=== PATIENT | female | born 1970 | race Caucasian/White ===

== ENCOUNTER 2022-08-19 11:12 | Outpatient (REF) | payer OTHER, SELFPAY ==
[2022-08-22 20:10] LABS: Age Gdln ACOG Testing Note (.); HPV Aptima Negative (Negative); IGP, Aptima HPV, rfx 16/18,45 Note (.)
== END 2022-08-19 11:13 | disposition home or self-care (01) ==
LOC: LAB 11:12
PROVIDERS: Visit Provider Obstetrics & Gynecology
DX: Z01.419 Encounter for gynecological examination (general) (routine) without abnormal findings (principal)
CPT/HCPCS: 87624; G0145

== ENCOUNTER 2023-02-26 10:06 | Outpatient (OUT) | payer OTHER, SELFPAY ==
--- NOTE | 2023-02-26 10:30 | MM_ITS ---
Patient Name: RENATO ELLSWORTH MR#: [id number] : 1970 Exam Date: 02/26/2023 Ordering Doctor: DR Jonathan Harris . RADIOLOGY REPORT PROCEDURE: MM TOMOSYNTHESIS SCREENING BI COMPARISON: MG MAMM SCREEN 3D KEIKO CAD, 11/06/2021. MG MAMM SCREEN 3D KEIKO CAD, 10/09/2020. MG MAMM KEIKO DIAG W CAD, 08/20/2019. MG MAMM KEIKO SCRN W CAD DIG, 02/22/2013. INDICATIONS: screening Calculator Name NCI Breast Cancer Risk Assessment Tool 5 Year Breast Cancer Risk 3.00% Lifetime Breast Cancer Risk 23.80% Personal Breast Cancer No Personal Ovarian Cancer No Treatments None Family Cancers Grandfather-paternal with brain,liver cancer at age 60; Sister with breast cancer at age 45; Grandmother-maternal with colon cancer at age 70. LOCATION: [facility] BREAST COMPOSITION: Heterogeneously dense,which may obscure small masses. FINDINGS: DIAGNOSTIC CATEGORY 0--INCOMPLETE: NEED ADDITIONAL IMAGING EVALUATION. RIGHT BREAST: No significant suspicious finding. No significant change has occurred. LEFT BREAST: 6 mm mass versus cyst within anterior breast 6 o'clock position, just inferior to nipple line. Spot magnification views and ultrasound evaluation recommended. RECOMMENDATIONS: ADDITIONAL MAMMOGRAPHIC VIEWS REQUIRED: LEFT BREAST - LEFT CRANIOCAUDAL SPOT MAGNIFICATION VIEW - LEFT OBLIQUE SPOT MAGNIFICATION VIEW - ULTRASOUND: LEFT BREAST PLEASE NOTE: A NORMAL MAMMOGRAM DOES NOT EXCLUDE THE POSSIBILITY OF BREAST CANCER. A CLINICALLY SUSPICIOUS PALPABLE LUMP SHOULD BE BIOPSIED. Dictated by: Alek Cortes M.D. on 02/27/2023 at 07:45 Approved by: Alek Cortes M.D. on 02/27/2023 at 08:35
--- NOTE | 2023-02-26 10:40 | XR_ITS ---
[address] [address] Patient Name: RENATO ELLSWORTH MRN: [id number] date: 1970 Sex: F Assigned Patient Location: [facility] Current Patient Location: [facility] Accession/Order Number: [id number] Exam Date: 02/26/2023 10:30 Report Date: 02/26/2023 11:55 At the request of: PARIS CERDA Procedure: XR DEXA axial skeleton EXAMINATION: XR DEXA axial skeleton HISTORY: Asymptomatic menopausal state Z78.0 COMPARISON: No relevant comparison available. TECHNIQUE: Dual-energy X-ray absorptiometry (DXA) was performed. FINDINGS: SPINE ANALYSIS: Average bone mineral density is 1.218 g/cm2. T-score (standard deviation relative to young adult mean): 0.3 . HIP ANALYSIS: Lowest bone mineral density is within the left femoral neck, 0.898 g/cm2. T-score (standard deviation relative to young adult mean): -1.0 . XR/XR DEXA axial skeleton IMPRESSION: [employer] Classification: Normal - Low Fracture Risk Electronically authenticated by: JUANCHO OWENS Date: 02/26/2023 11:55
== END 2023-02-26 10:07 | disposition home or self-care (01) ==
LOC: MAMMO 10:06
PROVIDERS: PCP Internal Medicine; Visit Provider Obstetrics & Gynecology
DX: Z12.31 Encounter for screening mammogram for malignant neoplasm of breast (principal); Z78.0 Asymptomatic menopausal state; Z80.8 Family history of malignant neoplasm of other organs or systems; Z80.3 Family history of malignant neoplasm of breast; Z80.0 Family history of malignant neoplasm of digestive organs
CPT/HCPCS: 77063; 77067; 77080

== ENCOUNTER 2023-03-19 08:00 | Outpatient (OUT) | payer OTHER, SELFPAY ==
--- NOTE | 2023-03-19 08:03 | MM_ITS ---
Patient Name: RENATO ELLSWORTH MR#: [id number] : 1970 Exam Date: 03/19/2023 Ordering Doctor: DR Jonathan Harris . RADIOLOGY REPORT PROCEDURE: MM DIAGNOSTIC MAMMO UNILAT LT, 03/19/2023, 08:04 US BREAST LT LIMITED, 03/19/2023, 08:21 COMPARISON: MM TOMOSYNTHESIS SCREENING BI, 02/26/2023. INDICATIONS: Mass Of Left Breast N63.20, Abnormal Mammogram Calculator Name NCI Breast Cancer Risk Assessment Tool 5 Year Breast Cancer Risk 3.00% Lifetime Breast Cancer Risk 23.80% Personal Breast Cancer No Personal Ovarian Cancer No Treatments None Family Cancers Grandfather-paternal with brain,liver cancer at age 60; Sister with breast cancer at age 45; Grandmother-maternal with colon cancer at age 70. LOCATION: [facility] BREAST COMPOSITION: Heterogeneously dense,which may obscure small masses. FINDINGS: DIAGNOSTIC CATEGORY 3--PROBABLY BENIGN FINDING. THE FOLLOWING FINDING(S) HAS A HIGH PROBABILITY OF A BENIGN ETIOLOGY: Spot compression views of the left breast demonstrate a persistent 6.2 x 4.7 x 6.5 mm oval well-circumscribed nodule. Ultrasound demonstrates at the 6 o'clock position 1 cm from the nipple and 8.0 x 4.2 x 3.8 mm area of anechoic echogenicity with some internal echoes and no definite blood flow. A complex cyst is favored however this lesion is taller than it is wide and short interval follow-up with repeat ultrasound in 4-6 months is recommended to document stability. RECOMMENDATIONS: SHORT TERM FOLLOW-UP ULTRASOUND LEFT BREAST IN 6 MONTHS. PLEASE NOTE: A NORMAL MAMMOGRAM DOES NOT EXCLUDE THE POSSIBILITY OF BREAST CANCER. A CLINICALLY SUSPICIOUS PALPABLE LUMP SHOULD BE BIOPSIED. Dictated by: Saul Mary MD on 03/19/2023 at 08:35 Approved by: Saul Mary MD on 03/19/2023 at 08:41
--- OUTSIDE RECORDS SUMMARY | 2023-03-19 08:04 | XMS_ITS | CCD ---
Author Name Unknown Address [address] [place] [address] [id number] [place] [address] Organization [facility] Care Team Providers Care Operating Room Aide Name Role Phone Unavailable Primary Care Provider Denise HOBBS, DR OLIVAS Consulting Unavailable BALL, DR OLIVAS Attending Unavailable BALL, DR OLIVAS Admitting Unavailable BALL, DR OLIVAS Primary Care Unavailable ZAIDA, DR TOLEDO Admitting Unavailable ZAIDA, DR TOLEDO Consulting Unavailable ZAIDA, DR TOLEDO Attending Unavailable BALL, DR OLIVAS Primary Care Unavailable ZIEBER, DR ALEK Abreu Consulting Unavailable ZAIDA, DR TOLEDO Attending Unavailable ZAIDA, DR TOLEDO Admitting Unavailable ZAIDA, DR TOLEDO Consulting Unavailable BALL, DR OLIVAS Primary Care Unavailable BALL, DR OLIVAS Consulting Unavailable CHITO, DR OLIVAS Attending Unavailable CHITO, DR OLIVAS Admitting Unavailable CHITO, DR OLIVAS Primary Care Unavailable Chito, Vitaliy Unavailable Allergies Allergy Classification Reported Allergen(s) Allergy Type Date of Onset Reaction(s) Facility (1 source) Adhesive bandage Drug allergy (disorder) 5 [facility] Repository (1 source) Meperidine Drug Allergy 5 [facility]ository (1 source) Sulfonamides (Antibiotic) Drug allergy (disorder) 5 [facility] Repository (1 source) Meperidine Drug Allergy vomiting [facility] Other (1 source) Sulfacetamide Drug Allergy hives [facility] Other Medications Current Medications Medication Drug Class(es) Dates Sig (Normalized) Sig (Original) 3 ML semaglutide 1.34 MG/ML Pen Injector [Ozempic] (1 source) Start: 07-04-2022 inject 1 mg by subcutaneous injection every week Ozempic (1 MG/DOSE) 4 MG/3ML 1 MG Subcutaneous weekly July, Active calcium carbonate 500 mg chewable tablet (1 source) take 1 tablet by mouth every twenty-four hours Tums 500 MG 1 tablet Orally Once a day Active CPAP Machine (1 source) CPAP Machine Active doxycycline hyclate 100 mg oral capsule (1 source) Tetracycline-class Drug Start: 09-17-2022 take 1 capsule by mouth twice daily Doxycycline Hyclate 100 MG 1 capsule Orally twice daily for 7 days Aug, Active Ibuprofen (1 source) Nonsteroidal Anti-inflammatory Drug Motrin Active loratadine 10 mg oral tablet (1 source) take 1 tablet by mouth once daily Loratadine 10 MG 1 tablet Orally Once a day Active probiotic (1 source) probiotic as directed Active 24 hr venlafaxine 37.5 mg extended release oral capsule (1 source) Serotonin and Norepinephrine Reuptake Inhibitor take 1 capsule by mouth every twenty-four hours Effexor XR 37.5 MG 1 capsule with food Orally Once a day Active Problems Active Problems Problem Classification Problem Date Documented Date Episodic/Chronic Conditions associated with dizziness or vertigo (1 source) Benign paroxysmal positional vertigo; Translations: [Benign paroxysmal vertigo, unspecified ear] Episodic Diabetes mellitus with complications (1 source) Type 2 diabetes mellitus; Translations: [Type 2 diabetes mellitus with hyperglycemia] Chronic Diabetes mellitus without complication (1 source) Impaired fasting glycemia; Translations: [Impaired fasting glucose] Episodic Disorders of lipid metabolism (1 source) Pure hypercholesterolemia; Translations: [Familial hypercholesterolemia] Chronic Immunizations and screening for infectious disease (1 source) Encounter for screening for human papillomavirus (HPV); Translations: [ENC SCREENING HUMAN PAPILLOMAVIRUS] Onset: 08-17-2021 Episodic Other and unspecified benign neoplasm (2 sources) Other benign neoplasm of skin of scalp and neck; Translations: [Dermoid cyst of scalp] Episodic Other circulatory disease (1 source) Elevated blood-pressure reading without diagnosis of hypertension; Translations: [Elevated blood-pressure reading, without diagnosis of hypertension] Episodic Other diseases of veins and lymphatics (1 source) Peripheral venous insufficiency; Translations: [Venous insufficiency (chronic) (peripheral)] Episodic Other liver diseases (3 sources) Fatty (change of) liver, not elsewhere classified; Translations: [Nonalcoholic fatty liver disease] Chronic Other nutritional; endocrine; and metabolic disorders (1 source) Body mass index 30+ - obesity; Translations: [Body mass index (BMI) 35.0-35.9, adult] Chronic Other screening for suspected conditions (not mental disorders or infectious disease) (10 sources) Encounter for screening mammogram for malignant neoplasm of breast; Translations: [Encounter for screening for malignant neoplasm of cervix] Onset: 08-16-2021 Episodic Other skin disorders (1 source) Sebaceous cyst Episodic Otitis media and related conditions (1 source) Dysfunction of bilateral eustachian tubes; Translations: [Other specified disorders of Eustachian tube, bilateral] Episodic Residual codes; unclassified (1 source) Family history of malignant neoplasm of breast; Translations: [FAMILY HX MALIG NEOPLASM OF BREAST] Onset: 11-11-2021 Episodic Residual codes; unclassified (1 source) Family history of malignant neoplasm of digestive organs; Translations: [FAM HX MALIG NEOPLASM DIGESTIV ORGN] Onset: 11-11-2021 Episodic Skin and subcutaneous tissue infections (2 sources) Localized infection of skin AND/OR subcutaneous tissue; Translations: [Local infection of the skin and subcutaneous tissue, unspecified] Episodic Unclassified (3 sources) CONTACT W/AND (SUSP) EXPOS COVID-19; Translations: [CONTACT W/AND (SUSP) EXPOS COVID-19] Onset: 04-05-2021 Past or Other Problems Problem Classification Problem Date Documented Da te Episodic/Chronic Unclassified (1 source) CONTACT W/AND (SUSP) EXPOS COVID-19; Translations: [CONTACT W/AND (SUSP) EXPOS COVID-19] Onset: 04-03-2021 Results Test Name Value Interpretation Reference Range Facility MG MAMM SCREEN 3D KEIKO CADon 11-06-2021 MG MAMM SCREEN 3D KEIKO CAD Patient: RENATO ELLSWORTH Exam Date: 11/06/2021 : 1970 Gender:F Ordering : DR PARIS CERDA . Admission #: [id number] Family : Order #: [id number] CLICK HERE TO VIEW EXAM RADIOLOGY REPORT PROCEDURE: MAMMOGRAM SCREENING 3D BILATERAL CAD COMPARISON: MG MAMM SCREEN 3D KEIKO CAD, 10/09/2020. MG MAMM KEIKO DIAG W CAD, 08/20/2019. INDICATIONS: Screening mammography Calculator Name NCI Breast Cancer Risk Assessment Tool 5 Year Breast Cancer Risk 2.30% Lifetime Breast Cancer Risk 19.90% Personal Breast Cancer No Personal Ovarian Cancer No Treatments None Family Cancers Sister with breast cancer at age 45; Grandmother-maternal with colon cancer at age 70. LOCATION: [facility] BREAST COMPOSITION: Heterogeneously dense,which may obscure small masses. FINDINGS: DIAGNOSTIC CATEGORY 1--NEGATIVE. RIGHT BREAST: No significant suspicious finding. No significant change has occurred. LEFT BREAST: No significant suspicious finding. Biopsy marker clip within the lower-outer quadrant. No significant change has occurred. RECOMMENDATIONS: ROUTINE MAMMOGRAM AND CLINICAL EVALUATION IN 12 MONTHS. PLEASE NOTE: A NORMAL MAMMOGRAM DOES NOT EXCLUDE THE POSSIBILITY OF BREAST CANCER. A CLINICALLY SUSPICIOUS PALPABLE LUMP SHOULD BE BIOPSIED. Dictated by: Alek Cortes M.D. on 11/07/2021 at 10:44 Approved by: Aelk Cortes M.D. on 11/07/2021 at 10:48 Normal [facility] PAP ACOG PANEL 2: 30 to 65on 08-22-2021 . . Normal [facility] Comment on above: Result Comment: Perf ormed at: WB Performed By: #### [id number] #### [facility] [address] [address] [address] Josey Springer DIAGNOSIS: Comment Normal [facility] Comment on above: Result Comment: NEGA TIVE FOR INTRAEPITHELIAL LESION OR MALIGNANCY. THIS SPECIMEN WAS RESCREENED PART OF OUR DERRICK FOLLOWER PROGRAM. Performed at: WB Performed By: #### [id number] #### [facility] [address] [address] [address] Josey Springer HPV Aptima Negative Normal Negative [facility] Comment on above: Result Comment: This nucleic acid amplification test detects fourteen high-risk HPV types (16,18,31,33,35,39,45,51,52,56,58,59,66,68) without differentiation. Performed at: =G Performed By: #### [id number] #### [facility] [address] [address] [address] Josey Springer Methodology: Comment Normal [facility] Comment on above: Result Comment: This liquid based ThinPrep(R) pap test was screened with the use of an image guided system. Performed at: WB Performed By: #### [id number] #### [facility] [address] [address] [address] Josey Springer Note: Comment Normal [facility] Comment on above: Result Comment: The Pap smear is a screening test designed to aid in the detection of premalignant and malignant conditions of the uterine cervix. It is not a diagnostic procedure and should not be used as the sole means of detecting cervical cancer. Both false-positive and false-negative reports do occur. . Performed at: WB Performed By: #### [id number] #### [facility] [address] [place] [address] Dr. Josey Springer Performed by: Comment Normal [facility] Comment on above: Result Comment: Celestine Foreman, Make Up Worker (ASCP) Performed at: WB Performed By: #### [id number] #### [facility] [address] [place] [address] Dr. Josey Springer QC reviewed by: Comment Normal [facility] Comment on above: Result Comment: Edelmira Muñoz, Supervisory Make Up Worker (ASCP) Performed at: WB Performed By: #### [id number] #### [facility] [address] [place] [address] Dr. Josey Springer Specimen adequacy: Comment Normal [facility] Comment on above: Result Comment: Sati sfactory for evaluation. No endocervical component is identified. Performed at: WB Performed By: #### [id number] #### [facility] [address] [place] [address] Dr. Josey Springer Age Gdln ACOG Testing 30-65 Normal [facility] Comment on above: Performed By: #### [id number] #### [facility] [address] [place] [address] Dr. Josey Springer Covid-19 PCR (CVDTB)on SARS-CoV-2 (COVID-19) RNA SHANTA+probe Ql (Unsp spec) Not detected Normal NOT DETECTED [facility] Comment on above: Result Comment: This test is not yet approved or cleared by the [place] FDA. When there are no FDA-approved or cleared tests available, and other criteria are met, FDA can make tests available under an emergency access mechanism called an Emergency Use Authorization (EUA). The EUA for this test is supported by the Showcase Trimmer of Health and Human Service's (HHS's) declaration that circumstances exist to justify the emergency use of in vitro diagnostics for the detection and/or diagnosis of the virus that causes COVID-19. This EUA will remain in effect (meaning this test can be used) for the duration of the COVID-19 declaration justifying emergency of IVDs, unless it is terminated or revoked by FDA (after which the test may no longer be used). When diagnostic testing is negative, the possibility of a false negative should be considered in the context of a patient's recent exposures and the presence of clinical signs and symptoms consistent with SARS-CoV-2. Performed By: #### C [facility] #### [facility] [address] [place] [address] Dr. Josey Springer Glucose Poct Glucometerson 1 04-05-2020 Glucose [Mass/Vol] 101 mg/dL Normal [facility] Comment on above: Result Comment: [facility] Glucose Reference Range is dependent on time and content of last meal. Glucose of more than 200 mg/dL in a nonstressed, ambulatory subject supports the diagnosis of Diabetes Mellitus. PERFORMED BY: [place] [address] PATHOLOGIST [employer] IVA MALIN M.D. Performed By: #### G HOSSEIN #### Point of Care testing , COVID-19 Antigenon 1 COVID-19 Antigen Healthcare Worker?: N Lindsay Reference Lindsay Reference Negative SARS-CoV+SARS-CoV-2 (COVID-19) Ag [Presence] in Respiratory specimen by Rapid immunoassay Negative for SARS Antigen by TAMANNA COVID19 Blank Space Lindsay Disclaimer Negative results, from patients with symptom Lindsay Disclaimer onset beyond five days, should be treated as Lindsay Disclaimer presumptive and confirmation with a molecular Lindsay Disclaimer assay, if necessary, for patient management, Lindsay Disclaimer may be performed. Negative results do not rule Linsday Disclaimer out COVID-19 and should not be used as the sole Lindsay Disclaimer basis for treatment or patient management Lindsay Disclaimer decisions, including infection control decisions. Lindsay Disclaimer Negative results should be considered in the Lindsay Disclaimer context of a patient's recent exposures, history Lindsay Disclaimer and the presence of clinical signs and symptoms Lindsay Disclaimer consistent with COVID-19. COVID19 Blank Space Lindsay Disclaimer The Lindsay SARS Antigen TAMANNA does not differentiate Lindsay Disclaimer between SARS-CoV and SARS-CoV-2. COVID19 Blank Space Lindsay Disclaimer This test was developed and its performance Lindsay Disclaimer characteristic determined by [employer] and Lindsay Disclaimer validated at [facility]. This Lindsay Disclaimer test has not been FDA cleared or approved. This Lindsay Disclaimer test has been authorized by FDA under an Emergency Use Lindsay Disclaimer Authorization (EUA). This test has been validated Lindsay Disclaimer in accordance with the FDA's Guidance Document (Policy Lindsay Disclaimer for Diagnostics Testing in Laboratories Certified to Lindsay Disclaimer Perform High Complexity Testing under CLIA prior to Lindsay Disclaimer Emergency Use Authorization for Coronavirus Lindsay Disclaimer is during the Public Health Emergency) Lindsay Disclaimer issued on June 03, 2019. This test is only authorized Lindsay Disclaimer for the duration of time the declaration that Lindsay Disclaimer circumstances exist justifying the authorization of Lindsay Disclaimer the emergency use of in vitro diagnostic tests for Lindsay Disclaimer detection of SARS-CoV-2 virus and/or diagnosis of Lindsay Disclaimer COVID-19 infection under section 564(b)(1) of the Lindsay Disclaimer Act, 21 U.S.C. 360bbb-3(b)(1), unless the Lindsay Disclaimer authorization is terminated or revoked sooner. PERFORMED BY: [place] [address] PATHOLOGIST [employer] IVA MALIN M.D. Normal [facility] Comment on above: Performed By: #### C OVID-19 LINDSAY, SOFIANEG #### [address] Lindsay Ag Negativeon 02-01-20 21 Lindsay Ag Negative Negative Normal Negative [facility] Comment on above: Result Comment: This is a duplicate Lindsay SARS Antigen (TAMANNA) result to be used for statistical tracking purpose only. PERFORMED BY: [place] [address] PATHOLOGIST [employer] IVA MALIN M.D. Performed By: #### C OVID-19 LINDSAY, SOFIANEG #### [facility] [address] [place] [address] CBC AUTO DIFFon 01-09-2021 BASO # 0.0 103/ul Normal 0.0-0.1 [facility] Comment on above: Performed By: #### C BC #### [facility] [address] [place] [address] Dr. Josey Springer Basophils/100 WBC (Bld) 0.5 % Normal 0.2-2.0 [facility] Comment on above: Performed By: #### C BC #### [facility] [address] [place] [address] Dr. Josey Springer EO # 0.2 103/ul Normal 0.0-0.7 [facility] Comment on above: Performed By: #### C BC #### [facility] [address] [place] [address] Dr. Josey Springer Eosinophils/100 WBC (Bld) 2.2 % Normal 0.9-7.0 [facility] Comment on above: Performed By: #### C BC #### [facility] [address] [place] [address] Dr. Josey Springer Erythrocyte distribution width (RBC) [Ratio] 12.2 % Normal 11.0-15.0 [facility] Comment on above: Performed By: #### C BC #### [facility] [address] [place] [address] Dr. Josey Springer Hematocrit (Bld) [Volume fraction] 41.4 % Normal 36.0-48.0 [facility] Comment on above: Performed By: #### C BC #### [facility] [address] [place] [address] Dr. Josey Springer Hemoglobin (Bld) [Mass/Vol] 13.6 g/dL Normal 12.0-16.0 [facility] Comment on above: Performed By: #### C BC #### [facility] [address] [place] [address] Dr. Josey Springer IG # 0.01 10e3/ul Normal 0.00-0.03 [facility] Comment on above: Performed By: #### C BC #### [facility] [address] [place] [address] Dr. Josey Springer IG % 0.1 % Normal 0.0-0.5 [facility] Comment on above: Performed By: #### C BC #### [facility] [address] [place] [address] Dr. Josey Springer LYMPH # 2.2 103/ul Normal 1.2-3.8 [facility] Comment on above: Performed By: #### C BC #### [facility] [address] [place] [address] Dr. Josey Springer Lymphocytes/100 WBC (Bld) 29.7 % Normal 20.5-60.0 [facility] Comment on above: Performed By: #### C BC #### [facility] [address] [place] [address] Dr. Josey Springer MANUAL DIFF REQ NO Normal [facility] Comment on above: Performed By: #### C BC #### [facility] [address] [place] [address] Dr. Josey Springer MCH (RBC) [Entitic mass] 30.1 pg Normal 26.7-34.0 [facility] Comment on above: Performed By: #### C BC #### [facility] [address] [place] [address] Dr. Josey Springer MCHC (RBC) [Mass/Vol] 32.9 g/dL Normal 29.9-35.2 [facility] Comment on above: Performed By: #### C BC #### [facility] [address] [place] [address] Dr. Josey Springer MCV (RBC) [Entitic vol] 91.6 fL Normal 81.0-99.0 [facility] Comment on above: Performed By: #### C BC #### [facility] [address] [place] [address] Dr. Josey Springer MONO # 0.3 103/ul Normal 0.3-0.8 [facility] Comment on above: Performed By: #### C BC #### [facility] [address] [place] [address] Dr. Josey Springer Monocytes/100 WBC (Bld) 4.2 % Normal 1.7-12.0 [facility] Comment on above: Performed By: #### C BC #### [facility] [address] [place] [address] Dr. Josey Springer NEUT # 4.6 103/ul Normal 1.4-6.5 [facility] Comment on above: Performed By: #### C BC #### [facility] [address] [place] [address] Dr. Josey Springer Neutrophils/100 WBC (Bld) 63.3 % Normal 43.0-75.0 [facility] Comment on above: Performed By: #### C BC #### [facility] [address] [place] [address] Dr. Josey Springer Platelet mean volume (Bld) [Entitic vol] 9.7 fL Normal 9.5-13.5 [facility] Comment on above: Performed By: #### C BC #### [facility] [address] [address] [address] Josey Springer PLT 225 103/ul Normal 150-450 [facility] Comment on above: Performed By: #### C BC #### [facility] [address] [address] [address] Josey Springer RBC 4.52 106/ul Normal 4.20-5.40 [facility] Comment on above: Performed By: #### C BC #### [facility] [address] [address] [address] Josey Springer WBC 7.3 103/ul Normal 4.0-11.0 [facility] Comment on above: Performed By: #### C BC #### [facility] [address] [address] [address] Josey Springer GLYCOHEMOGLOBIN A1Con 2020 ADA RECOMMENDATION ADA THERAPEUTIC TARGET 6.0 - 7.0 ACTION SUGGESTED > 7.0 Normal [facility] Comment on above: Performed By: #### A 1C #### [facility] [address] [place] [address] Dr. Josey Springer Glucose [Mass/Vol] 131 mg/dL Normal [facility] Comment on above: Performed By: #### A 1C #### [facility] [address] [place] [address] Dr. Josey Springer HbA1c (Bld) [Mass fraction] 6.2 % Critically high <=6.0 [facility] Comment on above: Performed By: #### A 1C #### [facility] [address] [place] [address] Dr. Josey Springer LIPID PROFILEon 01-09-2021 CHOL-HDL RATIO NORM SEE BELOW Normal [facility] Comment on above: Result Comment: 3.3 - 4.4 LOW RISK 4.4 - 7.1 AVERAGE RISK 7.1 - 11.0 MODERATE RISK >11.0 HIGH RISK Performed By: #### C MP, TSH, LIPID #### [facility] [address] [address] [address] Josey Springer Cholesterol [Mass/Vol] 240 mg/dL Critically high <=200 [facility] Comment on above: Performed By: #### C MP, TSH, LIPID #### [facility] [address] [address] [address] Josey Springer Cholesterol in HDL [Mass/Vol] 66 mg/dL Normal [facility] Comment on above: Performed By: #### C MP, TSH, LIPID #### [facility] [address] [address] [address] Josey Springer Cholesterol in LDL [Mass/Vol] 136.6 mg/dL Normal [facility] Comment on above: Performed By: #### C MP, TSH, LIPID #### [facility] [address] [address] [address] Josey Springer Cholesterol.total/Ch olesterol in HDL [Mass ratio] 3.6 {ratio} Normal [facility] Comment on above: Performed By: #### C MP, TSH, LIPID #### [facility] [address] [address] [address] Josey Springer HDL NORMAL > or = 60 mg/dl - LO W CARDIOVASCULAR RISK <40 mg/dl - HIGH CARDIOVASCULAR RISK Normal [facility] Comment on above: Performed By: #### C MP, TSH, LIPID #### [facility] [address] [address] [address] Josey Springer LDL CALC NORMAL SEE BELOW Normal [facility] Comment on above: Result Comment: <100 mg/dl OPTIMAL 100 - 129 mg/dl NEAR OR ABOVE OPTIMAL 130 - 159 mg/dl BORDERLINE HIGH 160 - 189 mg/dl HIGH >190 mg/dl VERY HIGH Performed By: #### C MP, TSH, LIPID #### [facility] [address] [address] [address] Josey Springer Triglyceride [Mass/Vol] 187 mg/dL Critically high <=150 [facility] Comment on above: Performed By: #### C MP, TSH, LIPID #### [facility] [address] [address] [address] Josey Springer VLDL CALC 37.4 mg/dL Normal [facility] Comment on above: Performed By: #### C MP, TSH, LIPID #### [facility] [address] [address] [address] Josey Springer PROF 14(COMP METB)on 021 Albumin [Mass/Vol] 3.4 g/dL Critically low 3.5-5.0 [facility] Comment on above: Performed By: #### C MP, TSH, LIPID #### [facility] [address] [address] [address] Josey Springer Albumin/Globulin [Mass ratio] 0.8 {ratio} Normal [facility] Comment on above: Performed By: #### C MP, TSH, LIPID #### [facility] [address] [address] [address] Josey Springer ALP [Catalytic activity/Vol] 92 U/L Normal 38-126 [facility] Comment on above: Performed By: #### C MP, TSH, LIPID #### [facility] [address] [address] [address] Josey Springer ALT [Catalytic activity/Vol] 180 U/L Critically high 9-52 [facility] Comment on above: Performed By: #### C MP, TSH, LIPID #### [facility] [address] [address] [address] Josey Springer Anion gap [Moles/Vol] 10.8 mmol/L Normal [facility] Comment on above: Performed By: #### C MP, TSH, LIPID #### [facility] [address] [address] [address] Josey Springer AST [Catalytic activity/Vol] 70 U/L Critically high 14-36 [facility] Comment on above: Performed By: #### C MP, TSH, LIPID #### [facility] [address] [address] [address] Josey Springer Bilirubin [Mass/Vol] 0.4 mg/dL Normal 0.2-1.3 [facility] Comment on above: Performed By: #### C MP, TSH, LIPID #### [facility] [address] [address] [address] Josey Springer Calcium [Mass/Vol] 9.5 mg/dL Normal 8.4-10.2 [facility] Comment on above: Performed By: #### C MP, TSH, LIPID #### [facility] [address] [address] [address] Josey Springer Chloride [Moles/Vol] 102 mmol/L Normal 98-107 [facility] Comment on above: Performed By: #### C MP, TSH, LIPID #### [facility] [address] [address] [address] Josey Springer CO2 [Moles/Vol] 32.7 mmol/L Critically high 22.0-30.0 [facility] Comment on above: Performed By: #### C MP, TSH, LIPID #### [facility] [address] [place] [address] Dr. Josey Springer Creatinine [Mass/Vol] 0.60 mg/dL Normal 0.52-1.04 [facility] Comment on above: Performed By: #### C MP, TSH, LIPID #### [facility] [address] [place] [address] Dr. Josey Springer EGFR-AF CUBAN >60 Normal >=60 [facility] Comment on above: Performed By: #### C MP, TSH, LIPID #### [facility] [address] [place] [address] Dr. Josey Springer EGFR-NON AF CUBAN >60 Normal >=60 [facility] Comment on above: Performed By: #### C MP, TSH, LIPID #### [facility] [address] [place] [address] Dr. Josey Springer Globulin (S) [Mass/Vol] 4.1 g/dL Normal [facility] Comment on above: Performed By: #### C MP, TSH, LIPID #### [facility] [address] [address] [address] Josey Springer Glucose [Mass/Vol] 139 mg/dL Critically high 74-106 [facility] Comment on above: Performed By: #### C MP, TSH, LIPID #### [facility] [address] [place] [address] Dr. Josey Springer Potassium [Moles/Vol] 4.5 mmol/L Normal 3.4-5.0 [facility] Comment on above: Performed By: #### C MP, TSH, LIPID #### [facility] [address] [place] [address] Dr. Josey Springer Protein [Mass/Vol] 7.5 g/dL Normal 6.1-8.2 [facility] Comment on above: Performed By: #### C MP, TSH, LIPID #### [facility] [address] [place] [address] Dr. Josey Springer Sodium [Moles/Vol] 141 mmol/L Normal 137-145 [facility] Comment on above: Performed By: #### C MP, TSH, LIPID #### [facility] [address] [place] [address] Dr. Josey Springer Urea nitrogen [Mass/Vol] 12.0 mg/dL Normal 7.0-17.0 [facility] Comment on above: Performed By: #### C MP, TSH, LIPID #### [facility] [address] [place] [address] Dr. Josey Springer Urea nitrogen/Creatinine [Mass ratio] 20.0 mg/mg Normal [facility] Comment on above: Performed By: #### C MP, TSH, LIPID #### [facility] [address] [place] [address] Dr. Josey Springer TSHon 01-09-2021 TSH 1.819 uIU/mL Normal 0.470-4.680 [facility] Comment on above: Performed By: #### C MP, TSH, LIPID #### [facility] [address] [place] [address] Dr. Josey Springer TSH RANGE SEE BELOW Normal [facility] Comment on above: Result Comment: <0.3 4 UIU/ml HYPERTHYROID 0.34-5.60 UIU/ml EUTHYROID >5.60 UIU/ml HYPOTHYROID Performed By: #### C MP, TSH, LIPID #### [facility] [address] [place] [address] Dr. Josey Springer Vital Signs Date Time Vital Sign Value Performing Clinician Facility 09-17-2022 11:15-0400 Body height 154.94 cm Vitaliy Hobbs Other [facility] Other 09-17-2022 11:15-0400 Body mass index (BMI) [Ratio] 35.18 kg/m2 Vitaliy Chito Other [facility] Other 09-17-2022 11:15-0400 Body weight 84.46 kg Vitaliy Chito Other [facility] Other 09-17-2022 11:15-0400 Diastolic blood pressure 87 mm[Hg] Vitaliy Chito Other [facility] Other 09-17-2022 11:15-0400 Respiratory rate 12 /min Vitaliy Chito Other [facility] Other 09-17-2022 11:15-0400 Systolic blood pressure 136 mm[Hg] Vitaliy Chito Other [facility] Other Encounters Encounter Date Encounter Type Care Provider Facility Start: 09-17-2022 End: 09-17-2022 ambulatory Vitaliy Hobbs Other [facility] Other Start: 09-17-2022 Office outpatient visit 15 minutes [facility] Start: 11-06-2021 End: 11-07-[address] PARIS CERDA Facility:[facility] Start: 08-16-2021 End: 08-16-[address] PARIS CERDA Facility:[facility] Start: 04-03-2021 End: 04-03-[address] VITALIY HOBBS Facility:[facility] Start: 01-13-2021 Encounter for genera l adult medical examination without abnormal findings DR VITALIY HOBBS [facility] Start: 01-09-2021 End: 01-10-[address] VITALIY HOBBS Facility:[facility] Start: 01-09-2021 End: 01-10-2021 Encounter for general adult medical examination without abnormal findings DR VITALIY HOBBS Facility:[facility] Start: 10-30-2019 End: 10-30-2019 Patient encounter procedure Charisma Mazariegos Work Phone: [facility] Start: 10-30-2019 Results Only Charisma Mazariegos Work Phone: Gastroenterology Start: 10-29-2019 End: 10-29-2019 Patient encounter procedure External Provider [facility] Start: 10-29-2019 Results Only External Provider Exter nal-Non[facility] Procedures Date Procedure Procedure Detail Performing Clinician Start: 10-30-2019 PT ED PATIENT INFORMATION Charisma Mazariegos Work Phone: Start: 10-29-2019 EXTERNAL LAB External P rovider Start: 10-29-2019 EXTERNAL IMAGING Educational Fundraising Director al Provider Plan of Treatment Date Care Activity Detail Author Start: 11-02-2019 Influenza vaccination INFLUENZA (#1) [facility] Start: 01-21-2017 DIABETES SCREEN DIABETES SCREEN [facility] Start: 01-21-2017 LIPID SCREEN LIPID SCREEN [facility] Start: 2012 Mammography MAMMOGRAM [facility] Start: 01-21-2002 HPV TESTING HPV TESTING [facility] Start: 01-21-1993 PAP TESTING PAP TESTING [facility] Start: 01-21-1991 Urine microalbumin profile DTAP,TDAP ,TD (1 - Tdap) [facility] Start: 01-21-1990 HEPATITIS C SCREENING HEPATITIS C SC MARTHA [facility] Start: 01-21-1990 HIV SCREENING HIV SCREENING [facility] PT ED PATIENT INFORMATION PT ED PATIENT INFORMATION TONYA 10/30/2019 [facility] Payers Date Payer Category Payer Private Health Insurance [employer] A ETNA CHOICE POS II [id number] 2019-Present POS [id number] 1972 Unknown [id number] 1972 Unknown [id number] 1972 Unknown [id number] 1972 Unknown [id number] 1959 Private Health Insurance [id number] 1957 Unknown [id number] Private Health Insurance [id number] Social History Date Type Detail Facility Tobacco smoking status NHIS Unknown if ev er smoked [facility] Sex Assigned At Not on file [facility] Exposure to SARS-CoV -2 (event) Not sure [facility] Sex Assigned At Sex Assigned At Bir th [facility] Other Evaluation note 09-17-2022 Note Date & Type Note Facility 09-17-2022 Evaluation note Encounter Date Diagnosis Assessment Notes Aug, Sebaceous cyst (ICD-10 - L72.3) Warm compresses. Begin antibiotics _update office in week Aug, Local infection of the skin and subcutaneous tissue, unspecified (ICD-10 - L08.9) Warm compresses, begin antibiotics Aug, Dermoid cyst of scalp (ICD-10 - D23.4) Reassure, no treatment necessary Aug, NAFLD (nonalcoholic fatty liver disease) (ICD-10 - K76.0) Low fat, high protein diet. Reduce calories, increase activity for weight loss [facility] Other History general Narrative - Reported Note Date & Type Note Facility History general Narrative - Reported Type Medical History T2DM Medical History Eustachian tube dysf unction, bilateral Medical History Elevated blood press ure (not hypertension) Medical History BPPV (benign paroxys mal positional vertigo) Medical History Impaired fasting glucose Medical History Hyperlipidemia type II Medical History Chronic venous insufficiency Medical History Nonalcoholic fatty liver disease Medical History Abnormal mammogram of left breas t Surgical History EXPLORATORY LAPAROSC OPY RUPTURED OVARIAN CYST REPAIR-NOT SURE WHICH SIDE/APPENDECTOMY 1998 Surgical History EXPLORATORY LAP Surgical History PARTIAL HYSTERECTOMY WITH ONE OVARY REMAINING Hospitalization History SEE ABOVE [facility] Other Summary Purpose Family History No Family History Records FoundNo Family History Records Found Advance Directives No Advanced Directives Records FoundNo Advanced Directives Records Found Additional Source Comments Source Comments (unrecognize d section and content) In the event this informatio n is protected by the Federal Confidentiality of Alcohol and Drug Abuse Patient Records regulations: The Federal rules restrict any use of the information to criminally investigate or prosecute any alcohol or drug abuse patient[facility] the event this information is protected by the Federal Confidentiality of Alcohol and Drug Abuse Patient Records regulations: The Federal rules restrict any use of the information to criminally investigate or prosecute any alcohol or drug abuse patient.[facility] INFORMATION SOURCE (unrecogn ized section and content) DATE CREATED AUTHOR 04/09/2021 [facility] DATE CREATED AUTHOR AUTHORSoco WALLACE 11/11/2021 [facility] REASON FOR VISIT (unrecogniz ed section and content) spider bite FOR RECORDS PERTAINING TO PATIENTS WHO ARE OR HAVE BEEN ENROLLED IN A CHEMICAL DEPENDENCY/SUBSTANCEABUSE PROGRAM, SOME INFORMATION MAY BE OMITTED. This clinical summary was aggregated from multiple sources. Caution should be exercised in using it in the provision of clinical care. This summary normalizes information from multiple sources, and as a consequence, information in this document may materially change the coding, format and clinical context of patient data. In addition, data may be omitted in some cases. CLINICAL DECISIONS SHOULD BE BASED ON THE PRIMARY CLINICAL RECORDS. [employer] provides no warranty or guarantee of the accuracy or completeness of information in this document.
== END 2023-03-19 08:01 | disposition home or self-care (01) ==
LOC: MAMMO 08:00
PROVIDERS: PCP Internal Medicine; Visit Provider Obstetrics & Gynecology
DX: R92.8 Other abnormal and inconclusive findings on diagnostic imaging of breast (principal); N63.20 Unspecified lump in the left breast, unspecified quadrant; Z80.3 Family history of malignant neoplasm of breast; Z80.0 Family history of malignant neoplasm of digestive organs; Z80.8 Family history of malignant neoplasm of other organs or systems
CPT/HCPCS: 76642; 77065

== ENCOUNTER 2023-07-29 15:06 | Outpatient (OUT) | payer OTHER, SELFPAY ==
--- NOTE | 2023-07-29 15:08 | US_ITS ---
Patient Name: RENATO ELLSWORTH MR#: [id number] : 1970 Exam Date: 07/29/2023 Ordering Doctor: DR Jonathan Harris . RADIOLOGY REPORT PROCEDURE: US BREAST LT LIMITED COMPARISON: MM DIAGNOSTIC MAMMO UNILAT LT, 03/19/2023. US BREAST LT LIMITED, 03/19/2023. INDICATIONS: Mammogram abnormal R92.8 TECHNIQUE: Breast ultrasound was performed, with evaluation focusing only on specific areas of concern. FINDINGS: DIAGNOSTIC CATEGORY 2--BENIGN FINDING. NO CHANGE FROM COMPARISON. Again demonstrated at the 6 o'clock position is an 8.4 x 4.8 x 3.8 mm complex cystic structure taller than it is wide , scattered internal septations and some low-level echoes but no vascularity. I favor a complex cyst. The patient is asked to return to yearly screening mammography with repeat bilateral screening mammogram due February of 2024 RECOMMENDATIONS: ROUTINE MAMMOGRAM AND CLINICAL EVALUATION IN 12 MONTHS. Active recommendations from prior exams: SHORT TERM FOLLOW-UP ULTRASOUND LEFT BREAST IN [#MONTHS] MONTHS. Due on 09/18/2023. PLEASE NOTE: A NORMAL ULTRASOUND EXAMINATION DOES NOT EXCLUDE THE POSSIBILITY OF BREAST CANCER. A CLINICALLY SUSPICIOUS PALPABLE LUMP SHOULD BE BIOPSIED. Dictated by: Saul Mary MD on 07/30/2023 at 08:47 Approved by: Saul Mary MD on 07/30/2023 at 08:50
== END 2023-07-29 15:07 | disposition home or self-care (01) ==
LOC: US 15:06
PROVIDERS: PCP Internal Medicine; Visit Provider Obstetrics & Gynecology
DX: R92.8 Other abnormal and inconclusive findings on diagnostic imaging of breast (principal); N63.20 Unspecified lump in the left breast, unspecified quadrant
CPT/HCPCS: 76642

== ENCOUNTER 2023-08-21 19:31 | Outpatient (REF) | payer OTHER, SELFPAY ==
--- OUTSIDE RECORDS SUMMARY | 2023-08-21 19:34 | XMS_ITS ---
Patient Summarization (C-CDA 2.1 CCD) Created on: August 21, 2023 RENATO ELLSWORTH : 1970 Sex: Female Author Organization Sample organization Care Team Providers Care Web Site Specialist Name Role Phone Unavailable Primary Care Provider [...] Admitting Unavailable ZAIDA, DR TOLEDO Consulting Unavailable CHITO, DR OLIVAS Primary Care Unavailable BALL, DR OLIVAS Consulting Unavailable CHITO, DR OLIVAS Attending Unavailable BALL, DR OLIVAS Admitting Unavailable BALL, DR OLIVAS Primary Care Unavailable Chito, Vitaliy Unavailable Allergies Allergy Classification Reported Allergen(s) Allergy Type Date of Onset Reaction(s) Facility (1 source) Adhesive bandage Drug allergy (disorder) 5 [facility] Repository (1 source) Meperidine Drug Allergy 5 [facility] Repository (1 source) Sulfonamides (Antibiotic) Drug allergy (disorder) 5 [facility] Repository (1 source) Meperidine Drug Allergy vomiting [employer] [facility] [employer] Other (1 source) Sulfacetamide Drug Allergy hives [employer] [facility] [employer] Other Encounters Encounter Date Encounter Type Care Provider Facility Start: 09-17-2022 End: 09-17-2022 ambulatory Vitaliy Hobsb Other [employer] Other Start: 09-17-2022 Office outpatient visit 15 minutes [facility] Start: 11-06-2021 End: 11-07-[address] PARIS CERDA Facility:[facility] Start: 08-16-2021 End: 08-16-[address] PARIS CERDA Facility:[facility] Start: 04-03-2021 End: 04-03-[address] VITALIY HOBBS Facility:[facility] Start: 01-13-2021 Encounter for genera l adult medical examination without abnormal findings DR VITALIY HOBBS [facility] Start: 01-09-2021 End: 01-10-[address] VITALIY HOBBS Facility:[facility] Start: 01-09-2021 End: 01-10-2021 Encounter for general adult medical examination without abnormal findings DR VITALIY HOBBS Facility:[facility] Start: 10-30-2019 End: 10-30-2019 Patient encounter procedure Charisma Mazariegos Work Phone: [facility] Start: 10-30-2019 Results Only Charisma Mazariegos Work Phone: Gastroenterology Start: 10-29-2019 End: 10-29-2019 Patient encounter procedure External Provider [facility] Start: 10-29-2019 Results Only External Provider Exter nal-NonCCF Medications Current Medications Medication Drug Class(es) Dates [...] with food Orally Once a day Active Payers Date Payer Category Payer Private Health Insurance [employer] A ETNA CHOICE POS II [id number] 2019-Present POS [id number] 1970 Unknown [id number] 1970 Unknown [id number] 1970 Unknown [id number] 1970 Unknown [id number] 1957 Private Health Insurance [id number] 1957 Unknown [id number] Private Health Insurance [id number] Plan of Treatment Date Care Activity Detail Author Start: 11-02-2019 Influenza vaccination INFLUENZA (#1) [facility] Start: 01-21-2017 DIABETES SCREEN DIABETES SCREEN [facility] Start: 01-21-2017 LIPID SCREEN LIPID SCREEN [facility] Start: 2012 Mammography MAMMOGRAM [facility] Start: 01-21-2002 HPV TESTING HPV TESTING [facility] Start: 01-21-1993 PAP TESTING PAP TESTING [facility] Start: 01-21-1991 Urine microalbumin profile DTAP,TDAP ,TD (1 - Tdap) [facility] Start: 01-21-1990 HEPATITIS C SCREENING HEPATITIS C SC MARTHA [facility] Start: 01-21-1990 HIV SCREENING [facility]CRE[facility]ING [facility] ED PATIENT INFORMATION PT ED PATIENT INFORMATION TONYA 10/30/2019 [facility] Problems Active Problems Problem Classification Problem Date [...] [CONTACT W/AND (SUSP) EXPOS COVID-19] Onset: 04-03-2021 Procedures Date Procedure Procedure Detail Performing Clinician Start: 10-30-2019 PT ED PATIENT INFORMATION Charisma Mazariegos Work Phone: Start: 10-29-2019 EXTERNAL LAB External P rovider Start: 10-29-2019 EXTERNAL IMAGING Radiology Technologist al Provider Results Test Name Value Interpretation Reference Range Facility MG MAMM SCREEN 3D KEIKO CADon 11-06-2021 MG MAMM SCREEN 3D KEIKO CAD Patient: RENATO ELLSWORTH Exam Date: 11/06/2021 : 1970 Gender:F Ordering : DR PARIS CERDA . Admission #: [id number] Family : Order #: [id number] CLICK HERE TO VIEW EXAM RADIOLOGY REPORT [...] colon cancer at age 72. LOCATION: [facility] BREAST COMPOSITION: Heterogeneously dense,which may obscure small [...] M.D. on 11/07/2021 at 10:44 Approved by: Alek Cortes M.D. on 11/07/2021 at 10:48 Normal [facility] PAP ACOG PANEL 2: 30 to 65on 08-22-2021 . . Normal [facility] Comment on above: Result Comment: Perf ormed at: WB Performed By: #### [id number] #### [facility] [address] [address] [address] Josey Springer Age Gdln ACOG Testing 30-65 Normal [facility] Comment on above: Performed By: #### 4 [id number] #### [facility] [address] [address] [address] Josey Springer DIAGNOSIS: Comment Normal [facility] Comment on above: Result Comment: NEGA TIVE FOR INTRAEPITHELIAL LESION OR MALIGNANCY. THIS SPECIMEN WAS RESCREENED PART OF OUR AGENT BASED MODELER PROGRAM. Performed at: WB Performed By: #### [id number] #### [facility] [address] [place] [address] Dr. Josey Springer HPV Aptima Negative Normal Negative [facility] Comment on above: Result Comment: This nucleic acid amplification test detects fourteen high-risk HPV types (16,18,31,33,35,39,45,51,52,56,58,59,66,68) without differentiation. Performed at: =G Performed By: #### [id number] #### [facility] [address] [place] [address] Dr. Josey Springer Methodology: Comment Normal [facility] Comment on above: Result Comment: This liquid based ThinPrep(R) pap test was screened with the use of an image guided system. Performed at: WB Performed By: #### 4 [id number] #### [facility] [address] [place] [address] Dr. Josey Springer Note: Comment Normal [facility] Comment on above: Result Comment: The Pap smear is a screening test designed to aid in the detection of premalignant and malignant conditions of the uterine cervix. It is not a diagnostic procedure and should not be used as the sole means of detecting cervical cancer. Both false-positive and false-negative reports do occur. . Performed at: WB Performed By: #### [id number] #### [facility] [address] [place] [address] Dr. Josey Springer Performed by: Comment Normal [facility] Comment on above: Result Comment: Celestine Foreman, Airplane Captain (ASCP) Performed at: WB Performed By: #### [id number] #### [facility] [address] [address] [address] Josey Springer QC reviewed by: Comment Normal [facility] Comment on above: Result Comment: Edelmira Muñoz, Supervisory Airplane Captain (ASCP) Performed at: WB Performed By: #### [id number] #### [facility] [address] [address] [address] Josey Springer Specimen adequacy: Comment Normal [facility] Comment on above: Result Comment: Sati sfactory for evaluation. No endocervical component is identified. Performed at: WB Performed By: #### 4 [id number] #### [facility] [address] [place] [address] Dr. Josey Springer [facility]on SARS-CoV-2 (COVID-19) RNA SHANTA+probe Ql (Unsp spec) Not detected Normal NOT DETECTED [facility] Comment on above: Result Comment: This test is not yet approved or cleared by the [place] FDA. When there are no FDA-approved or cleared tests available, and other criteria are met, FDA can make tests available under an emergency access mechanism called an Emergency Use Authorization (EUA). The EUA for this test is supported by the Desizing Pad Operator of Health and Human Service's (HHS's) declaration [...] consistent with SARS-CoV-2. Performed By: #### C VDTBH #### [facility] [address] [place] [address] Dr. Josey Springer Glucose Poct Glucometerson 1 04-05-2020 Glucose [Mass/Vol] 101 mg/dL Normal [facility] Comment on above: Result Comment: [facility] Glucose Reference Range is dependent on time and content of last meal. Glucose of more than 200 mg/dL in a nonstressed, ambulatory subject supports the diagnosis of Diabetes Mellitus. PERFORMED BY: [facility] [place] [address] PATHOLOGIST HOLTER TECHNICIAN IVA MALIN M.D. Performed By: #### G [...] be performed. Negative results do not rule Lindsay Disclaimer out COVID-19 and should not be [...] its performance Lindsay Disclaimer characteristic determined by [employer] and Lindsay Disclaimer validated at [facility]. This Lindsay Disclaimer test has not [...] Emergency Use Authorization for Coronavirus Lindsay Disclaimer iseas during the Public Health Emergency) Lindsay Disclaimer [...] is terminated or revoked sooner. PERFORMED BY: [place] [address] PATHOLOGIST HOLTER TECHNICIAN IVA MALIN M.D. Normal [facility] Comment on above: Performed By: #### C OVID-19 LINDSAY, SOFIANEG #### [address] Lindsay Ag Negativeon 02-01-20 21 Lindsay Ag Negative Negative Normal Negative [facility] Comment on above: Result Comment: This is a duplicate Lindsay SARS Antigen (TAMANNA) result to be used for statistical tracking purpose only. PERFORMED BY: [facility] [address] [place] [address] PATHOLOGIST HOLTER TECHNICIAN IVA MALIN M.D. Performed By: #### C OVID-19 EMELIA MONTOYAEG #### [place] [id number] [facility] CBC AUTO DIFFon 01-09-2021 BASO # 0.0 103/ul Normal 0.0-0.1 [facility] Comment on above: Performed By: #### C BC #### [facility] [address] [place] [address] Dr. Joesy Springer Basophils/100 WBC (Bld) 0.5 % Normal 0.2-2.0 [facility] Comment on above: Performed By: #### C BC #### [facility] [address] [place] [address] Dr. Josey Springer EO # 0.2 103/ul Normal 0.0-0.7 [facility] Comment on above: Performed By: #### C BC #### [facility] [address] [place] [address] Dr. Josey Springer Eosinophils/100 WBC (Bld) 2.2 % Normal 0.9-7.0 [facility] Comment on above: Performed By: #### C BC #### [facility] [address] [place] [address] Dr. Josey Springer Erythrocyte distribution width (RBC) [Ratio] 12.2 % Normal 11.0-15.0 [facility] Comment on above: Performed By: #### C BC #### [facility] [address] [place] [address] Dr. Josey Springer Hematocrit (Bld) [Volume fraction] 41.4 % Normal 36.0-48.0 [facility] Comment on above: Performed By: #### C BC #### [facility] [address] [place] [address] Dr. Josey Springer Hemoglobin (Bld) [Mass/Vol] 13.6 g/dL Normal 12.0-16.0 [facility] Comment on above: Performed By: #### C BC #### [facility] [address] [place] [address] Dr. Josey Springer IG # 0.01 10e3/ul Normal 0.00-0.03 [facility] Comment on above: Performed By: #### C BC #### [facility] [address] [place] [address] Dr. Josey Springer IG % 0.1 % Normal 0.0-0.5 [facility] Comment on above: Performed By: #### C BC #### [facility] [address] [place] [address] Dr. Josey Springer LYMPH # 2.2 103/ul Normal 1.2-3.8 [facility] Comment on above: Performed By: #### C BC #### [facility] [address] [place] [address] Dr. Josey Springer Lymphocytes/100 WBC (Bld) 29.7 % Normal 20.5-60.0 [facility] Comment on above: Performed By: #### C BC #### [facility] [address] [place] [address] Dr. Josey Springer MANUAL DIFF REQ NO Normal [facility] Comment on above: Performed By: #### C BC #### [facility] [address] [place] [address] Dr. Josey Springer MCH (RBC) [Entitic mass] 30.1 pg Normal 26.7-34.0 [facility] Comment on above: Performed By: #### C BC #### [facility] [address] [place] [address] Dr. Josey Springer MCHC (RBC) [Mass/Vol] 32.9 g/dL Normal 29.9-35.2 [facility] Comment on above: Performed By: #### C BC #### [facility] [address] [place] [address] Dr. Josey Springer MCV (RBC) [Entitic vol] 91.6 fL Normal 81.0-99.0 [facility] Comment on above: Performed By: #### C BC #### [facility] [address] [place] [address] Dr. Josey Springer MONO # 0.3 103/ul Normal 0.3-0.8 [facility] Comment on above: Performed By: #### C BC #### [facility] [address] [place] [address] Dr. Josey Springer Monocytes/100 WBC (Bld) 4.2 % Normal 1.7-12.0 [facility] Comment on above: Performed By: #### C BC #### [facility] [address] [place] [address] Dr. Josey Springer NEUT # 4.6 103/ul Normal 1.4-6.5 [facility] Comment on above: Performed By: #### C BC #### [facility] [address] [place] [address] Dr. Josey Springer Neutrophils/100 WBC (Bld) 63.3 % Normal 43.0-75.0 [facility] Comment on above: Performed By: #### C BC #### [facility] [address] [place] [address] Dr. Josey Springer Platelet mean volume (Bld) [Entitic vol] 9.7 fL Normal 9.5-13.5 [facility] Comment on above: Performed By: #### C BC #### [facility] [address] [place] [address] Dr. Josey Springer PLT 225 103/ul Normal 150-450 [facility] Comment on above: Performed By: #### C BC #### [facility] [address] [place] [address] Dr. Josey Springer RBC 4.52 106/ul Normal 4.20-5.40 [facility] Comment on above: Performed By: #### C BC #### [facility] [address] [place] [address] Dr. Josey Springer WBC 7.3 103/ul Normal 4.0-11.0 [facility] Comment on above: Performed By: #### C BC #### [facility] [address] [place] [address] Dr. Josey Springer GLYCOHEMOGLOBIN A1Con 2020 ADA RECOMMENDATION ADA THERAPEUTIC TARGET 6.0 - 7.0 ACTION SUGGESTED > 7.0 Normal [facility] Comment on above: Performed By: #### A 1C #### [facility] [address] [place] [address] Dr. Josey Springer Glucose [Mass/Vol] 131 mg/dL Normal [facility] Comment on above: Performed By: #### A 1C #### [facility] [address] [address] [address] Josey Springer HbA1c (Bld) [Mass fraction] 6.2 % Critically high <=6.0 [facility] Comment on above: Performed By: #### A 1C #### [facility] [address] [place] [address] Dr. Josey Springer LIPID PROFILEon 01-09-2021 CHOL-HDL RATIO NORM SEE BELOW Normal [facility] Comment on above: Result Comment: 3.3 - 4.4 LOW RISK 4.4 - 7.1 AVERAGE RISK 7.1 - 11.0 MODERATE RISK >11.0 HIGH RISK Performed By: #### C MP, TSH, LIPID #### [facility] [address] [place] [address] Dr. Josey Springer Cholesterol [Mass/Vol] 240 mg/dL Critically high <=200 [facility] Comment on above: Performed By: #### C MP, TSH, LIPID #### [facility] [address] [place] [address] Dr. Josey Springer Cholesterol in HDL [Mass/Vol] 66 mg/dL Normal [facility] Comment on above: Performed By: #### C MP, TSH, LIPID #### [facility] [address] [address] [address] Josey Springer Cholesterol in LDL [Mass/Vol] 136.6 mg/dL Normal [facility] Comment on above: Performed By: #### C MP, TSH, LIPID #### [facility] [address] [place] [address] Dr. Josey Springer Cholesterol.total/Ch olesterol in HDL [Mass ratio] 3.6 {ratio} Normal [facility] Comment on above: Performed By: #### C MP, TSH, LIPID #### [facility] [address] [address] [address] Josey Springer HDL NORMAL > or = 60 mg/dl - LO W CARDIOVASCULAR RISK <40 mg/dl - HIGH CARDIOVASCULAR RISK Normal [facility] Comment on above: Performed By: #### C MP, TSH, LIPID #### [facility] [address] [address] [address] Josey Springer LDL CALC NORMAL SEE BELOW Normal [facility] Comment on above: Result Comment: <100 mg/dl OPTIMAL 100 - 129 mg/dl NEAR OR ABOVE OPTIMAL 130 - 159 mg/dl BORDERLINE HIGH 160 - 189 mg/dl HIGH >190 mg/dl VERY HIGH Performed By: #### C MP, TSH, LIPID #### [facility] [address] [address] [address] Josey Springer Triglyceride [Mass/Vol] 187 mg/dL Critically high <=150 [facility] Comment on above: Performed By: #### C MP, TSH, LIPID #### [facility] [address] [address] [address] Josey Springer VLDL CALC 37.4 mg/dL Normal [facility] Comment on above: Performed By: #### C MP, TSH, LIPID #### [facility] [address] [address] [address] Josey Springer PROF 14(COMP METB)on 021 Albumin [Mass/Vol] 3.4 g/dL Critically low 3.5-5.0 [facility] Comment on above: Performed By: #### C MP, TSH, LIPID #### [facility] [address] [address] [address] Josey Springer Albumin/Globulin [Mass ratio] 0.8 {ratio} Normal [facility] Comment on above: Performed By: #### C MP, TSH, LIPID #### [facility] [address] [address] [address] Josey Springer ALP [Catalytic activity/Vol] 92 U/L Normal 38-126 [facility] Comment on above: Performed By: #### C MP, TSH, LIPID #### [facility] [address] [address] [address] Josey Springer ALT [Catalytic activity/Vol] 180 U/L Critically high 9-52 [facility] Comment on above: Performed By: #### C MP, TSH, LIPID #### [facility] [address] [address] [address] Josey Springer Anion gap [Moles/Vol] 10.8 mmol/L Normal [facility] Comment on above: Performed By: #### C MP, TSH, LIPID #### [facility] [address] [address] [address] Josey Springer AST [Catalytic activity/Vol] 70 U/L Critically high 14-36 [facility] Comment on above: Performed By: #### C MP, TSH, LIPID #### [facility] [address] [place] [address] Dr. Josey Springer Bilirubin [Mass/Vol] 0.4 mg/dL Normal 0.2-1.3 [facility] Comment on above: Performed By: #### C MP, TSH, LIPID #### [facility] [address] [address] [address] Josey Springer Calcium [Mass/Vol] 9.5 mg/dL Normal 8.4-10.2 [facility] Comment on above: Performed By: #### C MP, TSH, LIPID #### [facility] [address] [address] [address] Josey Springer Chloride [Moles/Vol] 102 mmol/L Normal 98-107 [facility] Comment on above: Performed By: #### C MP, TSH, LIPID #### [facility] [address] [address] [address] Josey Springer CO2 [Moles/Vol] 32.7 mmol/L Critically high 22.0-30.0 [facility] Comment on above: Performed By: #### C MP, TSH, LIPID #### [facility] [address] [place] [address] Dr. Josey Springer Creatinine [Mass/Vol] 0.60 mg/dL Normal 0.52-1.04 [facility] Comment on above: Performed By: #### C MP, TSH, LIPID #### [facility] [address] [address] [address] Josey Springer EGFR-AF SOUTH AFRICAN >60 Normal >=60 [facility] Comment on above: Performed By: #### C MP, TSH, LIPID #### [facility] [address] [address] [address] Josey Springer EGFR-NON AF SOUTH AFRICAN >60 Normal >=60 [facility] Comment on above: Performed By: #### C MP, TSH, LIPID #### [facility] [address] [address] [address] Josey Springer Globulin (S) [Mass/Vol] 4.1 g/dL Normal [facility] Comment on above: Performed By: #### C MP, TSH, LIPID #### [facility] [address] [address] [address] Josey Springer Glucose [Mass/Vol] 139 mg/dL Critically high 74-106 [facility] Comment on above: Performed By: #### C MP, TSH, LIPID #### [facility] [address] [address] [address] Josey Springer Potassium [Moles/Vol] 4.5 mmol/L Normal 3.4-5.0 [facility] Comment on above: Performed By: #### C MP, TSH, LIPID #### [facility] [address] [address] [address] Josey Springer Protein [Mass/Vol] 7.5 g/dL Normal 6.1-8.2 [facility] Comment on above: Performed By: #### C MP, TSH, LIPID #### [facility] [address] [address] [address] Josey Springer Sodium [Moles/Vol] 141 mmol/L Normal 137-145 [facility] Comment on above: Performed By: #### C MP, TSH, LIPID #### [facility] [address] [address] [address] Josey Springer Urea nitrogen [Mass/Vol] 12.0 mg/dL Normal 7.0-17.0 [facility] Comment on above: Performed By: #### C MP, TSH, LIPID #### [facility] [address] [address] [address] Josey Springer Urea nitrogen/Creatinine [Mass ratio] 20.0 mg/mg Normal [facility] Comment on above: Performed By: #### C MP, TSH, LIPID #### [facility] [address] [address] [address] Josey Springer TSHon 01-09-2021 TSH 1.819 uIU/mL Normal 0.470-4.680 [facility] Comment on above: Performed By: #### C MP, TSH, LIPID #### [facility] [facility] [address] [address] [address] Josey Springer TSH RANGE SEE BELOW Normal [facility] Comment on above: Result Comment: <0.3 4 UIU/ml HYPERTHYROID 0.34-5.60 UIU/ml EUTHYROID >5.60 UIU/ml HYPOTHYROID Performed By: #### C MP, TSH, LIPID #### [facility] [address] [address] [address] Josey Springer Social History Date Type Detail Facility Tobacco smoking status NHIS Unknown if ev er smoked [facility] Sex Assigned At Not on file [facility] Exposure to SARS-CoV -2 (event) Not sure [facility] Sex Assigned At Sex Assigned At [facility] Other Vital Signs Date Time Vital Sign Value Performing Clinician Facility 09-17-2022 11:15-0400 Body height 154.94 cm [facility] Other [facility] Other 09-17-2022 11:15-0400 Body mass index (BMI) [Ratio] 35.18 kg/m2 [facility] Other [facility] Other 09-17-2022 11:15-0400 Body weight 84.46 kg [employer] [facility] Other [facility] Other 09-17-2022 11:15-0400 Diastolic blood pressure 87 mm[Hg] [facility] Other [facility] Other 09-17-2022 11:15-0400 Respiratory rate 12 /min V[facility] Other [facility] Other 09-17-2022 11:15-0400 Systolic blood pressure 136 mm[Hg] [facility]ital[facility] Other [facility] Other Evaluation note 09-17-2022 Note Date & [...] Reduce calories, increase activity for weight loss [facility] Other History general Narrative - Reported Note [...] ONE OVARY REMAINING Hospitalization History SEE ABOVE [facility] Other Summary Purpose Family History No Family [...] or prosecute any alcohol or drug abuse patient[facility] the event this information is protected by the Federal Confidentiality of Alcohol and Drug Abuse Patient Records regulations: The Federal rules restrict any use of the information to criminally investigate or prosecute any alcohol or drug abuse patient[facility] INFORMATION SOURCE (unrecogn ized section and content) DATE CREATED AUTHOR 04/09/2021 [facility] DATE CREATED AUTHOR AUTHORSoco WALLACE 11/11/2021 [facility] REASON FOR VISIT (unrecogniz ed [...] BE BASED ON THE PRIMARY CLINICAL RECORDS. [employer] provides no warranty or guarantee of the accuracy or completeness of information in this document.
[2023-08-26 08:12] LABS: Age Gdln ACOG Testing Note (.); HPV Aptima Negative (Negative); IGP, Aptima HPV, rfx 16/18,45 Note (.)
== END 2023-08-21 19:32 | disposition home or self-care (01) ==
LOC: LAB 19:31
PROVIDERS: PCP Internal Medicine; Visit Provider Obstetrics & Gynecology
DX: Z01.419 Encounter for gynecological examination (general) (routine) without abnormal findings (principal)
CPT/HCPCS: 87624; 88175

== ENCOUNTER 2023-10-29 08:49 | Outpatient (OUT) | payer OTHER, SELFPAY ==
[2023-10-29 09:08] LABS: Basophils Percent Auto 0.6 % (0.2-2.0); Eosinophils Absolute Auto 0.2 10^3/uL (0.0-0.7); Eosinophils Percent Auto 2.5 % (0.9-7.0); Hematocrit 39.6 % (36.0-48.0); Hemoglobin 13.3 g/dL (12.0-16.0); Immature Granulocytes Abs Auto 0.01 10^3/uL (0.00-0.03); Immature Granulocytes Pct Auto 0.2 % (0.0-0.5); Lymphocytes Absolute Auto 1.8 10^3/uL (1.2-3.8); Lymphocytes Percent Auto 28.4 % (20.5-60.0); Mean Corpuscular HGB Conc 33.6 g/dL (29.9-35.2); Mean Corpuscular Hemoglobin 30.7 pg (26.7-34.0); Mean Corpuscular Volume 91.5 fL (81.0-99.0); Mean Platelet Volume 9.6 fL (9.5-13.5); Monocytes Absolute Auto 0.3 10^3/uL (0.3-0.8); Monocytes Percent Auto 4.9 % (1.7-12.0); Neutrophils Percent Auto 63.4 % (43.0-75.0); Platelet Count 216 10^3/uL (150-450); Red Blood Count 4.33 10^6/uL (4.20-5.40); White Blood Count 6.3 10^3/uL (4.0-11.0)
[2023-10-29 10:48] LABS: Microalbumin Urine Random <1.3 mg/dL (<=30.0)
[2023-10-29 10:51] LABS: Alanine Aminotransferase 63 U/L (14-59); Albumin Level 3.6 g/dL (3.4-5.0); Alkaline Phosphatase 76 U/L (46-116); Anion Gap 10.9; Aspartate Amino Transferase 28 U/L (15-37); BUN Creatinine Ratio 24.6; Bilirubin Total 0.5 mg/dL (0.2-1.0); Calcium 9.2 mg/dL (8.5-10.1); Carbon Dioxide 31.2 mmol/L (21.0-32.0); Chloride 102 mmol/L (98-107); Cholesterol 204 mg/dL (<=200); Estimated GFR (African America >60 (>=60); Estimated GFR (Non-African Ame >60 (>=60); Globulin 3.5 g/dL; Glucose 95 mg/dL (74-106); HDL Cholesterol 69 mg/dL (40-60); Potassium 4.1 mmol/L (3.5-5.1); Sodium 140 mmol/L (136-145); Thyroid Stimulating Hormone 2.418 uIU/mL (0.358-3.740); Total Protein 7.1 g/dL (6.4-8.2); Triglycerides 145 mg/dL (<=150)
[2023-10-29 11:35] LABS: Estimated Average Glucose 100 mg/dL; Glycohemoglobin A1C 5.1 % (4.5-6.2)
== END 2023-10-29 08:50 | disposition home or self-care (01) ==
LOC: LAB 08:50
PROVIDERS: PCP Internal Medicine; Visit Provider Internal Medicine
DX: Z00.00 Encounter for general adult medical examination without abnormal findings (principal)
CPT/HCPCS: 36415; 80053; 80061; 82043; 83036; 84443; 85025

== ENCOUNTER 2024-07-12 07:59 | Emergency (ER) | payer BC, SELFPAY ==
[2024-07-12 08:05] VITALS: BP 194/91; PULSE 61; TEMP 36.8; O2SAT 96; BMI 39.1
--- NOTE | 2024-07-12 08:12 | ED_ITS ---
HPI HPI - General Adult General Chief complaint: Abdominal Pain Stated complaint: VOMITING, l BACK PAIN Time Seen by Provider: 07/12/24 08:04 History of Present Illness HPI narrative: 54-year-old female presents to the emergency department for a chief complaint of left flank pain. It began this morning when she woke up. There is no trauma and she has never had pain like this before, she has never had a kidney stone. The pain is severe and continuous and she is nauseous. No dysuria or hematuria or unusual activity. Related Data Home Medications ?Medication ?Instructions ?Recorded ?Confirmed venlafaxine 37.5 mg 37.5 mg PO DAILY 07/12/24 capsule,extended release 24 hr Previous Rx's ?Medication ?Instructions ?Recorded ondansetron 4 mg disintegrating 4 mg PO Q6H PRN nausea and 07/12/24 tablet vomiting #20 tabs oxycodone-acetaminophen 5 mg-325 1 tab PO Q6H PRN pain 5 days #20 07/12/24 mg tablet (Percocet) tabs tamsulosin 0.4 mg capsule (Flomax) 0.4 mg PO DAILY #7 caps 07/12/24 Allergies Allergy/AdvReac Type Severity Reaction Status Date / Time meperidine (From Demerol) AdvReac Severe Unknown Verified 07/12/24 08:04 Sulfa (Sulfonamide AdvReac Severe Unknown Verified 07/12/24 08:04 Antibiotics) Opioid HPI Opioid Management Most Recent Opioid Data: Last Pain Scale 6 Today, 10:04 Review of Systems ROS Narrative A ten point review of systems is negative except as noted above. PFSH PFSH Social History Little interest or pleasure in doing things: not at all Feeling down, depressed, or hopeless: not at all Exam Narrative Exam Narrative: Nurses note and vital signs reviewed and patient is not hypoxic. General: The patient appears uncomfortable. She is laying on her right side. Skin: Warm, dry, no pallor noted. There is no rash noted. Head: Normocephalic, atraumatic Eye: Normal conjunctiva, no drainage Ears, Nose, Mouth, and Throat: oral mucosa is moist. Nares patent. Cardiovascular: Regular Rate and Rhythm Respiratory: Patient is in no distress, no accessory muscle use, lungs are swapnil ar to auscultation, no wheezing, rales or rhonchi Back: non-tender, no CVA tenderness bilaterally to percussion. No bruise or rash GI: Soft and nontender Musculoskeletal: The patient has no evidence of calf tenderness, no pitting edema, symmetrical pulses noted bilaterally Neurological: A&O, normal speech Psychiatric: Cooperative Constitutional Vital Signs, click to edit/add: Last Vital Signs Temp 98.2 F 07/12/24 08:05 Pulse 61 07/12/24 08:05 Resp 18 07/12/24 08:05 BP 156/88 H 07/12/24 10:10 Pulse Ox 96 07/12/24 08:05 O2 Del Method Room Air 07/12/24 08:05 Course Vital Signs Vital signs: Vital Signs Temperature 98.2 F 07/12/24 08:05 Pulse Rate 61 07/12/24 08:05 Respiratory Rate 18 07/12/24 08:05 Blood Pressure 194/91 H 07/12/24 08:05 Pulse Oximetry 96 07/12/24 08:05 Oxygen Delivery Method Room Air 07/12/24 08:05 Temperature 98.2 F 07/12/24 08:05 Pulse Rate 61 07/12/24 08:05 Respiratory Rate 18 07/12/24 08:05 Blood Pressure 156/88 H 07/12/24 10:10 Pulse Oximetry 96 07/12/24 08:05 Oxygen Delivery Method Room Air 07/12/24 08:05 Medical Decision Making MDM Narrative Medical decision making narrative: 5 mm stone is identified. Her pain is under control here. She was offered admission to hospital but prefers to go home. She will follow-up with urology and was prescribed Percocet, Flomax, and Zofran. She will return to ED if symptoms worsen. Treatment diagnosis and follow-up were discussed with the patient. Lab Data Lab results reviewed: Yes I reviewed the patient's lab results Labs: Lab Results 07/12/24 07/12/24 Range/Units 08:15 09:06 WBC 8.1 (4.0-11.0) 10^3/uL RBC 4.47 (4.20-5.40) 10^6/uL Hgb 13.1 (12.0-16.0) g/dL Hct 39.5 (36.0-48.0) % MCV 88.4 (81.0-99.0) fL MCH 29.3 (26.7-34.0) pg MCHC 33.2 (29.9-35.2) g/dL RDW 12.7 (11.0-15.0) % Plt Count 242 (150-450) 10^3/uL MPV 9.8 (9.5-13.5) fL Neut % (Auto) 57.7 (43.0-75.0) % Lymph % (Auto) 33.5 (20.5-60.0) % [place] % (Auto) 5.8 (1.7-12.0) % Eos % (Auto) 2.2 (0.9-7.0) % Baso % (Auto) 0.6 (0.2-2.0) % Neut # (Auto) 4.7 (1.4-6.5) 10^3/uL Lymph # (Auto) 2.7 (1.2-3.8) 10^3/uL [place] # (Auto) 0.5 (0.3-0.8) 10^3/uL Eos # (Auto) 0.2 (0.0-0.7) 10^3/uL Baso # (Auto) 0.1 (0.0-0.1) 10^3/uL Abs Immat Gran (auto) 0.02 (0.00-0.03) 10^3/uL Imm/Tot Granulo (auto) 0.2 (0.0-0.5) % Sodium 143 (136-145) mmol/L Potassium 4.1 (3.5-5.1) mmol/L Chloride 104 (98-107) mmol/L Carbon Dioxide 28.5 (21.0-32.0) mmol/L Anion Gap 14.6 BUN 18.0 (7.0-18.0) mg/dL Creatinine 0.71 (0.55-1.02) mg/dL Est GFR ( Amer) >60 (>=60 mL/min/1.73m^2) Est GFR (Non-Af Amer) >60 (>=60 mL/min/1.73m^2) BUN/Creatinine Ratio 25.4 Glucose 150 H (74-106) mg/dL Calcium 8.9 (8.5-10.1) mg/dL Urine Color Yellow (YELLOW) Urine Clarity Clear (CLEAR) Urine pH 6.0 (5.0-9.0) Ur Specific [place] >=1.030 A (1.005-1.025) Urine Protein Trace (NEG/TRACE) mg/dL Urine Glucose (UA) Negative (NEGATIVE) mg/dL Urine Ketones Negative (NEGATIVE) mg/dL Urine Occult Blood Large A (NEGATIVE) Urine Nitrite Negative (NEGATIVE) Urine Bilirubin Negative (NEGATIVE) Urine Urobilinogen 0.2 (0.2-1.0) EU/dL Ur Leukocyte Esterase Negative (NEGATIVE) Urine RBC 50-75 A (0-2) #/HPF Urine WBC 2-5 A (NONE SEEN) #/HPF Ur Squamous Epith Cells Moderate A (NONE/RARE) #/LPF Urine Crystals None seen (None Seen) #/HPF Urine Bacteria Trace A (NONE SEEN) #/HPF Urine Casts Seen A (NONE SEEN) #/LPF Hyaline Casts Rare Urine Mucus None seen (NONE SEEN) Imaging Data CT scan - abdomen: Radiologist's impression: Left hydroureter and hydronephrosis is seen with 5 mm stone in the distal ureter Discharge Plan Discharge Chief Complaint: Abdominal Pain Clinical Impression: Kidney stone Patient Disposition: Home, Self-Care Time of Disposition Decision: 11:02 Condition: Good Mode of Transportation: Private Vehicle Prescriptions / Home Meds: New oxycodone-acetaminophen [Percocet] 5-325 mg tablet 1 tab PO Q6H PRN (Reason: pain) 5 Days Qty: 20 0RF tamsulosin [Flomax] 0.4 mg capsule 0.4 mg PO DAILY Qty: 7 0RF ondansetron 4 mg tablet,disintegrating 4 mg PO Q6H PRN (Reason: nausea and vomiting) Qty: 20 0RF No Action venlafaxine 37.5 mg capsule,extended release 24hr 37.5 mg PO DAILY Print Language: Gambian Instructions: Kidney Stones (ED), How to Strain Your Urine (ED) Referrals: Vitaliy Dale DO [Primary Care Provider, Internal Medicine] - 1 week Jose Recinos MD [Physician, Urology]
--- OUTSIDE RECORDS SUMMARY | 2024-07-12 08:15 | XMS_ITS | CCD ---
Author Organization [facility] Care Team Providers Care Sem Manager Name Role Phone Unavailable Primary Care Provider Denise DALE, DR OLIVAS Consulting Unavailable CHITO, DR OLIVAS Attending Unavailable CHITO, DR OLIVAS Admitting Unavailable BALL, DR OLIVAS [...] OLIVAS Primary Care Unavailable Chito, Vitaliy Unavailable Vitaliy Dale MD Primary Care Provider PARIS HARRIS Attending Unavailable LUNA JHAVERI Attending Unavailable VILMA STAUFFER Attending Unavailable Allergies Allergy Classification Reported Allergen(s) Allergy Type Date of Onset Reaction(s) Facility (1 source) Adhesive bandage Drug allergy (disorder) 5 [facility] (1 source) Meperidine Drug Allergy 5 [facility] (1 source) Sulfonamides (Antibiotic) Drug allergy (disorder) 5 [facility] (8 sources) Meperidine Drug Allergy 3 GI intolerance [facility] (2 sources) Sulfacetamide Drug Allergy 4 hives [facility] (1 source) sulfADIAZINE Drug Allergy 4 Unknown Reaction [facility] (1 source) Sulfonamides (Antibiotic) Allergy to substance 4 Rash [facility] (6 sources) Sulfonamides (Antibiotic) Propensity to adverse reactions 3 Other [facility] Medications Current Medications Medication Drug Class(es) Dates Sig (Normalized) Sig (Original) 3 ML semaglutide 1.34 MG/ML Pen Injector [Ozempic] (1 source) Start: 07-04-2022 inject 1 mg by subcutaneous injection every week Ozempic (1 MG/DOSE) 4 MG/3ML 1 MG Subcutaneous weekly July, Active calcium ascorbate 500 mg oral tablet (1 source) Start: 10-20-2023 take 500 mg by mouth once daily Ascorbate Calcium (Vitamin C) Active 500 MG PO Daily October 20, 2023 12:00am calcium carbonate 500 mg chewable tablet (1 source) take 1 tablet by mouth every twenty-four hours Tums 500 MG 1 tablet Orally Once a day Active CPAP Machine (1 source) CPAP Machine Act nader doxycycline hyclate 100 mg oral capsule (1 source) Tetracycline-class Drug Start: 09-17-2022 take 1 capsule by mouth twice daily Doxycycline Hyclate 100 MG 1 capsule Orally twice daily for 7 days Aug, Active Ibuprofen (1 source) Nonsteroidal Anti-inflammatory Drug Motrin Active Lactobacillus Combination No.4 (Probiotic) 3 billion cell Capsule (1 source) Start: 02-02-2021 take 3 capsules by mouth once daily Lactobacillus Combination No.4 (Probiotic) 3 billion cell Capsule Active 3000 MMU CELLS PO Daily February 02, 2021 1:00am loratadine 10 mg oral tablet (2 sources) Start: 02-02-2021 take 10 mg by mouth once daily Loratadine Active 10 MG PO Daily February 02, 2021 1:00am Mounjaro 2.5 MG/0.5ML solution auto-injector (5 sources) Start: 02-23-2024 inject 2.5 mg by subcutaneous injection every week Mounjaro 2.5 MG/0.5ML solution auto-injector INJECT 2.5 MG (0.5 ML) SUBCUTANEOUSLY EVERY WEEK FOR 28 DAYS 02/23/2024 Active Oe-Rg-Zadz-Fa-Ca Carb-Vit K (1 source) Start: 02-02-2021 take 1 tablet by mouth once daily Hr-Xa-Cofo-Fa-Ca Carb-Vit K Active 1 TAB PO Daily February 02, 2021 1:00am Ozempic, 1 MG/DOSE, 4 MG/3ML solution pen-injector (3 sources) Start: 08-02-2022 End: 03-10-2024 inject 1 mg by subcutaneous injection every week Ozempic, 1 MG/DOSE, 4 MG/3ML solution pen-injector Inject 1 mg under the skin 1 (one) time per week. 08/02/2022 03/10/2024 Discontinued (Med list cleanup) Start: 08-02-2022 inject 1 mg by subcu taneous injection every week Ozempic, 1 MG/DOSE, 4 MG/3ML solution pen-injector Inject 1 mg under the skin 1 (one) time per week. 08/02/2022 Active probiotic (1 source) probiotic as directed Active 0.25 mg, 0.5 mg dose 1.5 ml semaglutide 1.34 mg/ml pen injector (1 source) Start: 02-03-20 Semaglutide (Ozempic) 0.25 mg or 0.5 mg(2 mg/1.5 mL) pen injector Active 0.25 MG SUBCUT every week February 02, 2021 1:00am terbinafine hydrochloride 10 mg/ml topical cream (2 sources) Allylamine Antifungal Start: 06-09-19 End: 07-09-19 terbinafine (LamISIL) 1 % cream Indications: Tinea pedis of right foot Apply topically 2 (two) times a day 30 g 3 06/08/2024 07/08/2024 Active 24 hr venlafaxine 37.5 mg extended release oral capsule (8 sources) Serotonin and Norepinephrine Reuptake Inhibitor Start: 02-03-20 take 1 capsule by mouth once daily venlafaxine XR (Effexor XR) 37.5 MG 24 hr capsule Indications: Depression, unspecified (CMS/HCC) TAKE 1 CAPSULE BY MOUTH EVERY DAY 90 capsule 2 10/14/2023 Active Problems Active Problems Problem Classification Problem Date Documented Date Episodic/Chronic Conditions associated with dizziness or vertigo (1 source) Benign paroxysmal positional vertigo; Translations: [Benign paroxysmal vertigo, unspecified ear] Episodic Diabetes mellitus with complications (1 source) Type 2 diabetes mellitus; Translations: [Type 2 diabetes mellitus with hyperglycemia] Chronic Diabetes mellitus without complication (2 sources) Impaired fasting glycemia; Translations: [Impaired fasting glucose] 10-18-2023 Episodic Disorders of lipid metabolism (3 sources) Pure hypercholesterolemia; Translations: [Familial hypercholesterolemia] 10-18-2023 Chronic Essential hypertension (2 sources) Hypertensive disorder; Translations: [Essential (primary) hypertension] 10-18-2023 Chronic Immunizations and screening for infectious disease (1 source) Encounter for screening for human papillomavirus (HPV); Translations: [ENC SCREENING HUMAN PAPILLOMAVIRUS] Onset: 08-17-2021 Episodic Mycoses (2 sources) Tinea pedis; Translations: [Tinea pedis] 06-08-2024 Episodic Other and unspecified benign neoplasm (2 sources) Other benign neoplasm of skin of scalp and neck; Translations: [Dermoid cyst of scalp] Episodic Other and unspecified benign neoplasm (2 sources) Lipoma of head; Translations: [Benign lipomatous neoplasm of skin and subcutaneous tissue of head, face and neck] 06-08-2024 Episodic Other and unspecified benign neoplasm (2 sources) Melanocytic nevus of trunk; Translations: [Melanocytic nevi of trunk] 06-08-2024 Episodic Other circulatory disease (1 source) Elevated blood-pressure reading without diagnosis of hypertension; Translations: [Elevated blood-pressure reading, without diagnosis of hypertension] Episodic Other diseases of veins and lymphatics (1 source) Peripheral venous insufficiency; Translations: [Venous insufficiency (chronic) (peripheral)] Episodic Other diseases of veins and lymphatics (1 source) Venous insufficiency of leg; Translations: [Venous insufficiency (chronic) (peripheral)] 10-18-2023 Episodic Other diseases of veins and lymphatics (1 source) Venous insufficiency (chronic) (peripheral); Translations: [Venous (peripheral) insufficiency, unspecified] 10-20-2023 Episodic Other liver diseases (4 sources) Fatty (change of) liver, not elsewhere classified; Translations: [Nonalcoholic fatty liver disease] Chronic Other liver diseases (1 source) Steatosis of liver; Translations: [Fatty (change of) liver, not elsewhere classified] 10-18-2023 Chronic Other lower respiratory disease (2 sources) Hypoxia; Translations: [Hypoxemia] 03-10-2024 Episodic Other lower respiratory disease (2 sources) Snoring; Translations: [Snoring] 03-10-2024 Episodic Other nutritional; endocrine; and metabolic disorders (3 sources) Body mass index 30+ - obesity; Translations: [Body mass index (BMI) 35.0-35.9, adult] 03-10-2024 Chronic Other screening for suspected conditions (not mental disorders or infectious disease) (11 sources) Encounter for screening mammogram for malignant neoplasm of breast; Translations: [Encounter for screening for malignant neoplasm of cervix] Onset: 08-16-2021 Episodic Other skin disorders (1 source) Sebaceous cyst Episodic Other skin disorders (2 sources) Lentiginosis; Translations: [Other melanin hyperpigmentation] 06-08-2024 Episodic Otitis media and related conditions (1 source) Dysfunction of bilateral eustachian tubes; Translations: [Other specified disorders of Eustachian tube, bilateral] Episodic Residual codes; unclassified (2 sources) Obstructive sleep apnea syndrome; Translations: [Obstructive sleep apnea (adult) (pediatric)] 03-10-2024 Chronic Residual codes; unclassified (2 sources) Hypersomnia; Translations: [Hypersomnia, unspecified] 03-10-2024 Chronic Residual codes; unclassified (1 source) Family history of malignant neoplasm of breast; Translations: [FAMILY HX MALIG NEOPLASM OF BREAST] Onset: 11-11-2021 Episodic Residual codes; unclassified (1 source) Family history of malignant neoplasm of digestive organs; Translations: [FAM HX MALIG NEOPLASM DIGESTIV ORGN] Onset: 11-11-2021 Episodic Residual codes; unclassified (2 sources) Sleep deprivation; Translations: [Sleep deprivation] 03-10-2024 Episodic Skin and subcutaneous tissue infections (2 [...] Test Name Value Interpretation Reference Range Facility Human papilloma virus 16+18+ 31+33+35+39+45+51+52+56+58+59+66+68 DNA [Presence] in [place] 08-21-2023 HPV 16+18+31+33+35+39+45 +51+52+56+58+59+66+6 8 DNA Probe+sig amp Ql (Cvx) Negative Negative [facility] Comment on above: This nucleic acid am plification test detects fourteen high- risk HPV types (16,18,31,33,35,39,45,51,52,56,58,59,66,68)without differentiation.Performed at: =G - [facility] [address] [id number] Director: Rosa Mckeon MD, Phone: [phone] at: - [facility] [address] [id number] Director: Rosa Mckeon MD, Phone: [phone] No Panel Informationon 08-20 HPV High Risk Other Comment Note . [facility] Comment on above: TESTS RESULT FLAG UN ITS REF RANGE LAB DI AGNOSIS: 02 NEGATIVE FOR INTRAEPITHELIAL LESION OR MALIGNANCY.Specimen adequacy: 02 Satisfactory for evaluation. No endocervical component is identified.Performed by: Ro Wilkerson Judo Teacher (ASCP). 02Note: Note 02 The Pap smear is a screening test designed to aid in the detection of premalignant and malignant conditions of the uterine cervix. It is not a diagnostic procedure and should not be used as the sole means of detecting cervical cancer. Both false-positive and false-negative reports do occur.Test Methodology: Note 02 This liquid based ThinPrep(R) pap test was screened with the use of an image guided system.HPV Genotype Reflex Note 02 Criteria not met, HPV Genotype not performed. ----- FLAG LEGEND: L-Low Normal,H-High Normal,LL-Alert Low,HH-Alert High <-Panic Low,>-Panic High,A-Abnormal,AA-Critical Abnormal ---Performed at:02 WB [facility] [address] [id number] Rosa Mckeon MD, Reference Lab Test Patient Age Note . [facility] Comment on above: TESTS RESULT FLAG UN ITS REF RANGE LAB Clinician Provided Cytology Information Source.............Cervix No. of containers..01 ThinPrep VialAge Algo ACOG Maria Del Carmen... 30-65 FLAG LEGEND: L-Low Normal,H-High Normal,LL-Alert Low,HH-Alert High <-Panic Low,>-Panic High,A-Abnormal,AA-Critical Abnormal ---Performed at:01 =G [facility] [address] [id number] Rosa Mckeon MD, MG MAMM SCREEN 3D KEIKO CADon 11-06-2021 MG MAMM SCREEN 3D KEIKO CAD Patient: SENG RADHA R. Exam Date: 11/06/2021 : 1970 Gender:F Ordering : DR PARIS HARRIS . Admission #: [id number] Family : Order #: [id number] CLICK HERE TO VIEW EXAM RADIOLOGY REPORT [...] colon cancer at age 72. LOCATION: [facility] BREAST COMPOSITION: Heterogeneously dense,which may obscure small [...] Cortes M.D. on 11/07/2021 at 10:48 Normal [facility] PAP ACOG PANEL 2: 30 to 65on 08-22-2021 . . Normal [facility] Comment on above: Result Comment: Perf ormed at: WB Performed By: #### [id number] #### [facility] [address] [address] [address] Josey Springer DIAGNOSIS: Comment Normal [facility] Comment on above: Result Comment: NEGA TIVE FOR INTRAEPITHELIAL LESION OR MALIGNANCY. THIS SPECIMEN WAS RESCREENED PART OF OUR ROTOR WINDER PROGRAM. Performed at: WB Performed By: #### [id number] #### [facility] [address] [address] [address] Josey Springer HPV Aptima Negative Normal Negative [facility] Comment on above: Result Comment: This nucleic acid amplification test detects fourteen high-risk HPV types (16,18,31,33,35,39,45,51,52,56,58,59,66,68) without differentiation. Performed at: =G Performed By: #### [id number] #### [facility] [address] [place] [address] Dr. Josey Springer Methodology: Comment [facility] Comment on above: Result Comment: This liquid based ThinPrep(R) pap test was screened with the use of an image guided system. Performed at: WB Performed By: #### [id number] #### [facility] [address] [place] [address] Dr. Josey Springer Note: Comment Normal [facility] Comment on above: Result Comment: The Pap smear is a screening test designed to aid in the detection of premalignant and malignant conditions of the uterine cervix. It is not a diagnostic procedure and should not be used as the sole means of detecting cervical cancer. Both false-positive and false-negative reports do occur. . Performed at: WB Performed By: #### [id number] #### [facility] [address] [place] [address] Dr. Josey Springer Performed by: Comment Normal [facility] Comment on above: Result Comment: Celestine Foreman, Judo Teacher (ASCP) Performed at: WB Performed By: #### 4 [id number] #### [facility] [address] [place] [address] Dr. Josey Springer QC reviewed by: Comment Normal [facility] Comment on above: Result Comment: Edelmira Muñoz, Supervisory Judo Teacher (ASCP) Performed at: WB Performed By: #### [id number] #### [facility] [address] [place] [address] Dr. Josey Springer Specimen adequacy: Comment Normal [facility] Comment on above: Result Comment: Sati sfactory for evaluation. No endocervical component is identified. Performed at: WB Performed By: #### [id number] #### [facility] [address] [place] [address] Dr. Josey Springer Age Gdln ACOG Testing 30-65 [facility] Comment on above: Performed By: #### 4 [id number] #### [facility] [address] [place], [place] [address] Dr. Josey Springer Covid-19 PCR ([facility])on SARS-CoV-2 (COVID-19) RNA SHANTA+probe Ql (Unsp spec) Not detected Normal NOT DETECTED [facility] Comment on above: Result Comment: This test is not yet approved or cleared by the [place] FDA. When there are no FDA-approved or cleared tests available, and other criteria are met, FDA can make tests available under an emergency access mechanism called an Emergency Use Authorization (EUA). The EUA for this test is supported by the [place] of Health and Human Service's (HHS's) declaration [...] consistent with SARS-CoV-2. Performed By: #### C VDTB #### [facility] [address] [place], [place] [address] Dr. Josey Springer Glucose Poct Glucometerson 1 04-05-2020 Glucose [Mass/Vol] 101 mg/dL Normal [facility] Comment on above: Result Comment: [facility] Glucose Reference Range is dependent on time and content of last meal. Glucose of more than 200 mg/dL in a nonstressed, ambulatory subject supports the diagnosis of Diabetes Mellitus. PERFORMED BY: [facility] [address] [place] [address] PATHOLOGIST CORRECTIONS IDENTIFICATION TECHNICIAN IVA MALIN M.D. Performed By: #### G LUNAZARIO #### Point of Care testing , COVID-19 [...] its performance Lindsay Disclaimer characteristic determined by [employer]ree[employer] and Lindsay Disclaimer validated at [facility]. This Lindsay Disclaimer test has not been [...] is terminated or revoked sooner. PERFORMED BY: [place] [address] PATHOLOGIST CORRECTIONS IDENTIFICATION TECHNICIAN IVA MALIN M.D. Normal [facility] Comment on above: Performed By: #### C OVID-19 LINDSAY, SOFIANEG #### [facility] [address] [place] [address] Lindsay Ag Negativeon 02-01-20 21 Lindsay Ag Negative Negative Normal Negative [facility] Comment on above: Result Comment: This is a duplicate Lindsay SARS Antigen (TAMANNA) result to be used for statistical tracking purpose only. PERFORMED BY: [place] [address] PATHOLOGIST CORRECTIONS IDENTIFICATION TECHNICIAN IVA MALIN M.D. Performed By: #### C OVID-19 LINDSAY, SOFIANEG #### [facility] [address] [place] [address] CBC AUTO DIFFon 01-09-2021 BASO # 0.0 103/ul Normal 0.0-0.1 [facility] Comment on above: Performed By: #### C BC #### [facility] [address] [address] [address] Josey Springer Basophils/100 WBC (Bld) 0.5 % Normal 0.2-2.0 [facility] Comment on above: Performed By: #### C BC #### [facility] [address] [place] [address] Dr. Josey Springer EO # 0.2 103/ul Normal 0.0-0.7 [facility] Comment on above: Performed By: #### C BC #### [facility] [address] [place] [address] Dr. Josey Springer Eosinophils/100 WBC (Bld) 2.2 % Normal 0.9-7.0 [facility] Comment on above: Performed By: #### C BC #### [facility] [address] [place] [address] Dr. Josey Springer Erythrocyte distribution width (RBC) [Ratio] 12.2 % Normal 11.0-15.0 [facility] Comment on above: Performed By: #### C BC #### [facility] [address] [place] [address] Dr. Josey Springer Hematocrit (Bld) [Volume fraction] 41.4 % Normal 36.0-48.0 [facility] Comment on above: Performed By: #### C BC #### [facility] [address] [place] [address] Dr. Josey Springer Hemoglobin (Bld) [Mass/Vol] 13.6 g/dL Normal 12.0-16.0 [facility] Comment on above: Performed By: #### C BC #### [facility] [address] [place] [address] Dr. Josey Springer IG # 0.01 10e3/ul Normal 0.00-0.03 [facility] Comment on above: Performed By: #### C BC #### [facility] [address] [place] [address] Dr. Josey Springer IG % 0.1 % Normal 0.0-0.5 [facility] Comment on above: Performed By: #### C BC #### [facility] [address] [place] [address] Dr. Josey Springer LYMPH # 2.2 103/ul Normal 1.2-3.8 [facility] Comment on above: Performed By: #### C BC #### [facility] [address] [place] [address] Dr. Josey Springer Lymphocytes/100 WBC (Bld) 29.7 % Normal 20.5-60.0 [facility] Comment on above: Performed By: #### C BC #### [facility] [address] [place] [address] Dr. Josey Springer MANUAL DIFF REQ NO Normal [facility] Comment on above: Performed By: #### C BC #### [facility] [address] [place] [address] Dr. Josey Springer MCH (RBC) [Entitic mass] 30.1 pg Normal 26.7-34.0 [facility] Comment on above: Performed By: #### C BC #### [facility] [address] [place] [address] Dr. Josey Springer MCHC (RBC) [Mass/Vol] 32.9 g/dL Normal 29.9-35.2 [facility] Comment on above: Performed By: #### C BC #### [facility] [address] [place] [address] Dr. Josey Springer MCV (RBC) [Entitic vol] 91.6 fL Normal 81.0-99.0 [facility] Comment on above: Performed By: #### C BC #### [facility] [address] [place] [address] Dr. Josey Springer MONO # 0.3 103/ul Normal 0.3-0.8 [facility] Comment on above: Performed By: #### C BC #### [facility] [address] [place] [address] Dr. Josey Springer Monocytes/100 WBC (Bld) 4.2 % Normal 1.7-12.0 [facility] Comment on above: Performed By: #### C BC #### [facility] [address] [place] [address] Dr. Josey Springer NEUT # 4.6 103/ul Normal 1.4-6.5 [facility] Comment on above: Performed By: #### C BC #### [facility] [address] [address] [address] Josey Springer Neutrophils/100 WBC (Bld) 63.3 % Normal 43.0-75.0 [facility] Comment on above: Performed By: #### C BC #### [facility] [address] [address] [address] Josey Springer Platelet mean volume (Bld) [Entitic vol] 9.7 fL Normal 9.5-13.5 [facility] Comment on above: Performed By: #### C BC #### [facility] [address] [address] [address] Josey Springer PLT 225 103/ul Normal 150-450 [facility] Comment on above: Performed By: #### C BC #### [facility] [address] [place] [address] Dr. Josey Springer RBC 4.52 106/ul Normal 4.20-5.40 [facility] Comment on above: Performed By: #### C BC #### [facility] [address] [address] [address] Josey Springer WBC 7.3 103/ul Normal 4.0-11.0 [facility] Comment on above: Performed By: #### C BC #### [facility] [address] [place] [address] Dr. Josey Springer GLYCOHEMOGLOBIN A1Con 2020 ADA RECOMMENDATION ADA THERAPEUTIC TARGET 6.0 - 7.0 ACTION SUGGESTED > 7.0 Normal [facility] Comment on above: Performed By: #### A 1C #### [facility] [address] [place] [address] Dr. Josey Springer Glucose [Mass/Vol] 131 mg/dL Normal [facility] Comment on above: Performed By: #### A 1C #### [facility] [address] [place] [address] Dr. Josey Springer HbA1c (Bld) [Mass fraction] 6.2 % Critically high <=6.0 [facility] Comment on above: Performed By: #### A 1C #### [facility] [address] [address] [address] Josey Springer LIPID PROFILEon 01-09-2021 CHOL-HDL RATIO NORM SEE BELOW Normal [facility] Comment on above: Result Comment: 3.3 - 4.4 LOW RISK 4.4 - 7.1 AVERAGE RISK 7.1 - 11.0 MODERATE RISK >11.0 HIGH RISK Performed By: #### C MP, TSH, LIPID #### [facility] [address] [address] [address] Josey Springer Cholesterol [Mass/Vol] 240 mg/dL Critically high <=200 [facility] Comment on above: Performed By: #### C MP, TSH, LIPID #### [facility] [address] [address] [address] Josey Springer Cholesterol in HDL [Mass/Vol] 66 mg/dL Normal [facility] Comment on above: Performed By: #### C MP, TSH, LIPID #### [facility] [address] [address] [address] Josey Springer Cholesterol in LDL [Mass/Vol] 136.6 mg/dL Normal [facility] Comment on above: Performed By: #### C MP, TSH, LIPID #### [facility] [address] [address] [address] Josey Springer Cholesterol.total/Ch olesterol in HDL [Mass ratio] 3.6 {ratio} Normal [facility] Comment on above: Performed By: #### C MP, TSH, LIPID #### [facility] [address] [address] [address] Josey Springer HDL NORMAL > or = 60 mg/dl - LO W CARDIOVASCULAR RISK <40 mg/dl - HIGH CARDIOVASCULAR RISK Normal [facility] Comment on above: Performed By: #### C MP, TSH, LIPID #### [facility] [address] [place] [address] Dr. Josey Springer LDL CALC NORMAL SEE BELOW Normal [facility] Comment on above: Result Comment: <100 mg/dl OPTIMAL 100 - 129 mg/dl NEAR OR ABOVE OPTIMAL 130 - 159 mg/dl BORDERLINE HIGH 160 - 189 mg/dl HIGH >190 mg/dl VERY HIGH Performed By: #### C MP, TSH, LIPID #### [facility] [facility] [address] [address] [address] Josey Springer Triglyceride [Mass/Vol] 187 mg/dL Critically high <=150 [facility] Comment on above: Performed By: #### C MP, TSH, LIPID #### [facility] [address] [place] [address] Dr. Josey Springer VLDL CALC 37.4 mg/dL Normal [facility] Comment on above: Performed By: #### C MP, TSH, LIPID #### [facility] [address] [address] [address] Josey Springer PROF 14(COMP METB)on 021 Albumin [Mass/Vol] 3.4 g/dL Critically low 3.5-5.0 Th e [facility] Comment on above: Performed By: #### C MP, TSH, LIPID #### [facility] [address] [place] [address] Dr. Josey Springer Albumin/Globulin [Mass ratio] 0.8 {ratio} Normal [facility] Comment on above: Performed By: #### C MP, TSH, LIPID #### [facility] [address] [place] [address] Dr. Josey Springer ALP [Catalytic activity/Vol] 92 U/L Normal 38-126 [facility] Comment on above: Performed By: #### C MP, TSH, LIPID #### [facility] [address] [address] [address] Josey Springer ALT [Catalytic activity/Vol] 180 U/L Critically high 9-52 [facility] Comment on above: Performed By: #### C MP, TSH, LIPID #### [facility] [address] [address] [address] Josey Springer Anion gap [Moles/Vol] 10.8 mmol/L Normal [facility] Comment on above: Performed By: #### C MP, TSH, LIPID #### [facility] [address] [place] [address] Dr. Josey Springer AST [Catalytic activity/Vol] 70 U/L Critically high 14-36 [facility] Comment on above: Performed By: #### C MP, TSH, LIPID #### [facility] [address] [address] [address] Josey Springer Bilirubin [Mass/Vol] 0.4 mg/dL Normal 0.2-1.3 [facility] Comment on above: Performed By: #### C MP, TSH, LIPID #### [facility] [address] [place] [address] Dr. Josey Springer Calcium [Mass/Vol] 9.5 mg/dL Normal 8.4-10.2 [facility] Comment on above: Performed By: #### C MP, TSH, LIPID #### [facility] [address] [place] [address] Dr. Josey Springer Chloride [Moles/Vol] 102 mmol/L Normal 98-107 [facility] Comment on above: Performed By: #### C MP, TSH, LIPID #### [facility] [address] [place] [address] Dr. Josey Springer CO2 [Moles/Vol] 32.7 mmol/L Critically high 22.0-30.0 [facility] Comment on above: Performed By: #### C MP, TSH, LIPID #### [facility] [address] [place] [address] Dr. Josey Springer Creatinine [Mass/Vol] 0.60 mg/dL Normal 0.52-1.04 [facility] Comment on above: Performed By: #### C MP, TSH, LIPID #### [facility] [address] [place] [address] Dr. Josey Springer EGFR-AF MOZAMBICAN >60 Normal >=60 [facility] Comment on above: Performed By: #### C MP, TSH, LIPID #### [facility] [address] [place] [address] Dr. Josey Springer EGFR-NON AF MOZAMBICAN >60 Normal >=60 [facility] Comment on above: Performed By: #### C MP, TSH, LIPID #### [facility] [address] [place] [address] Dr. Josey Springer Globulin (S) [Mass/Vol] 4.1 g/dL Normal [facility] Comment on above: Performed By: #### C MP, TSH, LIPID #### [facility] [address] [place] [address] Dr. Josey Springer Glucose [Mass/Vol] 139 mg/dL Critically high 74-106 T [facility] Comment on above: Performed By: #### C MP, TSH, LIPID #### [facility] [address] [place] [address] Dr. Josey Springer Potassium [Moles/Vol] 4.5 mmol/L Normal 3.4-5.0 [facility] Comment on above: Performed By: #### C MP, TSH, LIPID #### [facility] [address] [place] [address] Dr. Josey Springer Protein [Mass/Vol] 7.5 g/dL Normal 6.1-8.2 [facility] Comment on above: Performed By: #### C MP, TSH, LIPID #### [facility] [address] [place] [address] Dr. Josey Springer Sodium [Moles/Vol] 141 mmol/L Normal 137-145 [facility] Comment on above: Performed By: #### C MP, TSH, LIPID #### [facility] [address] [place] [address] Dr. Josey Springer Urea nitrogen [Mass/Vol] 12.0 mg/dL Normal 7.0-17.0 [facility] Comment on above: Performed By: #### C MP, TSH, LIPID #### [facility] [address] [place] [address] Dr. Josey Springer Urea nitrogen/Creatinine [Mass ratio] 20.0 mg/mg Normal [facility] Comment on above: Performed By: #### C MP, TSH, LIPID #### [facility] [address] [place] [address] Dr. Josey Springer TSHon 01-09-2021 TSH 1.819 uIU/mL Normal 0.470-4.680 [facility] Comment on above: Performed By: #### C MP, TSH, LIPID #### [facility] [address] [place], [place] [address] Dr. Josey Springer TSH RANGE SEE BELOW Normal [facility] Comment on above: Result Comment: <0.3 4 UIU/ml HYPERTHYROID 0.34-5.60 UIU/ml EUTHYROID >5.60 UIU/ml HYPOTHYROID Performed By: #### C MP, TSH, LIPID #### [facility] [address] [address] [address] Josey Springer Vital Signs Date Time Vital Sign Value Performing Clinician Facility 03-10-2024 08:17-0500 Body height 152.4 cm Luna Aparna DO Work Phone: [facility] 03-10-2024 08:17-0500 Body mass index (BMI) [Ratio] 37.85 kg/m2 Luna Aparna DO Work Phone: [facility] 03-10-2024 08:17-0500 Body weight 87.91 kg Luna Aparna DO Work Phone: [facility] 03-10-2024 08:17-0500 Diastolic blood pressure 86 mm[Hg] Luna Aparna DO Work Phone: [facility] 03-10-2024 08:17-0500 Heart rate 79 /min Luna Aparna DO Work Phone: [facility] 03-10-2024 08:17-0500 SaO2% (BldA) [Mass fraction] 98 % Luna Aparna DO Work Phone: [facility] 03-10-2024 08:17-0500 Systolic blood pressure 134 mm[Hg] Luna Aparna DO Work Phone: [facility] 10-20-2023 14:27-0400 Body height 152.[address] [facility] 10-20-2023 14:27-0400 Body mass index (BMI) [Ratio] 37.5 kg/m2 [facility] 10-20-2023 14:27-0400 Body weight 87.[address] [facility] 10-20-2023 14:27-0400 Diastolic blood pressure 75 mm[Hg] [facility] 10-20-2023 14:27-0400 Heart rate 69 /min [facility] 10-20-2023 14:27-0400 Respiratory rate 12 /min [facility] 10-20-2023 14:27-0400 Systolic blood pressure 142 mm[Hg] [facility] 09-17-2022 11:15-0400 Body height 154.94 cm [facility] [employer] Other [facility] [employer] Other 09-17-2022 11:15-0400 Body mass index (BMI) [Ratio] 35.18 kg/m2 [facility] [employer] Other [employer] Other 09-17-2022 11:15-0400 Body weight 84.46 kg Vitaliy [employer] Other [employer] Other 09-17-2022 11:15-0400 Diastolic blood pressure 87 mm[Hg] [facility] Other [employer] Other 09-17-2022 11:15-0400 Respiratory rate 12 /min [facility] Other [employer] Other 09-17-2022 11:15-0400 Systolic blood pressure 136 mm[Hg] [facility] Other [employer] Other Encounters Encounter Date Encounter Type Care Provider Facility Start: 06-08-2024 End: 06-08-2024 Office outpatient new 30 minutes Vilma Stauffer MD Work Phone: [facility] Comment on above: Lipoma of head (Prim blake Dx); Lentigines; Melanocytic nevus of trunk; Tinea pedis of right foot Start: 06-08-2024 End: 06-08-2024 ambulatory VILMA STAUFFER Not Available Start: 06-08-2024 End: 06-08-2024 Bamboo flowsheet Vilma Stauffer MD Work Phone: [facility] Start: 06-08-2024 End: 06-08-2024 Bamboo flowsheet Vilma Stauffer MD Work Phone: [facility] Start: 03-10-2024 End: 03-10-2024 Bamboo flowsheet Luna Aparna DO Work Phone: [facility] Start: 03-10-2024 End: 03-10-2024 Bamboo flowsheet Luna Aparna DO Work Phone: [facility] Start: 03-10-2024 End: 03-10-2024 ambulatory LUNA JHAVERI Not Available Start: 03-10-2024 End: 03-10-2024 Office outpatient visit 25 minutes Luna Jhaveri DO Work Phone: [facility] Comment on above: REMEDIOS (obstructive sle ep apnea) (Primary Dx); Hypoxia; Hypersomnia; Sleep deprivation; Snoring; Obesity (BMI 35.0-39.9 without comorbidity) Start: 10-20-2023 End: 10-20-2023 ambulatory [facility] Work Phone: Start: 10-20-2023 End: 10-20-2023 Encounter for general adult medical examination without abnormal findings [facility] Start: 10-20-2023 End: 10-20-2023 Patient encounter procedure [facility] Physician [facility] Work Phone: Start: 08-21-2023 Non-patient / Non-visit [facility] Physician [facility] [employer] Work Phone: Start: 08-21-2023 End: 08-21-2023 ambulatory PARIS HARRIS Not Available Start: 09-17-2022 End: 09-17-2022 ambulatory Vitaliy Dale Other [facility] [employer] Other Start: 09-17-2022 Office outpatient visit 15 minutes Vitaliy Dale [facility] Start: 11-06-2021 End: 11-07-[address] PARIS HARRIS Facility: Start: 08-16-2021 End: 08-16-[address] PARIS HARRIS Facility:[facility] Start: 04-03-2021 End: 04-03-[address] VITALIY DALE Facility:[facility] Start: 01-13-2021 Encounter for genera l adult medical examination without abnormal findings DR VITALIY DALE [facility] Start: 01-09-2021 End: 01-10-[address] VITALIY DALE Facility:[facility] Start: 01-09-2021 End: 01-10-2021 Encounter for general adult medical examination without abnormal findings DR VITALIY DALE Facility:[facility] Start: 10-30-2019 End: 10-30-2019 Patient encounter procedure Charisma Mazariegos Work Phone: [facility] Start: 10-30-2019 Results Only Charisma Mazariegos Work Phone: Gastroenterology Start: 10-29-2019 End: 10-29-2019 Patient encounter procedure External Provider [facility] Start: 10-29-2019 Results Only External Provider Exter nal-NonCCF Procedures Date Procedure Procedure Detail Performing Clinician Start: 08-21-2023 Microscopic observat ion [Identifier] in Cervix by Cyto stain Luna Jhaveri DO Work Phone: Start: 02-27-2023 Mammography Luna salgado DO Work Phone: Start: 10-30-2019 PT ED PATIENT INFORMATION Charisma Mazariegos Work Phone: Start: 10-29-2019 EXTERNAL LAB External P rovider Start: 10-29-2019 EXTERNAL IMAGING [facility] Provider Plan of Treatment Date Care Activity Detail Author Start: 08-28-2027 Screening for malign ant neoplasm of cervix [facility] Start: 08-20-2026 Screening for malign ant neoplasm of cervix Pap Smear [facility] Start: 06-09-2025 End: 06-09-2025 Patient encounter procedure 06/09/2025 3:30 PM EDT Office Visit [facility] [address] [place] [phone] Vilma Stauffer MD [address] [place] [address] [facility] Start: 11-01-2024 Influenza vaccination Influenz a Vaccine (Season Ended) [facility] Start: 09-06-2024 End: 09-06-2024 Patient encounter procedure 09/06/2024 9:00 AM EDT Office Visit [facility] [address] [phone] Paris Harris, DO [address] [place] [address] [facility] Start: 08-23-2024 End: 08-23-2024 Patient encounter procedure 08/23/2024 8:30 AM EDT Office Visit [facility] [address] [place] [phone] Paris Harris, DO [address] [place] [address] [facility] Start: 06-08-2024 End: 06-08-2024 Patient encounter procedure 06/08/2024 4:00 PM EDT Office Visit [facility] [address] [place] [phone] Vilma Stauffer MD [address] [place] [address] Arrived [facility] Comment on above: Arrived Start: 02-28-2024 Screening for malign ant neoplasm of breast Mammogram [facility] Start: 11-02-2023 Influenza vaccination Influenza Vacc ine (#1) [facility] Start: 11-02-2019 Influenza vaccination INFLUENZA (#1) [facility] Start: 01-21-2017 DIABETES SCREEN DIABETES SCREEN [facility] Start: 01-21-2017 LIPID SCREEN LIPID SCREEN [facility] Start: 2012 Mammography MAMMOGRAM [facility] Start: 01-21-2002 HPV TESTING HPV TESTING [facility] Start: 01-21-1993 PAP TESTING PAP TESTING [facility] Start: 01-21-1991 Urine microalbumin profile DTAP,TDAP,TD (1 - Tdap) [facility] Start: 01-21-1990 HEPATITIS C SCREENING HEPATITIS C JOBY MARTHA [facility] Start: 01-21-1990 HIV SCREENING HIV SCREENING [facility] Start: 1972 Screening for malign ant neoplasm of colon [facility] 1999 panel - Serum or Plasma [facility] Microalbumin [Mass/volume] in Urine [facility] PT ED PATIENT INFORMATION PT ED PATIENT INFORMATION TONYA 10/30/2019 [facility] Immunizations Immunization Date Immunization Notes Care Provider Fa cility 07-07-2020 COVID-19 mRNA, Comir luda (Pfizer) [facility] 06-15-2020 COVID-19 mRNA, Comir luda (Pfizer) [facility] 12-16-2019 influenza virus vacc ine, unspecified formulation [facility] Payers Date Payer Category Payer [facility] [id number] 2024 Unknown [id number] 2022 Private Health Insurance [id number] 2019 Private Health Insurance [employer] A ETNA CHOICE POS II [id number] 2019-Present POS [id number] 1972 Unknown [id number] 1972 Unknown [id number] 1972 Unknown [id number] 1972 Unknown [id number] 1972 Unknown [id number] 1972 Unknown [id number] .[id number] 1972 Unknown [id number] 1959 Private Health Insurance [id number] 1959 Unknown [id number] Private Health Insurance [id number] Self-pay Self Pay [id number] Social History Date Type Detail Facility Tobacco smoking stat us WYIS Unknown if ever smoked [facility] Start: 1970 Sex Assigned At Not on file [facility] Exposure to SARS-CoV -2 (event) Not sure [facility] Start: 03-10-2024 End: 06-08-2024 Sex Assigned At [facility] [facility] Start: 02-02-2021 End: 08-21-2023 Tobacco smoking status NHIS Never smoked tobacco (finding) [facility] Start: 1970 Sex Assigned At Female F [facility] Start: 08-21-2023 Tobacco use and exposure Smokeless tobacco non-user [facility] Start: 03-10-2024 End: 06-08-2024 Alcoholic beverage intake Current drinker of alcohol (finding) [facility] Start: 03-10-2024 End: 06-08-2024 History of Social function [facility] Start: 08-21-2023 Alcohol Comment Very little [facility] History of Present illness Narrative 06-08-2024 Vilma Stauffer MD - 06/08/2024 4:00 PM EDT Note Date & Type Note Facility 04-08-2025 History of Presen t illness Narrative Images from the original note were not included. Skin Check Location: Patient requests a full body skin examination Dermatologic history: no history of skin cancer, no history of atypical moles, no family history of melanoma Last visit: first skin check New patient Lesions: Location: Right nipple Duration: Years Quality: denies pain, denies itch, denies bleeding Associated symptoms: non-healing, rough Treatments: none All pertinent medical history, medications, and allergies were reviewed. General Exam: alert, oriented to person, place, and time, normal affect, well appearing Unaccompanied Scalp, Examined Right leg Examined Head, Face Examined Left leg Examined Neck Examined Right foot Examined Chest Examined Left foot Examined Back Examined Buttocks Examined Abdomen Examined Digits,nails: Examined Right arm Examined Left arm Examined Lymphatics: Not examined Hands Examined 1. Lipoma of head Mid Parietal Scalp 3.5 x 3.5 cm soft subcutaneous nodule Educated on lipomas. Informed patient that lipomas can be surgically removed if they become symptomatic. Discussed the only way to know for sure the lesion is a lipoma would be to have it removed and tested. Discussed observation vs. excision. Patient elected for observation. Return to clinic for re-evaluation if lesion is enlarging/becoming symptomatic. If patient would like removed referral to plastics would be the route, patient can call for referral. 2. Lentigines (2) Chest (Upper Torso, Anterior), Head - Anterior (Face) Scattered bonds macules in sun-exposed areas. The patient was informed that lentigines are benign pigmented lesions that occur on sun-exposed and sun-damaged skin. No treatment is necessary. Recommended regular use of broad spectrum sunscreen SPF 30 or higher 3. Melanocytic nevus of trunk Chest (Upper Torso, Anterior) Scattered benign appearing, regular brown to light brown melanocytic papules and macules with similar morphology Counseled regarding these benign growths. Rarely, a nevus can develop into malignant melanoma, so any changing nevi should be promptly re-evaluated. 4. Tinea pedis of right foot Right Foot - Anterior Erythema and scaling noted Start terbinafine cream twice daily until clear then use 2-3 times weekly to keep fungus away. Related Medications terbinafine (LamISIL) 1 % cream Apply topically 2 (two) times a day Next Visit: 1 year documented in this encounter [facility] History of Present illness Narrative 03-10-2024 Luna Jhaveri DO - 03/10/2024 8:15 AM EST Note Date & Type Note Facility 03-10-2024 History of Presen t illness Narrative Images from the original note were not included. No chief complaint on file. Subjective Radha Strickland, 54 y.o., female HPI She is here in follow up from the sleep lab. She is getting anywhere from 4-7 hrs a night of sleep. She does not think that she gets good sleep. Her used to work midnights and wakes her up at night. She is wearing her machine nightly. She did have a 2 week period that she did not wear it due to traveling in [place]. She denies any issues with her machine. She will need a prescription for supplies. She is not sleeping any without the machine on. Her sleep is off which makes her sleep off. Her memory is about the same. She is not having any morning headaches like she did before. She went to [place] and did not take her machine and she had some headaches then. Past Medical History: Diagnosis Date Abnormal mammogram of left breast Chronic venous insufficiency Elevated BP without diagnosis of hypertension Fibrocystic breast 2018 History of transfusion 10/1999 Hyperlipidemia (CMS/HCC) IFG (impaired fasting glucose) NAFLD (nonalcoholic fatty liver disease) Obesity Past Surgical History: Procedure Laterality Date APPENDECTOMY BREAST BIOPSY Left COLONOSCOPY HYSTERECTOMY Family History Problem Relation Name Age of Onset Hypertension Father Dad Breast cancer Sister Elizabeth Stroke Maternal Grandmother Karey Stroke Maternal Grandfather Popmeghan Social History Tobacco Use Smoking status: Never Smokeless tobacco: Never Substance Use Topics Alcohol use: Yes Comment: Very little Allergies: Demerol hcl [meperidine] and Sulfa antibiotics General: No fever or chills HEENT: No nasal congestion or runny nose Pulmonary: No shortness of breath or cough Cardiovascular: No chest pain or palpitations GI: No nausea or vomiting : No dysuria or hematuria Musculoskeletal: No new aches or pains or muscle weakness Infectious: no recurrent fevers or infections Dermatologic: No rashes or skin lesions Neurologic: No new headaches or dizziness There were no vitals filed for this visit.Body mass index is 37.85 kg/m . weight: 193 lb 12.8 oz Neurologic exam: General: Normal body habitus, cooperative, pleasant Mental status: Awake, alert to person, place and time. Recent and remote memory are intact. Attention and concentration are normal. Fund of knowledge is appropriate for level of education. HEENT: NC/AT Cranial nerves: CN II: Visual cooper full to confrontation. No loss of vision CN III, IV, : pupils equal round and reactive to light. Extraocular movements intact. No ptosis present. CN V: Facial sensation is normal. CN VII: Full and symmetric facial movement. CN VIII: Hearing is normal CN IX and X: Palate elevates symmetrically. CN XI: Shoulder shrug is normal bilaterally. CN XII: Tongue is midline without atrophy or fasciculation. Speech: Clear and fluent no aphasia or dysarthria Pronator drift: Negative bilateral upper extremity Coordination: Intact, no signs of dysmetria Good finger to nose and rapid alternating movements Sensory: Sensation is intact to light, temperature and vibratory touch throughout four extremities. Motor: LUE 5/5 RUE 5/5 LLE 5/5 RLE 5/5 Tone: Physiologic, no tremor, bradykinesia or rigidity DTR: Bilateral Biceps 2/4 Bilateral BR 2/4 Bilateral Patellar 2/4 No spasticity Gait: Normal to casual gait Romberg's Negative Review and summary of old records: Assessment/Plan Diagnoses and all orders for this visit: REMEDIOS (obstructive sleep apnea) Hypoxia Hypersomnia Sleep deprivation Snoring Obesity (BMI 35.0-39.9 without comorbidity) 54 Old female with a severe obstructive sleep apnea with hypoxia leading to daytime hypersomnolence and snoring. Patient had a apnea-hypopnea index of 44 and an oxygen desaturation down to 70 percent. She is controlled with the use of the CPAP machine and she is compliant with it. She is set at 12 cm of water. She is using the machine 90 percent of the time greater than 4 hours with an average nightly usage of 6 hours and 43 minutes and residual AHI of 2.3. We do discuss the inspire a little bit however once she realizes that is a generator put into the chest she is not interested. She does meet the criteria for obesity with a body mass index of 37 and technically should be 35 or less so she would need to work on some weight loss however again at this time she is not interested. Plan Compliance data was reviewed she has been fully compliant Continue use of the CPAP machine every night New supplies for 1 year Call if she has any new issues We did discuss diet exercise and weight loss techniques and whole foods She does have a little bit of sleep deprivation with only 6 hours and 43 minutes so she would benefit from getting more sleep time The patient was counseled on proper sleep hygiene and adequate hours of sleep. The patient was counseled on the risks of stroke, [place], and sudden with REMEDIOS, along with the need for compliance with the CPAP/BiPAP treatment. The diagnosis was all discussed with the patient. All questions were answered and they agreed with the treatment plan. Patient will call if there are any new issues or questions. Pt has been fully educated on their diagnosis, treatment options, follow up plan, and return instructions Return to clinic: 1 year documented in this encounter [facility] Evaluation note 09-17-2022 Note Date & Type [...] Reduce calories, increase activity for weight loss Gema Other Evaluation note Note Date & Type Note Facility Evaluation note Diagnosis Onset Date Chronic venous insufficiency of lower extremity acute Hypercholesterolemia acute Hypertension acute Metabolic dysfunction-associ ated steatotic liver disease (MASLD) acute Wellness examination noneact [facility] Work Phone: Evaluation note Note Date & Type Note Facility Evaluation note Diagnosis REMEDIOS (obstructive sleep apnea)- Primary Obstructive sleep apnea (adult) (pediatric) Hypoxia Hypoxemia Hypersomnia Hypersomnia, unspecified Sleep deprivation Problems related to lack of adequate sleep Snoring Other dyspnea and respiratory abnormality Obesity (BMI 35.0-39.9 without comorbidity) documented in this encounter [facility] Evaluation note Note Date & Type Note Facility Evaluation note Diagnosis Lipoma of head- Primary Lentigines Melanocytic nevus of trunk Benign neoplasm of skin of trunk, except scrotum Tinea pedis of right foot documented in this encounter [facility] History general Narrative - Reported Note Date [...] ONE OVARY REMAINING Hospitalization History SEE ABOVE Gema Other Summary Purpose Family History No Family History Records Found Relationship Condition Age at Onset Recorded Date/T darcy father Hypertension Unknown High blood cholesterol Unknown Diverticulitis Unknown sister Malignant neoplasm of breast Unknown brother Diverticulitis Unknown grandparent Diabetes mellitus Unknown grandparent Malignant neoplasm of colon Unknown Advance Directives No Advanced Directives Records Found Advance Directive Response Recorded Date/ Time Advance Directives No January 31, 2021 8:16am Chief Complaint and Reason for Visit Chief Complaint wellness Reason for Visit Chronic venous insuf ficiency of lower extremity Hypercholesterolemia Hypertension Metabolic dysfunction-associated steatotic liver disease (MASLD) Wellness examination Additional Source Comments Source Comments (unrecognize d section and content) In the event this informatio n is protected by the Federal Confidentiality of Alcohol and Drug Abuse Patient Records regulations: The Federal rules restrict any use of the information to criminally investigate or prosecute any alcohol or drug abuse patient.[facility] the event this information is protected by the Federal Confidentiality of Alcohol and Drug Abuse Patient Records regulations: The Federal rules restrict any use of the information to criminally investigate or prosecute any alcohol or drug abuse patient.[facility] INFORMATION SOURCE (unrecogn ized section and content) DATE CREATED AUTHOR 04/09/[address] [facility] DATE CREATED AUTHOR AUTHOR'S ORGANIZ ATION 11/11/2021 [facility] DATE CREATED AUTHOR AUTHOR'S ORGANIZ ATION 06/10/2024 [facility] dicid Specialists EPIC REASON FOR VISIT (unrecogniz ed section and content) Reason Comments Sleep Apnea Reason Comments Skin Check Care Teams (unrecognized sec tion and content) Team Status: Active Member Role Status Dates Vitaliy Dale DO Primary Care Provider Active Team Status: Active Member Role Status Dates Vitaliy Dale DO Primary Care Provider Active Start: August 21, 2023 Paris Harris DO Attending Provider Active Start : August 21, 2023 Team Status: Inactive Member Role Status Dates Vitaliy Dale DO Primary Care Provide r, Attending Provider Active Start: October 20, 2023 End: October 20, 2023 Sem Manager Relationship Specialty Start Date End Date Vitaliy Dale MD [address] [place] [id number] PCP - General Internal Medicine 08/19/22 Sem Manager Relationship Specialty Start Date End Date Vitaliy Dale MD [address] [place] [address] PCP - General Internal Medicine 08/19/22 Sem Manager Relationship Specialty Start Date End Date Vitaliy Dale MD [address] [place] [phone] PCP - General Internal Medicine 08/19/22 Sem Manager Relationship Specialty Start Date End Date Vitaliy Dale MD [address] [place] [phone] PCP - General Internal Medicine 08/19/22 Goals (unrecognized section and content) Goals may be documented in a n alternate section FOR RECORDS PERTAINING TO PATIENTS WHO ARE [...] BE BASED ON THE PRIMARY CLINICAL RECORDS. [employer] provides no warranty or guarantee of the accuracy or completeness of information in this document.
[2024-07-12] MEDS: KETOROLAC TROMETHAMINE 30 MG/ML VIAL IVP (08:19)
[2024-07-12] MEDS: ONDANSETRON PF 4 MG/2 ML VIAL IV (08:19)
[2024-07-12 08:23] LABS: Basophils Absolute Auto 0.1 10^3/uL (0.0-0.1); Basophils Percent Auto 0.6 % (0.2-2.0); Eosinophils Absolute Auto 0.2 10^3/uL (0.0-0.7); Eosinophils Percent Auto 2.2 % (0.9-7.0); Hematocrit 39.5 % (36.0-48.0); Hemoglobin 13.1 g/dL (12.0-16.0); Immature Granulocytes Abs Auto 0.02 10^3/uL (0.00-0.03); Immature Granulocytes Pct Auto 0.2 % (0.0-0.5); Lymphocytes Absolute Auto 2.7 10^3/uL (1.2-3.8); Lymphocytes Percent Auto 33.5 % (20.5-60.0); Mean Corpuscular HGB Conc 33.2 g/dL (29.9-35.2); Mean Corpuscular Hemoglobin 29.3 pg (26.7-34.0); Mean Corpuscular Volume 88.4 fL (81.0-99.0); Mean Platelet Volume 9.8 fL (9.5-13.5); Monocytes Absolute Auto 0.5 10^3/uL (0.3-0.8); Monocytes Percent Auto 5.8 % (1.7-12.0); Neutrophils Absolute Auto 4.7 10^3/uL (1.4-6.5); Neutrophils Percent Auto 57.7 % (43.0-75.0); Platelet Count 242 10^3/uL (150-450); Red Blood Count 4.47 10^6/uL (4.20-5.40); Red Cell Distribution Width 12.7 % (11.0-15.0); White Blood Count 8.1 10^3/uL (4.0-11.0)
[2024-07-12 08:34] LABS: Anion Gap 14.6; BUN Creatinine Ratio 25.4; Calcium 8.9 mg/dL (8.5-10.1); Carbon Dioxide 28.5 mmol/L (21.0-32.0); Chloride 104 mmol/L (98-107); Estimated GFR (African America >60 (>=60 mL/min/1.73m^2); Estimated GFR (Non-African Ame >60 (>=60 mL/min/1.73m^2); Glucose 150 mg/dL (74-106); Potassium 4.1 mmol/L (3.5-5.1); Sodium 143 mmol/L (136-145)
[2024-07-12] MEDS: MORPHINE SULFATE 4 MG/ML VIAL IV ×2 (08:34→10:04)
--- NOTE | 2024-07-12 08:48 | PC.NURSE ---
pt states pain is a lot more tolerable at this time Ready fot CT
[2024-07-12 09:16] LABS: Bilirubin Urine NEGATIVE (NEGATIVE); Blood Urine LARGE (NEGATIVE); Clarity Urine CLEAR (CLEAR); Color Urine YELLOW (YELLOW); Glucose Urine UA NEGATIVE (NEGATIVE); Ketones Urine NEGATIVE (NEGATIVE); Leukocyte Esterase Urine NEGATIVE (NEGATIVE); Nitrite Urine NEGATIVE (NEGATIVE); Protein Urine TRACE mg/dL (NEG/TRACE); Specific Gravity Urine >=1.030 (1.005-1.025); Urobilinogen Urine 0.2 EU/dL (0.2-1.0)
[2024-07-12 09:22] LABS: RBC Urine 50-75 #/HPF (0-2); Squamous Epithelial Cell Urine MODERATE #/LPF (NONE/RARE)
[2024-07-12 09:23] LABS: Bacteria Urine TRACE #/HPF (NONE SEEN); Cast Seen? SEEN #/LPF (NONE SEEN); Crystals Seen? None Seen #/HPF (None Seen); Hyaline Casts Urine RARE; Mucus Urine NONE SEEN (NONE SEEN)
[2024-07-12] MEDS: 0.9 % SODIUM CHLORIDE 1,000 ML 1000 ML IV (10:04)
[2024-07-12 10:10] VITALS: BP 156/88
== END 2024-07-12 11:20 | disposition home or self-care (01) ==
PROVIDERS: Emergency Provider Emergency Medicine; PCP Internal Medicine
DX: N20.0 Calculus of kidney (principal); N20.1 Calculus of ureter; R10.32 Left lower quadrant pain; R11.0 Nausea; N13.4 Hydroureter
CPT/HCPCS: 36415; 74176; 80048; 81001; 85025; 96374; 96375; 96376; 99284; J1885; J2270; J2405

== ENCOUNTER 2024-08-30 08:02 | Outpatient (OUT) | payer BC, SELFPAY ==
--- OUTSIDE RECORDS SUMMARY | 2024-08-30 08:05 | XMS_ITS | Encounter Summary ---
Author Organization [facility] Address [address] [place], [place] [id number] Care Team Providers Care Montessori Lead Teacher Name Role Phone Unavailable Primary Care Provider Unavailabl e Source Comments In the event this information is protected by the Federal Confidentiality of Alcohol and Drug AbusePatient Records regulations: The Federal rules restrict any use of the information to criminally investigate or prosecute any alcohol or drug abuse patient.[facility] Encounter Details Date Type Department Care Team (Late st Contact Info) Description 01/17/2020 Get Medical Advice Gastroenterology [address] [id number] Charisma Lovelace MD [address] [place], [place] [phone] RE: Visit Follow Up Question Social History Tobacco Use Types Packs/Day Years Used Date Smoking Tobacco: Never Assessed Comments Unknown Sex and Gender Information Value Date Recorded Sex Assigned at Female 01/10/2020 11:25 AM EST Legal Sex Female 1:34 PM EDT Gender Identity Female 01/10/2020 11:25 AM EST Sexual Orientation Straight 01/10/2020 11 :25 AM EST COVID-19 Exposure Response Date Recorded In the last month, have you been in contact with someone who was confirmed or suspected to have Coronavirus / COVID-19? No / Unsure 01/13/2020 6:50 AM EST documented as of this encounter Plan of Treatment Not on file documented as of this encounter Visit Diagnoses Not on filedocumented in this encounter
--- OUTSIDE RECORDS SUMMARY | 2024-08-30 08:05 | XMS_ITS | Encounter Summary ---
Author Organization [facility] Address [address] [place] [address] Care Team Providers Care Pleater Hand Name Role Phone Vitaliy Dale DO Primary Care Provider [phone] Encounter Details Date Type Department Care Team (Late st Contact Info) Description 08/28/2023 Orders Only [facility] [address] [place] [address] Tanesha Dye LPN [address] [facility] [address] [place] [address] Social History Tobacco Use Types Packs/Day Years Used Date Smoking Tobacco: Never Smokeless Tobacco: Never Alcohol Use Standard Drinks/Week Comments Yes 0 (1 standard drink = 0.6 oz pur e alcohol) Very little Comments No Sex and Gender Information Value Date Recorded Sex Assigned at Not on file Legal Sex Female 6:46 PM EDT Gender Identity Not on file Sexual Orientation Not on file documented as of this encounter Plan of Treatment Upcoming Encounters Date Type Department Care Team (Late st Contact Info) Description 09/06/2024 9:00 AM EDT Office Visit [facility] [address] [place] [address] Jonathan Harris [address] [place] [id number] 06/09/2025 3:30 PM EDT Office Visit [facility] [address] [place] [address] Vilma Silva MD [address] [place] [address] documented as of this encounter Procedures Procedure Name Priority Date/Time Associated Diagnosis Comments PAP SMEAR Routine 08/21/2023 12:00 AM EDT documented in this encounter Results * Pap Smear (08/21/2023 12:00 AM EDT) Swab Cervical swab / Unknown Kimberly Nurse [facility] CYTOLOGY ORDERABLES Final Result EXTERNAL LAB documented in this encounter Visit Diagnoses Not on filedocumented in this encounter Care Teams Pleater Hand Relationship Specialty Start Date End Date Vitaliy Dale DO PCP - General Internal Medicine 08/19/22 documented as of this encounter
--- OUTSIDE RECORDS SUMMARY | 2024-08-30 08:05 | XMS_ITS | Clinical Summary ---
Author Organization [facility] Address [address] [place] [address] Care Team Providers Care Arm Rest Builder Name Role Phone Vitaliy Dale DO Primary Care Provider [phone] Allergies Active Allergy Reactions Criticality Noted Date Comments Meperidine GI intolerance 08/19/2022 Sulfa Antibiotics Other 08/19/2022 Spots all over not hives Medications Mounjaro 2.5 MG/0.5ML solution auto-injector INJECT 2.5 MG (0.5 ML) SUBCUTANEOUSLY EVERY WEEK FOR 28 DAYS 02/23/20 24 Active venlafaxine XR (Effexor XR) 37.5 MG 24 hr capsuleIndicati ons:Depression, unspecified Take 1 capsule (37.5 mg) by mouth Daily 90 capsule 07/14/19 25 Active Active Problems No known active problems Encounters Date Type Department Care Team Description 07/13/2024 Telephone [facility] [address] [place] [address] Roxann Lantigua MA 06/08/2024 4:00 PM EDT Office Visit [facility] [address] [place] [address] Vilma Silva MD Lipoma of head (Primary Dx); Lentigines; Melanocytic nevus of trunk; Tinea pedis of right foot 06/08/2024 Bamboo flowsheet [facility] [address] [place] [address] Vilma Silva MD 06/08/2024 Travel from Last 3 Months Family History Medical History Relation Name Comments Hypertension Father Dad Stroke Father Dad Stroke Maternal Grandfather Poppie Stroke Maternal Grandmother Karey Breast cancer Sister Elizabeth Relation Name Status Comments Father Dad Alive Maternal Grandfather Poppie Maternal Grandmother Karey Mother Alive Paternal Grandfather Paternal Grandmother Sister Elizabeth Social History Tobacco Use Types Packs/Day Years Used Date Smoking Tobacco: Never Smokeless Tobacco: Never Tobacco Cessation:Counseling Given: Not Answered Alcohol Use Standard Drinks/Week Comments Yes 0 (1 standard drink = 0.6 oz pur e alcohol) Very little Comments No Sex and Gender Information Value Date Recorded Sex Assigned at Not on file Legal Sex Female 6:46 PM EDT Gender Identity Not on file Sexual Orientation Not on file Last Filed Vital Signs Vital Sign Reading Time Taken Comments Blood Pressure 134/86 03/10/2024 8:17 AM EST Pulse 79 03/10/2024 8:17 AM EST Temperature - - Respiratory Rate - - Oxygen Saturation 98% 03/10/2024 8:17 AM EST Inhaled Oxygen Concentration - - Weight 87.9 kg (193 lb 12.8 oz) 03/10/2024 8:17 AM EST Height 152.4 cm (5') 03/10/2024 8:17 AM EST Body Mass Index 37.85 03/10/2024 8:17 AM EST Plan of Treatment Upcoming Encounters Date Type Department Care Team (Late st Contact Info) Description 09/06/2024 9:00 AM EDT Office Visit [facility] [address] [facility] [place] [address] Jonathan Harris DO [address] [facility] [place] [address] 06/09/2025 3:30 PM EDT Office Visit [facility] [address] [place] [address] Vilma Silva MD [address] [place] [address] Health Maintenance Due Date Last Done Comments CT Colonography 1972 Colonoscopy 1972 Colorectal Cancer Screening 1972 FIT-DNA 1972 FIT 1972 FOBT 1972 Sigmoidoscopy 1972 Mammogram 02/28/2024 02/27/2023 Influenza Vaccine (Season Ended) 2024 12/16/19 Pap Smear 08/20/2026 08/21/2023, 08/27/2022 Cervical Cancer Screening 08/28/2027 HPV/Cotest 08/28/2027 08/27/2022 Procedures Procedure Name Priority Date/Time Associated Diagnosis Comments PAP SMEAR Routine 08/21/2023 12:00 AM EDT MM TOMOSYNTHESIS SCREENING BI 02/27/2023 8:35 AM EST THINPREP PAP AND HPV MRNA E6/E7 W/RFL HPV 16,18/45 Routine 08/27/2022 8:52 AM EDT Well woman exam with routine gynecological exam from Last 3 Months or Most Recently Relevant to Health Maintenance Results * Pap Smear (08/21/2023 12:00 AM EDT) Swab Cervical swab / Unknown us Kimberly Nurse [facility] CYTOLOGY ORDERABLES Final Result EXTERNAL LAB * MM TOMOSYNTHESIS SCREENING BI (02/27/2023 8:35 AM EST) Anatomical Region Laterality Modality Other 02/27/2023 8:35 AM EST Narrative 02/27/2023 8:36 [place] [address] Mammography Report Signed Patient: RENATO ELLSWORTH MR#: [id number] : 1970 Acct:[id number] Age/Sex: 53 / F ADM Date: 02/26/23 Loc: MAMMO Attending Dr: Jonathan Harris D.O. Ordering Physician: Jonathan Harris D.O. Results: Date of Service: 02/26/23 Follow Up: Procedure(s): MM tomosynthesis screening BI Accession Number(s): [id number] cc: Vitaliy Dale D.O.; Jonathan Harris D.O. Patient Name: RENATO ELLSWORTH MR#: [id number] : 1970 Exam Date: 02/26/2023 Ordering Doctor: DR Jonathan Harris . RADIOLOGY REPORT PROCEDURE: MM TOMOSYNTHESIS SCREENING BI COMPARISON: MG MAMM SCREEN 3D KEIKO CAD, 11/06/2021. MG MAMM SCREEN 3D KEIKO CAD, 10/09/2020. MG MAMM KEIKO DIAG W CAD, 08/20/2019. MG MAMM KEIKO SCRN W CAD DIG, 02/22/2013. INDICATIONS: screening Calculator Name NCI Breast Cancer Risk Assessment Tool 5 Year Breast Cancer Risk 3.00% Lifetime Breast Cancer Risk 23.80% Personal Breast Cancer No Personal Ovarian Cancer No Treatments None Family Cancers Grandfather-paternal with brain,liver cancer at age 60; Sister with breast cancer at age 45; Grandmother-maternal with colon cancer at age 70. LOCATION: [facility] BREAST COMPOSITION: Heterogeneously dense,which may obscure small masses. FINDINGS: DIAGNOSTIC CATEGORY 0--INCOMPLETE: NEED ADDITIONAL IMAGING EVALUATION. RIGHT BREAST: No significant suspicious finding. No significant change has occurred. LEFT BREAST: 6 mm mass versus cyst within anterior breast 6 o'clock position, just inferior to nipple line. Spot magnification views and ultrasound evaluation recommended. RECOMMENDATIONS: ADDITIONAL MAMMOGRAPHIC VIEWS REQUIRED: LEFT BREAST - LEFT CRANIOCAUDAL SPOT MAGNIFICATION VIEW - LEFT OBLIQUE SPOT MAGNIFICATION VIEW - ULTRASOUND: LEFT BREAST PLEASE NOTE: A NORMAL MAMMOGRAM DOES NOT EXCLUDE THE POSSIBILITY OF BREAST CANCER. A CLINICALLY SUSPICIOUS PALPABLE LUMP SHOULD BE BIOPSIED. Dictated by: Alek Cortes M.D. on 02/27/2023 at 07:45 Approved by: Alek Cortes M.D. on 02/27/2023 at 08:35 Dictated By: Alek Cortes M.D. Signed By: 02/27/23 0836 DD/ TD/TT: Maintenance Mechanic Engine: Procedure Note Radiology, Radiologist, - 02/27/2023 [place] [address] Mammography Report Signed Patient: RENATO ELLSWORTH RMR#: [id number] : 1970Acct:[id number] Age/Sex: 53 / FADM Date: 02/26/23 Loc: MAMMO Attending Dr: Jonathan Harris D.O. Ordering Physician: Jonathan Harris D.O.Results: Date of Service: 02/26/23Follow Up: Procedure(s): MM tomosynthesis screening BI Accession Number(s): [id number] cc: Vitaliy Dale D.O.; Jonathan Harris D.O. Patient Name: RENATO ELLSWORTH MR#: [id number] : 1970 Exam Date: 02/26/2023 Ordering Doctor: DR Jonathan Harris . RADIOLOGY REPORT PROCEDURE: MM TOMOSYNTHESIS SCREENING BI COMPARISON: MG MAMM SCREEN 3D KEIKO CAD, 11/06/2021. MG MAMM SCREEN 3DBIL CAD, 10/09/2020. MG MAMM KEIKO DIAG W CAD, 08/20/2019. MG MAMM KEIKO SCRN WCAD DIG, 02/22/2013. INDICATIONS: screening Calculator Name NCI Breast Cancer Risk Assessment Tool 5 Year Breast Cancer Risk 3.00% Lifetime Breast Cancer Risk 23.80% Personal Breast Cancer No Personal Ovarian Cancer No Treatments None Family Cancers Grandfather-paternal with brain,liver cancer at age 60; Sister with breast cancer at age 45; Grandmother-maternal with coloncancer at age 70. LOCATION: [facility] BREAST COMPOSITION: Heterogeneously dense,which may obscure smallmasses. FINDINGS: DIAGNOSTIC CATEGORY 0--INCOMPLETE: NEED ADDITIONAL IMAGING EVALUATION. RIGHT BREAST: No significant suspicious finding. No significant changehas occurred. LEFT BREAST: 6 mm mass versus cyst within anterior breast 6 o'clockposition, just inferior to nipple line. Spot magnification views and ultrasound evaluation recommended. RECOMMENDATIONS: ADDITIONAL MAMMOGRAPHIC VIEWS REQUIRED: LEFT BREAST - LEFT CRANIOCAUDALSPOT MAGNIFICATION VIEW - LEFT OBLIQUE SPOT MAGNIFICATION VIEW - ULTRASOUND: LEFT BREAST PLEASE NOTE: A NORMAL MAMMOGRAM DOES NOT EXCLUDE THE POSSIBILITY OFBREAST CANCER. A CLINICALLY SUSPICIOUS PALPABLE LUMP SHOULD BE BIOPSIED. Dictated by: Alek Cortes M.D. on 02/27/2023 at 07:45 Approved by: Alek Cortes M.D. on 02/27/2023 at 08:35 Dictated By: Alek Cortes M.D. Signed By:02/27/2336 DD/ TD/TT: Maintenance Mechanic Engine: us Jonathan Harris DO [facility] Final Result * THINPREP PAP AND HPV MRNA E6/E7 W/RFL HPV 16,18/45 (08/27/2022 8:52 AM EDT) us Jonathan Harris DO LAB BLOOD ORDERABLES Final Resul t EXTERNAL LAB from Last 3 Months or Most Recently Relevant to Health [place] [address] [facility] Care Teams Arm Rest Builder Relationship Specialty Start Date End Date Vitaliy Dale DO PCP - General Internal Medicine 08/19/22
--- OUTSIDE RECORDS SUMMARY | 2024-08-30 08:05 | XMS_ITS | Encounter Summary ---
Author Organization [facility] Address [address] [place] [address] Care Team Providers Care Senior Systems Software Engineer Name Role Phone Vitaliy Dale DO Primary Care Provider [phone] Encounter Details Date Type Department Care Team (Late st Contact Info) Description 03/19/2023 Clinisync Result Encounter [facility] External Department Unsolicited Jonathan Harris, DO [address] [place] [id number] Social History Tobacco Use Types Packs/Day Years [...] 09/06/2024 9:00 AM EDT Office Visit [facility] [address] [place] [address] Jonathan Harris, DO [address] [place] [address] 06/09/2025 3:30 PM EDT Office Visit [facility] [address] [place] [phone] Vilma Silva MD [address] [place], [place] [phone] documented as of this encounter Procedures Procedure Name Priority Date/Time Associated Diagnosis Comments MM DIAGNOSTIC MAMMO UNILAT LT 03/19/2023 8:41 AM EST documented in this encounter Results * MM DIAGNOSTIC MAMMO UNILAT LT (03/19/2023 8:41 AM EST) Anatomical Region Laterality Modality Other 03/19/2023 8:41 AM EST Narrative 03/19/2023 8:42 [place] [address] Mammography Report Signed Patient: RENATO ELLSWORTH MR#: [id number] : 1970 Acct:[id number] Age/Sex: 53 / F ADM Date: 03/19/23 Loc: MAMMO Attending Dr: Jonathan Harris D.O. Ordering Physician: Jonathan Harris D.O. Results: Date of Service: 03/19/23 Follow Up: Procedure(s): MM diagnostic mammo unilat LT Accession Number(s): [id number] cc: Vitaliy Dale D.O.; Jonathan Harris D.O. Patient Name: RENATO ELLSWORTH MR#: [id number] : 1970 Exam Date: 03/19/2023 Ordering Doctor: DR Jonathan Harris . RADIOLOGY REPORT PROCEDURE: MM DIAGNOSTIC MAMMO UNILAT LT, 03/19/2023, 08:04 BREAST LT LIMITED, 03/19/2023, 08:21 COMPARISON: MM TOMOSYNTHESIS SCREENING BI, 02/26/2023. INDICATIONS: Mass Of Left Breast N63.20, Abnormal Mammogram Calculator Name NCI Breast Cancer Risk Assessment Tool 5 Year Breast Cancer Risk 3.00% Lifetime Breast Cancer Risk 23.80% Personal Breast Cancer No Personal Ovarian Cancer No Treatments None Family Cancers Grandfather-paternal with brain,liver cancer at age 60; Sister with breast cancer at age 45; Grandmother-maternal with colon cancer at age 70. LOCATION: [facility] BREAST COMPOSITION: Heterogeneously dense,which may obscure small masses. FINDINGS: DIAGNOSTIC CATEGORY 3--PROBABLY BENIGN FINDING. THE FOLLOWING FINDING(S) HAS A HIGH PROBABILITY OF A BENIGN ETIOLOGY: Spot compression views of the left breast demonstrate a persistent 6.2 x 4.7 x 6.5 mm oval well-circumscribed nodule. Ultrasound demonstrates at the 6 o'clock position 1 cm from the nipple and 8.0 x 4.2 x 3.8 mm area of anechoic echogenicity with some internal echoes and no definite blood flow. A complex cyst is favored however this lesion is taller than it is wide and short interval follow-up with repeat ultrasound in 4-6 months is recommended to document stability. RECOMMENDATIONS: SHORT TERM FOLLOW-UP ULTRASOUND LEFT BREAST IN 6 MONTHS. PLEASE NOTE: A NORMAL MAMMOGRAM DOES NOT EXCLUDE THE POSSIBILITY OF BREAST CANCER. A CLINICALLY SUSPICIOUS PALPABLE LUMP SHOULD BE BIOPSIED. Dictated by: Saul Mary MD on 03/19/2023 at 08:35 Approved by: Saul Mary MD on 03/19/2023 at 08:41 Dictated By: Saul Mary M.D. Signed By: 03/19/23 0842 DD/ 0841 TD/TT: Cleat Feeder: Procedure Note Radiology, Radiologist, MD - 03/19/2023 [place] [address] Mammography Report Signed Patient: RENATO ELLSWORTH RMR#: [id number] : 1970Acct:[id number] Age/Sex: 53 / FADM Date: 03/19/23 Loc: MAMMO Attending Dr: Jonathan Harris D.O. Ordering Physician: Jonathan Harris D.O.Results: Date of Service: 03/19/23Follow Up: Procedure(s): MM diagnostic mammo unilat LT Accession Number(s): [id number] cc: Vitaliy Dale D.O.; Jonathan Harris D.O. Patient Name: RENATO ELLSWORTH MR#: [id number] : 1970 Exam Date: 03/19/2023 Ordering Doctor: DR Jonathan Harris . RADIOLOGY REPORT PROCEDURE: MM DIAGNOSTIC MAMMO UNILAT LT, 03/19/2023, 08:04 US BREAST LT LIMITED, 03/19/2023, 08:21 COMPARISON: MM TOMOSYNTHESIS SCREENING BI, 02/26/2023. INDICATIONS: Mass Of Left Breast N63.20, Abnormal Mammogram Calculator Name NCI Breast Cancer Risk Assessment Tool 5 Year Breast Cancer Risk 3.00% Lifetime Breast Cancer Risk 23.80% Personal Breast Cancer No Personal Ovarian Cancer No Treatments None Family Cancers Grandfather-paternal with brain,liver cancer at age 60; Sister with breast cancer at age 45; Grandmother-maternal with coloncancer at age 70. LOCATION: [facility] BREAST COMPOSITION: Heterogeneously dense,which may obscure smallmasses. FINDINGS: DIAGNOSTIC CATEGORY 3--PROBABLY BENIGN FINDING. THE FOLLOWING FINDING(S)HAS A HIGH PROBABILITY OF A BENIGN ETIOLOGY: Spot compression views of the left breast demonstrate a persistent 6.2 x4.7 x 6.5 mm oval well-circumscribed nodule. Ultrasound demonstrates at the 6 o'clock position 1 cm from the nipple and 8.0 x 4.2 x 3.8 mm area ofanechoic echogenicity with some internal echoes and no definite blood flow. Acomplex cyst is favored however this lesion is taller than it is wide and short interval follow-up with repeat ultrasound in 4-6 months is recommended to document stability. RECOMMENDATIONS: SHORT TERM FOLLOW-UP ULTRASOUND LEFT BREAST IN 6 MONTHS. PLEASE NOTE: A NORMAL MAMMOGRAM DOES NOT EXCLUDE THE POSSIBILITY OFBREAST CANCER. A CLINICALLY SUSPICIOUS PALPABLE LUMP SHOULD BE BIOPSIED. Dictated by: Saul Mary MD on 03/19/2023 at 08:35 Approved by: Saul Mary MD on 03/19/2023 at 08:41 Dictated By: Saul Mary M.D. Signed By:03/19/23 0842 DD/ 0841 TD/TT: Cleat Feeder: us Jonathan Harris DO [facility] Final Result documented in this encounter Visit Diagnoses Not on filedocumented in this encounter Care Teams Senior Systems Software Engineer Relationship Specialty Start Date End Date Vitaliy Dale DO PCP - General Internal Medicine 08/19/22 documented as of this encounter
--- OUTSIDE RECORDS SUMMARY | 2024-08-30 08:05 | XMS_ITS | Clinical Summary ---
Author Organization [facility] Address [address] [place] [address] Care Team Providers Care Electrician Office Name Role Phone Unavailable Primary Care Provider Unavailabl e Allergies Active Allergy Reactions Criticality Noted Date Comments Meperidine Vomiting 01/13/2020 Sulfa (Sulfonamide Antibiotics) Hives 01/01 Medications venlafaxine HCl (EFFEXOR ORAL) Take 37.5 mg/day by mouth once daily. Active metFORMIN (GLUCOPHAGE) 500 mg tablet Take 500 mg by mouth daily with breakfast. Active Social History Tobacco Use Types Packs/Day Years Used Date Smoking Tobacco: Never Assessed Area Deprivation Index Answer Date Jaquan rded National Score (1-100), lower number is lower ri sk Not on file 02/11/2020 State Score (1-10), lower number is lower risk N ot on file 02/11/2020 Data from: https://www.neighborhoodatlas.medicine.[facility].edu/. Last address used for calculation Not on file 02/11/2020 Comments Unknown Sex and Gender Information Value Date Recorded Sex Assigned at Female 01/10/2020 11:25 AM EST Legal Sex Female 1:34 PM EDT Gender Identity Female 01/10/2020 11:25 AM EST Sexual Orientation Straight 01/10/2020 11 :25 AM EST Last Filed Vital Signs Vital Sign Reading Time Taken Comments Blood Pressure 136/75 01/13/2020 11:50 AM EST Pulse 68 01/13/2020 11:50 AM EST Temperature - - Respiratory Rate 18 01/13/2020 11:50 AM EST Oxygen Saturation 98% 01/13/2020 11:50 AM EST Inhaled Oxygen Concentration - - Weight - - Height - - Body Mass Index - - Plan of Treatment Health Maintenance Due Date Last Done Comments Anxiety Screening 01/21/1990 Depression Screening 01/21/1990 HIV Screening 01/21/1990 DTaP,Tdap,Td Vaccine (1 - Tdap) 01/21/1991 Hepatitis B Vaccine (1 of 3 - 19+ 3-dose series) 01/21 Cervical Cancer Screening 01/21/[address] Colonography 01/21/2017 Cologuard (FIT-DNA) 01/21/2017 Colonoscopy 01/21/2017 Colorectal Cancer Screening 01/21/2017 Diabetes Screening 01/21/2017 Fecal Occult Blood 01/21/2017 Lipid Screening 01/21/2017 Sigmoidoscopy 01/21/2017 Pneumococcal Vaccine: 50+ (1 of 1 - PCV) 01/21/2022 Shingrix Vaccine (1 of 2) 01/21/2022 Covid-19 Vaccine (1 - season) 2023 Influenza Vaccine (Season Ended) 2024 Hepatitis C Screening Completed 12/20/2019 Procedures Procedure Name Priority Date/Time Associated Diagnosis Comments HEPATITIS C VIRUS (HCV) RNA, QUANTITATIVE PCR, PLASMA/SERUM Routine 12/20/2019 11:46 AM EDT Abnormal liver enzymes from Last 3 Months or Most Recently Relevant to Health Maintenance Results * HCV QUANT RNA BY PCR (12/20/2019 11:46 AM EDT) HCV RNA by PCR HCV RNA not detected by PCR. IU/mL 12/22/2019 10:58 AM EDT [facility] Comment: Reference Range: Negative for HCV RNA The Linear Range of this assay is 15 IU/mL to 100,000,000 IU/mL. Blood 12/20/2019 11:4 6 AM EDT 12/20/2019 11:48 AM EDT us Charisma Mazariegos MD LABORATORY Final Re sult [facility] [address] [place] [address] [facility] [address] [place] [address] from Last 3 Months or Most Recently Relevant to Health Maintenance Insurance [employer]
--- OUTSIDE RECORDS SUMMARY | 2024-08-30 08:05 | XMS_ITS | Encounter Summary ---
Author Organization [facility] Address [address] [place] [address] Care Team Providers Care Customer Solutions Coordinator Name Role Phone Vitaliy Dale DO Primary Care Provider [phone] Encounter Details Date Type Department Care Team (Late st Contact Info) Description 02/27/2023 Clinisync Result Encounter N[facility]S External Department Unsolicited Jonathan Harris, DO [address] [place] [id number] Social History Tobacco Use Types Packs/Day Years [...] 09/06/2024 9:00 AM EDT Office Visit [facility] [address] [place] [address] Jonathan Harris, DO [address] [place] [address] 06/09/2025 3:30 PM EDT Office Visit [facility] [address] [place] [phone] Vilma Silva MD [address] [place], [place] [phone] documented as of this encounter Procedures Procedure Name Priority Date/Time Associated Diagnosis Comments MM TOMOSYNTHESIS SCREENING BI 02/27/2023 8:35 AM EST documented in this encounter Results * MM TOMOSYNTHESIS SCREENING BI (02/27/2023 8:35 AM EST) Anatomical Region Laterality Modality Other 02/27/2023 8:35 AM EST Narrative 02/27/2023 8:36 [place] [address] Mammography Report Signed Patient: RENATO ELLSWORTH MR#: [id number] : 1970 Acct:[id number] Age/Sex: 53 / F ADM Date: 02/26/23 Loc: MAMMO Attending Dr: Jonathan Harris D.O. Ordering Physician: Jonathan Harris D.O. Results: Date of Service: 02/26/23 Follow Up: Procedure(s): MM tomosynthesis screening BI Accession Number(s): [id number] cc: Vitaliy Dale D.O.; Jonathan Harris D.O. Patient Name: RENATO ELLSWORTH MR#: [id number] : 1970 Exam Date: 02/26/2023 Ordering Doctor: [...] colon cancer at age 72. LOCATION: [facility] BREAST COMPOSITION: Heterogeneously dense,which may obscure small [...] Dictated By: Alek Cortes M.D. Signed By: 02/27/23835 DD/ 4 TD/TT: Kickboxing Instructor: Procedure Note Radiology, Radiologist, MD - 02/27/2023 [place] [address] Mammography Report Signed Patient: RENATO ELLSWORTH RMR#: [id number] : 1970Acct:[id number] Age/Sex: 53 / FADM Date: 02/26/23 Loc: MAMMO Attending Dr: Jonathan Harris D.O. Ordering Physician: Jonathan Harris D.O.Results: Date of Service: 02/26/23Follow Up: Procedure(s): MM tomosynthesis screening BI Accession Number(s): [id number] cc: Vitaliy Dale D.O.; Jonathan Harris D.O. Patient Name: RENATO ELLSWORTH MR#: [id number] : 1970 Exam Date: 02/26/2023 Ordering Doctor: [...] with coloncancer at age 72. LOCATION: [facility] BREAST COMPOSITION: Heterogeneously dense,which may obscure smallmasses. [...] 08:35 Dictated By: Alek Cortes M.D. Signed By:02/27/23 0836 DD/ 0835 TD/TT: Kickboxing Instructor: Jonathan Harris DO [facility] Final Result documented in this encounter Visit Diagnoses Not on filedocumented in this encounter Care Teams Customer Solutions Coordinator Relationship Specialty Start Date End Date Vitaliy Dale DO PCP - General Internal Medicine 08/19/22 documented as of this encounter
--- OUTSIDE RECORDS SUMMARY | 2024-08-30 08:05 | XMS_ITS | Encounter Summary ---
Author Organization [facility] Address [address] [place], [place] [id number] Care Team Providers Care Speedometer Inspector Name Role Phone Unavailable Primary Care Provider Unavailabl e Source Comments In the event this information is protected by the Federal Confidentiality of Alcohol and Drug AbusePatient Records regulations: The Federal rules restrict any use of the information to criminally investigate or prosecute any alcohol or drug abuse patient.[facility] Encounter Details Date Type Department Care Team (Late st Contact Info) Description 12/28/2019 Patient Msg Gastroenterology [address] [phone] Charisma Lovelace MD [address] [place], [place] [phone] RE:LABS Social History Tobacco Use Types Packs/Day Years [...] have Coronavirus / COVID-19? No / Unsure 12/23/2019 2:45 PM EDT documented as of this encounter Plan of Treatment Not on file documented as of this encounter Visit Diagnoses Not on filedocumented in this encounter
--- OUTSIDE RECORDS SUMMARY | 2024-08-30 08:05 | XMS_ITS | Encounter Summary ---
Author Organization [facility] Address [address] [place] [address] Care Team Providers Care Bottle Blower Name Role Phone Vitaliy Dale DO Primary Care Provider [phone] Encounter Details Date Type Department Care Team (Late st Contact Info) Description 03/19/2023 Clinisync Result Encounter NOMS External Department Unsolicited Jonathan Harris, DO [address] [place] [phone] Social History Tobacco Use Types Packs/Day Years [...] 09/06/2024 9:00 AM EDT Office Visit [facility] [address] [place] [address] Jonathan Harris, DO [address] [place] [address] 06/09/2025 3:30 PM EDT Office Visit [facility] [address] [place] [phone] Vilma Silva MD [address] [place], [place] [phone] documented as of this encounter Procedures Procedure Name Priority Date/Time Associated Diagnosis Comments US BREAST LT LIMITED 03/19/2023 8:41 AM EST documented in this encounter Results * US BREAST LT LIMITED (03/19/2023 8:41 AM EST) Anatomical Region Laterality Modality Other 03/19/2023 8:41 AM EST Narrative 03/19/2023 9:47 [place] [address] Ultrasound Report Signed Patient: RENATO ELLSWORTH MR#: [id number] : 1970 Acct:[id number] Age/Sex: 53 / F ADM Date: 03/19/23 Loc: MAMMO Attending Dr: Jonathan Harris D.O. Ordering Physician: Jonathan Harris D.O. Date of Service: 03/19/23 Procedure(s): US breast LT limited Accession Number(s): [id number] cc: Vitaliy Dale D.O.; Jonathan Harris D.O. Patient Name: RENATO ELLSWORTH MR#: [id number] : 1970 Exam Date: 03/19/2023 Ordering Doctor: [...] colon cancer at age 72. LOCATION: [facility] BREAST COMPOSITION: Heterogeneously dense,which may obscure [...] By: Saul Mary M.D. Signed By: 03/19/23 0947 DD/ 0841 TD/TT: Trigonometry Tutor: Procedure Note Radiology, Radiologist, MD - 03/19/2023 [place] [address] Ultrasound Report Signed Patient: RENATO ELLSWORTH RMR#: [id number] : 1970Acct:[id number] Age/Sex: 53 / FADM Date: 03/19/23 Loc: MAMMO Attending Dr: Jonathan Harris D.O. Ordering Physician: Jonathan Harris D.O. Date of Service: 03/19/23 Procedure(s): US breast LT limited Accession Number(s): [id number] cc: Vitaliy Dale D.O.; Jonathan Harris D.O. Patient Name: RENATO ELLSWORTH MR#: [id number] : 1970 Exam Date: 03/19/2023 Ordering Doctor: [...] with coloncancer at age 72. LOCATION: [facility] BREAST COMPOSITION: Heterogeneously dense,which may obscure [...] Dictated By: Saul Mary M.D. Signed By:03/19/23 0947 DD/ 0841 TD/TT: Trigonometry Tutor: Jonathan Harris DO [facility] Final Result documented in this encounter Visit Diagnoses Not on filedocumented in this encounter Care Teams Bottle Blower Relationship Specialty Start Date End Date Vitaliy Dale DO PCP - General Internal Medicine 08/19/22 documented as of this encounter
--- OUTSIDE RECORDS SUMMARY | 2024-08-30 08:05 | XMS_ITS | Encounter Summary ---
Author Organization [facility] Address [address] [place] [address] Care Team Providers Care New Account Interviewer Name Role Phone Vitaliy Dale DO Primary Care Provider [phone] Encounter Details Date Type Department Care Team (Late st Contact Info) Description 07/30/2023 Clinisync Result Encounter NOMS External Department Unsolicited Jonathan Harris, DO [address] [place] [phone] Social History Tobacco Use Types Packs/Day Years [...] 09/06/2024 9:00 AM EDT Office Visit [facility] [address] [place] [address] Jonathan Harris, DO [address] [place] [address] 06/09/2025 3:30 PM EDT Office Visit [facility] [address] [place] [phone] Vilma Silva MD [address] [place], [place] [phone] documented as of this encounter Procedures Procedure Name Priority Date/Time Associated Diagnosis Comments US BREAST LT LIMITED 07/30/2023 8:50 AM EDT documented in this encounter Results * US BREAST LT LIMITED (07/30/2023 8:50 AM EDT) Anatomical Region Laterality Modality Other 07/30/2023 8:50 AM EDT Narrative 07/30/2023 8:[place] [address] Ultrasound Report Signed Patient: RENATO ELLSWORTH MR#: [id number] : 1970 Acct:[id number] Age/Sex: 53 / F ADM Date: 07/29/23 Loc: US Attending Dr: Jonathan Harris D.O. Ordering Physician: Jonathan Harris D.O. Date of Service: 07/29/23 Procedure(s): US breast LT limited Accession Number(s): [id number] cc: Vitaliy Dale D.O.; Jonathan Harris D.O. Patient Name: RENATO ELLSWORTH MR#: [id number] : 1970 Exam Date: 07/29/2023 Ordering Doctor: DR Jonathan Harris . RADIOLOGY REPORT PROCEDURE: US BREAST LT LIMITED COMPARISON: MM DIAGNOSTIC MAMMO UNILAT LT, 03/19/2023. US BREAST LT LIMITED, 03/19/2023. INDICATIONS: Mammogram abnormal R92.8 TECHNIQUE: Breast ultrasound was performed, with evaluation focusing only on specific areas of concern. FINDINGS: DIAGNOSTIC CATEGORY 2--BENIGN FINDING. NO CHANGE FROM COMPARISON. Again demonstrated at the 6 o'clock position is an 8.4 x 4.8 x 3.8 mm complex cystic structure taller than it is wide , scattered internal septations and some low-level echoes but no vascularity. I favor a complex cyst. The patient is asked to return to yearly screening mammography with repeat bilateral screening mammogram due February of 2024 RECOMMENDATIONS: ROUTINE MAMMOGRAM AND CLINICAL EVALUATION IN 12 MONTHS. Active recommendations from prior exams: SHORT TERM FOLLOW-UP ULTRASOUND LEFT BREAST IN [#MONTHS] MONTHS. Due on 09/18/2023. PLEASE NOTE: A NORMAL ULTRASOUND EXAMINATION DOES NOT EXCLUDE THE POSSIBILITY OF BREAST CANCER. A CLINICALLY SUSPICIOUS PALPABLE LUMP SHOULD BE BIOPSIED. Dictated by: Saul Mary MD on 07/30/2023 at 08:47 Approved by: Saul Mary MD on 07/30/2023 at 08:50 Dictated By: Saul Mary M.D. Signed By: 07/30/23 0851 DD/ 0850 TD/TT: Oil Well Gun Perforator Operator: Procedure Note Radiology, Radiologist, MD - 07/30/2023 [place] [address] Ultrasound Report Signed Patient: RENATO ELLSWORTH RMR#: [id number] : 1970Acct:[id number] Age/Sex: 53 / FADM Date: 07/29/23 Loc: US Attending Dr: Jonathan Harris D.O. Ordering Physician: Jonathan Harris D.O. Date of Service: 07/29/23 Procedure(s): US breast LT limited Accession Number(s): [id number] cc: Vitaliy Dale D.O.; Jonathan Harris D.O. Patient Name: RENATO ELLSWORTH MR#: [id number] : 1970 Exam Date: 07/29/2023 Ordering Doctor: DR Jonathan Harris . RADIOLOGY REPORT PROCEDURE: US BREAST LT LIMITED COMPARISON: MM DIAGNOSTIC MAMMO UNILAT LT, 03/19/2023. US BREAST LT LIMITED, 03/19/2023. INDICATIONS: Mammogram abnormal R92.8 TECHNIQUE: Breast ultrasound was performed, with evaluation focusingonly on specific areas of concern. FINDINGS: DIAGNOSTIC CATEGORY 2--BENIGN FINDING. NO CHANGE FROM COMPARISON. Again demonstrated at the 6 o'clock position is an 8.4 x 4.8 x 3.8 mmcomplex cystic structure taller than it is wide , scattered internal septationsand some low-level echoes but no vascularity. I favor a complex cyst. The patient is asked to return to yearly screening mammography with repeat bilateral screening mammogram due February of 2024 RECOMMENDATIONS: ROUTINE MAMMOGRAM AND CLINICAL EVALUATION IN 12 MONTHS. Active recommendations from prior exams: SHORT TERM FOLLOW-UP ULTRASOUND LEFT BREAST IN [#MONTHS] MONTHS. Due on 09/18/2023. PLEASE NOTE: A NORMAL ULTRASOUND EXAMINATION DOES NOT EXCLUDE THEPOSSIBILITY OF BREAST CANCER. A CLINICALLY SUSPICIOUS PALPABLE LUMP SHOULD BEBIOPSIED. Dictated by: Saul Mary MD on 07/30/2023 at 08:47 Approved by: Saul Mary MD on 07/30/2023 at 08:50 Dictated By: Saul Mary M.D. Signed By:07/30/2351 DD/ TD/TT: Oil Well Gun Perforator Operator: us Jonathan Harris DO [facility] Final Result documented in this encounter Visit Diagnoses Not on filedocumented in this encounter Care Teams New Account Interviewer Relationship Specialty Start Date End Date Vitaliy Dale DO PCP - General Internal Medicine 08/19/22 documented as of this encounter
--- OUTSIDE RECORDS SUMMARY | 2024-08-30 08:05 | XMS_ITS | Encounter Summary ---
Author Organization [facility] Address [address] [place] [address] Care Team Providers Care Cement Mason Name Role Phone Vitaliy Dale DO Primary Care Provider [phone] Encounter Details Date Type Department Care Team (Late st Contact Info) Description 02/26/2023 Clinisync Result Encounter NOMS External Department Unsolicited Paris Harris, DO [address] [place] [phone] Social History Tobacco Use Types Packs/Day Years [...] 09/06/2024 9:00 AM EDT Office Visit [facility] [address] [place] [address] Paris Harris, DO [address] [place] [address] 06/09/2025 3:30 PM EDT Office Visit [facility] [address] [place] [phone] Vilma Silva MD [address] [place], [place] [address] documented as of this encounter Procedures Procedure Name Priority Date/Time Associated Diagnosis Comments XR DEXA AXIAL SKELETON 02/26/2023 11:55 AM EST documented in this encounter Results * XR DEXA AXIAL SKELETON (02/26/2023 11:55 AM EST) Anatomical Region Laterality Modality Other 02/26/2023 11:5 5 AM EST Narrative 02/26/2023 11:58 [place] [address] XRay Report Signed Patient: RENATO ELLSWORTH MR#: [id number] : 1970 Acct:[id number] Age/Sex: 53 / F ADM Date: 02/26/23 Loc: MAMMO Attending Dr: Paris Harris D.O. Ordering Physician: Paris Harris D.O. Date of Service: 02/26/23 Procedure(s): XR DEXA axial skeleton Accession Number(s): [id number] cc: Vitaliy Dale D.O.; Paris Harris D.O. [place] [address] Patient Name: RENATO ELLSWORTH MRN: [id number] date: 1970 Sex: F Assigned Patient Location: [facility] Current Patient Location: [facility] Accession/Order Number: [id number] Exam Date: 02/26/2023 10:30 Report Date: 02/26/2023 11:55 At the request of: PARIS HARRIS Procedure: XR DEXA axial skeleton EXAMINATION: XR DEXA axial skeleton HISTORY: Asymptomatic menopausal state Z78.0 COMPARISON: No relevant comparison available. TECHNIQUE: Dual-energy X-ray absorptiometry (DXA) was performed. FINDINGS: SPINE ANALYSIS: Average bone mineral density is 1.218 g/cm2. T-score (standard deviation relative to young adult mean): 0.3 . HIP ANALYSIS: Lowest bone mineral density is within the left femoral neck, 0.898 g/cm2. T-score (standard deviation relative to young adult mean): -1.0 . XR/XR DEXA axial skeleton IMPRESSION: World Jesus Organization Classification: Normal - Low Fracture Risk Electronically authenticated by: JUANCHO CORTES Date: 02/26/2023 11:55 Dictated By: Juancho Cortes M.D. Signed By: 02/26/23 1158 DD/ 1155 TD/TT: Director Search: Procedure Note Radiology, Radiologist, - 02/26/2023 [place] [address] XRay Report Signed Patient: RENATO ELLSWORTH RMR#: [id number] : 1970Acct:[id number] Age/Sex: 53 / FADM Date: 02/26/23 Loc: MAMMO Attending Dr: Paris Harris D.O. Ordering Physician: Paris Harris D.O. Date of Service: 02/26/23 Procedure(s): XR DEXA axial skeleton Accession Number(s): [id number] cc: Vitaliy Dale D.O.; Paris Harris D.O. [address] [place] [address] Patient Name: RENATO ELLSWORTH MRN: [id number] date: 1970 Sex: F Assigned Patient Location: [facility] Current Patient Location: [facility] Accession/Order Number: [id number] Exam Date: 02/26/2023 10:30 Report Date: 02/26/2023 11:55 At the request of: PARIS HARRIS Procedure: XR DEXA axial skeleton EXAMINATION: XR DEXA axial skeleton HISTORY: Asymptomatic menopausal state Z78.0 COMPARISON: No relevant comparison available. TECHNIQUE: Dual-energy X-ray absorptiometry (DXA) was performed. FINDINGS: SPINE ANALYSIS: Average bone mineral density is 1.218 g/cm2. T-score (standard deviation relative to young adult mean): 0.3 . HIP ANALYSIS: Lowest bone mineral density is within the left femoral neck, 0.898 g/cm2. T-score (standard deviation relative to young adult mean): -1.0 . XR/XR DEXA axial skeleton IMPRESSION: World Jesus Organization Classification: Normal - Low Fracture Risk Electronically authenticated by: JUANCHO CORTES Date: 02/26/2023 11:55 Dictated By: Juancho Cortes M.D. Signed By:02/26/23 1158 DD/ 1155 TD/TT: Director Search: us Paris Harris DO [facility] Final Result documented in this encounter Visit Diagnoses Not on filedocumented in this encounter Care Teams Cement Mason Relationship Specialty Start Date End Date Vitaliy Dale DO PCP - General Internal Medicine 08/19/22 documented as of this encounter
--- OUTSIDE RECORDS SUMMARY | 2024-08-30 08:05 | XMS_ITS | Encounter Summary ---
Author Organization [facility] Address [address] [place] [address] Care Team Providers Care Sock Turner Name Role Phone Vitaliy Dale DO Primary Care Provider [phone] Encounter Details Date Type Department Care Team (Late st Contact Info) Description 03/19/2023 Clinisync Result Encounter NOMS External Department Unsolicited Jonathan Harris, DO [address] [place] [phone] Social History Tobacco Use Types Packs/Day Years [...] 09/06/2024 9:00 AM EDT Office Visit [facility] OB [address] [place] [address] Jonathan Harris, DO [address] [place] [address] 06/09/2025 3:30 PM EDT Office Visit [facility] [address] [place] [phone] Vilma Silva MD [address] [place], [place] [address] documented as of this encounter Procedures Procedure Name Priority Date/Time Associated Diagnosis Comments MM DIAGNOSTIC MAMMO UNILAT LT 03/19/2023 8:41 AM EST documented in this encounter Results * MM DIAGNOSTIC MAMMO UNILAT LT (03/19/2023 8:41 AM EST) Anatomical Region Laterality Modality Other 03/19/2023 8:41 AM EST Narrative 03/19/2023 9:47 [place] [address] Mammography Report Signed Patient: RENATO ELLSWORTH MR#: [id number] : 1970 Acct:[id number] Age/Sex: 53 / F ADM Date: 03/19/23 Loc: MAMMO Attending Dr: Jonathan Harris D.O. Ordering Physician: Jonathan Harris D.O. Results: Date of Service: 03/19/23 Follow Up: Procedure(s): MM diagnostic mammo unilat LT Accession Number(s): [id number] cc: Vitaliy Dale D.O.; Jonathan Harris D.O. Patient Name: RENATO ELLSWORTH MR#: [id number] : 1970 Exam Date: 03/19/2023 Ordering Doctor: [...] colon cancer at age 72. LOCATION: [facility] BREAST COMPOSITION: Heterogeneously dense,which may obscure [...] Signed By: 03/19/23 0947 DD/ 0841 TD/TT: Strategy Planning Consultant: Procedure Note Radiology, Radiologist, MD - 05/07/2023 [place] [address] Mammography Report Signed Patient: RENATO ELLSWORTH RMR#: [id number] : 1970Acct:[id number] Age/Sex: 53 / FADM Date: 03/19/23 Loc: MAMMO Attending Dr: Jonathan Harris D.O. Ordering Physician: Jonathan Harris D.O.Results: Date of Service: 03/19/23Follow Up: Procedure(s): MM diagnostic mammo unilat LT Accession Number(s): [id number] cc: Vitaliy Dale D.O.; Jonathan Harris D.O. Patient Name: RENATO ELLSWORTH MR#: [id number] : 1970 Exam Date: 03/19/2023 Ordering Doctor: [...] with coloncancer at age 72. LOCATION: [facility] BREAST COMPOSITION: Heterogeneously dense,which may obscure [...] M.D. Signed By:03/19/23 0947 DD/ 0841 TD/TT: Strategy Planning Consultant: us Jonathan Harris DO [facility] Final Result documented in this encounter Visit Diagnoses Not on filedocumented in this encounter Care Teams Sock Turner Relationship Specialty Start Date End Date Vitaliy Dale DO PCP - General Internal Medicine 08/19/22 documented as of this encounter
--- NOTE | 2024-08-30 08:09 | MM_ITS ---
Patient Name: RENATO ELLSWORTH MR#: [id number] : 1970 Exam Date: 08/30/2024 Ordering Doctor: DR PARIS CERDA . RADIOLOGY REPORT PROCEDURE: MM TOMOSYNTHESIS SCREENING BI COMPARISON: MM DIAGNOSTIC MAMMO UNILAT LT, 03/19/2023. MM TOMOSYNTHESIS SCREENING BI, 02/26/2023. MG MAMM SCREEN 3D KEIKO CAD, 11/06/2021. MG MAMM SCREEN 3D KEIKO CAD, 10/09/2020. INDICATIONS: Screening Calculator Name NCI Breast Cancer Risk Assessment Tool 5 Year Breast Cancer Risk 3.10% Lifetime Breast Cancer Risk 23.40% Personal Breast Cancer No Personal Ovarian Cancer No Treatments None Family Cancers Grandfather-paternal with brain,liver cancer at age 60; Sister with breast cancer at age 45; Grandmother-maternal with colon cancer at age 70. LOCATION: [facility] BREAST COMPOSITION: There are scattered areas of fibroglandular density. FINDINGS: DIAGNOSTIC CATEGORY 1--NEGATIVE. RIGHT BREAST: No significant suspicious finding. LEFT BREAST: No significant suspicious finding. RECOMMENDATIONS: ROUTINE MAMMOGRAM AND CLINICAL EVALUATION IN 12 MONTHS. PLEASE NOTE: A NORMAL MAMMOGRAM DOES NOT EXCLUDE THE POSSIBILITY OF BREAST CANCER. A CLINICALLY SUSPICIOUS PALPABLE LUMP SHOULD BE BIOPSIED. Dictated by: Jorge Welsh DO on 08/30/2024 at 16:05 Approved by: Jorge Welsh DO on 08/30/2024 at 16:10
== END 2024-08-30 08:03 | disposition home or self-care (01) ==
LOC: MAMMO 08:03
PROVIDERS: PCP Internal Medicine; Visit Provider Obstetrics & Gynecology
DX: Z12.31 Encounter for screening mammogram for malignant neoplasm of breast (principal); Z80.3 Family history of malignant neoplasm of breast; Z80.0 Family history of malignant neoplasm of digestive organs; Z80.8 Family history of malignant neoplasm of other organs or systems
CPT/HCPCS: 77063; 77067

== ENCOUNTER 2024-09-06 19:19 | Outpatient (REF) | payer BC, SELFPAY ==
--- OUTSIDE RECORDS SUMMARY | 2024-09-06 08:41 | XMS_ITS ---
Author Name Auto Generated Organization OHIP Care Team Providers Care Property Preservation Specialist Name Role Phone XIOMY CHAPIN Carson Attending Unavailable PARIS CERDA Attending Unavailable LUNA JHAVERI Attending Unavailable Khadra Becker Attending Unavailable Khadra Becker Admitting Unavailable Khadra Becker Referring Unavailable Khadra Becker Attending Unavailable Khadra Becker Attending Unavailable Khadra Becker Admitting Unavailable Khadra Becker Referring Unavailable PROBLEMS No Problem Records Found PROCEDURES No Procedure Records Found RESULTS OPERATIVE REPORT Observed: 08/09/2024 11:20 AM Status: F Source: [facility] Operative Report Patient: RADHA ELLSWORTH Age: 54 years Sex: Female : 1970 Associated Diagnoses: None Author: Khadra Becker MD Procedure Operative Information Details: Date/ Time: 08/09/2024 11:20:00. Pre-Op Dx: Encounter for removal of ureteral stent ([id number] Z46.6, Discharge, Medical), History of kidney stones ([id number] Z87.442, Discharge, Medical). Post-Op Dx: Same. Anesthesia Type: Local. Procedure: Local Cystoscopy with Stent Removal. Complications: None. Risks/Benefits/Informed Consent: Surgical risks, benefits, details of the procedure have been explained to the patient, Full informed consent has been obtained. Intraoperative Information Prepped: The patient was placed in supine position, The patient was prepped with the Betadine solution (Hibiclens). Anesthesia: 2% Xylocaine Jelly per urethra. Procedure: Cystoscopy and Left Stent Removal, The flexible Cystoscope was passed in retrograde fashion into the bladder without difficulty, The bladder was viewed in entirety and found to be without tumors or stones, Mild inflammation was seen surrounding the orifice with the stent seen protruding from it, The stent was then grasped and removed in its entirety. Specimens Removed: None. Devices Implanted: None. Postoperative Information Discharge: The patient tolerated the procedure well and was subsequently discharged home, [place] [address] [facility] call with results to ensure no silent obstruction has developed. Will proceed with annual follow-up afterwards for stone surveillance. Result Comment: Electronical ly Signed By: Khadra Becker MD\.br\Date and Time Signed: 08/09/24 11:21 EDT MAIN OR PREOPERATIVE RECORD Observed: 11:00 AM Status: F Source: [facility] Main OR Preoperative Record Holding Area Document Type FTURO Summary Primary Physician: Khadra Becker MD Finalized Date/Time: 08/09/24 10:47:41 Pt. Name: SENGRADHA/Sex: 1970 Female Med Rec #: [id number] Physician: Khadra Becker MD Financial #: [id number] Pt. Type: O Room/Bed: / Admit/Disch: 08/09/24 10:23:52 - Institution: Case Times Holding FTURO Pre-Care Text: Verifies consent for planned procedure, identifies individual values and wishes concerning care, includes family members in perioperative teaching Secures patient's records' belongings, and valuables, maintains patient's dignity and privacy, and maintains patient confidentiality Entry 1 In Holding 08/09/24 10:46:00 Outcomes Met? Yes Last Modified By: Bev Reed LPN 08/09/24 10:46:15 Post-Care Text: The patient participates in decisions affecting his or her perioperative plan of care The patient's right to privacy is maintained Surgery Checklist FTURO Entry 1 Patient Birthday, ID Band Procedure History and Physical, Identification: Check, Patient Verification: Surgical Consent, With Participation Patient NPO after Midnight: n/a Personal Items: Glasses Limitations: up ad christa Complaints of Pain: No Skin Integrity Intact, [place], Warm, & Dry Vitals - EU Blood Pressure 144/89 Pulse 74 bpm Respirations 18 br/min SPO2 96 % Additional None RN Reviewed Yes Specimens Collected Last Modified By: Pippa Meng RN 08/09/24 10:47:39 Finalized By: Pippa Meng RN Document Signatures Signed By: Pippa Meng RN 08/09/24 10:47 PATIENT EDUCATION Observed: 08/09/2024 10:55 AM Status: F Source: [facility] Patient Education Cystoscopy with Stent Removal ??? Voiding after the procedure: there may be some pain, burning, urgency, frequency and blood tinged urine following the procedure. These symptoms usually resolve within 2-5 days. Drink the amount of fluid it takes to keep the urine pink to yellow or clear in color. Drinking enough water and fluids will help to ease any discomfort after your procedure. ??? If you are having problems that seem out of the ordinary, please call. ??? If unable to contact your physician and you feel it is an emergency, go to the nearest emergency room or call 911 ??? Diet ??? you may resume your normal diet. ??? Activity ??? you may resume your normal activities ??? Call if you have a fever over 100 degrees. OUTPATIENT SURGERY DISCHARGE INSTRUCTION Observed: 08/09/2024 10:55 AM Status: F Source: [facility] Outpatient Surgery Discharge Instruction [address] [address] Patient Discharge Instructions PERSON INFORMATION Name: RADHA ELLSWORTH Date of : 1970 Current Date: 08/09/2024 10:55:57 PHYSICIANS Admitting Physician: Khadra Becker MD Comment: Discharge Diagnosis: Encounter for removal of ureteral stent; History of kidney stones RADHA ELLSWORTH has been given the following list of follow-up instructions, prescriptions, and patient education materials: IF UNABLE TO CONTACT YOUR PHYSICIAN AND YOU FEEL IT IS AN EMERGENCY, GO TO THE NEAREST EMERGENCY ROOM OR CALL 911 Follow up: With: Address: When: Khadra Becker Comments: Office will call with renal US results - to obtain [place] [facility] [place] 6-8 weeks. Follow up in 1 year with renal US for stone monitoring Comment: PATIENT EDUCATION INFORMATION Instructions: Cystoscopy with Stent Removal ??? Voiding after the procedure: there may be some pain, burning, urgency, frequency and blood tinged urine following the procedure. These symptoms usually resolve within 2-5 days. Drink the amount of fluid it takes to keep the urine pink to yellow or clear in color. Drinking enough water and fluids will help to ease any discomfort after your procedure. ??? If you are having problems that seem out of the ordinary, please call. ??? If unable to contact your physician and you feel it is an emergency, go to the nearest emergency room or call 911 ??? Diet ??? you may resume your normal diet. ??? Activity ??? you may resume your normal activities ??? Call if you have a fever over 100 degrees. SENG Nunes ERICA R, have received the attached patient education materials/instructions and have verbalized understanding: May we do a follow up call? Yes No I was present when discharge instructions were given Patient Signature Date Clinican/Nurse Signature Date You may receive a survey from [employer] asking you to rate your care experience. Your feedback is important and will help us understand what we do well and how we can improve the quality of care we provide to you, your loved ones and our community. It???s an honor to serve you. Thank you for choosing [facility] INPATIENT PATIENT SUMMARY Observed: 11/2024 10:55 AM Status: F Source: [facility] Inpatient Patient Summary [address] [address] Clinical Summary Person Information Name: RADHA ELLSWORTH Age: 54 Years : 1970 Sex: Female PCP: DEISY HOBBS DO Marital Status: Phone: [phone] Race: White Ethnicity: Non- or Language: Nepali Visit Id: Visit Reason: URETERAL STONE WITH HYDRONEPHROSIS Speciality: Acuity: Enc Type: Outpatient Med Service: Surgery Arrival: 08/09/2024 10:23:52 Discharge: Dispo Type: Address: [address] [place] [address] [address] [place] [id number] Provider Notes: Diagnosis: Encounter for removal of ureteral stent; History of kidney stones Problems Active Kidney stone Fatty liver Frequent headaches Anemia Ureteral stone with hydronephrosis Smoking Status: Functional Status: Sensory Deficits: History of Falls: Mobility Assistance Prior to Admission: ADLs: Current Level of Assistance for Self-Care/Mobility: Cognitive Status: Allergies sulfa drugs (Other) Demerol (Vomiting) Adhesive Bandage (Unknown) Laboratory or Other Results This Visit (last charted value for your 08/09/2024 visit) No Laboratory or Other Results This Visit Measurements: Height: Weight: Blood Pressure: Not Valued / Not Valued BMI: Procedures No Procedures Performed or Documented Immunizations No Immunizations Documented This Visit Final Med List: acetaminophen-oxycodone (acetaminophen-oxycodone 325 mg-5 mg Tab) ascorbic acid (Vitamin C 1000 mg oral tablet) By Mouth every day. bacillus coagulans-inulin (Vitafusion Fiber Well + Probiotics Gummies) By Mouth every day. loratadine (loratadine 5 mg oral tablet, chewable) Chewed every day. magnesium oxide (magnesium oxide 400 mg Tab) By Mouth every day. multivitamin (Multi Vitamin+) multivitamin (Vitamin B Complex oral capsule) By Mouth every day. ondansetron (ondansetron 4 mg Dis Tab) venlafaxine (venlafaxine 37.5 mg Cap-ER) Care Team Members: Attending Physician: Khadra Becker MD Consulting Physician: Referring Physician: Khadra Becker MD Follow up: With: Address: When: Khadra Becker Comments: Office will call with renal US results - to obtain [place] [facility] [place] 6-8 weeks. Follow up in 1 year with renal US for stone monitoring Patient Education Information: EU - Cystoscopy with Stent Removal Discharge Instructions (CUSTOM) MAIN OR INTRAOPERATIVE RECORD Observed: 08/09/2024 10:50 AM Status: F Source: [facility] Main OR Intraoperative Recor d IntraOp Document Type FTURO Summary Primary Physician: Khadra Becker MD Finalized Date/Time: 08/09/24 10:55:44 Pt. Name: SENGRADHA/Sex: 1970 Female Med Rec #: [id number] Physician: Khadra Becker MD Financial #: [id number] Pt. Type: O Room/Bed: / Admit/Disch: 08/09/24 10:23:52 - Institution: Case Times FTURO Entry 1 Patient Times In Room 08/09/24 10:44:00 Out Room 08/09/24 10:56:00 Procedure Times Start 08/09/24 10:50:00 Stop 08/09/24 10:52:00 Anesthesia Times Last Modified By: Pippa Meng RN 08/09/24 10:55:39 Case Attendance FTURO Entry 1 Entry 2 Entry 3 Case Attendee Khadra Becker MD, RN, Sunday Pelletier Role Performed Surgeon - Primary Tailoring Teacher - Primary Scrub - Primary Time In 08/09/24 10:49:00 08/09/24 10:44:00 08/09/24 10:44:00 Time Out 08/09/24 10:54:00 08/09/24 10:56:00 08/09/24 10:56:00 Procedure CYSTOSCOPY LOCAL WITH CYSTOSCOPY LOCAL WITH CYSTOSCOPY LOCAL WITH STENT REMOVAL(Left) STENT REMOVAL(Left) STENT REMOVAL(Left) Comments Last Modified By: Pippa Meng RN, RN, Leann E Ott RN, Leann E 08/09/24 10:55:40 08/09/24 10:55:40 08/09/24 10:55:40 Surgical Procedures FTURO Entry 1 Procedure Description Procedure CYSTOSCOPY LOCAL WITH Modifiers Left STENT REMOVAL Surgeon Description CYSTOSCOPY, LEFT STENT REMOVAL Primary Procedure Yes Primary Surgeon Khadra Becker MD Start 08/09/24 10:50:00 Stop 08/09/24 10:52:00 Anesthesia Type Local Surgical Service Urology Wound Class 2 - Clean-Contaminated Last Modified By: Pippa Meng RN 08/09/24 10:52:10 General Case Data FTURO Pre-Care Text: Classifies surgical wound, implements aseptic technique, initiates traffic control Entry 1 Case Information OR URO 1 FT Case Level None Wound Class 2 - Clean-Contaminated Specialty Urology Preop Diagnosis URETERAL STONE WITH Postop Same As Preop Yes HYDRONEPHROSIS Postop Diagnosis URETERAL STONE WITH Outcomes Met? Yes HYDRONEPHROSIS Last Modified By: Pippa Meng RN 08/09/24 10:45:58 Post-Care Text: The patient is free from signs and symptoms of infection EU IntraOp - FTURO Pre-Care Text: Implements protective measures prior to operative or invasive procedure, confirms identity before the operative or invasive procedure, verifies operative procedure, surgical site, and laterality Entry 1 EU Perioperative Protocols Procedure(s) CYSTOSCOPY LOCAL WITH Patient Identity Birthday, ID Band STENT REMOVAL(Left) Verified (select at Check, Patient least 2): Participation Consents / H and P H&P, Surgery/Procedure Operative Site N/A Verified Consent Marking Verified Surgical Site Yes Laterality Verified Yes Verified Procedure Verified Yes Correct Patient Yes Position Verified Availability Equipment, Medication Time Out Khadra Becker MD, Ott Verified (If Participants Pippa CACERES Troike, Applicable) Sunday Abreu Time Out Complete 08/09/24 10:49:00 Allergies Reviewed? Yes Allergies Reviewed Self/Patient With Body Position Frog Legged Prep Area PERINEUM Prep Agents Hibiclens, Sterile Water Skin. Condition Intact, [place], Warm, & Dry Additional None Specimens Collected Vitals - EU Blood Pressure 144/89 Pulse 74 bpm Respirations 18 br/min SPO2 96 % EBL 0 I&O - EU Total Intake 0 mL Total Output 0 mL Outcomes Met? Yes Last Modified By: Pippa Meng RN 08/09/24 10:50:14 Post-Care Text: The patient is free from signs and symptoms of injury caused by extraneous objects Sign Out FTURO Entry 1 Before Patient Leaves OR Nurse verbally Yes Nurse verbally n/a confirms with the confirms with the team the name of team that the procedure(s) instrument, sponge, recorded and needle counts are correct (or N/A) Nurse verbally n/a Nurse verbally Yes confirms with the confirms with the team how the team whether there specimen is labeled are any equipment (including patient problems to be name), if applicable addressed Sign Out Complete 08/09/24 10:52:00 Last Modified By: Pippa Meng RN 08/09/24 10:52:13 Case Comments <None> Finalized By: Pippa Meng RN Document Signatures Signed By: Pippa Meng RN 08/09/24 10:55 H&P UPDATE Observed: 08/09/2024 10:44 AM Status: F Source: [facility] H&P Update Patient: RADHA ELLSWORTH Age: 54 years Sex: Female : 1970 Associated Diagnoses: None Author: Khadra Becker MD Basic Information I have reviewed prior notes, spoke with patient, no changes to history. Patient elects to proceed with surgery as planned - cystoscopy, left ureteral stent removal status post left ureteroscopy laser lithotripsy/stone extraction, stent placement on 07/27/2024. Health Status Procedure history: Cystoscopy, stent placement ([id number]) on 07/27/2024 at 54 Years. Appendectomy (963890818). Hysterectomy (091637192). Colonoscopy (245092381). Social History Social & Psychosocial Habits Alcohol 07/27/2024 Risk Assessment: Denies Alcohol Use Substance Abuse 07/27/2024 Risk Assessment: Denies Substance Abuse Tobacco 07/27/2024 Tobacco Use: Never (less than 100 in l Smokeless tobacco use: Never 07/27/2024 Risk Assessment: Denies Tobacco Use . Allergies: Allergic Reactions (Selected) Severity Not Documented Adhesive Bandage- Unknown. Demerol- Vomiting. Sulfa drugs- Other. Current medications: (Selected) Prescriptions Prescribed oxybutynin 5 mg Tab: 5 mg = 1 tab(s), Oral, TID, PRN Urinary discomfort, bladder spasms, stent pain, # 90 tab(s), Refills(s) 0, Pharmacy: [facility]/pharmacy #[id number], 155, cm, 07/27/24 7:32:00 EDT, Height/Length Dosing, 91.6, kg, 07/27/24 7:32:00 EDT, Weight Dosing Documented Medications Documented Multi Vitamin+: Refill(s) 0 Vitafusion Fiber Well + Probiotics Gummies: Oral, Daily, Refill(s) 0 Vitamin B Complex oral capsule: Oral, Daily, Refill(s) 0 Vitamin C 1000 mg oral tablet: mg tab(s), Oral, Daily, Refills(s) 0 acetaminophen-oxycodone 325 mg-5 mg Tab: Refill(s) 0 loratadine 5 mg oral tablet, chewable: mg tab(s), Chewed, Daily, Refills(s) 0 magnesium oxide 400 mg Tab: mg tab(s), Oral, Daily, Refills(s) 0 ondansetron 4 mg Dis Tab: Refills(s) 0 venlafaxine 37.5 mg Cap-ER: Refills(s) 0 Problem list: All Problems Anemia / SNOMED CT 479374554 / Confirmed Apnea, sleep / SNOMED CT 022385152 / Confirmed Fatty liver / SNOMED CT 0564533190 / Confirmed Frequent headaches / SNOMED CT 6703702878 / Confirmed Kidney stone / SNOMED CT 009233374 / Confirmed Ureteral stone with hydronephrosis / SNOMED CT 2660796124 / Confirmed Inactive: Diabetes / SNOMED CT 598000464 Inactive: HTN (hypertension) / SNOMED CT 3857885973 PROGRESS NOTE-PHYSICIAN Observed: 2024 12:41 PM Status: F Source: [facility] Progress Note-Physician Patient: RADHA ELLSWORTH Age: 54 years Sex: Female : 1970 Associated Diagnoses: None Author: Ramon Chu MD Postoperative Information Postoperative disposition: Postoperative disposition: To PACU. Optimetrix number: Optimetrix number [id number]. Anesthetic utilized: General. Health Status Allergies: Allergic Reactions (Selected) Severity Not Documented Adhesive Bandage- Unknown. Demerol- Vomiting. Sulfa drugs- Other. Physical Examination Vital Signs 07/27/2024 11:37 EDT Heart Rate Monitored 68 bpm SpO2 94 % 07/27/2024 11:37 EDT Respiratory Rate 14 br/min 07/27/2024 11:37 EDT Systolic Blood Pressure 155 mmHg HI Diastolic Blood Pressure 83 mmHg Mean Arterial Pressure, Monitered 107 mmHg 07/27/2024 11:32 EDT SpO2 93 % 07/27/2024 11:30 EDT Heart Rate Monitored 74 bpm Respiratory Rate Monitored 20 br/min 07/27/2024 11:30 EDT SpO2 96 % 07/27/2024 11:30 EDT Temperature Temporal Artery 36.6 DegC Systolic Blood Pressure 145 mmHg HI Diastolic Blood Pressure 74 mmHg Blood Pressure Location Right arm Mean Arterial Pressure, Cuff 98 mmHg Pain Assessment: Controlled. General: Awake, Appropriate. Respiratory: Adequate air exchange. Cardiovascular: Stable. Neurological Assessment Anesthetic outcome No anesthetic complications noted. Adequate pain relief. Review / Management Condition: Stable. Plan Transfer/Discharge: Transfer/Discharge Discharge when meets criteria ( To home ). Result Comment: Electronical ly Signed By: Ramon Chu MD\.br\Date and Time Signed: 07/27/24 12:42 EDT PATIENT EDUCATION - TEXT Observed: 07/27 11:23 AM Status: C Source: [facility] Patient Education - Text [facility] [place], [place] Post-operative Instructions for Ureteroscopy, Laser Lithotripsy, Stone Extraction and Stent Placement There are no incisions or dressings to be concerned with, as the procedure was performed inside the urinary system. For 24 hours after surgery: ??? No driving or operating machinery ??? Do not make important decisions ??? Do not consume alcohol, sleeping pills Stent Placement You may have a stent which spans the distance between your bladder and your kidney, allowing urine to pass through. It prevents blockage from swelling, kidney stones in ureter (tube connecting the kidney to the bladder), or scars. The presence of the stent may cause: ??? Back or side pain, especially with urination ??? Frequent or urgent urination ??? Bladder pressure or pain ??? Blood in urine You may pass stone debris or small blood clots, which is expected. Drinking plenty of water to dilute the urine may help. If there is a thread coming out of urinary channel, be careful not to accidently pull on this, as it is attached to the stent. If you accidentally pull on the string, check to see if the stent is coming out. If you see a small tube coming out, lay on your back, knees bent and with clean hands try to push stent back in. Rub your lower belly and see if the stent will return inside. If this is unsuccessful, please call the office or go to the ER. If you elect to remove the stent at home after discussion with your doctor: -Take prophylactic antibiotic the morning of stent removal (time determined by your doctor) -Wash your hands with soap and water -Pull off the clear tape and pull on the string in a steady motion while trying to urinate on the toilet or in the shower. The string is attached to the stent which is a long tube with curls at each end. Otherwise, the stent will most likely be removed in the office during a short procedure in which a scope is placed into the bladder, the stent is grasped and removed. At other times the stent may need to stay longer, either in preparation for other procedures or for other reasons. If it is to remain penitentiary, however, changes of the stent are required (about every 3-4 months). Diet You may resume your normal diet, but you may want to start slowly and avoid spicy food, caffeine, carbonated beverages and alcohol, especially if you have a stent. Your diet and fluid intake may make irritation from the stent worse. Activity You may resume your normal activities, although you should take it easy on the day of the procedure. Minimizing activity may decrease the back discomfort and irritation from the stent, if present. Medications ??? You may resume your home medications unless instructed otherwise. ??? After 24 hours, you may restart aspirin, Coumadin (warfarin) and other blood thinners unless told otherwise. ??? Take your prescribed medications as directed, including your antibiotics. ??? You may also be given a prescription for pain medicine or medicines to help with the bladder irritation from stent, if present. -Oxybutynin three times a day as needed for bladder spasms/stent pain. This may cause dry mouth, dry eyes and constipation. Drink plenty of fluids and take stool softeners (Colace, MiraLAX). -AZO (phenazopyridine) for urinary discomfort can be purchased over the counter for burning with urination. This will make your urine orange. -Alternate Tylenol 500-1000 mg every 6 hours, alternate in between with ibuprofen 400-800 mg every 6 hours as needed for pain. Things to watch for which would require an Emergency Room Visit (or call 911) (This is not a complete list) ??? Fever over 101.5 degrees, with or without chills ??? Severe bleeding ??? Severe drug reactions with itching, hives, rash, or severe flank pain ??? Tenderness or swelling or the calves, chest pain, or shortness of breath Please call the office to arrange for your post-operative appointment if you do not hear from us within 1 week [phone] OPERATIVE REPORT Observed: 07/27/2024 11:15 AM Status: F Source: [facility] Operative Report Patient: RADHA ELLSWORTH Age: 54 years Sex: Female : 1970 Associated Diagnoses: None Author: Khadra Becker MD Procedure Procedure Date: 07/27/2024. Confirmed: patient, procedure, side, site, safety procedures followed. Performed by: Khadra Becker MD, anesthesiologist (Anil Lucia CRNA). Type of procedure: Cystoscopy, left retrograde pyelogram, left ureteral dilation, ureteroscopy with laser lithotripsy/stone basket extraction, ureteral stent placement. Informed consent: signed by patient. Indication: INDICATION FOR PROCEDURE: The patient is a 54 -year-old female who was previously diagnosed with a 5 mm stone in the left mid-distal ureter with hydroureteronephrosis. The patient presents today for definitive management of nephrolithiasis after failed medical expulsive therapy. I discussed the risks, benefits, alternatives and complications associated with ureteroscopy with laser lithotripsy and stone extraction, including but not limited to bleeding, pain, infection, ureteral perforation, extravasation, stricture formation, sepsis, obstruction, inability to reach the stone, inability to fragment the stone, and inability to retrieve all stone fragments. The need for ancillary procedures such as stent placement and removal, retrograde urography, and percutaneous nephrostomy were also discussed. The patient also understood that a ureteral stent would likely be placed and removal of the stent is critical. Failure to follow up for stent removal can result in recurrent UTIs, encrustation of the stent, loss of kidney function and need for nephrectomy. . Findings: L RPG- filling defect mid-distal ureteral junction overlying sacrum, minimal contrast passing proximally, mildly dilated calyces. 5 mm left mid-distal stone overlying sacrum, impacted, underwent laser lithotripsy and basket extraction. Left distal ureter tight, gently dilated to 10Fr to allow placement of semirigid to reach impacted stone. Mild proximal hydroureteronephrosis. . Procedure tolerated: well. Specimen: sent to pathology, left ureteral stone. Complications: None. After the risks, benefits, indications, alternatives and expectations of the procedure were reviewed with the patient and informed consent was obtained, the patient was taken to operative suite and placed in the supine position. Sequential compression devices were placed on bilateral lower extremities. General anesthesia LMA was induced and the patient was transitioned to the lithotomy position and prepped and draped in the usual sterile fashion for cystoscopy. A preoperative dose of antibiotics was given. A timeout was observed prior to initiating the procedure. We began the procedure by inserting lidocaine gel into the urethra and using a 22.5 Spanish rigid cystoscope with 30 degree lens and inserted this into the bladder without any issue. We noted a normal appearance of the urethra en route to the bladder. Once inside the bladder, a cystoscopic examination revealed no evidence of erythematous patches or plaques, foreign bodies, stones or papillary lesion. Attention was turned to the left UO and dilute contrast was injected for retrograde pyelogram with finding as above. A glidewire was inserted into the ureter up to the kidney with fluoroscopic guidance. A second wire was placed and a semirigid ureteroscope was inserted over the working wire until the stone was encountered. However, distal ureter about 1 cm from UO was tight, unable to advance over second wire. A 10Fr ureteral dilator was inserted over wire without difficulty. Ureteroscope was then able to be carefully navigated over second wire to gain access to impacted ureteral stone. A 200 micron thulium laser fiber was used to break the stone into smaller pieces with difficulty due to impacted nature, taking care to avoid mucosa. A 1.8-ZeroTip basket was used to extract all of the pieces and bring the impacted portion of the stone away from mucosa to be able to laser. Next a complete ureteroscopy was performed to ensure us that there was no remaining stone burden. A retrograde pyelogram was performed to highlight the collecting system and revealed no other stones or extravasation. Pull-down ureteroscopy confirming no stones remained. The wire was backloaded over our cystoscope and we placed a 6F X 22 cm double-J stent in the usual fashion and ensured an adequate curl both in the renal pelvis and the bladder using direct visualization and fluoroscopic guidance. Thereafter, any stones were irrigated from the bladder and collected and sent to pathology for analysis. The bladder was inspected one final time to ensure adequate positioning of the stent, but also ensure that there was no further trauma to the bladder. The bladder was drained and the cystoscope removed. The procedure was then concluded and the patient was awakened from general anesthesia and sent to the PACU in satisfactory condition. CULTURES TAKEN: none PATIENT CONDITION: Stable and extubated PLAN: Discharge home. Follow up after 2 weeks for in-office cystoscopy and stent removal due to impacted nature of stone. . Impression and Plan Diagnosis Ureteral stone with hydronephrosis ([id number] N13.2, Discharge, Medical). Diagnosis Ureteral stone with hydronephrosis (IUQ99-GM N13.2, Discharge, Medical). Result Comment: Electronical ly Signed By: Khadra Becker MD\.br\Date and Time Signed: 07/27/24 11:23 EDT OUTPATIENT SURGERY DISCHARGE INSTRUCTION Observed: 07/27/2024 11:14 AM Status: F Source: [facility] Outpatient Surgery Discharge Instruction [place] [id number] Patient Discharge Instructions PERSON INFORMATION Name: RADHA ELLSWORTH Date of : 1970 Current Date: 07/27/2024 11:14:57 PHYSICIANS Admitting Physician: Khadra Becker MD Discharge Diagnosis: Ureteral stone with hydronephrosis RADHA ELLSWORTH has been given the following list of follow-up instructions, prescriptions, and patient education materials: PATIENT FOLLOW-UP INFORMATION Diet: Regular Discharge Activity: Ambulate as tolerated, Arrange for a responsible adult supervision for 24 hours, Expect mild pain, Expect minimal amount of drainage and/or bleeding, Activity as tolerated Discharge Restrictions: No driving for 24 hrs Call Your Doctor For: Persistent or heavy bleeding, Temperature above 101.5 degrees, Severe pain at the operative site, Persistent vomiting IF UNABLE TO CONTACT YOUR PHYSICIAN AND YOU FEEL IT IS AN EMERGENCY, GO TO THE NEAREST EMERGENCY ROOM OR CALL 911 SENG Nunes ERICA R, have received the attached patient education materials/instructions and have verbalized understanding: May we do a follow up call? Yes No I was present when discharge instructions were given Patient Signature Date Clinican/Nurse Signature Date Follow up: With: Address: When: Khadra Becker [address] [place] [address], [place] [address], [address] [address] [phone] Business (1) Comments: Office migue call to schedule your follow up after 2 weeks for cystoscopy, left ureteral stent removal Pharmacy Information: You may receive a survey from [employer] asking you to rate your care experience. Your feedback is important and will help us understand what we do well and how we can improve the quality of care we provide to you, your loved ones and our community. It???s an honor to serve you. Thank you for choosing [facility] HERE ARE THE MEDICATION CHANGES THAT OCCURRED DURING YOUR HOSPITAL STAY New Medications [id number], [address], [place] [phone], [phone] ciprofloxacin (Cipro 500 mg Tab) 1 Tablets By Mouth every 12 hours for 1 Days. Start morning of stent removal. Refills: 0. oxybutynin (oxybutynin 5 mg Tab) 1 Tablets By Mouth 3 times a day as needed Urinary discomfort. bladder spasms, stent pain. Refills: 0. Medications to Continue with No Changes Other Medications acetaminophen-oxycodone (acetaminophen-oxycodone 325 mg-5 mg Tab) ascorbic acid (Vitamin C 1000 mg oral tablet) By Mouth every day. bacillus coagulans-inulin (Vitafusion Fiber Well + Probiotics Gummies) By Mouth every day. loratadine (loratadine 5 mg oral tablet, chewable) Chewed every day. magnesium oxide (magnesium oxide 400 mg Tab) By Mouth every day. multivitamin (Multi Vitamin+) multivitamin (Vitamin B Complex oral capsule) By Mouth every day. ondansetron (ondansetron 4 mg Dis Tab) venlafaxine (venlafaxine 37.5 mg Cap-ER) PATIENT EDUCATION INFORMATION Instructions: [facility] [place], [place] Post-operative Instructions for Ureteroscopy, Laser Lithotripsy, Stone Extraction and Stent Placement There are no incisions or dressings to be concerned with, as the procedure was performed inside the urinary system. For 24 hours after surgery: ??? No driving or operating machinery ??? Do not make important decisions ??? Do not consume alcohol, sleeping pills Stent Placement You may have a stent which spans the distance between your bladder and your kidney, allowing urine to pass through. It prevents blockage from swelling, kidney stones in ureter (tube connecting the kidney to the bladder), or scars. The presence of the stent may cause: ??? Back or side pain, especially with urination ??? Frequent or urgent urination ??? Bladder pressure or pain ??? Blood in urine You may pass stone debris or small blood clots, which is expected. Drinking plenty of water to dilute the urine may help. If there is a thread coming out of urinary channel, be careful not to accidently pull on this, as it is attached to the stent. If you accidentally pull on the string, check to see if the stent is coming out. If you see a small tube coming out, lay on your back, knees bent and with clean hands try to push stent back in. Rub your lower belly and see if the stent will return inside. If this is unsuccessful, please call the office or go to the ER. If you elect to remove the stent at home after discussion with your doctor: -Take prophylactic antibiotic the morning of stent removal (time determined by your doctor) -Wash your hands with soap and water -Pull off the clear tape and pull on the string in a steady motion while trying to urinate on the toilet or in the shower. The string is attached to the stent which is a long tube with curls at each end. Otherwise, the stent will most likely be removed in the office during a short procedure in which a scope is placed into the bladder, the stent is grasped and removed. At other times the stent may need to stay longer, either in preparation for other procedures or for other reasons. If it is to remain intermediate designer, however, changes of the stent are required (about every 3-4 months). Diet You may resume your normal diet, but you may want to start slowly and avoid spicy food, caffeine, carbonated beverages and alcohol, especially if you have a stent. Your diet and fluid intake may make irritation from the stent worse. Activity You may resume your normal activities, although you should take it easy on the day of the procedure. Minimizing activity may decrease the back discomfort and irritation from the stent, if present. Medications ??? You may resume your home medications unless instructed otherwise. ??? After 24 hours, you may restart aspirin, Coumadin (warfarin) and other blood thinners unless told otherwise. ??? Take your prescribed medications as directed, including your antibiotics. ??? You may also be given a prescription for pain medicine or medicines to help with the bladder irritation from stent, if present. -Oxybutynin three times a day as needed for bladder spasms/stent pain. This may cause dry mouth, dry eyes and constipation. Drink plenty of fluids and take stool softeners (Colace, MiraLAX). -AZO (phenazopyridine) for urinary discomfort can be purchased over the counter for burning with urination. This will make your urine orange. -Alternate Tylenol 500-1000 mg every 6 hours, alternate in between with ibuprofen 400-800 mg every 6 hours as needed for pain. Things to watch for which would require an Emergency Room Visit (or call 911) (This is not a complete list) ??? Fever over 101.5 degrees, with or without chills ??? Severe bleeding ??? Severe drug reactions with itching, hives, rash, or severe flank pain ??? Tenderness or swelling or the calves, chest pain, or shortness of breath Please call the office to arrange for your post-operative appointment if you do not hear from us within 1 week [phone] Medication Leaflets: INPATIENT PATIENT SUMMARY Observed: 07/02 11:14 AM Status: F Source: [facility] Inpatient Patient Summary [address] [address] [facility] Clinical Discharge Instructions PERSON INFORMATION Name: RADHA ELLSWORTH PHYSICIANS Admitting Physician: Khadra Becker MD Attending Physician: Khadra Becker MD PCP: DEISY HOBBS DO Diagnosis: Ureteral stone with hydronephrosis Comment: PATIENT EDUCATION INFORMATION Instructions: Eugenio - Ureteroscopy, Laser Lithotripsy, Stone Extraction and Stent Placement Post-Op Instructions (CUSTOM) Medication Leaflets: Follow up: With: Address: When: Khadra Becker [address] [place] [address], [address] [address] [phone] Business (1) Comments: Office migue call to schedule your follow up after 2 weeks for cystoscopy, left ureteral stent removal MEDICATION LIST New Medications [id number], [address], [place] [phone], [phone] ciprofloxacin (Cipro 500 mg Tab) 1 Tablets By Mouth every 12 hours for 1 Days. Start morning of stent removal. Refills: 0. oxybutynin (oxybutynin 5 mg Tab) 1 Tablets By Mouth 3 times a day as needed Urinary discomfort. bladder spasms, stent pain. Refills: 0. Medications to Continue with No Changes Other Medications acetaminophen-oxycodone (acetaminophen-oxycodone 325 mg-5 mg Tab) ascorbic acid (Vitamin C 1000 mg oral tablet) By Mouth every day. bacillus coagulans-inulin (Vitafusion Fiber Well + Probiotics Gummies) By Mouth every day. loratadine (loratadine 5 mg oral tablet, chewable) Chewed every day. magnesium oxide (magnesium oxide 400 mg Tab) By Mouth every day. multivitamin (Multi Vitamin+) multivitamin (Vitamin B Complex oral capsule) By Mouth every day. ondansetron (ondansetron 4 mg Dis Tab) venlafaxine (venlafaxine 37.5 mg Cap-ER) Comment: CALCULUS ANALYSIS Collected: 10:47 AM Status: F Source: [facility] TYPE CODE TESTS RESULT OUT OF RANGE REFERENCE UNITS LAB 51220791(LOINC) Weight Calculus Analysis 10 Unknown mg LAB [id number](LOINC) CA Oxalate, Dihydrate 60 Unknown % LAB [id number](LOINC) CA Oxalate, Monohydr 35 Unknown % LAB [id number](LOINC) Comment 2 Comment Unknown Result Comment: Calculus rec eived wet. Wet calculi must be dried before analysis, which delays reporting of results. Leaving calculi wet (such as water, saline, blood, urine) may lead to changes in composition. Performed at: [facility] [id number] PhD Ricardo Bean LAB CD:[id number](L OINC) Color: Hankins Unknown LAB CD:[id number](L OINC) Stone Source Comment Unknown Result Comment: Left Ureter LAB CD:[id number](L OINC) Size: 3x2 Unknown mm Result Comment: Multiple pie hai received. Dimensions of the largest piece reported. LAB CD:[id number](L OINC) Hydroxyapatite : 5 Unknown % Performed By: #### [id number] #### [facility] [address] [place] [address] MAIN OR INTRAOPERATIVE RECORD Observed: 07/27/2024 10:21 AM Status: C Source: [facility] Main OR Intraoperative Recor d IntraOp Document Type FT Summary Primary Physician: Khadra Becker MD Finalized Date/Time: 07/28/24 09:04:33 Pt. Name: RADHA ELLSWORTH /Sex: 1970 Female Med Rec #: [id number] Physician: Khadra Becker MD Financial #: [id number] Pt. Type: A Room/Bed: [place] [address] Admit/Disch: 07/27/24 06:42:06 - 07/27/24 13:00:00 Institution: Case Times FT Entry 1 Patient Times In Room 07/27/24 10:07:00 Out Room 07/27/24 11:03:00 Procedure Times Start 07/27/24 10:21:00 Stop 07/27/24 10:58:00 Anesthesia Times Start 07/27/24 10:07:00 Stop 07/27/24 11:03:00 Last Modified By: Ángel Garcia 07/27/24 11:04:06 Case Attendance FT Entry 1 Entry 2 Entry 3 Case Attendee Anil Lucia CRNA, MD, Ángel De La Cruz Role Performed PASTRY COOK Surgeon - Primary Tailoring Teacher - Primary Time In 07/27/24 10:07:00 07/27/24 10:07:00 07/27/24 10:07:00 Time Out 07/27/24 11:03:00 07/27/24 11:03:00 07/27/24 11:03:00 Procedure CYSTOSCOPY RETROGRADE CYSTOSCOPY RETROGRADE CYSTOSCOPY RETROGRADE STENT INSERTION(Left), STENT INSERTION(Left), STENT INSERTION(Left), CYSTOSCOPY W/ HOMIUM CYSTOSCOPY W/ HOMIUM CYSTOSCOPY W/ HOMIUM LASER(Left) LASER(Left) LASER(Left) Comments DR CHU SUPERVISING Last Modified By: Ángel Garcia Terry T Sweene, Terry T 07/27/24 11:04:07 07/27/24 11:04:07 07/27/24 11:04:07 Entry 4 Entry 5 Case Attendee Sunday Ashley RT(R), Machelle Lan Role Performed Scrub - Primary Radiology Asst Time In 07/27/24 10:07:00 07/27/24 10:07:00 Time Out 07/27/24 11:03:00 07/27/24 11:03:00 Procedure CYSTOSCOPY RETROGRADE CYSTOSCOPY RETROGRADE STENT INSERTION(Left), STENT INSERTION(Left), CYSTOSCOPY W/ HOMIUM CYSTOSCOPY W/ HOMIUM LASER(Left) LASER(Left) Comments Last Modified By: Ángel Garcia Terry T 07/27/24 11:04:07 07/27/24 11:04:07 General Comments: GRAYSON TORRES - GAGAN REP HERE FOR CASE. Sandy GARCIA RN. RM CANALES REP HERE FOR CASE. Sandy GARCIA RN. Perioperative Protocols FT Pre-Care Text: Implements protective measures prior to operative or invasive procedure, confirms identity before the operative or invasive procedure, verifies operative procedure, surgical site, and laterality Entry 1 Procedure(s) CYSTOSCOPY RETROGRADE Patient Identity Birthday, ID Band STENT INSERTION(Left), Verified (select at Check, Patient CYSTOSCOPY W/ HOMIUM least 2): Participation LASER(Left) Consents / H and P Anesthesia Consent, Operative Site Present Verified H&P, Surgery/Procedure Marking Verified Consent Surgical Site Yes Laterality Verified Yes Verified Procedure Verified Yes Correct Patient Yes Position Verified Availability Equipment, Implant, Prep Dry n/a Verified (If Medication, X-ray Applicable) PreOp Antibiotic Yes Time Out Eugenio CALLAHAN, Khadra Brown, Given Participants Ángel Garcia, Sunday Ashley Ware RT(R), Machelle Lan, Anil Lucia CRNA Time Out Complete 07/27/24 10:20:00 Outcomes Met? Yes Last Modified By: Ángel Garcia 07/27/24 10:38:49 Post-Care Text: The patient is free from signs and symptoms of injury caused by extraneous objects Allergy Information FT Pre-Care Text: Verifies allergies Entry 1 Allergies Reviewed? Yes Allergies Reviewed Self/Patient With Outcomes Met? Yes Last Modified By: Ángel Garcia 07/27/24 10:39:05 Post-Care Text: The patient received appropriate medication(s) safely administered during the perioperative period Surgical Procedures FT Entry 1 Entry 2 Procedure Description Procedure CYSTOSCOPY RETROGRADE CYSTOSCOPY W/ HOMIUM STENT INSERTION LASER Modifiers Left Left Surgeon Description CYSTOSCOPY, LEFT CYSTOSCOPY, LEFT URETEROSCOPY, LEFT URETEROSCOPY, LEFT RETROGRADES, LASER RETROGRADES, LASER LITHOTRIPSY, LEFT LITHOTRIPSY, LEFT URETERAL STENT PLACEMENT URETERAL STENT PLACEMENT Primary Procedure Yes No Primary Surgeon Eugenio CALLAHAN, Khadra Becker MD, Khadra Morrissey 07/27/24 10:21:00 07/27/24 10:21:00 Stop 07/27/24 10:58:00 07/27/24 10:58:00 Anesthesia Type General General Surgical Service Urology Urology Wound Class 2 - Clean-Contaminated 2 - Clean-Contaminated Last Modified By: Ángel Garcia Terry T 07/27/24 11:04:09 07/27/24 11:04:09 General Case Data FT Pre-Care Text: Classifies surgical wound, implements aseptic technique, initiates traffic control Entry 1 Case Information OR OR 1 FT Case Level Level 3 Wound Class 2 - Clean-Contaminated Specialty Urology ASA Class 2 Preop Diagnosis LEFT URETERAL STONE Postop Same As Preop Yes WITH HYDRONEPHROSIS Postop Diagnosis LEFT URETERAL STONE Outcomes Met? Yes WITH HYDRONEPHROSIS Last Modified By: Ángel Garcia 07/27/24 10:41:14 Post-Care Text: The patient is free from signs and symptoms of infection Skin Assessment (Pre Procedure) FT Pre-Care Text: Implements protective measures to prevent skin/ tissue injury due to thermal or mechanical sources Evaluates for signs and symptoms of physical injury to skin and tissue Entry 1 Skin Integrity Intact, [place], Warm, & Skin Abnormality No Dry Outcomes Met? Yes Last Modified By: Ángel Garcia 07/27/24 10:41:22 Post-Care Text: The patient is free from signs and symptoms of injury caused by extraneous objects Patient Positioning FT Pre-Care Text: Identifies physical alterations that require additional precautions for procedure-specific positioning, verifies presence of prosthetics or corrective devices, positions the patient, evaluates the patient for signs and symptoms of injury as a result of positioning Entry 1 Procedure CYSTOSCOPY RETROGRADE Body Position Low Lithotomy STENT INSERTION(Left), CYSTOSCOPY W/ HOMIUM LASER(Left) Feet Uncrossed? Yes Left Arm Position Extended on Padded Arm Board Right Arm Position Extended on Padded Arm Left Leg Position Secured in Stirrup Board Right Leg Position Secured in Stirrup Positioning Device Safety Strap, Stirrups Yellow Fins, Pillow Under Head Large Press Points Checked Yes By Ángel Garcia Troike, Kendall R, Veliz CRNA, Kyle A. Outcomes Met? Yes Last Modified By: Ángel Garcia 07/27/24 10:41:37 Post-Care Text: The patient is free from signs and symptoms of injury related to positioning Patient Care Devices FT Pre-Care Text: Implements protective measures to prevent skin/ tissue injury due to thermal or mechanical sources Entry 1 Entry 2 Entry 3 Equipment Type C-ARM - automotive drivability technician needed EQUIPMENT LASER INTELLICART SUCTION UNIT Equipment Number CART 1 Equipment Setting 350 MM HG Outcomes Met? Yes Yes Yes Last Modified By: Ángel Garcia Terry T Sweene, Terry T 07/27/24 10:42:33 07/27/24 10:42:33 07/27/24 10:42:33 Entry 4 Entry 5 Entry 6 Equipment Type MISTRAL FORCED AIR MONITOR CHARGE SURGERY PADDED STIRRUPS WARMING SYSTEM UNIT Equipment Number 43 C Equipment Setting M8 Outcomes Met? Yes Yes Yes Last Modified By: Ángel Garcia Terry T Sweene, Terry T 07/27/24 10:42:33 07/27/24 10:42:33 07/27/24 10:42:33 Entry 7 Entry 8 Equipment Type VENA FLOW UNIT VIDEO SYSTEM Equipment Number Equipment Setting Outcomes Met? Yes Yes Last Modified By: Ángel Garcia Terry T 07/27/24 10:42:33 07/27/24 10:42:33 Post-Care Text: The patient is free from signs and symptoms of injury caused by extraneous objects Transport To OR FT Pre-Care Text: Transports according to individual needs. Evaluates for signs and symptoms of skin and tissue injury as a result of transfer or transport Entry 1 Via Cart By Ángel Garcia Safety Precautions Side Rails Up Outcomes Met? Yes Last Modified By: Ángel Garcia 07/27/24 10:42:43 Post-Care Text: The patient is free from signs and symptoms of injury related to transfer/transport Counts Verification FT Pre-Care Text: Performs required counts Entry 1 Procedure(s) CYSTOSCOPY RETROGRADE Type Initial STENT INSERTION(Left), CYSTOSCOPY W/ HOMIUM LASER(Left) Items Instruments Status Correct Time 07/27/24 10:09:00 By Sunday Ashley Outcomes Met? Yes Last Modified By: Ángel Garcia 07/27/24 10:43:01 Post-Care Text: The patient is free from signs and symptoms of injury caused by extraneous objects Skin Prep FT Pre-Care Text: Performs skin preparations Entry 1 Procedure CYSTOSCOPY RETROGRADE Prep Area perineum STENT INSERTION(Left), CYSTOSCOPY W/ HOMIUM LASER(Left) Prep Agents Betasept Hair Removal Methods Not Indicated By Sunday Ashley Outcomes Met? Yes Last Modified By: Ángel Garcia 07/27/24 10:43:21 Post-Care Text: The patient is free from signs and symptoms of infection Departure From OR FT Pre-Care Text: Transports according to individual needs. Evaluates for signs and symptoms of skin and tissue injury as a result of transfer or transport. Entry 1 Via Cart Safety Precautions Side Rails Up PostOp Destination PACU Transported By Ángel Garcia Patient Status Stable Skin. Condition Intact, [place], Warm, & Dry Airway Maintenance Oxygen in Use? No Outcomes Met? Yes Last Modified By: Ángel Garcia 07/27/24 11:07:56 Post-Care Text: The patient is free from signs and symptoms of injury related to transfer/transport General Comments: VERBAL AND WRITTEN HANDOFF REPORT GIVEN TO PACU NURSE. Sandy GARCIA RN. Medication Administration FT Pre-Care Text: Verifies allergies, administers prescribed medications and solutions, administers prescribed antibiotic therapy and immunizing agents as ordered, evaluates response to medications Administers prescribed medications and solutions Entry 1 Route of Admin Field Expiration Date Yes Verified Ordered By Khadra Becker MD Transcribed/To Ángel Garcia Field By Administered By Khadra Becker MD Outcomes Met? Yes Last Modified By: Ángel Garcia 07/27/24 10:44:17 Post-Care Text: The patient received appropriate medication(s) safely administered during the perioperative period For Melton-Mike please see scanned medication reconcilliation form for medications used at the field during the procedure. Implant Log FT Pre-Care Text: Records devices implanted during the operative or invasive procedure Entry 1 Procedure CYSTOSCOPY RETROGRADE Implant/Explant Implant STENT INSERTION(Left), CYSTOSCOPY W/ HOMIUM LASER(Left) Implant Identification FT Description CASCADE URETERAL STEN Lot Number [id number] Education Faculty Member [employer] Catalog ???# [id number] Size 6FR X 22 CM Expiration Date 12/26/27 Usage Data FT Implant Site Ureter L Quantity 1 Implanted By Eugenio CALLAHAN, Khadra Brown Biological Implants Outcomes Met? Yes Last Modified By: Ángel Garcia 07/27/24 10:45:35 Post-Care Text: The patient is free from signs and symptoms of injury caused by extraneous objects Cultures & Specimens FT Pre-Care Text: Manages specimen handling and disposition Manages culture specimen collection Entry 1 Cultures Ordered n/a Specimens Ordered Yes Specimen Disposition Lab Frozen Section Times Outcomes Met? Yes Last Modified By: Ángel Garcia 07/27/24 10:52:52 Post-Care Text: The patient is free from signs and symptoms of injury caused by extraneous objects The patient is free from signs and symptoms of infection X-Rays & Images FT Pre-Care Text: Assess history of previous radiation exposure and implements protective measures Entry 1 X-Ray Type C-Arm Contrast Used? Yes Outcomes Met? Yes Last Modified By: Ángel Garcia 07/27/24 10:45:55 Post-Care Text: The patient is free from signs and symptoms of radiation injury Laser Data FT Entry 1 Start Time 07/27/24 10:35:00 Stop Time 07/27/24 10:45:00 Laser Type 200 THULIO Pulses 6800 Laser Mode Pulse Gonzalez 6 Kilojoules 1.65 Total Minutes Used 2.5 (from machine) Last Modified By: Ángel Garcia 07/27/24 10:51:44 Laser Safety FT Pre-Care Text: Implements protective measures to prevent injury due to laser sources and evaluates for signs and symptoms of laser injury Entry 1 Laser Safety H2O or Saline on Field, Patient Eye Goggles, None Laser Caution Signs Protection Placed on All Doors, Laser Safe Instrumentation Utilized, Reviewed Specific Laser Safety Precautio, Rinse Prep Thoroughly From Surgical Site, Wet Towels & Sponges Used to Protect, Windows Covered Surgeon Eye None Room Personnel Eye None Protection Protection Outcomes Met? Yes Last Modified By: Ángel Garcia 07/27/24 10:46:12 Post-Care Text: The patient is free from signs and symptoms of laser injury Temperature Control Entry 1 Temperature Control BLANKET MISTRAL AIR Quantity 1 Aid PLUS UPPER BODY Fluid/[place] Unit Mistral warming system Setting 43 C Body Site Upper anterior torso Comments M8 Last Modified By: Ángel Garcia 07/27/24 10:46:43 Sign Out FT Entry 1 Before Patient Leaves OR Nurse verbally Yes Nurse verbally Yes confirms with the confirms with the team the name of team that the procedure(s) instrument, sponge, recorded and needle counts are correct (or N/A) Nurse verbally Yes Nurse verbally Yes confirms with the confirms with the team how the team whether there specimen is labeled are any equipment (including patient problems to be name), if applicable addressed Sign Out Complete 07/27/24 10:52:00 Last Modified By: Ángel Garcia 07/27/24 10:52:45 Case Comments <None> Finalized By: Edith Hansen CST Document Signatures Signed By: Ángel Garcia 07/27/24 11:08 Edith Hansen CST 07/28/24 09:04 Unfinalized History Date/Time Username Reason for Unfinalizing Freetext Reason for Unfinalizing 07/28/24 09:01 [id number] Other - See Nurses Notes 07/28/24 Chart opened to review and send charges LRoth CSFA MAIN OR PACU I RECORD Observed: 07/28/19 10:21 AM Status: F Source: [facility] Main OR PACU I Record PACU Phase I Document Type FT Summary Primary Physician: Khadra Becker MD Finalized Date/Time: 07/27/24 11:43:15 Pt. Name: RADHA ELLSWORTH/Sex: 1970 Female Med Rec #: [id number] Physician: Khadra Becker MD Financial #: [id number] Pt. Type: A Room/Bed: [place] [address] Admit/Disch: 07/27/24 06:42:06 - Institution: [facility] PACU I FT Pre-Care Text: Identifies barriers to communication and implements measures to provide psychological support Develops individualized plan of care, and ensures continuity of care Maintains patient's dignity and privacy, and maintains patient confidentiality Identifies and reports philosophical, cultural, and spiritual beliefs and values Identifies individual values and wishes concerning care Implements aseptic technique, and administers prescribed antibiotic therapy and immunizing agents as ordered Evaluates postoperative tissue perfusion Implements thermoregulation measures, and monitors body temperature Evaluates postoperative respiratory status Evaluates postoperative cardiac status Evaluates postoperative neurological status Assesses pain control, collaborated in initiating patient-controlled analgesia and implements alternative methods of pain control Verifies allergies, administers prescribed medications and solutions, evaluates response to medications Entry 1 In PACU I 07/27/24 11:05:00 Discharge from PACU 07/27/24 11:35:00 I Outcomes Met? Yes Last Modified By: Aria Harden RN 07/27/24 11:42:59 Post-Care Text: The patient demonstrates knowledge of the expected response to the operative or invasive procedure The patient's care is consistent with the individualized perioperative plan of care The patient's right to privacy is maintained The patient's value system, lifestyle, ethnicity, and culture are considered, respected, and incorporated into the perioperative plan of care The patient participates in decisions affecting his or her perioperative plan of care The patient is free from signs and symptoms of infection The patient has wound/tissue perfusion consistent with or improved from baseline levels established preoperatively The patient is at or returning to normothermia at the conclusion of the immediate postoperative period The patient's respiratory function is consistent with or improved from baseline levels established preoperatively The patient's cardiovascular status is consistent with or improved from baseline levels established preoperatively The patient's cardiovascular status is consistent with or improved from baseline levels established preoperatively The patient demonstrates and/or reports adequate pain control throughout the perioperative period The patient received appropriate medication(s), safely administered during the perioperative period Acuity Level PACU I FT Entry 1 Start Time 07/27/24 11:05:00 Stop Time 07/27/24 11:35:00 Acuity Level Acuity Level I Last Modified By: Aria Harden RN 07/27/24 11:43:12 Finalized By: Aria Harden RN Document Signatures Signed By: Aria Harden RN 07/27/24 11:43 MAIN OR PACU II RECORD Observed: 025 10:21 AM Status: F Source: [facility] Main OR PACU II Record PACU Phase II Document Type FT Summary Primary Physician: Khadra Becker MD Finalized Date/Time: 07/27/24 12:52:36 Pt. Name: RADHA ELLSWORTH /Sex: 1970 Female Med Rec #: [id number] Physician: Khadra Becker MD Financial #: [id number] Pt. Type: A Room/Bed: [place] [address] Admit/Disch: 07/27/24 06:42:06 - Institution: [facility] PACU II FT Pre-Care Text: Identifies barriers to communication and implements measures to provide psychological support and determines knowledge level Develops individualized plan of care, and ensures continuity of care Maintains patient's dignity and privacy, and maintains patient confidentiality Identifies and reports philosophical, cultural, and spiritual beliefs and values Identifies individual values and wishes concerning care administers prescribed antibiotic therapy and immunizing agents as ordered, Evaluates postoperative tissue perfusion Implements thermoregulation measures, and monitors body temperature Evaluates postoperative respiratory status Evaluates postoperative cardiac status Evaluates postoperative neurological status Assesses pain control, collaborated in initiating patient-controlled analgesia and implements alternative methods of pain control Verifies allergies, administers prescribed medications and solutions, evaluates response to medications Entry 1 In PACU II 07/27/24 11:40:00 Discharge from PACU 07/27/24 13:00:00 II Outcomes Met? Yes Last Modified By: Gisell Mckeon RN 07/27/24 12:52:35 Post-Care Text: The patient demonstrates knowledge of the expected response to the operative or invasive procedure The patient's care is consistent with the individualized perioperative plan of care The patient's right to privacy is maintained The patient's value system, lifestyle, ethnicity, and culture are considered, respected, and incorporated into the perioperative plan of care The patient participates in decisions affecting his or her perioperative plan of care. The patient is free from signs and symptoms of infection The patient has wound/tissue perfusion consistent with or improved from baseline levels established preoperatively The patient is at or returning to normothermia at the conclusion of the immediate postoperative period The patient's respiratory function is consistent with or improved from baseline levels established preoperatively The patient's cardiovascular status is consistent with or improved from baseline levels established preoperatively The patient's neurological status is consistent with or improved from baseline levels established preoperatively The patient demonstrates and/or reports adequate pain control throughout the perioperative period The patient received appropriate medication(s), safely administered during the perioperative period Finalized By: Gisell Mckeon RN Document Signatures Signed By: Gisell Mckeon RN 07/27/24 12:52 MAIN OR PREOPERATIVE RECORD Observed: 10:21 AM Status: F Source: [facility] Main OR Preoperative Record PreOp Document Type FT Summary Primary Physician: Khadra Becker MD Finalized Date/Time: 07/27/24 10:32:14 Pt. Name: RADHA ELLSWORTH Lois RoeB./Sex: 1970 Female Med Rec #: [id number] Physician: Khadra Becker MD Financial #: [id number] Pt. Type: A Room/Bed: [place] [address] Admit/Disch: 07/27/24 06:42:06 - Institution: Case Times PreOp FT Pre-Care Text: Verifies consent for planned procedure, identifies individual values and wishes concerning care, includes family members in perioperative teaching Entry 1 Patient Times. In Pre Surgery 07/27/24 06:45:00 Out Pre Surgery 07/27/24 10:05:00 Outcomes Met? Yes Last Modified By: Ángel Garcia 07/27/24 10:32:12 Post-Care Text: The patient participates in decisions affecting his or her perioperative plan of care Finalized By: Ángel Garcia Document Signatures Signed By: Ángel Garcia 07/27/24 10:32 XR UROGRAPHY RETROGRADE LEFT Observed: 0 07/27/2024 10:11 AM Status: F Source: [facility] Exam Date/Time: 07/27/2024 12:11 EDT Reason for Exam: Kidney stone Report IMPRESSION: INTEROPERATIVE FLUOROSCOPY PROVIDED FOR DR. FERNANDEZ'S RETROGRADE PROCEDURES. EXAM: XR Urography Retrograde Left DATE: 07/27/2024 10:11 AM CLINICAL HISTORY: Kidney stone. COMPARISON: Outside CT abdomen and pelvis 07/12/2024. TECHNIQUE: Intraoperative fluoroscopy was provided for Dr. Fernandez's retrograde procedures. A left ureteral stent is noted in expected position on the final image saved. Please see Dr. Fernandez's surgical notes for completeness. Technical Comments: Ka,r in mGy = 5.20 DAP = 393.99 (\XB5\Gy*m\XB2\) Ordering Provider: Khadra Becker FINAL REPORT Dictated: 07/28/2024 1:26 pm Edson Marin MD Signed (Electronic Signature): 07/28/2024 1:26 pm Signed by: Edson Marin MD Transcribed by: ALBARO Technologist: GWEN H&P UPDATE Observed: 07/27/2024 9:59 AM Status: F Source: [facility] H&P Update Patient: RADHA ELLSWORTH Age: 54 years Sex: Female : 1970 Associated Diagnoses: None Author: Khadra Becker MD Basic Information I have reviewed prior notes, spoke with patient, no changes to history. Patient elects to proceed with surgery as planned- cystoscopy, Left ureteroscopy with laser lithotripsy, possible stent placement Health Status Procedure history: Appendectomy (462445717). Hysterectomy (358183558). Colonoscopy (677032537). Social History Social & Psychosocial Habits Alcohol 07/27/2024 Risk Assessment: Denies Alcohol Use Substance Abuse 07/27/2024 Risk Assessment: Denies Substance Abuse Tobacco 07/27/2024 Tobacco Use: Never (less than 100 in l Smokeless tobacco use: Never 07/27/2024 Risk Assessment: Denies Tobacco Use . Allergies: Allergic Reactions (Selected) Severity Not Documented Adhesive Bandage- Unknown. Demerol- Vomiting. Sulfa drugs- Other. Current medications: (Selected) Inpatient Medications Ordered HYDROmorphone 1 mg/mL injectable solution: 0.2 mg = 0.2 mL, Injection, IV Push, q2min PRN Pain for 10 dose(s), Stop date Limited # of times, Routine, Start date 07/27/24 8:46:00 EDT, 07/27/24 8:46:00 EDT Sodium Chloride 0.9% IV Debbie 1000 mL 1,000 mL: 1,000 mL, IV, 150 mL/hr, Routine, Start date 07/27/24 7:00:00 EDT, 6.7 hour(s), Total volume (mL): 1,000, 82 kg, 1.88, m2 cefazolin additive + Sodium Chloride 0.9% intravenous solution 50 mL: 2 gm = 1 EA, Powder-Inj, IV Piggyback, Once, Stop date 07/27/24 7:00:00 EDT, Routine, Start date 07/27/24 7:00:00 EDT, 100 mL/hr, Infuse over 30 minute(s), HOLD if patient has history of anaphylactic allergic reaction to Penicillin. promethazine additive 6.25 mg + Sodium Chloride 0.9% IV Debbie 50 mL (INT) 50 mL: Injection, IV Piggyback, Once PRN Nausea/Vomiting, Routine, Start date 07/27/24 8:46:00 EDT, 150.75 mL/hr, Infuse over 20 minute(s) Documented Medications Documented Multi Vitamin+: Refill(s) 0 Vitafusion Fiber Well + Probiotics Gummies: Oral, Daily, Refill(s) 0 Vitamin B Complex oral capsule: Oral, Daily, Refill(s) 0 Vitamin C 1000 mg oral tablet: mg tab(s), Oral, Daily, Refills(s) 0 acetaminophen-oxycodone 325 mg-5 mg Tab: Refill(s) 0 loratadine 5 mg oral tablet, chewable: mg tab(s), Chewed, Daily, Refills(s) 0 magnesium oxide 400 mg Tab: mg tab(s), Oral, Daily, Refills(s) 0 ondansetron 4 mg Dis Tab: Refills(s) 0 venlafaxine 37.5 mg Cap-ER: Refills(s) 0 Problem list: All Problems Anemia / SNOMED CT 000794739 / Confirmed Apnea, sleep / SNOMED CT 155839243 / Confirmed Fatty liver / SNOMED CT 8875956440 / Confirmed Frequent headaches / SNOMED CT 9622571446 / Confirmed Kidney stone / SNOMED CT 658669763 / Confirmed Ureteral stone with hydronephrosis / SNOMED CT 3073808436 / Confirmed Inactive: Diabetes / SNOMED CT 109519981 Inactive: HTN (hypertension) / SNOMED CT 2844906515 PROGRESS NOTE-PHYSICIAN Observed: 2024 8:46 AM Status: F Source: [facility] Progress Note-Physician Patient: RADHA ELLSWORTH Age: 54 years Sex: Female : 1970 Associated Diagnoses: None Author: Vlad CALLAHAN, Ramon Bennett Preoperative Information Anesthesia Preop Info: Time patient last ate or drank 07/27/2024 00:00:00. Anesthesia history: Patient history: slow to wake. Family history+: None. Informed consent: Signed by patient. Re-evaluation prior to induction: Initial evaluation reviewed: No significant change. Review of Systems Eye Ear/Nose/Mouth/Throat Respiratory: No shortness of breath, No cough. Cardiovascular: Negative. Gastrointestinal: No heartburn. Musculoskeletal Neurologic Health Status Allergies: Allergic Reactions (Selected) Severity Not Documented Adhesive Bandage- Unknown. Demerol- Vomiting. Sulfa drugs- Other., Allergies (3) Active Severity Reaction sulfa drugs Other Demerol Vomiting Adhesive Bandage Unknown Current medications: (Selected) Inpatient Medications Ordered Sodium Chloride 0.9% IV Debbie 1000 mL 1,000 mL: 1,000 mL, IV, 150 mL/hr, Routine, Start date 07/27/24 7:00:00 EDT, 6.7 hour(s), Total volume (mL): 1,000, 82 kg, 1.88, m2 cefazolin additive + Sodium Chloride 0.9% intravenous solution 50 mL: 2 gm = 1 EA, Powder-Inj, IV Piggyback, Once, Stop date 07/27/24 7:00:00 EDT, Routine, Start date 07/27/24 7:00:00 EDT, 100 mL/hr, Infuse over 30 minute(s), HOLD if patient has history of anaphylactic allergic reaction to Penicillin. Documented Medications Documented Multi Vitamin+: Refill(s) 0 Vitafusion Fiber Well + Probiotics Gummies: Oral, Daily, Refill(s) 0 Vitamin B Complex oral capsule: Oral, Daily, Refill(s) 0 Vitamin C 1000 mg oral tablet: mg tab(s), Oral, Daily, Refills(s) 0 acetaminophen-oxycodone 325 mg-5 mg Tab: Refill(s) 0 loratadine 5 mg oral tablet, chewable: mg tab(s), Chewed, Daily, Refills(s) 0 magnesium oxide 400 mg Tab: mg tab(s), Oral, Daily, Refills(s) 0 ondansetron 4 mg Dis Tab: Refills(s) 0 venlafaxine 37.5 mg Cap-ER: Refills(s) 0, Home Medications (9) Active acetaminophen-oxycodone 325 mg-5 mg Tab loratadine 5 mg oral tablet, chewable , Chewed, Daily magnesium oxide 400 mg Tab , Oral, Daily Multi Vitamin+ ondansetron 4 mg Dis Tab venlafaxine 37.5 mg Cap-ER Vitafusion Fiber Well + Probiotics Gummies , Oral, Daily Vitamin B Complex oral capsule , Oral, Daily Vitamin C 1000 mg oral tablet , Oral, Daily , Medications (2) Active Scheduled: (1) ceFAZolin + Sodium Chloride 0.9% Minibag 50 mL 2 gm 1 EA, IV Piggyback, Once Continuous: (1) Sodium Chloride 0.9% 1,000 mL 1,000 mL, IV, 150 mL/hr PRN: (0) Problem list: All Problems Anemia / SNOMED CT 269641398 / Confirmed Apnea, sleep / SNOMED CT 467398802 / Confirmed Fatty liver / SNOMED CT 1573407963 / Confirmed Frequent headaches / SNOMED CT 9086680374 / Confirmed Kidney stone / SNOMED CT 478337488 / Confirmed Ureteral stone with hydronephrosis / SNOMED CT 8486712774 / Confirmed Inactive: Diabetes / SNOMED CT 848694050 Inactive: HTN (hypertension) / SNOMED CT 7131357581, Active Problems (6) Anemia Apnea, sleep Fatty liver Frequent headaches Kidney stone Ureteral stone with hydronephrosis Histories Past Medical History: No active or resolved past medical history items have been selected or recorded. Family History: Anemia Mother Colon cancer Grandparent Hypertension Father Hyperlipidemia Father Arthritis Father Mother Breast cancer Sister Procedure history: Appendectomy (969487455). Hysterectomy (933720384). Colonoscopy (972834633). Social History Social & Psychosocial Habits Alcohol 07/27/2024 Risk Assessment: Denies Alcohol Use Substance Abuse 07/27/2024 Risk Assessment: Denies Substance Abuse Tobacco 07/27/2024 Tobacco Use: Never (less than 100 in l Smokeless tobacco use: Never 07/27/2024 Risk Assessment: Denies Tobacco Use . Physical Examination Vital Signs 07/27/2024 7:33 EDT Apical Heart Rate 66 bpm 07/27/2024 7:09 EDT Heart Rate Monitored 71 bpm Systolic Blood Pressure 136 mmHg Diastolic Blood Pressure 85 mmHg Blood Pressure Location Left arm Mean Arterial Pressure, Monitered 102 mmHg 07/27/2024 7:08 EDT Heart Rate Monitored 69 bpm SpO2 94 % 07/27/2024 7:08 EDT Respiratory Rate 16 br/min 07/27/2024 7:07 EDT Temperature Axillary 36.8 DegC HI 07/27/2024 7:06 EDT Systolic Blood Pressure 148 mmHg HI Diastolic Blood Pressure 87 mmHg Blood Pressure Location Right arm Mean Arterial Pressure, Monitered 107 mmHg Vital Signs (last 24 hrs) Last Charted Temp Axillary H 36.8 DegC (JULY 27 07:07) Heart Rate Apical 66 bpm (JULY 27 07:33) SBP 136 mmHg (JULY 27 07:09) DBP 85 mmHg (JULY 27 07:09) Weight 91.6 kg (JULY 27:33) BMI 38.13 (JULY 27:23) Measurements from flowsheet : Measurements 07/27/2024 7:33 EDT Height/Length Measured 155 cm Weight Measured 91.6 kg 07/27/2024 7:23 EDT Height/Length Measured 155 cm Height/Length Dosing 155.0 cm Weight Dosing 91.6 kg BSA Measured 1.99 m2 Body Mass Index Measured 38.13 kg/m2 Weight Measured 91.6 kg Airway: Mallampati classification: II (soft palate, fauces, uvula visible). Respiratory: Lungs are clear to auscultation, Respirations are non-labored, adequate air exchange. Cardiovascular: Regular rhythm, No murmur. Review / Management Results review: No qualifying data available . Plan [place] [employer] (ASA) physical status classification: Class II. Anesthetic Preoperative Plan: Anesthesia General. Result Comment: Electronical ly Signed By: Vlad CALLAHAN, Ramon Bennett\.br\Date and Time Signed: 07/27/24 08:49 EDT DISCHARGE INSTRUCTIONS Observed: 025 6:42 AM Status: F Source: [facility] Discharge Instructions RADHA ELLSWORTH :1970 Visit Date:07/27/2024 Inpatient Discharge Instructions Your Care Team Admitting Physician - Khadra Becker MD Referring Physician - Khadra Becker MD Reason for Your Visit URETERAL STONE WITH HYDRONEPHROSIS Your Diagnosis Ureteral stone with hydronephrosis Tests Performed Calculi Analysis Urinary -- Results Pending -- XR Urography Retrograde Left -- Results Pending -- Please visit your patient portal for your results or contact your primary care physician. This Is Your Medications List acetaminophen-oxycodone (acetaminophen-oxycodone 325 mg-5 mg Tab) ascorbic acid (Vitamin C 1000 mg oral tablet) bacillus coagulans-inulin (Vitafusion Fiber Well + Probiotics Gummies) ciprofloxacin (Cipro 500 mg Tab) loratadine (loratadine 5 mg oral tablet, chewable) magnesium oxide (magnesium oxide 400 mg Tab) multivitamin (Multi Vitamin+) multivitamin (Vitamin B Complex oral capsule) ondansetron (ondansetron 4 mg Dis Tab) oxybutynin (oxybutynin 5 mg Tab) venlafaxine (venlafaxine 37.5 mg Cap-ER) Procedure History Appendectomy, Colonoscopy, Hysterectomy. What to do next Instructions From Your Doctor Event Name Event Result Discharge Activity Ambulate as tolerated, Arrange for a responsible adult supervision for 24 hours, Expect mild pain, Expect minimal amount of drainage and/or bleeding, Activity as tolerated Discharge Restrictions No driving for 24 hrs Discharge Diet(s) Regular Call Your Doctor For Persistent or heavy bleeding, Temperature above 101.5 degrees, Severe pain at the operative site, Persistent vomiting Discharge Instructions Discharge Instructions New Follow Up Appointments after Discharge Follow Up with Khadra Becker When: Comments: Office migue call to schedule your follow up after 2 weeks for cystoscopy, left ureteral stent removal Where: [facility], [address] [address]- [phone] Business (1) Medications What How Much When Instructions Next Dose New ciprofloxacin (Cipro 500 mg Tab) 1 Tablets By Mouth Every 12 hours Duration: 1 Days Start morning of stent removal Pickup at [facility]/pharmacy #[id number] New oxybutynin (oxybutynin 5 mg Tab) 1 Tablets By Mouth 3 times a day as needed for Urinary discomfort bladder spasms, stent pain Pickup at [facility]/pharmacy #[id number] Unchanged acetaminophen-oxycodone (acetaminophen-oxycodone 325 mg-5 mg Tab) Unchanged ascorbic acid (Vitamin C 1000 mg oral tablet) By Mouth Every day Unchanged bacillus coagulans-inulin (Vitafusion Fiber Well + Probiotics Gummies) By Mouth Every day Unchanged loratadine (loratadine 5 mg oral tablet, chewable) Chewed Every day Unchanged magnesium oxide (magnesium oxide 400 mg Tab) By Mouth Every day Unchanged multivitamin (Multi Vitamin+) Unchanged multivitamin (Vitamin B Complex oral capsule) By Mouth Every day Unchanged ondansetron (ondansetron 4 mg Dis Tab) Unchanged venlafaxine (venlafaxine 37.5 mg Cap-ER) Pharmacy Information [facility]/pharmacy #[id number]: [address], [place] [phone] Allergies Adhesive Bandage (Unknown) Demerol (Vomiting) sulfa drugs (Other) Problems Ongoing - Any problem that you are currently receiving treatment for. Anemia Fatty liver Frequent headaches Kidney stone Ureteral stone with hydronephrosis Devices Implanted/Removed This Visit Notice: You have devices implanted this visit that may not be MRI compatible. Implanted CYSTOSCOPY RETROGRADE STENT INSERTION Ureter L CASCADE URETERAL STEN 07/27/2024 Education Materials [facility] [place], [place] Post-operative Instructions for Ureteroscopy, Laser Lithotripsy, Stone Extraction and Stent Placement There are no incisions or dressings to be concerned with, as the procedure was performed inside the urinary system. For 24 hours after surgery: ??? No driving or operating machinery ??? Do not make important decisions ??? Do not consume alcohol, sleeping pills Stent Placement You may have a stent which spans the distance between your bladder and your kidney, allowing urine to pass through. It prevents blockage from swelling, kidney stones in ureter (tube connecting the kidney to the bladder), or scars. The presence of the stent may cause: ??? Back or side pain, especially with urination ??? Frequent or urgent urination ??? Bladder pressure or pain ??? Blood in urine You may pass stone debris or small blood clots, which is expected. Drinking plenty of water to dilute the urine may help. If there is a thread coming out of urinary channel, be careful not to accidently pull on this, as it is attached to the stent. If you accidentally pull on the string, check to see if the stent is coming out. If you see a small tube coming out, lay on your back, knees bent and with clean hands try to push stent back in. Rub your lower belly and see if the stent will return inside. If this is unsuccessful, please call the office or go to the ER. If you elect to remove the stent at home after discussion with your doctor: -Take prophylactic antibiotic the morning of stent removal (time determined by your doctor) -Wash your hands with soap and water -Pull off the clear tape and pull on the string in a steady motion while trying to urinate on the toilet or in the shower. The string is attached to the stent which is a long tube with curls at each end. Otherwise, the stent will most likely be removed in the office during a short procedure in which a scope is placed into the bladder, the stent is grasped and removed. At other times the stent may need to stay longer, either in preparation for other procedures or for other reasons. If it is to remain intermediate designer, however, changes of the stent are required (about every 3-4 months). Diet You may resume your normal diet, but you may want to start slowly and avoid spicy food, caffeine, carbonated beverages and alcohol, especially if you have a stent. Your diet and fluid intake may make irritation from the stent worse. Activity You may resume your normal activities, although you should take it easy on the day of the procedure. Minimizing activity may decrease the back discomfort and irritation from the stent, if present. Medications ??? You may resume your home medications unless instructed otherwise. ??? After 24 hours, you may restart aspirin, Coumadin (warfarin) and other blood thinners unless told otherwise. ??? Take your prescribed medications as directed, including your antibiotics. ??? You may also be given a prescription for pain medicine or medicines to help with the bladder irritation from stent, if present. -Oxybutynin three times a day as needed for bladder spasms/stent pain. This may cause dry mouth, dry eyes and constipation. Drink plenty of fluids and take stool softeners (Colace, MiraLAX). -AZO (phenazopyridine) for urinary discomfort can be purchased over the counter for burning with urination. This will make your urine orange. -Alternate Tylenol 500-1000 mg every 6 hours, alternate in between with ibuprofen 400-800 mg every 6 hours as needed for pain. Things to watch for which would require an Emergency Room Visit (or call 911) (This is not a complete list) ??? Fever over 101.5 degrees, with or without chills ??? Severe bleeding ??? Severe drug reactions with itching, hives, rash, or severe flank pain ??? Tenderness or swelling or the calves, chest pain, or shortness of breath Please call the office to arrange for your post-operative appointment if you do not hear from us within 1 week [phone] Common Emergency Awareness Tips IS IT A STROKE? Act FAST and Check for these signs: FACE Does the face look uneven? ARM Does one arm drift down? SPEECH Does their speech sound strange? TIME Call at any sign of stroke Heart Attack Signs Chest discomfort: Most heart attacks involve discomfort in the center of the chest and lasts more than a few minutes, or goes away and comes back. It can feel like uncomfortable pressure, squeezing, fullness or pain. Discomfort in upper body: Symptoms can include pain or discomfort in one or both arms, back, neck, jaw or stomach. Shortness of breath: With or without discomfort. Other signs: Breaking out in a cold sweat, nausea, or lightheaded. Remember, MINUTES DO MATTER. If you experience any of these heart attack warning signs, call to get immediate medical attention! Patient Survey You may receive a survey in the mail asking you about your stay with us. We want to hear from you, please share your experience with us by completing your survey. Thank you for choosing [facility]. Stephanie Award Nomination The STEPHANIE (Diseases Attacking the Immune SYstem) Award is an international recognition program that honors and celebrates the skillful, compassionate care nurses provide every day. Anyone who experiences or observes amazing care being provided by a nurse is encouraged to submit a nomination. To nominate your nurse, use your smart phone to scan the QR code below. Patient Portal You may access all of your results and other medical record information on our secure patient portal. If you are not signed up for this yet, please contact [employer] at [phone] to get signed up today. Patient Name: RADHA ELLSWORTH I have received these discharge instructions and my questions have been answered. Patient/Gift Manager Name: Patient/Gift Manager Signature: Relationship to Patient: Witness Name/Signature: Date: Result Comment: Electronical ly Signed By: Gisell Mckeon RN\Date and Time Signed: 07/27/24 11:20 EDT PATIENT EDUCATION Observed: 07/15/2024 11:25 AM Status: F Source: [facility] Patient Education Nephrology Dietary Guidelines to Help Prevent Kidney Stones Kidney stones are deposits of minerals and salts that form inside your kidneys. Your risk of developing kidney stones may be greater depending on your diet, your lifestyle, the medicines you take, and whether you have certain medical conditions. Most people can lower their risks of developing kidney stones by following these dietary guidelines. Your dietitian may give you more specific instructions depending on your overall health and the type of kidney stones you tend to develop. What are tips for following this plan? Reading food labels ??? Choose foods with no salt added or low-salt labels. Limit your salt (sodium) intake to less than 1,500 mg a day. ??? Choose foods with calcium for each meal and snack. Try to eat about 300 mg of calcium at each meal. Foods that contain 200?500 mg of calcium a serving include: ? 8 oz (237 mL) of milk, yunwozi-vkbccpyxiyal-goatt milk, and calcium- fortifiedfruit juice. Calcium-fortified means that calcium has been added to these drinks. ? 8 oz (237 mL) of kefir, yogurt, and soy yogurt. ? 4 oz (114 g) of tofu. ? 1 oz (28 g) of cheese. ? 1 cup (150 g) of dried figs. ? 1 cup (91 g) of cooked broccoli. ? One 3 oz (85 g) can of sardines or mackerel. Most people need 1,000?1,500 mg of calcium a day. Talk to your dietitian about how much calcium is recommended for you. Shopping ??? Buy plenty of fresh fruits and vegetables. Most people do not need to avoid fruits and vegetables, even if these foods contain nutrients that may contribute to kidney stones. ??? When shopping for convenience foods, choose: ? Whole pieces of fruit. ? Pre-made salads with dressing on the side. ? Low-fat fruit and yogurt smoothies. ??? Avoid buying frozen meals or prepared deli foods. These can be high in sodium. ??? Look for foods with live cultures, such as yogurt and kefir. ??? Choose high-fiber grains, such as whole-wheat breads, oat bran, and wheat cereals. Cooking ??? Do not add salt to food when cooking. Place a salt shaker on the table and allow each person to add their own salt to taste. ??? Use vegetable protein, such as beans, textured vegetable protein (TVP), or tofu, instead of meat in pasta, casseroles, and soups. Meal planning ??? Eat less salt, if told by your dietitian. To do this: ? Avoid eating processed or pre-made food. ? Avoid eating fast food. ??? Eat less animal protein, including cheese, meat, poultry, or fish, if told by your dietitian. To do this: ? Limit the number of times you have meat, poultry, fish, or cheese each week. Eat a diet free of meat at least 2 days a week. ? Eat only one serving each day of meat, poultry, fish, or seafood. ? When you prepare animal proteins, cut pieces into small portion sizes. For most meat and fish, one serving is about the size of the palm of your hand. ??? Eat at least five servings of fresh fruits and vegetables each day. To do this: ? Keep fruits and vegetables on hand for snacks. ? Eat one piece of fruit or a handful of berries with breakfast. ? Have a salad and fruit at lunch. ? Have two kinds of vegetables at dinner. ??? You may be told to limit foods that are high in a substance called oxalate. These include: ? Spinach (cooked), rhubarb, beets, sweet potatoes, and Israeli chard. ? Peanuts. ? Potato chips, chadian fries, and baked potatoes with skin on. ? Nuts and nut products. ? Chocolate. ??? If you regularly take a diuretic medicine, make sure to eat at least 1 or 2 servings of fruits or vegetables that are high in potassium each day. These include: ? Avocado. ? Banana. ? [place], prune, carrot, or tomato juice. ? Baked potato. ? Cabbage. ? Beans and split peas. Lifestyle ??? Drink enough fluid to keep your urine pale yellow. This is the most important thing you can do. Spread your fluid intake throughout the day. ??? If you drink alcohol: ? Limit how much you have to: ? 0?1 drink a day for women who are not . ? 0?2 drinks a day for men. ? Know how much alcohol is in your drink. In the [place] one drink equals one 12 oz bottle of beer (355 mL), one 5 oz glass of wine (148 mL), or one 1? oz glass of hard liquor (44 mL). ??? Lose weight if told by your health care provider. Work with your dietitian to find an eating plan and weight loss strategies that work best for you. General information ??? Talk to your health care provider and dietitian about taking daily supplements. Depending on your health and the cause of your kidney stones, you may be told: ? Do not take high-dose supplements of vitamin C (1,000 mg a day or more). ? To take a calcium supplement. ? To take a daily probiotic supplement. ? To take other supplements such as magnesium, fish oil, or vitamin B6. ??? Take pdgs-zwd-bsjdgfe and prescription medicines only as told by your health care provider. These include supplements. What foods should I limit? Limit your intake of the following foods, or eat them as told by your dietitian. Vegetables Spinach. Rhubarb. Beets. Canned vegetables. Pickles. Olives. Baked potatoes with skin. Grains Wheat bran. Baked goods. Salted crackers. Cereals high in sugar. Meats and other proteins Nuts. Nut butters. Large portions of meat, poultry, or fish. Salted, precooked, or cured meats, such as sausages, meat loaves, and hot dogs. Dairy Cheeses. Beverages Regular soft drinks. Regular vegetable juice. Seasonings and condiments Seasoning blends with salt. Salad dressings. Soy sauce. Ketchup. Barbecue sauce. Other foods Canned soups. Canned pasta sauce. Casseroles. Pizza. Lasagna. Frozen meals. Potato chips. Spanish fries. The items listed above may not be a complete list of foods and beverages you should limit. Contact a dietitian for more information. What foods should I avoid? Talk to your dietitian about specific foods you should avoid based on the type of kidney stones you have and your overall health. Fruits Grapefruit. The item listed above may not be a complete list of foods and beverages you should avoid. Contact a dietitian for more information. Summary ??? Kidney stones are deposits of minerals and salts that form inside your kidneys. ??? You can lower your risk of kidney stones by making changes to your diet. ??? The most important thing you can do is drink enough fluid. Drink enough fluid to keep your urine pale yellow. ??? Talk to your dietitian about how much calcium you should have each day, and eat less salt and animal protein as told by your dietitian. This information is not intended to replace advice given to you by your health care provider. Make sure you discuss any questions you have with your health care provider. Document Revised: 05/30/2022 Document Reviewed: 05/30/2022 [employer] Patient Education ? 2023 [employer] UROLOGY OFFICE/CLINIC NOTE Observed: 10:26 AM Status: F Source: [facility] Urology Office/Clinic Note Chief Complaint new patient HPI Staff 54 year old female New Pt. seen in [facility] 07/12/24 due to Lt. flank pain CT done while in ER Patient stated since starting Flomax 1 hour after she has had a constant headache. gross hematuria on Friday and Friday. States she is having aching on left flank. History of Present Illness Tests reviewed: reviewed UA, external records: CT, ER notes, labs I have reviewed the previous health record information and history for this patient from external provider I have reviewed and verified the staff HPI to be accurate for this encounter. There have been no associated fever, chills, flank pain, or blood in the urine. Denies any urinary infections since last encounter. Review of Systems ROS - Provider Constitutional: denies weight loss, denies hot flashes. Eyes: denies eye problems. Gastrointestinal: denies nausea, denies vomiting. Cardiovascular: denies chest pain or angina. Integumentary: no dryness Musculoskeletal: denies musculoskeletal symptoms. ENMT: denies otolaryngeal symptoms. Respiratory: no shortness of breath. Heme/Lymph: denies easy bleeding tendency, denies easy bruising tendency. Psychiatric: no confusion, no anxiety. Genitourinary: See HPI. Physical Exam Vitals & Measurements HR: 82(Apical) BP: 156/103 HT: 61 in HT: 155 cm WT: 82 kg WT: 180.779 lb BMI: 34.13 General Appearance: alert , no acute distress, well nourished, well developed female. Head: normocephalic . Eyes: normal orbit and globe. ENMT: normal examination of external ears. Genitourinary: bladder nonpalpable, moderate left flank tenderness, no abdominal TTP Psychiatric: cooperative, affect appropriate for age, normal judgement, euthymic mood. Assessment/Plan Radha is a 54 yo female new to our office for recent ureteral stone. Does report it takes her awhile to wake up from anesthesia. Not on AC. Pre- diabetic, used to take GLP-1. No longer taking this. BBSQ 8 1. Ureteral stone with hydronephrosis (N13.2: Hydronephrosis with renal and ureteral calculous obstruction) First stone event. Pt presented to [facility] ER 07/12/24 due to left-sided flank pain. CT AP wo con 07/12/24 [facility] - left hydroureteronephrosis associated with a 5 mm distal ureteral calculus. -On review, mild hydro, stone in mid to lower ureter at level of iliac vessels. Labs - Cr 0.71, eGFR >60. Normal WBC. UA today shows large blood. Pt states prior to presenting to the ER, she did not have any symptoms. Noticed gross hematuria on Friday and Friday. Complaints of aching on the left. Since starting Flomax she has had a constant headache. Denies fever or chills. Has been straining her urine. Has not seen stone pass. Pt states she has a high pain tolerance, had 2 unmedicated births. Discussed management options including medical expulsive therapy x 4-6 week vs intervention including extracorporeal shockwave lithotripsy vs ureteroscopy with laser lithotripsy/stone basket extraction possible stent. Risks/benefits of each were discussed including but not limited to: MET- renal damage, pain or infection; ESWL-bleeding, hematoma, pain, infection, inability to break up the stone, ureteral obstruction, cardiac arrhythmias, damage to surrounding structures and need for additional procedures; ureteroscopy - bleeding, pain, infection, damage to surrounding structures, ureteral perforation, stricture, inability to treat the stone and need for additional procedures. If a stent is placed, pt understands this is not permanent and needs to be removed or exchanged within 3 months to prevent encrustation, infection, permanent renal damage and need for more invasive procedures. Pt opts for MET and scheduling surgery afterwards if unsuccessful. -Cont to strain urine, keep stone if passing is successful and notify office to cancel surgery -Will tentatively schedule cysto, L URS, L laser litho (possible ureteral and renal calculus), L stent in 2-3 weeks, pt to call and cancel if she passes stone 2. Kidney stone (N20.0: Calculus of kidney) CT AP wo con 07/12/24 [facility] - on review, punctate LUP calculus. -Will treat at the time of laser litho for ureteral stone Follow-up With When Contact Information Eugenio CALLAHAN, Khadra Brown, URL, URO Additional Instructions: Cont MET, schedule L laser litho in 2-3 weeks (cancel if she passes stone) Patient Education Dietary Guidelines to Help Prevent Kidney Stones I, Sofia Tse, personally scribed for Dr. Becker on 07/15/2024 11:53:59. . Documentation recorded by the scribe, Sofia Tse, accurately reflects the services(s) I performed and decisions made by me. Authenticated by Dr. Becker on 07/15/2024 13:01:15. Problem List/Past Medical History Ongoing Anemia Fatty liver Frequent headaches Ureteral stone with hydronephrosis Historical No qualifying data Procedure/Surgical History Appendectomy, Colonoscopy, Hysterectomy. Medications acetaminophen-oxycodone 325 mg-5 mg Tab loratadine 5 mg oral tablet, chewable, Chewed, Daily magnesium oxide 400 mg Tab, Oral, Daily Multi Vitamin+ ondansetron 4 mg Dis Tab tamsulosin 0.4 mg Cap venlafaxine 37.5 mg Cap-ER Vitafusion Fiber Well + Probiotics Gummies, Oral, Daily Vitamin B Complex oral capsule, Oral, Daily Vitamin C 1000 mg oral tablet, Oral, Daily Allergies Demerol (Vomiting) sulfa drugs (Other) Social History Tobacco Never (less than 100 in lifetime) Tobacco Use:. Never Smokeless Tobacco Use:., 07/15/2024 Family History Anemia: Mother. Arthritis: Mother and Father. Breast cancer: Sister.Negative: Brother. Colon cancer: Grandparent. Hyperlipidemia: Father. Hypertension: Father. Lab Results Ambulatory Point of Care Results Bilirubin Urine Dipstick: Negative (07/15/24 11:39:00) Blood Urine Dipstick: 3+ Large (07/15/24 11:39:00) Glucose Urine Dipstick: Negative (07/15/24 11:39:00) Ketones Urine Dipstick: Negative (07/15/24 11:39:00) Leukocytes Urine Dipstick: Negative (07/15/24 11:39:00) Nitrite Urine Dipstick: Negative (07/15/24 11:39:00) Protein Urine Dipstick: Negative (07/15/24 11:39:00) Specific [place] Urine Dipstick: 1.015 (07/15/24 11:39:00) Urine Appearance Urine Dipstick: Clear (07/15/24 11:39:00) Urine Color Urine Dipstick: Yellow (07/15/24 11:39:00) Urobilinogen Urine Dipstick: Normal 0.2-1 EU/dl (07/15/24 11:39:00) pH Urine Dipstick: 6 (07/15/24 11:39:00) Result Comment: Electronical ly Signed By: Khadra Becker MD\.br\Date and Time Signed: 07/15/24 13:01 EDT\.br\Electronically Co-Signed By: Sofia Tse\.br\Date and Time Co-Signed: 07/15/24 11:54 EDT\.br\Electronically Co-Signed By: Sofia Tse\.br\Date and Time Co-Signed: 07/15/24 11:58 EDT AMBULATORY VISIT SUMMARY Observed: 07/15 10:26 AM Status: F Source: [facility] Ambulatory Visit Summary RADHA ELLSWORTH :1970 Visit Date:07/15/2024 Ambulatory Visit Instructions Your Diagnosis Ureteral stone with hydronephrosis Your Care Team Attending Physician - Khadra Becker MD Primary Care Physician - FABY CRUZ DEISY This Is Your Medications List Contact prescribing physician if questions or concerns acetaminophen-oxycodone (acetaminophen-oxycodone 325 mg-5 mg Tab) ascorbic acid (Vitamin C 1000 mg oral tablet) bacillus coagulans-inulin (Vitafusion Fiber Well + Probiotics Gummies) loratadine (loratadine 5 mg oral tablet, chewable) magnesium oxide (magnesium oxide 400 mg Tab) multivitamin (Multi Vitamin+) multivitamin (Vitamin B Complex oral capsule) ondansetron (ondansetron 4 mg Dis Tab) tamsulosin (tamsulosin 0.4 mg Cap) venlafaxine (venlafaxine 37.5 mg Cap-ER) Procedures Performed Appendectomy, Colonoscopy, Hysterectomy. Discharge Vitals Heart Rate (Apical) 82 Blood Pressure 156/103 Height 61 in Height 155 cm Weight 180.779 lb Weight 82 kg BMI 34.13 What to do next You Need to Schedule the Following Appointments Follow Up with Khadra Becker MD, URL, URO When: Where: Medications What How Much When Instructions Unchanged acetaminophen-oxycodone (acetaminophen-oxycodone 325 mg-5 mg Tab) Contact prescribing physician if questions or concerns Unchanged ascorbic acid (Vitamin C 1000 mg oral tablet) Every day Contact prescribing physician if questions or concerns Unchanged bacillus coagulans-inulin (Vitafusion Fiber Well + Probiotics Gummies) Every day Contact prescribing physician if questions or concerns Unchanged loratadine (loratadine 5 mg oral tablet, chewable) Every day Contact prescribing physician if questions or concerns Unchanged magnesium oxide (magnesium oxide 400 mg Tab) Every day Contact prescribing physician if questions or concerns Unchanged multivitamin (Multi Vitamin+) Contact prescribing physician if questions or concerns Unchanged multivitamin (Vitamin B Complex oral capsule) Every day Contact prescribing physician if questions or concerns Unchanged ondansetron (ondansetron 4 mg Dis Tab) Contact prescribing physician if questions or concerns Unchanged tamsulosin (tamsulosin 0.4 mg Cap) Contact prescribing physician if questions or concerns Unchanged venlafaxine (venlafaxine 37.5 mg Cap-ER) Contact prescribing physician if questions or concerns Allergies Demerol (Vomiting) sulfa drugs (Other) Problems Ongoing - Any problem that you are currently receiving treatment for. Anemia Fatty liver Frequent headaches Ureteral stone with hydronephrosis Patient Survey You may receive a survey via text or e-mail asking about your office visit. Please share your experience with us by completing your survey. We appreciate your feedback and thank you for choosing us for your care. Education Materials Dietary Guidelines to Help Prevent Kidney Stones Kidney stones are deposits of minerals and salts that form inside your kidneys. Your risk of developing kidney stones may be greater depending on your diet, your lifestyle, the medicines you take, and whether you have certain medical conditions. Most people can lower their risks of developing kidney stones by following these dietary guidelines. Your dietitian may give you more specific instructions depending on your overall health and the type of kidney stones you tend to develop. What are tips for following this plan? Reading food labels ??? Choose foods with no salt added or low-salt labels. Limit your salt (sodium) intake to less than 1,500 mg a day. ??? Choose foods with calcium for each meal and snack. Try to eat about 300 mg of calcium at each meal. Foods that contain 200???500 mg of calcium a serving include: ? 8 oz (237 mL) of milk, ggtbfkb-pchhnvbhcwrf-niszy milk, and calcium- fortifiedfruit juice. Calcium-fortified means that calcium has been added to these drinks. ? 8 oz (237 mL) of kefir, yogurt, and soy yogurt. ? 4 oz (114 g) of tofu. ? 1 oz (28 g) of cheese. ? 1 cup (150 g) of dried figs. ? 1 cup (91 g) of cooked broccoli. ? One 3 oz (85 g) can of sardines or mackerel. Most people need 1,000???1,500 mg of calcium a day. Talk to your dietitian about how much calcium is recommended for you. Shopping ??? Buy plenty of fresh fruits and vegetables. Most people do not need to avoid fruits and vegetables, even if these foods contain nutrients that may contribute to kidney stones. ??? When shopping for convenience foods, choose: ? Whole pieces of fruit. ? Pre-made salads with dressing on the side. ? Low-fat fruit and yogurt smoothies. ??? Avoid buying frozen meals or prepared deli foods. These can be high in sodium. ??? Look for foods with live cultures, such as yogurt and kefir. ??? Choose high-fiber grains, such as whole-wheat breads, oat bran, and wheat cereals. Cooking ??? Do not add salt to food when cooking. Place a salt shaker on the table and allow each person to add their own salt to taste. ??? Use vegetable protein, such as beans, textured vegetable protein (TVP), or tofu, instead of meat in pasta, casseroles, and soups. Meal planning ??? Eat less salt, if told by your dietitian. To do this: ? Avoid eating processed or pre-made food. ? Avoid eating fast food. ??? Eat less animal protein, including cheese, meat, poultry, or fish, if told by your dietitian. To do this: ? Limit the number of times you have meat, poultry, fish, or cheese each week. Eat a diet free of meat at least 2 days a week. ? Eat only one serving each day of meat, poultry, fish, or seafood. ? When you prepare animal proteins, cut pieces into small portion sizes. For most meat and fish, one serving is about the size of the palm of your hand. ??? Eat at least five servings of fresh fruits and vegetables each day. To do this: ? Keep fruits and vegetables on hand for snacks. ? Eat one piece of fruit or a handful of berries with breakfast. ? Have a salad and fruit at lunch. ? Have two kinds of vegetables at dinner. ??? You may be told to limit foods that are high in a substance called oxalate. These include: ? Spinach (cooked), rhubarb, beets, sweet potatoes, and Israeli chard. ? Peanuts. ? Potato chips, chadian fries, and baked potatoes with skin on. ? Nuts and nut products. ? Chocolate. ??? If you regularly take a diuretic medicine, make sure to eat at least 1 or 2 servings of fruits or vegetables that are high in potassium each day. These include: ? Avocado. ? Banana. ? [place], prune, carrot, or tomato juice. ? Baked potato. ? Cabbage. ? Beans and split peas. Lifestyle ??? Drink enough fluid to keep your urine pale yellow. This is the most important thing you can do. Spread your fluid intake throughout the day. ??? If you drink alcohol: ? Limit how much you have to: ? 0???1 drink a day for women who are not . ? 0???2 drinks a day for men. ? Know how much alcohol is in your drink. In the [place] one drink equals one 12 oz bottle of beer (355 mL), one 5 oz glass of wine (148 mL), or one 1??? oz glass of hard liquor (44 mL). ??? Lose weight if told by your health care provider. Work with your dietitian to find an eating plan and weight loss strategies that work best for you. General information ??? Talk to your health care provider and dietitian about taking daily supplements. Depending on your health and the cause of your kidney stones, you may be told: ? Do not take high-dose supplements of vitamin C (1,000 mg a day or more). ? To take a calcium supplement. ? To take a daily probiotic supplement. ? To take other supplements such as magnesium, fish oil, or vitamin B6. ??? Take omdr-qwn-anaywng and prescription medicines only as told by your health care provider. These include supplements. What foods should I limit? Limit your intake of the following foods, or eat them as told by your dietitian. Vegetables Spinach. Rhubarb. Beets. Canned vegetables. Pickles. Olives. Baked potatoes with skin. Grains Wheat bran. Baked goods. Salted crackers. Cereals high in sugar. Meats and other proteins Nuts. Nut butters. Large portions of meat, poultry, or fish. Salted, precooked, or cured meats, such as sausages, meat loaves, and hot dogs. Dairy Cheeses. Beverages Regular soft drinks. Regular vegetable juice. Seasonings and condiments Seasoning blends with salt. Salad dressings. Soy sauce. Ketchup. Barbecue sauce. Other foods Canned soups. Canned pasta sauce. Casseroles. Pizza. Lasagna. Frozen meals. Potato chips. Spanish fries. The items listed above may not be a complete list of foods and beverages you should limit. Contact a dietitian for more information. What foods should I avoid? Talk to your dietitian about specific foods you should avoid based on the type of kidney stones you have and your overall health. Fruits Grapefruit. The item listed above may not be a complete list of foods and beverages you should avoid. Contact a dietitian for more information. Summary ??? Kidney stones are deposits of minerals and salts that form inside your kidneys. ??? You can lower your risk of kidney stones by making changes to your diet. ??? The most important thing you can do is drink enough fluid. Drink enough fluid to keep your urine pale yellow. ??? Talk to your dietitian about how much calcium you should have each day, and eat less salt and animal protein as told by your dietitian. This information is not intended to replace advice given to you by your health care provider. Make sure you discuss any questions you have with your health care provider. Document Revised: 05/30/2022 Document Reviewed: 05/30/2022 [employer] Patient Education ??? 2023 [employer] ALLERGIES DATE TYPE / CODE NAME / CODE REACTION SEVERITY SOURCE 08/18/2022 GERMÁN/[id number]([facility] ED CT) sulfa drugs [id number] [facility] /[id number]([facility] ED CT) meperidine Unknown [facility] /[id number](SN ED CT) Demerol [id number] [facility] /[id number]([facility] ED CT) Adhesive Bandage Unknown [facility] ENCOUNTERS ADMIT/DISCHARGE ACCOUNT NUMBER ADMITTING ENCOUNTER CLASS LOCATION SOURCE 09/06/2024/09/07/19 [id number] Ambulatory Building:NO MS BCP OB [facility] EPIC 08/09/2024/08/10/19 [id number] Khadra Becker [facility]FT.URO [facility] 07/27/2024/07/28/19 [id number] Khadra Becker Ambulatory [facility]:ASRoom: XO85Wpk: 01 [facility] 07/15/2024/07/16/19 [id number] Ambulatory [place]:EU [place] : Exam 2 [facility] 07/13/2024 [id number] Ambulatory EU [place]:EU Story [facility] 06/08/2024/06/09/19 [id number] Ambulatory Building:NO MS SWSDERM [facility] EPIC 03/10/2024/03/10/19 [id number] Ambulatory Building:BS R NEURO [facility] PAYERS ENCOUNTER GUARANTOR PAYER SUBSCRIBER SOURCE 09/06/2024 RADHA KRUGER: [place] [address]Jaa: (HP) (WP) Primary Insurance:BCBSPoli cy Number: [id number] nader Date:2024-03-03 RADHA KRUGER: [id number] [place] [address] [facility] 08/09/2024 RADHA KRUGER: [place] DELONGTel: [id number] (HP) Primary Insurance:AnthemPo licy Number: [id number] nader Date:3235-73-27[id number] [place] [phone]: RADHA Lois ZHOU [facility] 07/27/2024 RADHA COLVINB: [place] DELONGTel: [id number] (HP) Primary Insurance:AnthemPo licy Number: [id number] nader Date:2438-17-28[id number] [place] [phone]: RADHA Lois ZHOU [facility] 07/15/2024 RADHA COLVINB: FLOURNOY DRTel: [id number] (HP) Primary Insurance:AnthemPo licy Number: [id number] nader Date:1047-16-21[id number] [place] [phone]: [facility]2024 RADHA COLVINB: [place] [address]Gvg: (HP) (WP) Primary Insurance:BCBSPoli cy Number: [id number] nader Date:2024-03-03 RADHA KRUGER: [id number] [place] [address] [facility] 03/10/2024 RADHA KRUGER: [place] [address]Vfw: (HP) (WP) Primary Insurance:AETNAPol icy Number: [id number] e Date:2022-05-01 - [id number] Name:[facility] [address] HARINI PAYAN [address]CW: RADHA COLVINB: [id number] [place] [address] [facility] 03/10/2024 Secondary Insurance:[facility] cy Number: [id number] nader Date:2024-03-03 RADHA KRUGER: [id number] [place] [address] [facility] EPIC
--- OUTSIDE RECORDS SUMMARY | 2024-09-06 09:00 | XMS_ITS | Encounter Summary ---
Author Organization [facility] Address [address] [place] [address] Care Team Providers Care Brazer Helper Induction Name Role Phone Vitaliy Dale Kyra CRUZ Primary Care Provider [phone] Reason for Visit * Reason Comments Gynecologic Exam Encounter Details Date Type Department Care Team (Late st Contact Info) Description 09/06/2024 9:00 AM EDT Office Visit [facility] B[facility] OB [address] [place] [address] Jonathan Harris DO [address] [place], [facility]11 Encounter for adult wellness visit; Encounter for screening mammogram for malignant neoplasm of breast; Acquired absence of other genital organ(s); Depression, unspecified ; Pain of ovary; Pelvic pain in female Social History Tobacco Use Types Packs/Day Years [...] on file documented as of this encounter Last Filed Vital Signs Vital Sign Reading Time Taken Comments Blood Pressure 134/84 09/06/2024 9:00 AM EDT Pulse - - Temperature - - Respiratory Rate - - Oxygen Saturation - - Inhaled Oxygen Concentration - - Weight 90.6 kg (199 lb 12.8 oz) 09/06/2024 9:00 AM EDT Height - - Body Mass Index 39.02 03/10/2024 8:17 AM EST documented in this encounter Plan of Treatment Upcoming Encounters Date Type Department Care Team (Late st Contact Info) Description 06/09/2025 3:30 PM EDT Office Visit [facility] D[facility] [address] [place] [address] Vilma Silva MD [address] [place] [address] 09/12/2025 9:00 AM EDT Office Visit [facility] OB [address] [place] [place] [phone] Jonathan Harris DO [address] [place] [address] Scheduled Orders Name Type Priority Associated Diagnoses Orde r Schedule Bilateral screening mammogram Imaging Routine Encounter For Adult Wellness Visit Encounter for screening mammogram for malignant neoplasm of breast Expected: 09/06/2024, Expires: 11/07/2025 DEXA bone density Imaging Routine Encounter For Adult Wellness Visit Acquired absence of other genital organ(s) Expected: 09/06/2024 (Approximate), Expires: 09/06/2025 THIN PREP TIS PAP AND HR HPV DNA Pathology and Cytology Routine Encounter for adult wellness visit Ordered: 09/06/2024 US Pelvis w/ TV Imaging Routine Pain of ovary Pelvic pain in female Expected: 09/06/2024, Expires: 03/09/2025 documented as of this encounter Visit Diagnoses Diagnosis Encounter for adult wellness visit Encounter for screening mammogram for malignant neoplasm of breast Acquired absence of other genital organ(s) Depression, unspecified Pain of ovary Pelvic pain in female Unspecified symptom associated with female genital organs documented in this encounter Care Teams Brazer Helper Induction Relationship Specialty Start Date End Date Vitaliy Dale DO [address] [place] [address] PCP - General Internal Medicine 08/19/22 documented as of this encounter
--- OUTSIDE RECORDS SUMMARY | 2024-09-06 19:23 | XMS_ITS | Encounter Summary ---
Author Organization [facility] Address [address] [place] [address] Care Team Providers Care Plant Protection Guard Name Role Phone Vitaliy Dale DO Primary Care Provider [phone] Encounter Details Date Type Department Care Team (Late st Contact Info) Description 02/27/2023 Clinisync Result Encounter NOMS External Department Unsolicited Jonathan Harris, DO [address], [facility]11 Social History Tobacco Use Types Packs/Day Years [...] Office Visit [facility] [address] [place] [phone] Vilma Silva MD [address] [place] [address] 09/12/2025 9:00 AM EDT Office Visit [facility] BCP OB [address] [place] [phone] Jonathan Harris, DO [address], [facility]11 documented as of this encounter Procedures Procedure Name Priority Date/Time Associated Diagnosis Comments MM TOMOSYNTHESIS SCREENING BI 02/27/2023 8:35 AM EST documented in this encounter Results * MM TOMOSYNTHESIS SCREENING BI (02/27/2023 8:35 AM EST) Anatomical Region Laterality Modality Other 02/27/2023 8:35 AM EST Narrative 02/27/2023 8:36 [place] [address] Mammography Report Signed Patient: RENATO ELLSWORTH MR#: [id number] : 1970 Acct:[id number] Age/Sex: 53 / F ADM Date: 02/26/23 Loc: MAMMO Attending Dr: Jonathan Harris D.O. Ordering Physician: Jonathan Harris D.O. Results: Date of Service: 02/26/23 Follow Up: Procedure(s): MM tomosynthesis screening BI Accession Number(s): [id number] cc: Vitaliy Dale D.O.; Jonathan Harris D.O. Patient Name: RENATO ELLSWORTH MR#: [id number] : 1970 Exam Date: 02/26/2023 Ordering Doctor: DR Jonathan Harris . RADIOLOGY REPORT PROCEDURE: MM TOMOSYNTHESIS SCREENING BI COMPARISON: MG MAMM SCREEN 3D KEIKO CAD, 11/06/2021. MG MAMM SCREEN 3D KEIKO CAD, 10/09/2020. MG MAMM KIEKO DIAG W CAD, 08/20/2019. MG MAMM KEIKO [...] colon cancer at age 72. LOCATION: The [facility] BREAST COMPOSITION: Heterogeneously dense,which may obscure [...] M.D. Signed By: 02/27/23835 DD/ 4 TD/TT: Manufacturing Lead: Procedure Note Radiology, Radiologist, MD - 02/27/2023 [place] [address] Mammography Report Signed Patient: RENATO ELLSWORTH RMR#: [id number] : 1970Acct:[id number] Age/Sex: 53 / FADM Date: 02/26/23 Loc: MAMMO Attending Dr: Jonathan Harris D.O. Ordering Physician: Jonathan Harris D.O.Results: Date of Service: 02/26/23Follow Up: Procedure(s): MM tomosynthesis screening BI Accession Number(s): [id number] cc: Vitaliy Dale D.O.; Jonathan Harris D.O. Patient Name: RENATO ELLSWORTH MR#: [id number] : 1970 Exam Date: 02/26/2023 Ordering Doctor: [...] with coloncancer at age 72. LOCATION: The [facility] BREAST COMPOSITION: Heterogeneously dense,which may obscure [...] M.D. Signed By:02/27/23 0836 DD/ 0835 TD/TT: Manufacturing Lead: Jonathan Harris DO [facility] Final Result documented in this encounter Visit Diagnoses Not on filedocumented in this encounter Care Teams Plant Protection Guard Relationship Specialty Start Date End Date Vitaliy Dale DO [address] [place] [address] PCP - General Internal Medicine 08/19/22 documented as of this encounter
--- OUTSIDE RECORDS SUMMARY | 2024-09-06 19:23 | XMS_ITS | Encounter Summary ---
Author Organization [facility] Address [address] [place] [address] Care Team Providers Care Weight And Test Bar Clerk Name Role Phone Vitaliy Dale DO Primary Care Provider [phone] Encounter Details Date Type Department Care Team (Late st Contact Info) Description 03/19/2023 Clinisync Result Encounter NOMS External Department Unsolicited Jonathan Harris, DO [address], [facility]11 Social History Tobacco Use Types Packs/Day [...] Office Visit [facility] [address] [place] [address] Vilma Silva MD [address] [place] [address] 09/12/2025 9:00 AM EDT Office Visit [facility] OB [address] [place] [phone] Jonathan Harris, DO [address], [facility]11 documented as of this encounter Procedures Procedure Name Priority Date/Time Associated Diagnosis Comments US BREAST LT LIMITED 03/19/2023 8:41 AM EST documented in this encounter Results * US BREAST LT LIMITED (03/19/2023 8:41 AM EST) Anatomical Region Laterality Modality Other 03/19/2023 8:41 AM EST Narrative 03/19/2023 9:47 [place] [address] Ultrasound Report Signed Patient: RENATO ELLSWORTH MR#: [id number] : 1970 Acct:[id number] Age/Sex: 53 / F ADM Date: 03/19/23 Loc: MAMMO Attending Dr: Jonathan Harris D.O. Ordering Physician: Jonathan Harris D.O. Date of Service: 03/19/23 Procedure(s): US breast LT limited Accession Number(s): [id number] cc: Vitaliy Dale D.O.; Jonathan Harris D.O. Patient Name: RENATO ELLSWORTH MR#: [id number] : 1970 Exam Date: 03/19/2023 Ordering Doctor: [...] at age 72. LOCATION: The [facility] BREAST COMPOSITION: Heterogeneously dense,which may obscure [...] Signed By: 03/19/23 0947 DD/ 0841 TD/TT: Structural Ironworker: Procedure Note Radiology, Radiologist, MD - 03/19/2023 [place] [address] Ultrasound Report Signed Patient: RENATO ELLSWORTH RMR#: [id number] : 1970Acct:[id number] Age/Sex: 53 / FADM Date: 03/19/23 Loc: MAMMO Attending Dr: Jonathan Harris D.O. Ordering Physician: Jonathan Harris D.O. Date of Service: 03/19/23 Procedure(s): US breast LT limited Accession Number(s): [id number] cc: Vitaliy Dale D.O.; Jonathan Harris D.O. Patient Name: RENATO ELLSWORTH MR#: [id number] : 1970 Exam Date: 03/19/2023 Ordering Doctor: [...] at age 72. LOCATION: The [facility] BREAST COMPOSITION: Heterogeneously dense,which may obscure [...] M.D. Signed By:03/19/23 0947 DD/ 0841 TD/TT: Structural Ironworker: Jonathan Harris DO [facility] Final Result documented in this encounter Visit Diagnoses Not on filedocumented in this encounter Care Teams Weight And Test Bar Clerk Relationship Specialty Start Date End Date Vitaliy Dale DO [address] [place] [address] PCP - General Internal Medicine 08/19/22 documented as of this encounter
--- OUTSIDE RECORDS SUMMARY | 2024-09-06 19:23 | XMS_ITS | Encounter Summary ---
Author Organization [facility] Address [address] [place] [address] Care Team Providers Care Election Supervisor Name Role Phone Vitaliy Dale DO Primary Care Provider [phone] Encounter Details Date Type Department Care Team (Late st Contact Info) Description 08/30/2024 Clinisync Result Encounter NOMS External Department Unsolicited Paris Harris, DO [address], [facility] Social History Tobacco Use Types Packs/Day Years [...] Office Visit [facility] [address] [place] [phone] Vilma Silva MD [address] [place] [address] 09/12/2025 9:00 AM EDT Office Visit [facility] B[facility] OB [address] [place] [address] Paris Harris, DO [address] [place] [address] documented as of this encounter Procedures Procedure Name Priority Date/Time Associated Diagnosis Comments MM TOMOSYNTHESIS SCREENING BI 08/30/2024 4:10 PM EDT documented in this encounter Results * MM TOMOSYNTHESIS SCREENING BI (08/30/2024 4:10 PM EDT) Anatomical Region Laterality Modality Other 08/30/2024 4:10 PM EDT Narrative 08/30/2024 4:11 PM EDT The [address] [address] Mammography Report Signed Patient: RENATO ELLSWORTH MR#: [id number] : 1970 Acct:[id number] Age/Sex: 54 / F ADM Date: 08/30/24 Loc: MAMMO Attending Dr: Paris Harris D.O. Ordering Physician: Paris Harris D.O. Results: Date of Service: 08/30/24 Follow Up: Procedure(s): MM tomosynthesis screening BI Accession Number(s): [id number] cc: Vitaliy Dale D.O.; Paris Harris D.O. Patient Name: RENATO ELLSWORTH MR#: [id number] : 1970 Exam Date: 08/30/2024 Ordering Doctor: DR PARIS HARRIS . RADIOLOGY REPORT PROCEDURE: MM TOMOSYNTHESIS SCREENING BI COMPARISON: MM DIAGNOSTIC MAMMO UNILAT LT, 03/19/2023. MM TOMOSYNTHESIS SCREENING BI, 02/26/2023. MG MAMM SCREEN 3D KEIKO CAD, 11/06/2021. MG MAMM SCREEN 3D KEIKO CAD, 10/09/2020. INDICATIONS: Screening Calculator Name NCI Breast Cancer Risk Assessment Tool 5 Year Breast Cancer Risk 3.10% Lifetime Breast Cancer Risk 23.40% Personal Breast Cancer No Personal Ovarian Cancer No Treatments None Family Cancers Grandfather-paternal with brain,liver cancer at age 60; Sister with breast cancer at age 45; Grandmother-maternal with colon cancer at age 70. LOCATION: The [facility] BREAST COMPOSITION: There are scattered areas of fibroglandular density. FINDINGS: DIAGNOSTIC CATEGORY 1--NEGATIVE. RIGHT BREAST: No significant suspicious finding. LEFT BREAST: No significant suspicious finding. RECOMMENDATIONS: ROUTINE MAMMOGRAM AND CLINICAL EVALUATION IN 12 MONTHS. PLEASE NOTE: A NORMAL MAMMOGRAM DOES NOT EXCLUDE THE POSSIBILITY OF BREAST CANCER. A CLINICALLY SUSPICIOUS PALPABLE LUMP SHOULD BE BIOPSIED. Dictated by: Jorge Welsh DO on 08/30/2024 at 16:05 Approved by: Jorge Welsh DO on 08/30/2024 at 16:10 Dictated By: Jorge Welsh M.D. Signed By: 08/30/24 161 DD/ 161 TD/TT: Truck Assembler: Procedure Note Radiology, Radiologist, MD - 08/30/2024 [facility] [place] [id number] Mammography Report Signed Patient: RENATO ELLSWORTH RMR#: [id number] : 1970Acct:[id number] Age/Sex: 54 / FADM Date: 08/30/24 Loc: MAMMO Attending Dr: Paris Harris D.O. Ordering Physician: Paris Harris D.O.Results: Date of Service: 08/30/24Follow Up: Procedure(s): MM tomosynthesis screening BI Accession Number(s): [id number] cc: Vitaliy Dale D.O.; Paris Harris D.O. Patient Name: RENATO ELLSWORTH MR#: [id number] : 1970 Exam Date: 08/30/2024 Ordering Doctor: DR PARIS HARRIS . RADIOLOGY REPORT PROCEDURE: MM TOMOSYNTHESIS SCREENING BI COMPARISON: MM DIAGNOSTIC MAMMO UNILAT LT, 03/19/2023. MMTOMOSYNTHESIS SCREENING BI, 02/26/2023. MG MAMM SCREEN 3D KEIKO CAD, 11/06/2021. MG MAMM SCREEN 3D KEIKO CAD, 10/09/2020. INDICATIONS: Screening Calculator Name NCI Breast Cancer Risk Assessment Tool 5 Year Breast Cancer Risk 3.10% Lifetime Breast Cancer Risk 23.40% Personal Breast Cancer No Personal Ovarian Cancer No Treatments None Family Cancers Grandfather-paternal with brain,liver cancer at age 60; Sister with breast cancer at age 45; Grandmother-maternal with coloncancer at age 70. LOCATION: The [facility] BREAST COMPOSITION: There are scattered areas of fibroglandulardensity. FINDINGS: DIAGNOSTIC CATEGORY 1--NEGATIVE. RIGHT BREAST: No significant suspicious finding. LEFT BREAST: No significant suspicious finding. RECOMMENDATIONS: ROUTINE MAMMOGRAM AND CLINICAL EVALUATION IN 12 MONTHS. PLEASE NOTE: A NORMAL MAMMOGRAM DOES NOT EXCLUDE THE POSSIBILITY OFBREAST CANCER. A CLINICALLY SUSPICIOUS PALPABLE LUMP SHOULD BE BIOPSIED. Dictated by: Jorge Welsh DO on 08/30/2024 at 16:05 Approved by: Jorge Welsh DO on 08/30/2024 at 16:10 Dictated By: Jorge Welsh M.D. Signed By:08/30/24 1611 DD/ 1610 TD/TT: Truck Assembler: Paris Harris DO [facility] Final Result documented in this encounter Visit Diagnoses Not on filedocumented in this encounter Care Teams Election Supervisor Relationship Specialty Start Date End Date Vitaliy Dale DO [address] [place] [phone] PCP - General Internal Medicine 08/19/22 documented as of this encounter
--- OUTSIDE RECORDS SUMMARY | 2024-09-06 19:23 | XMS_ITS | Encounter Summary ---
Author Organization [facility] Address [address] [place] [address] Care Team Providers Care Manager Web Application Name Role Phone Vitaliy Dale DO Primary Care Provider [phone] Encounter Details Date Type Department Care Team (Latest Contact Info) Description 09/03/2024 Travel Social History Tobacco Use Types Packs/Day Years [...] Office Visit [facility] [address] [facility] [address] [place] [address] Vilma Silva MD [address] [facility] [address] [place] [address] 09/12/2025 9:00 AM EDT Office Visit [facility] [address] [facility] [place] [address] Jonathan Harris DO [address] [place] [address] documented as of this encounter Visit Diagnoses Not on filedocumented in this encounter Care Teams Manager Web Application Relationship Specialty Start Date End Date Vitaliy Dale DO [address] [place] [address] PCP - General Internal Medicine 08/19/22 documented as of this encounter
--- OUTSIDE RECORDS SUMMARY | 2024-09-06 19:23 | XMS_ITS | Encounter Summary ---
Author Organization [facility] Address [address] [place] [address] Care Team Providers Care Securities Compliance Examiner Name Role Phone Vitaliy Dale DO Primary Care Provider [phone] Encounter Details Date Type Department Care Team (Late st Contact Info) Description 02/26/2023 Clinisync Result Encounter NOMS External Department Unsolicited Paris Harris, DO [address], [facility]11 Social History Tobacco Use Types Packs/Day [...] Office Visit [facility] S[facility] DERM [address] [place] [phone] Vilma Silva MD [address] [place] [address] 09/12/2025 9:00 AM EDT Office Visit [facility] BCP OB [address] [place] [phone] Paris Harris, DO [address], [facility]11 documented as of this encounter Procedures Procedure Name Priority Date/Time Associated Diagnosis Comments XR DEXA AXIAL SKELETON 02/26/2023 11:55 AM EST documented in this encounter Results * XR DEXA AXIAL SKELETON (02/26/2023 11:55 AM EST) Anatomical Region Laterality Modality Other 02/26/2023 11:5 5 AM EST Narrative 02/26/2023 11:58 [place] [address] XRay Report Signed Patient: RENATO ELLSWORTH MR#: [id number] : 1970 Acct:[id number] Age/Sex: 53 / F ADM Date: 02/26/23 Loc: MAMMO Attending Dr: Paris Harris D.O. Ordering Physician: Paris Harris D.O. Date of Service: 02/26/23 Procedure(s): XR DEXA axial skeleton Accession Number(s): [id number] cc: Vitaliy Dale D.O.; Paris Harris D.O. [place] [address] Patient Name: RENATO ELLSWORTH MRN: [id number] date: 1970 Sex: F Assigned Patient Location: [facility] Current Patient Location: [facility] Accession/Order Number: [id number] Exam Date: 02/26/2023 10:30 Report Date: 02/26/2023 [...] - Low Fracture Risk Electronically authenticated by: ALEK CORTES Date: 02/26/2023 11:55 Dictated By: Alek Cortes M.D. Signed By: 02/26/23 1158 DD/ 1155 TD/TT: Plant Taxonomy Teacher: Procedure Note Radiology, Radiologist, - 02/26/2023 [place] [address] XRay Report Signed Patient: RENATO ELLSWORTH RMR#: [id number] : 1970Acct:[id number] Age/Sex: 53 / FADM Date: 02/26/23 Loc: MAMMO Attending Dr: Paris Harris D.O. Ordering Physician: Paris Harris D.O. Date of Service: 02/26/23 Procedure(s): XR DEXA axial skeleton Accession Number(s): [id number] cc: Vitaliy Dale D.O.; Paris Harris D.O. [address] [place] [address] Patient Name: RENATO ELLSWORTH MRN: [id number] date: 1970 Sex: F Assigned Patient Location: [facility] Current Patient Location: [facility] Accession/Order Number: [id number] Exam Date: 02/26/2023 10:30 Report Date: 02/26/2023 [...] - Low Fracture Risk Electronically authenticated by: ALEK CORTES Date: 02/26/2023 11:55 Dictated By: Alek Cortes M.D. Signed By:02/26/23 1158 DD/ 1155 TD/TT: Plant Taxonomy Teacher: us Paris Harris DO [facility] Final Result documented in this encounter Visit Diagnoses Not on filedocumented in this encounter Care Teams Securities Compliance Examiner Relationship Specialty Start Date End Date Vitaliy Dale DO [address] [place] [phone] PCP - General Internal Medicine 08/19/22 documented as of this encounter
--- OUTSIDE RECORDS SUMMARY | 2024-09-06 19:23 | XMS_ITS | Encounter Summary ---
Author Organization [facility] Address [address] [place] [address] Care Team Providers Care Environmental Health Physician Name Role Phone Vitaliy Dale DO Primary Care Provider [phone] Encounter Details Date Type Department Care Team (Late st Contact Info) Description 03/19/2023 Clinisync Result Encounter NOMS External Department Unsolicited Jonathan Harris, DO [address], [facility]11 Social History Tobacco Use Types Packs/Day [...] Office Visit [facility] DERM [address] [place] [phone] Vilma Silva MD [address] [place] [address] 09/12/2025 9:00 AM EDT Office Visit [facility] BCP OB [address] [place] [phone] Jonathan Harris, DO [address], [facility]11 documented as of this encounter Procedures Procedure Name Priority Date/Time Associated Diagnosis Comments MM DIAGNOSTIC MAMMO UNILAT LT 03/19/2023 8:41 AM EST documented in this encounter Results * MM DIAGNOSTIC MAMMO UNILAT LT (03/19/2023 8:41 AM EST) Anatomical Region Laterality Modality Other 03/19/2023 8:41 AM EST Narrative 03/19/2023 8:42 [place] [address] Mammography Report Signed Patient: RENATO ELLSWORTH MR#: [id number] : 1970 Acct:[id number] Age/Sex: 53 / F ADM Date: 03/19/23 Loc: MAMMO Attending Dr: Jonathan Harris D.O. Ordering Physician: Jonathan Harris D.O. Results: Date of Service: 03/19/23 Follow Up: Procedure(s): MM diagnostic mammo unilat LT Accession Number(s): [id number] cc: Vitaliy Dale D.O.; Jonathan Harris D.O. Patient Name: RENATO ELLSWORTH MR#: [id number] : 1970 Exam Date: 03/19/2023 Ordering Doctor: [...] colon cancer at age 72. LOCATION: The [facility] BREAST COMPOSITION: Heterogeneously dense,which may [...] Signed By: 03/19/23 0842 DD/ 0841 TD/TT: Fire Prevention Specialist: Procedure Note Radiology, Radiologist, MD - 03/19/2023 [place] [address] Mammography Report Signed Patient: RENATO ELLSWORTH RMR#: [id number] : 1970Acct:[id number] Age/Sex: 53 / FADM Date: 03/19/23 Loc: MAMMO Attending Dr: Jonathan Harris D.O. Ordering Physician: Jonathan Harris D.O.Results: Date of Service: 03/19/23Follow Up: Procedure(s): MM diagnostic mammo unilat LT Accession Number(s): [id number] cc: Vitaliy Dale D.O.; Jonathan Harris D.O. Patient Name: RENATO ELLSWORTH MR#: [id number] : 1970 Exam Date: 03/19/2023 Ordering Doctor: [...] with coloncancer at age 72. LOCATION: The [facility] BREAST COMPOSITION: Heterogeneously dense,which may [...] M.D. Signed By:03/19/23 0842 DD/ 0841 TD/TT: Fire Prevention Specialist: us Jonathan Harris DO [facility] Final Result documented in this encounter Visit Diagnoses Not on filedocumented in this encounter Care Teams Environmental Health Physician Relationship Specialty Start Date End Date Vitaliy Dale DO [address] [place] [address] PCP - General Internal Medicine 08/19/22 documented as of this encounter
--- OUTSIDE RECORDS SUMMARY | 2024-09-06 19:24 | XMS_ITS | Encounter Summary ---
Author Organization [facility] Address [address] [place], [place] [phone] Care Team Providers Care Gizzard Skin Remover Name Role Phone Unavailable Primary Care Provider Unavailabl e Source Comments In the event this information is protected by the Federal Confidentiality of Alcohol and Drug AbusePatient Records regulations: The Federal rules restrict any use of the information to criminally investigate or prosecute any alcohol or drug abuse patient.[facility] Encounter Details Date Type Department Care Team (Late st Contact Info) Description 01/17/2020 Get Medical Advice Gastroenterology [address] [place] [phone] Charisma Lovelace MD [address] [place], [place] [phone] RE: Visit Follow Up Question Social History [...]
--- OUTSIDE RECORDS SUMMARY | 2024-09-06 19:24 | XMS_ITS | Clinical Summary ---
Author Organization [facility] Address [address] [place] [address] Care Team Providers Care Medical Assistant Name Role Phone Vitaliy Dale DO Primary Care Provider [phone] Allergies Active Allergy Reactions Criticality Noted Date Comments Meperidine GI intolerance 08/19/2022 Sulfa Antibiotics Other 08/19/2022 Spots all over not hives Medications Multiple Vitamin (multivitamin) tablet Take 1 tablet by mouth Daily Active venlafaxine XR (Effexor XR) 37.5 MG 24 hr capsuleIndicati ons:Depression, unspecified Take 1 capsule (37.5 mg) by mouth Daily 90 capsule 3 09/07/19 25 Active Mounjaro 2.5 MG/0.5ML solution auto-injector INJECT 2.5 MG (0.5 ML) SUBCUTANEOUSLY EVERY WEEK FOR 28 DAYS 02/23/20 24 025 Discontin ued(Thera py completed ) venlafaxine XR (Effexor XR) 37.5 MG 24 hr capsuleIndicati ons:Depression, unspecified Take 1 capsule (37.5 mg) by mouth Daily 90 capsule 07/14/19 25 025 Discontin ued(Reord er) Active Problems No known active problems Encounters Date Type Department Care Team Description 09/06/2024 9:00 AM EDT Office Visit [facility] BCP OB [address] [place] [address] [place] [address] Paris Harris DO Encounter for adult wellness visit; Encounter for screening mammogram for malignant neoplasm of breast; Acquired absence of other genital organ(s); Depression, unspecified ; Pain of ovary; Pelvic pain in female 09/06/2024 Bamboo flowsheet [facility] OB [address] [place] [phone] KimberlyParis, 09/03/2024 Travel 08/30/2024 Clinisync Result Encounter NOMS External Department Unsolicited KimberlyParis, 07/13/2024 Telephone [facility] OB [address] [place] [address] Roxann Lantigua MA 06/08/2024 4:00 PM EDT Office Visit [facility] SWS DERM [address] [place] [address] Vilma Silva MD Lipoma of head (Primary Dx); Lentigines; Melanocytic nevus of trunk; Tinea pedis of right foot 06/08/2024 Bamboo flowsheet [facility] SWS DERM [address] [place] [phone] Vilma Silva MD 06/08/2024 Travel from Last [...] Pressure 134/84 09/06/2024 9:00 AM EDT Pulse 79 03/10/2024 8:17 AM EST Temperature - - Respiratory Rate - - Oxygen Saturation 98% 03/10/2024 8:17 AM EST Inhaled Oxygen Concentration - - Weight 90.6 kg (199 lb 12.8 oz) 09/06/2024 9:00 AM EDT Height 152.4 cm (5') 03/10/2024 8:17 AM EST Body Mass Index 39.02 03/10/2024 8:17 AM EST Plan of Treatment Upcoming Encounters Date Type Department Care Team (Late st Contact Info) Description 06/09/2025 3:30 PM EDT Office Visit [facility] S[facility] DERM [address] [place] [phone] Vilma Silva MD [address] [place] [address] 09/12/2025 9:00 AM EDT Office Visit [facility] BCP OB [address] [place] [phone] Paris Harris DO [address], [place] [id number] Health Maintenance Due Date Last Done Comments CT Colonography 1970 Colonoscopy 1970 Colorectal Cancer Screening 1970 FIT-DNA 1970 FIT 1972 FOBT 1970 Sigmoidoscopy 1970 Influenza Vaccine (#1) 2024 12/16/2019 Mammogram 08/30/2025 08/30/2024, 02/27/2023 Pap Smear 08/20/2026 08/21/2023, 08/27/2022 Cervical Cancer Screening 08/28/2027 HPV/Cotest 08/28/2027 08/27/2022 Procedures Procedure Name Priority Date/Time Associated Diagnosis Comments MM TOMOSYNTHESIS SCREENING BI 08/30/2024 4:10 PM EDT PAP SMEAR Routine 08/21/2023 12:00 AM EDT THINPREP PAP AND HPV MRNA E6/E7 W/RFL HPV 16,18/45 Routine 08/27/2022 8:52 AM EDT Well woman exam with routine gynecological exam from Last 3 Months or Most Recently Relevant to Health Maintenance Results * MM TOMOSYNTHESIS SCREENING BI (08/30/2024 4:10 PM EDT) Anatomical Region Laterality Modality Other 08/30/2024 4:10 PM EDT Narrative 08/30/2024 4:11 PM EDT The [address] [address] Mammography Report Signed Patient: RADHA ELLSWORTH MR#: [id number] : 1970 Acct:[id number] Age/Sex: 54 / F ADM Date: 08/30/24 Loc: MAMMO Attending Dr: Paris Harris D.O. Ordering Physician: Paris Harris D.O. Results: Date of Service: 08/30/24 Follow Up: Procedure(s): MM tomosynthesis screening BI Accession Number(s): [id number] cc: Vitaliy Dale D.O.; Paris Harris D.O. Patient Name: RADHA ELLSWORTH MR#: [id number] : 1970 Exam Date: 08/30/2024 Ordering Doctor: [...] colon cancer at age 72. LOCATION: The [facility] BREAST COMPOSITION: There are scattered [...] Dictated By: Jorge Welsh M.D. Signed By: 08/30/241610 DD/ 09 TD/TT: Circuit Breaker Assembler: Procedure Note Radiology, Radiologist, MD - 08/30/2024 [place] [address] Mammography Report Signed Patient: RADHA ELLSWORTH RMR#: [id number] : 1970Acct:[id number] Age/Sex: 54 / FADM Date: 08/30/24 Loc: MAMMO Attending Dr: Paris Harris D.O. Ordering Physician: Paris Harris D.O.Results: Date of Service: 08/30/24Follow Up: Procedure(s): MM tomosynthesis screening BI Accession Number(s): [id number] cc: Vitaliy Dale D.O.; Paris Harris D.O. Patient Name: RADHA ELLSWORTH MR#: [id number] : 1970 Exam Date: 08/30/2024 Ordering Doctor: [...] with coloncancer at age 72. LOCATION: The [facility] BREAST COMPOSITION: There are scattered [...] 16:10 Dictated By: Jorge Welsh M.D. Signed By:08/30/241610 DD/ 09 TD/TT: Circuit Breaker Assembler: Paris Kimberly DO [facility] Final Result * Pap Smear (08/21/2023 12:00 AM EDT) Swab Cervical swab / Unknown Kimberly Nurse [facility] B[facility] Ob LAB CYTOLOGY ORDERABLES Final Result EXTERNAL LAB * THINPREP PAP AND HPV MRNA E6/E7 W/RFL HPV 16,18/45 (08/27/2022 8:52 AM EDT) Paris Kimberly DO LAB BLOOD ORDERABLES Final Resul t EXTERNAL LAB from Last 3 Months or Most Recently Relevant to Health Maintenance [place] [address] [facility] Care Teams Medical Assistant Relationship Specialty Start Date End Date Vitaliy Dale DO [address] [place] [address] PCP - General Internal Medicine 08/19/22
--- OUTSIDE RECORDS SUMMARY | 2024-09-06 19:24 | XMS_ITS | Encounter Summary ---
Author Organization [facility] Address [address] [place] [address] Care Team Providers Care Cutter Operator Tile Name Role Phone Vitaliy Dale DO Primary Care Provider [phone] Encounter Details Date Type Department Care Team (Late st Contact Info) Description 07/30/2023 Clinisync Result Encounter NOMS External Department Unsolicited Jonathan Harris, DO [address], [facility]11 Social History Tobacco Use Types Packs/Day Years [...] Office Visit [facility]ER[facility] [address] [place] [address] Vilma Silva MD [address] [place] [address] 09/12/2025 9:00 AM EDT Office Visit [facility] BCP OB [address] [place] [phone] Jonathan Harris, DO [address], [facility]11 documented as of this encounter Procedures Procedure Name Priority Date/Time Associated Diagnosis Comments US BREAST LT LIMITED 07/30/2023 8:50 AM EDT documented in this encounter Results * US BREAST LT LIMITED (07/30/2023 8:50 AM EDT) Anatomical Region Laterality Modality Other 07/30/2023 8:50 AM EDT Narrative 07/30/2023 8:51 [place] [address] Ultrasound Report Signed Patient: RENATO ELLSWORTH MR#: [id number] : 1970 Acct:[id number] Age/Sex: 53 / F ADM Date: 07/29/23 Loc: US Attending Dr: Jonathan Harris D.O. Ordering Physician: Jonathan Harris D.O. Date of Service: 07/29/23 Procedure(s): US breast LT limited Accession Number(s): [id number] cc: Vitaliy Dale D.O.; Jonathan Harris D.O. Patient Name: RENATO ELLSWORTH MR#: [id number] : 1970 Exam Date: 07/29/2023 Ordering Doctor: [...] Signed By: 07/30/23 0851 DD/ 0850 TD/TT: Armorer Technician: Procedure Note Radiology, Radiologist, MD - 07/30/2023 [place] [address] Ultrasound Report Signed Patient: RENATO ELLSWORTH RMR#: [id number] : 1970Acct:[id number] Age/Sex: 53 / FADM Date: 07/29/23 Loc: US Attending Dr: Jonathan Harris D.O. Ordering Physician: Jonathan Harris D.O. Date of Service: 07/29/23 Procedure(s): US breast LT limited Accession Number(s): [id number] cc: Vitaliy Dale D.O.; Jonathan Harris D.O. Patient Name: RENATO ELLSWORTH MR#: [id number] : 1970 Exam Date: 07/29/2023 Ordering Doctor: [...] Saul Mary M.D. Signed By:07/30/2351 DD/ TD/TT: Armorer Technician: us Jonathan Harris DO [facility] Final Result documented in this encounter Visit Diagnoses Not on filedocumented in this encounter Care Teams Cutter Operator Tile Relationship Specialty [place] [address] [place] [phone] PCP - General Internal Medicine 08/19/22 documented as of this encounter
--- OUTSIDE RECORDS SUMMARY | 2024-09-06 19:24 | XMS_ITS | Encounter Summary ---
Author Organization [facility] Address [address] [place], [place] [address] Care Team Providers Care Zinc Miner Blasting Name Role Phone Unavailable Primary Care Provider Unavailabl e Source Comments In the event this information is protected by the Federal Confidentiality of Alcohol and Drug AbusePatient Records regulations: The Federal rules restrict any use of the information to criminally investigate or prosecute any alcohol or drug abuse patient.[facility] Encounter Details Date Type Department Care Team (Late st Contact Info) Description 12/28/2019 Patient Msg Gastroenterology [address] [place] [phone] Charisma Lovelace MD [address] [place], [place] [phone] RE:LABS Social History Tobacco Use Types Packs/Day [...]
--- OUTSIDE RECORDS SUMMARY | 2024-09-06 19:24 | XMS_ITS | Encounter Summary ---
Author Organization [facility] Address [address] [place] [address] Care Team Providers Care Manager Contact Name Role Phone Vitaliy Dale DO Primary Care Provider [phone] Encounter Details Date Type Department Care Team (Late st Contact Info) Description 03/19/2023 Clinisync Result Encounter NOMS External Department Unsolicited Jonathan Harirs, DO [address], [facility]11 Social History Tobacco Use Types Packs/Day Years [...] Office Visit [facility] SWS DERM [address] [place] [phone] Vilma Silva MD [address] [place] [address] 09/12/2025 9:00 AM EDT Office Visit [facility] BCP OB [address] [place] [phone] Jonathan Harris, DO [address], [facility]11 documented as of this encounter Procedures Procedure Name Priority Date/Time Associated Diagnosis Comments MM DIAGNOSTIC MAMMO UNILAT LT 03/19/2023 8:41 AM EST documented in this encounter Results * MM DIAGNOSTIC MAMMO UNILAT LT (03/19/2023 8:41 AM EST) Anatomical Region Laterality Modality Other 03/19/2023 8:41 AM EST Narrative 03/19/2023 9:47 [place] [address] Mammography Report Signed Patient: RENATO ELLSWORTH MR#: [id number] : 1970 Acct:[id number] Age/Sex: 53 / F ADM Date: 03/19/23 Loc: MAMMO Attending Dr: Jonathan Harris D.O. Ordering Physician: Jonathan Harris D.O. Results: Date of Service: 03/19/23 Follow Up: Procedure(s): MM diagnostic mammo unilat LT Accession Number(s): [id number] cc: Vitaliy Dale D.O.; Jonathan Harris D.O. Patient Name: RENATO ELLSWORTH MR#: [id number] : 1970 Exam Date: 03/19/2023 Ordering Doctor: [...] at age 72. LOCATION: The [facility] BREAST COMPOSITION: Heterogeneously dense,which may obscure small [...] Signed By: 03/19/23 0947 DD/ 0841 TD/TT: Echo Vascular Tech: Procedure Note Radiology, Radiologist, MD - 05/07/2023 [place] [address] Mammography Report Signed Patient: RENATO ELLSWORTH RMR#: [id number] : 1970Acct:[id number] Age/Sex: 53 / FADM Date: 03/19/23 Loc: MAMMO Attending Dr: Jonathan Harris D.O. Ordering Physician: Jonathan Harris D.O.Results: Date of Service: 03/19/23Follow Up: Procedure(s): MM diagnostic mammo unilat LT Accession Number(s): [id number] cc: Vitaliy Dale D.O.; Jonathan Harris D.O. Patient Name: RENATO ELLSWORTH MR#: [id number] : 1970 Exam Date: 03/19/2023 Ordering Doctor: [...] with coloncancer at age 72. LOCATION: The [facility] BREAST COMPOSITION: Heterogeneously dense,which may obscure smallmasses. [...] M.D. Signed By:03/19/23 0947 DD/ 0841 TD/TT: Echo Vascular Tech: us Jonathan Harris DO [facility] Final Result documented in this encounter Visit Diagnoses Not on filedocumented in this encounter Care Teams Manager Contact Relationship Specialty Start Date End Date Vitaliy Dale DO [address] [place] [address] PCP - General Internal Medicine 08/19/22 documented as of this encounter
--- OUTSIDE RECORDS SUMMARY | 2024-09-06 19:24 | XMS_ITS | Encounter Summary ---
Author Organization [facility] Address [address] [place] [address] Care Team Providers Care Returns Supervisor Name Role Phone Vitaliy Dale DO Primary Care Provider [phone] Encounter Details Date Type Department Care Team (Late st Contact Info) Description 08/28/2023 Orders Only [facility] BCP OB [address] [place] [address] Tanesha Dye LPN [address] [facility] Social History Tobacco Use Types Packs/Day Years [...] SWS DERM [address] [place] [address] Vilma Silva MD [address] [place] [phone] 09/12/2025 9:00 AM EDT Office Visit [facility] BCP OB [address] [place] [address] Jonathan Harris DO [address] [facility] [address] [place] [address] documented as of this encounter Procedures Procedure Name Priority Date/Time Associated Diagnosis Comments PAP SMEAR Routine 08/21/2023 12:00 AM EDT documented in this encounter Results * Pap Smear (08/21/2023 12:00 AM EDT) Swab Cervical swab / Unknown Kimberly Nurse [facility] B[facility] Ob LAB CYTOLOGY ORDERABLES Final Result EXTERNAL LAB documented in this encounter Visit Diagnoses Not on filedocumented in this encounter Care Teams Returns Supervisor Relationship Specialty Start Date End Date Vitaliy Dale DO [address] [facility] [place] [address] PCP - General Internal Medicine 08/19/22 documented as of this encounter
--- OUTSIDE RECORDS SUMMARY | 2024-09-06 19:24 | XMS_ITS | Encounter Summary ---
Author Organization [facility] Address [address] [place] [address] Care Team Providers Care Side Laster Name Role Phone Vitaliy Dale DO Primary Care Provider Encounter Details Date Type Department Care Team (Late st Contact Info) Description 09/06/2024 Bamboo flowsheet NOM[facility] OB [address] [facility] [place] [address] Jonathan Harris DO [address] [facility] [address], [facility]11 Social History Tobacco Use Types Packs/Day Years [...] DERM [address] [place] [address] Vilma Silva MD [address] [place] [address] 09/12/2025 9:00 AM EDT Office Visit N[facility] OB [address] [facility] [place] [address] Jonathan Harris DO [address] [place] [address] [place] [address] documented as of this encounter Visit Diagnoses Not on filedocumented in this encounter Care Teams Side Laster Relationship Specialty Start Date End Date Vitaliy Dale DO [address] [facility] [place] [address] PCP - General Internal Medicine 08/19/22 documented as of this encounter
--- OUTSIDE RECORDS SUMMARY | 2024-09-06 19:24 | XMS_ITS | Clinical Summary ---
Author Organization [facility] Address [address] [place] [address] Care Team Providers Care Coloring Room Worker Name Role Phone Unavailable Primary Care Provider [...] N ot on file 02/11/2020 Data from: [email or web address] Last address used for calculation Not on [...] Vaccine (1 - season) 2023 Influenza Vaccine (#1) 2024 Hepatitis C Screening Completed 12/20/2019 Procedures [...] by PCR. IU/mL 12/22/2019 10:58 AM EDT [facility] Comment: Reference Range: Negative for HCV RNA The Linear Range of this assay is 15 IU/mL to 100,000,000 IU/mL. Blood 12/20/2019 11:4 6 AM EDT 12/20/2019 11:48 AM EDT us Charisma Mazariegos MD LABORATORY Final Re sult [facility] [address] [place] [address] [facility] [address] [place] [address] from Last 3 Months or Most Recently Relevant to Health Maintenance Insurance [employer]
[2024-09-09 12:18] LABS: Age Gdln ACOG Testing Note (.); IGP, Aptima HPV, rfx 16/18,45 Note (.)
== END 2024-09-06 19:20 | disposition home or self-care (01) ==
LOC: LAB 19:19
PROVIDERS: PCP Internal Medicine; Visit Provider Nurse Practitioner Family
DX: Z01.419 Encounter for gynecological examination (general) (routine) without abnormal findings (principal)
CPT/HCPCS: 87624; 88175

== ENCOUNTER 2024-10-28 08:32 | Outpatient (OUT) | payer BC, SELFPAY ==
--- OUTSIDE RECORDS SUMMARY | 2024-10-27 10:32 | XMS_ITS | Continuity of Care Document ---
Author Organization [facility] Address [address] [place] [address] Phone Care Team Providers Care Protein Chemist Name Role Phone Vitaliy Dale DO Primary Care Provider [phone] Kell Black APRN Attending Provider Vitaliy Dale DO Attending Provider Care Teams Patient Care Team Team Status: Active Member Role Status Dates Vitaliy Dale DO Primary Care Provider Active Visit Care Team Team Status: Active Member Role Status Dates Vitaliy Dale DO Primary Care Provider Active Start: September 06, 2024 Kell Black APRN FEDERAL LAW CLERK-C Attending Provider Active Start: September 06, 2024 Patient Care Team Team Status: Inactive Member Role Status Dates Vitaliy Dale DO Primary Care Provider Active Start: October 27, 2024 End: October 27, 2024 Vitaliy Dale DO Attending Provider Active Sta rt: October 27, 2024 End: October 27, 2024 Chief Complaint and Reason for Visit Chief Complaint Admit Date Wellness October 27, 2024 1: 51pm Reason for Visit Admit Date Chronic venous insufficiency of lower ex tremity October 27, 2024 1:51pm Hypercholesterolemia October 27, 2024 1 :51pm Hypertension October 27, 2024 1: 51pm IFG (impaired fasting glucose) October 272024 1:51pm Metabolic dysfunction-associ ated steatotic liver disease (MASLD) October 27, 2024 1:51pm Nephrolithiasis October 27, 2024 1: 51pm Obesity October 27, 2024 1: 51pm Screening mammogram for breast cancer Au narendra 2024 1:51pm Wellness examination October 27, 2024 1 :51pm Allergies, Adverse Reactions, Alerts Allergen Type Severity Reaction Last Updated Verified Status Comments meperidine Allergy Unknown Vomiting October 27, 2024 1:56pm Yes Active Sulfa (Sulfonamide Antibiotics) Allergy Unknown Rash October 27, 2024 1:56pm Yes Active sulfacetamide Allergy Unknown hives October 27, 2024 1:56pm Yes Active sulfadiazine Allergy Unknown Unknown Reaction October 27, 2024 1:56pm Yes Active Onset Date: 08/09/2019 Social History Smoking Status Status Start Date End Date Date of Observa tion Never smoked tobacco (finding) February 02, 2021 8:07am Observation Status Observation Response Date of Response Legal Sex Female (finding) Sex Assigned At Female [birth year] Family History Relationship Condition Age at Onset Recorded Date/T darcy father Hypertension Unknown High blood cholesterol Unknown Diverticulitis Unknown sister Malignant neoplasm of breast Unknown brother Diverticulitis Unknown grandparent Diabetes mellitus Unknown Malignant neoplasm of colon Unknown Heart disease Unknown Hypertension Unknown Cerebrovascular accident (CVA) Unknown Problems Active Problems Medical Problem Onset Date Status Chronic venous insufficiency of lower extremity Unknown Active Metabolic dysfunction-associated steatotic liver disease (MASLD) Unknown Active Screening mammogram for breast cancer Unknown Active Hypercholesterolemia Unknown Active Nephrolithiasis Unknown Active IFG (impaired fasting glucose) Unknown A ctive Hypertension Unknown Active Obesity Unknown Active Medications Medication Status Dose Units Route Directions Qty Days St art Date Stop Date End Date Instructions Adherence Tirzepatide (Mounjaro) 2.5 mg/0.5 mL pen injector Discont inued 2.5 MG SUBCUT every week 2 [facility] er 2023 5:36pm Augus t 2024 2:02p m Venlafaxine 37.5 mg capsule,ext ended release 24hr Active 37.5 MG PO Daily [facility] 2020 1:00am Complies with drug therapy Loratadine 10 mg Tablet Active 10 MG PO Daily [facility] 2020 1:00am Complies with drug therapy Lactobacill us Combination No.4 (Probiotic) 3 billion cell Capsule Active 3000 MMU CELLS PO Daily [facility] 2020 1:00am Complies with drug therapy Semaglutide (Ozempic) 0.25 mg or 0.5 mg(2 mg/1.5 mL) pen injector Discont inued 0.25 MG SUBCUT every week [facility] 2020 1:00am Augus t 2023 3:21p m Mv-Mn-Iron- Fa-Ca Carb-Vit K 18 mg iron-400 mcg-500 mg Tablet Active 1 TAB PO Daily [facility] 2020 1:00am Complies with drug therapy Ascorbate Calcium (Vitamin C) 500 mg tablet Active 500 MG PO Daily October 20, 2023 12:00a m Complies with drug therapy Tirzepatide (Mounjaro) 2.5 mg/0.5 mL pen injector Discont inued 2.5 MG SUBCUT every week 04 30October 20, 2023 12:00a m [facility] 2023 5:37p m Immunizations Immunization Event Date Not Given Reason Dose Number Knitting Machine Tender Lot Number Vaccine Information Statement (VIS) Detail Administration Location COVID-19 mRNAClixtr ComirBuyerCurious ([employer]) June 15, 2020 COVID-19 mRNA, ComirnatQinti ([employer]) July 07, 2020 influenza, unspecified formulation December 16, 2019 Relevant Diagnostic Tests and/or Laboratory Data Laboratory Results Test Collection Date/Time Result Date/Time Result Interpretation Reference Range Result Comment Performing Site Referenc e Lab Test Patient Age September 06, 2024 9:10am September 06, 2024 9:10am Note . TESTS RESULT FLAG UNITS REF RANGE LAB-------- -------- Clinician Provided Cytology Information Source..... ........Vag jerri No. of containers. .01 ThinPrep VialAge Shawn BEST Maria [place] Carmen... 30-65 01--------- ------- FLAG LEGEND: L-Low Normal,H-Hi gh Normal,LL-A lert Low,HH-Aler t High <-Panic Low,>-Panic High,A-Abno rmal,AA-Cri tical Abnormal--- --Performed at:01 [address] [address] Rosa Mckeon MD, Phone: HPV High Risk Other Comment September 06, 2024 9:10am September 06, 2024 9:10am Note . TESTS RESULT FLAG UNITS REF RANGE LAB-------- --------MARY GNOSIS: 02 NEGATIVE FOR INTRAEPITHE LIAL LESION OR MALIGNANCY. Specimen adequacy: 02 Satisfactor y for evaluation. Performed by: 02 Skyla Wilkerson, Trackwalker ([facility]). 02Note: Note 02 The Pap smear is a screening test designed to aid in the detection of premalignan t and malignant conditions of the uterine cervix. It is not a diagnostic procedure and should not be used as the sole means of detecting cervical cancer. Both false-posit nader and false-negat nader reports do occur.Test Methodology : Note 02 This liquid based ThinPrep(R) pap test was screened with the use of an image guided system.HPV Genotype Reflex Note 02 Criteria not met, HPV Genotype not performed.- ---- FLAG LEGEND: L-Low Normal,H-Hi gh Normal,LL-A lert Low,HH-Aler t High <-Panic Low,>-Panic High,A-Abno rmal,AA-Cri tical Abnormal--- --Performed at:02 [facility] [address] [place] [address] Rosa Mckeon MD, Phone: HPV Genotype Source September 06, 2024 9:10am September 06, 2024 9:10am Negative Negative This nucleic acid amplificati on test detects fourteen high-risk HPV types (16,18,31,3 3,35,39,45, 51,52,56,58 ,59,66,68)[facility] at: = - [place] [address] [address] [place], [place] [id number] b Director: Rosa Mckeon MD, Phone: [phone] erformed at: [place] [address] [address] [place], [place] [id number] Director: Rosa Mckeon MD, Phone: [phone] Vital Signs Vital Reading Result Reference Range Collection Date/Time Height 60 [in_i] October 27 2:02pm Weight 94.34 kg October 27 2:02pm Heart Rate 76 /min 60-100 October 27 2:02pm Respiratory rate 12 /min 12-24 October 2:02pm BP Systolic 150 mm[Hg] 100-140 October 27 2:02pm BP Diastolic 89 mm[Hg] 60-100 October 27 2:02pm BMI (Body Mass Index) 40.6 kg/m2 October 27, 2024 2:02pm Advance Directives Advance Directive Response Recorded Date/ Time Advance Directives No January 31, 2021 8:16am Insurance Providers Guarantor Radha Strickland Address [address] [place] [address] [place] [address] Contact Info. Home Phone: Payer Policy Id Subscriber's Name Subscriber Id Effectiv e Date Expiration Date Von MICHELE [id number] Radha Strickland [id number] [facility] Insurance [employer] [id number] Sanjay Strickland , ANGELA [id number] Encounters Encounter Location(s) Arrival/Admit Date Discharge/Depart Date Provider(s) Non-patient / Non-visit -[facility] September 06, 2024 9:10am Kell Black APRN ERP TECHNICAL LEAD Departed Physician/Prov ider Office Visit -[facility] October 27, 2024 1:51pm October 27, 2024 2:31pm Vitaliy Dale , Recent Diagnosis Onset Date Admit Date Chronic venous insufficiency of lower extremity Unknown October 27, 2024 1:51pm Hypercholesterolemia Unknown October 1:51pm Hypertension Unknown October 27 1:51pm IFG (impaired fasting glucose) Unknown A ugust 2024 1:51pm Metabolic dysfunction-associ ated steatotic liver disease (MASLD) Unknown October 27, 2024 1:51pm Nephrolithiasis Unknown October 27 1:51pm Obesity Unknown October 27 1:51pm Screening mammogram for breast cancer Unknown October 27, 2024 1:51pm Wellness examination Unknown October 1:51pm Assessments Diagnosis Onset Date Resolution Status Admit Date Chronic venous insufficiency of lower extremity acute October 27 1:51pm Hypercholesterolemia acute 2024 1:51pm Hypertension acute October 27, 2024 1:51pm IFG (impaired fasting glucose) acute October 27, 2024 1:51pm Metabolic dysfunction-associ ated steatotic liver disease (MASLD) acute October 27, 2024 1:51pm Nephrolithiasis acute October 272024 1:51pm Obesity acute October 27, 2 025 1:51pm Screening mammogram for janay [facility] cancer acute October 27 1:51pm Wellness examination noneactive 2024 1:51pm Plan of Treatment Author Vitaliy Dale [facility] Authored October 25, 2024 7: 27am I have instructed this patie nt on the recommended lifestyle changes, which includes a low fat, high fiber diet along with a regular exercise routine. I have also reviewed the recommended age-appropriate preventive testing for this patient. I have also reviewed the recommended vaccines for their age and risk factors. I have instructed this patient to consume a healthy, low-fat, low-salt diet. I have also encouraged them to continue exercise with weight loss to achieve/maintain a BMI < 30. I have instructed this patient on the correct procedure for obtaining home BP measurements: - rest for 5 minutes w/o talking. - positioned w/ feet on floor and arms supported. - average best 2/3 readings w/ goal < 135/85. - update office w/ home readings in 2 weeks. I have instructed this patient on a low fat, high fiber diet and exercise. I have discussed the primary and secondary prevention benefits attributed to lowering LDL cholesterol. I have also discussed the medical treatment of elevated cholesterol, which is based on the 10 year ASCVD risk. Instructed on low fat, high protein diet, exercise and weight loss. Discussed consumption of coffee and use of GLP-1 as beneficial Discussed increased risk for MASH, fibrosis and cirrhosis His A1C is between 5.7-6.5%. Instructed on low carb, high fiber diet. Instructed on routine exercise program for 30-60min three times weekly. Instructed on correlation between obesity and insulin resistance and encouraged to lose weight. Monitor A1C every 6 months. She has not been able to lose weight w/ Ozempic - obesity contributes to the worsening prognosis associated w/ her known conditions of REMEDIOS, HTN, IFG, MAFLD d/c Ozempic and start Mounjaro I have instructed this patient on a low-fat, high-fiber diet. I have also instructed them to reduce calories, portions sizes, sweet drinks and snacks. I have also recommended they exercise for 30 minutes, 3-5 times weekly. They are aware of the comorbid conditions associated with excessive weight: Diabetes, HTN, Hyperlipidemia, CAD and arthritis. I have instructed this patient to avoid salt and elevate their lower extremities. I have also recommended use of support stockings. I instructed them to inspect their legs and feet daily for blisters and ulcerations. I have instructed this patient on monthly SBE and recommended yearly mammograms. Future Tests Future scheduled test information is unavailable Pending Tests Test Name Ordered Date Scheduled Date Comprehensive Metabolic Panel October 27, 2024 2:27pm CT heart calcium score wo October 27, 2024 2:26 pm Future Visits Future appointment information is unavailable Referrals to Other Providers Referral information is unavailable Future Procedures Procedure Name Ordered Date Scheduled Date Complete Blood Count Auto Diff October 27, 2024 2:27pm Lipid Panel October 27, 2024 2:27pm Thyroid Stimulating Hormone October 27, 2024 2: 27pm Future Medications Future medication information is unavailable Patient Instructions Patient instructions are unavailable
--- OUTSIDE RECORDS SUMMARY | 2024-10-28 08:34 | XMS_ITS | Encounter Summary ---
Author Organization [facility] Address [address] [place] [address] Care Team Providers Care Shirt Bander Name Role Phone Vitaliy Dale DO Primary Care Provider [phone] Encounter Details Date Type Department Care Team (Late st Contact Info) Description 02/26/2023 Clinisync Result Encounter [facility] External Department Unsolicited Paris Harris, DO [address] [place], [facility] Social History Tobacco Use Types Packs/Day Years [...] Description 06/09/2025 3:30 PM EDT Office Visit [facility] [address] [place] [phone] Vilma Silva MD [address] [place] [address] 09/12/2025 9:00 AM EDT Office Visit [facility] [address] [place] [address] Paris Harris, DO [address] [place], [place] [id number] documented as of this encounter Procedures Procedure Name Priority Date/Time Associated Diagnosis Comments XR DEXA AXIAL SKELETON 02/26/2023 11:55 AM EST documented in this encounter Results * XR DEXA AXIAL SKELETON (02/26/2023 11:55 AM EST) Anatomical Region Laterality Modality Other 02/26/2023 11:5 5 AM EST Narrative 02/26/2023 11:58 [place] [address] XRay Report Signed Patient: RENATO ELLSWORTH MR#: [id number] : 1970 Acct:[id number] Age/Sex: 53 / F ADM Date: 02/26/23 Loc: MAMMO Attending Dr: Paris Harris D.O. Ordering Physician: Paris Harris D.O. Date of Service: 02/26/23 Procedure(s): XR DEXA axial skeleton Accession Number(s): [id number] cc: Vitaliy Dale D.O.; Paris Harris D.O. [place] [address] Patient Name: RENATO ELLSWORTH MRN: [id number] date: 1970 Sex: F Assigned Patient Location: [facility] Current Patient Location: [facility] Accession/Order Number: [id number] Exam Date: 02/26/2023 10:30 Report Date: 02/26/2023 [...] Signed By: 02/26/23 1158 DD/ 1155 TD/TT: Hydro Operator: Procedure Note Radiology, Radiologist, MD - 02/26/2023 [place] [address] XRay Report Signed Patient: RENATO ELLSWORTH RMR#: [id number] : 1970Acct:[id number] Age/Sex: 53 / FADM Date: 02/26/23 Loc: MAMMO Attending Dr: Paris Harris D.O. Ordering Physician: Paris Harris D.O. Date of Service: 02/26/23 Procedure(s): XR DEXA axial skeleton Accession Number(s): [id number] cc: Vitaliy Dale D.O.; Paris Harris D.O. [place] [id number] Patient Name: RENATO ELLSWORTH MRN: [id number] date: 1970 Sex: F Assigned Patient Location: [facility] Current Patient Location: [facility] Accession/Order Number: [id number] Exam Date: 02/26/2023 10:30 Report Date: 02/26/2023 [...] M.D. Signed By:02/26/23 1158 DD/ 1155 TD/TT: Hydro Operator: us Paris Harris DO [facility] Final Result documented in this encounter Visit Diagnoses Not on filedocumented in this encounter Care Teams Shirt Bander Relationship Specialty Start Date End Date Vitaliy Dale DO [address] [place] [id number] PCP - General Internal Medicine 08/19/22 documented as of this encounter
--- OUTSIDE RECORDS SUMMARY | 2024-10-28 08:34 | XMS_ITS | Encounter Summary ---
Author Organization [facility] Address [address] [place] [address] Care Team Providers Care Bat Person Name Role Phone Vitaliy Dale DO Primary Care Provider [phone] Encounter Details Date Type Department Care Team (Late st Contact Info) Description 02/27/2023 Clinisync Result Encounter [facility] External Department Unsolicited Jonathan Harris, DO [address] [place], [facility] Social History Tobacco Use Types Packs/Day Years [...] [address] [place] [phone] Vilma Silva MD [address] [place] [address] 09/12/2025 9:00 AM EDT Office Visit [facility] [address] [place] [address] Jonathan Harris, DO [address] [place], [place] [id number] documented as of this encounter Procedures Procedure Name Priority Date/Time Associated Diagnosis Comments MM TOMOSYNTHESIS SCREENING BI 02/27/2023 8:35 AM EST documented in this encounter Results * MM TOMOSYNTHESIS SCREENING BI (02/27/2023 8:35 AM EST) Anatomical Region Laterality Modality Other 02/27/2023 8:35 AM EST Narrative 02/27/2023 8:36 [place] [address] Mammography Report Signed Patient: RENATO ELLSWORTH MR#: [id number] : 1970 Acct:[id number] Age/Sex: 53 / F ADM Date: 02/26/23 Loc: MAMMO Attending Dr: Jonathan Harris D.O. Ordering Physician: Jonathan Harris D.O. Results: Date of Service: 02/26/23 Follow Up: Procedure(s): MM tomosynthesis screening BI Accession Number(s): [id number] cc: Vitaliy Dale D.O.; Jonathan Harris D.O. Patient Name: RENATO ELLSWORTH MR#: [id number] : 1970 Exam Date: 02/26/2023 Ordering Doctor: DR Jonathan aHrris . RADIOLOGY REPORT PROCEDURE: MM TOMOSYNTHESIS SCREENING [...] LOCATION: The [facility] BREAST COMPOSITION: Heterogeneously dense,which may obscure small [...] Dictated By: Alek Cortes M.D. Signed By: 02/27/2336 DD/ 4 TD/TT: Water Quality Specialist: Procedure Note Radiology, Radiologist, MD - 02/27/2023 [place] [address] Mammography Report Signed Patient: RENATO ELLSWORTH RMR#: [id number] : 1970Acct:[id number] Age/Sex: 53 / FADM Date: 02/26/23 Loc: MAMMO Attending Dr: Jonathan Harris D.O. Ordering Physician: Jonathan Harris D.O.Results: Date of Service: 02/26/23Follow Up: Procedure(s): MM tomosynthesis screening BI Accession Number(s): [id number] cc: Vitaliy Dale D.O.; Jonathan Harris D.O. Patient Name: RENATO ELLSWROTH MR#: [id number] : 1970 Exam Date: 02/26/2023 Ordering Doctor: [...] LOCATION: The [facility] BREAST COMPOSITION: Heterogeneously dense,which may obscure smallmasses. [...] M.D. Signed By:02/27/23 0836 DD/ 0835 TD/TT: Water Quality Specialist: Jonathan Harris DO [facility] Final Result documented in this encounter Visit Diagnoses Not on filedocumented in this encounter Care Teams Bat Person Relationship Specialty Start Date End Date Vitaliy Dale DO [address] [place] [address] PCP - General Internal Medicine 08/19/22 documented as of this encounter
--- OUTSIDE RECORDS SUMMARY | 2024-10-28 08:35 | XMS_ITS | Encounter Summary ---
Author Organization [facility] Address [address] [place] [address] Care Team Providers Care Yard Worker Name Role Phone Vitaliy Dale DO Primary Care Provider Encounter Details Date Type Department Care Team (Late st Contact Info) Description 03/19/2023 Clinisync Result Encounter [facility] External Department Unsolicited Jonathan Harris, DO [address] [place], [facility]11 Social History Tobacco Use Types [...] [address] [place] [phone] Vilma Silva MD [address] [place] [address] 09/12/2025 9:00 AM EDT Office Visit [facility] [address] [place] [address] Jonathan Harris, DO [address] [place], [place] [id number] documented as of this encounter Procedures Procedure Name Priority Date/Time Associated Diagnosis Comments MM DIAGNOSTIC MAMMO UNILAT LT 03/19/2023 8:41 AM EST documented in this encounter Results * MM DIAGNOSTIC MAMMO UNILAT LT (03/19/2023 8:41 AM EST) Anatomical Region Laterality Modality Other 03/19/2023 8:41 AM EST Narrative 03/19/2023 8:42 [place] [address] Mammography Report Signed Patient: RENATO ELLSWORTH MR#: [id number] : 1970 Acct:[id number] Age/Sex: 53 / F ADM Date: 03/19/23 Loc: MAMMO Attending Dr: Jonathan Harris D.O. Ordering Physician: Jonathan Harris D.O. Results: Date of Service: 03/19/23 Follow Up: Procedure(s): MM diagnostic mammo unilat LT Accession Number(s): [id number] cc: Vitaliy Dale D.O.; Jonathan Harris D.O. Patient Name: RENATO ELLSWORTH MR#: [id number] : 1970 Exam Date: 03/19/2023 Ordering Doctor: [...] colon cancer at age 72. LOCATION: The [facility] BREAST COMPOSITION: Heterogeneously dense,which may [...] Signed By: 03/19/23 0842 DD/ 0841 TD/TT: Timber Skidder: Procedure Note Radiology, Radiologist, MD - 03/19/2023 [place] [address] Mammography Report Signed Patient: RENATO ELLSWORTH RMR#: [id number] : 1970Acct:[id number] Age/Sex: 53 / FADM Date: 03/19/23 Loc: MAMMO Attending Dr: Jonathan Harris D.O. Ordering Physician: Jonathan Harris D.O.Results: Date of Service: 03/19/23Follow Up: Procedure(s): MM diagnostic mammo unilat LT Accession Number(s): [id number] cc: Vitaliy aDle D.O.; Jonathan Harris D.O. Patient Name: RENATO ELLSWORTH MR#: [id number] : 1970 Exam Date: 03/19/2023 Ordering Doctor: [...] with coloncancer at age 72. LOCATION: The [facility] BREAST COMPOSITION: Heterogeneously dense,which may [...] M.D. Signed By:03/19/23 0842 DD/ 0841 TD/TT: Timber Skidder: us Jonathan Harris DO [facility] Final Result documented in this encounter Visit Diagnoses Not on filedocumented in this encounter Care Teams Yard Worker Relationship Specialty Start Date End Date Vitaliy Dale DO [address] [place] [address] PCP - General Internal Medicine 08/19/22 documented as of this encounter
--- OUTSIDE RECORDS SUMMARY | 2024-10-28 08:35 | XMS_ITS | Encounter Summary ---
Author Organization [facility] Address [address] [place] [address] Care Team Providers Care Dobby Loom Fixer Name Role Phone Vitaliy Dale DO Primary Care Provider [phone] Encounter Details Date Type Department Care Team (Late st Contact Info) Description 03/19/2023 Clinisync Result Encounter NOMS External Department Unsolicited Jonathan Harris, DO [address], [facility]11 Social History Tobacco Use Types [...] [facility] [address] [place] [address] Vilma Silva MD [address] [place] [address] 09/12/2025 9:00 AM EDT Office Visit [facility] [address] [facility] [place] [address] Jonathan Harris, DO [address] [place], [place] [id number] documented as of this encounter Procedures Procedure Name Priority Date/Time Associated Diagnosis Comments US BREAST LT LIMITED 03/19/2023 8:41 AM EST documented in this encounter Results * US BREAST LT LIMITED (03/19/2023 8:41 AM EST) Anatomical Region Laterality Modality Other 03/19/2023 8:41 AM EST Narrative 03/19/2023 9:47 [place] [address] Ultrasound Report Signed Patient: RENATO ELLSWORTH MR#: [id number] : 1970 Acct:[id number] Age/Sex: 53 / F ADM Date: 03/19/23 Loc: MAMMO Attending Dr: Jonathan Harris D.O. Ordering Physician: Jonathan Harris D.O. Date of Service: 03/19/23 Procedure(s): US breast LT limited Accession Number(s): [id number] cc: Vitaliy Dale D.O.; Jonathan Harris D.O. Patient Name: RENATO ELLSWORTH MR#: [id number] : 1970 Exam Date: 03/19/2023 Ordering Doctor: [...] colon cancer at age 72. LOCATION: [facility] BREAST COMPOSITION: Heterogeneously dense,which may [...] Signed By: 03/19/23 0947 DD/ 0841 TD/TT: Curator Of Education: Procedure Note Radiology, Radiologist, MD - 03/19/2023 [place] [address] Ultrasound Report Signed Patient: RENATO ELLSWORTH RMR#: [id number] : 1970Acct:[id number] Age/Sex: 53 / FADM Date: 03/19/23 Loc: MAMMO Attending Dr: Jonathan Harris D.O. Ordering Physician: Jonathan Harris D.O. Date of Service: 03/19/23 Procedure(s): US breast LT limited Accession Number(s): [id number] cc: Vitaliy Dale D.O.; Jonathan Harris D.O. Patient Name: RENATO ELLSWORTH MR#: [id number] : 1970 Exam Date: 03/19/2023 Ordering Doctor: [...] with coloncancer at age 72. LOCATION: [facility] BREAST COMPOSITION: Heterogeneously dense,which may [...] M.D. Signed By:03/19/23 0947 DD/ 0841 TD/TT: Curator Of Education: Jonathan Harris DO [facility] Final Result documented in this encounter Visit Diagnoses Not on filedocumented in this encounter Care Teams Dobby Loom Fixer Relationship Specialty Start Date End Date Vitaliy Dale DO [address] [place] [address] PCP - General Internal Medicine 08/19/22 documented as of this encounter
--- OUTSIDE RECORDS SUMMARY | 2024-10-28 08:35 | XMS_ITS | Encounter Summary ---
Author Organization [facility] Address [address] [place] [address] Care Team Providers Care Canvas Baster Jumpbasting Name Role Phone Vitaliy Dale DO Primary Care Provider [phone] Encounter Details Date Type Department Care Team (Late st Contact Info) Description 07/30/2023 Clinisync Result Encounter NOMS External Department Unsolicited Jonathan Harris, DO [address], [facility]11 Social History Tobacco Use Types Packs/Day Years [...] [address] [place] [address] Vilma Silva MD [address] [place] [address] 09/12/2025 9:00 AM EDT Office Visit [facility] [address] [place] [address] Jonathan Harris, DO [address] [place], [place] [phone] documented as of this encounter Procedures Procedure Name Priority Date/Time Associated Diagnosis Comments US BREAST LT LIMITED 07/30/2023 8:50 AM EDT documented in this encounter Results * US BREAST LT LIMITED (07/30/2023 8:50 AM EDT) Anatomical Region Laterality Modality Other 07/30/2023 8:50 AM EDT Narrative 07/30/2023 8:51 [place] [address] Ultrasound Report Signed Patient: RENATO ELLSWORTH MR#: [id number] : 1970 Acct:[id number] Age/Sex: 53 / F ADM Date: 07/29/23 Loc: US Attending Dr: Jonathan Harris D.O. Ordering Physician: Jonathan Harris D.O. Date of Service: 07/29/23 Procedure(s): US breast LT limited Accession Number(s): [id number] cc: Vitaliy Dale D.O.; Jonathan Harris D.O. Patient Name: RENATO ELLSWORTH MR#: [id number] : 1970 Exam Date: 07/29/2023 Ordering Doctor: [...] Signed By: 07/30/23 0851 DD/ 0850 TD/TT: Sueding Machine Operator: Procedure Note Radiology, Radiologist, MD - 07/30/2023 [place] [address] Ultrasound Report Signed Patient: RENATO ELLSWORTH RMR#: [id number] : 1970Acct:[id number] Age/Sex: 53 / FADM Date: 07/29/23 Loc: US Attending Dr: Jonathan Harris D.O. Ordering Physician: Jonathan Harris D.O. Date of Service: 07/29/23 Procedure(s): US breast LT limited Accession Number(s): [id number] cc: Vitaliy Dale D.O.; Jonathan Harris D.O. Patient Name: RENATO ELLSWORTH MR#: [id number] : 1970 Exam Date: 07/29/2023 Ordering Doctor: [...] Saul Mary M.D. Signed By:07/30/2351 DD/ TD/TT: Sueding Machine Operator: us Jonathan Kimberly DO [facility] Final Result documented in this encounter Visit Diagnoses Not on filedocumented in this encounter Care Teams Canvas Baster Jumpbasting Relationship Specialty Start Date End Date Vitaliy Dale DO [address] [place] [address] PCP - General Internal Medicine 08/19/22 documented as of this encounter
--- OUTSIDE RECORDS SUMMARY | 2024-10-28 08:35 | XMS_ITS | Encounter Summary ---
Author Organization [facility] Address [address] [place], [place] [phone] Care Team Providers Care Spring Setter Name Role Phone Unavailable Primary Care Provider Unavailabl e Source Comments In the event this information is protected by the Federal Confidentiality of Alcohol and Drug AbusePatient Records regulations: The Federal rules restrict any use of the information to criminally investigate or prosecute any alcohol or drug abuse patient.[facility] Encounter Details Date Type Department Care Team (Late st Contact Info) Description 12/28/2019 Patient Msg Gastroenterology [address] [phone] Charisma Lovelace MD [address] [place], [place] [phone] RE:LABS Social History Tobacco Use Types Packs/Day [...]
--- OUTSIDE RECORDS SUMMARY | 2024-10-28 08:35 | XMS_ITS | Encounter Summary ---
Author Organization [facility] Address [address] [place] [address] Care Team Providers Care Reconditioning Associate Name Role Phone Vitaliy Dale DO Primary Care Provider [phone] Encounter Details Date Type Department Care Team (Late st Contact Info) Description 03/19/2023 Clinisync Result Encounter NOMS External Department Unsolicited Jonathan Harris, DO [address], [facility]11 Social History Tobacco Use Types Packs/Day Years [...] [address] [place] [address] Vilma Silva MD [address] [place] [address] 09/12/2025 9:00 AM EDT Office Visit [facility] [address] [facility] [place] [address] Jonathan Harris, DO [address] [place], [place] [address] documented as of this encounter Procedures Procedure Name Priority Date/Time Associated Diagnosis Comments MM DIAGNOSTIC MAMMO UNILAT LT 03/19/2023 8:41 AM EST documented in this encounter Results * MM DIAGNOSTIC MAMMO UNILAT LT (03/19/2023 8:41 AM EST) Anatomical Region Laterality Modality Other 03/19/2023 8:41 AM EST Narrative 03/19/2023 9:47 [place] [address] Mammography Report Signed Patient: RENATO ELLSWORTH MR#: [id number] : 1970 Acct:[id number] Age/Sex: 53 / F ADM Date: 03/19/23 Loc: MAMMO Attending Dr: Jonathan Harris D.O. Ordering Physician: Jonathan Harris D.O. Results: Date of Service: 03/19/23 Follow Up: Procedure(s): MM diagnostic mammo unilat LT Accession Number(s): [id number] cc: Vitaliy Dale D.O.; Jonathan Harris D.O. Patient Name: RENATO ELLSWORTH MR#: [id number] : 1970 Exam Date: 03/19/2023 Ordering Doctor: [...] [facility] BREAST COMPOSITION: Heterogeneously dense,which may [...] Signed By: 03/19/23 0947 DD/ 0841 TD/TT: Education Consultant: Procedure Note Radiology, Radiologist, MD - 05/07/2023 [place] [address] Mammography Report Signed Patient: RENATO ELLSWORTH RMR#: [id number] : 1970Acct:[id number] Age/Sex: 53 / FADM Date: 03/19/23 Loc: MAMMO Attending Dr: Jonathan Harris D.O. Ordering Physician: Jonathan Harris D.O.Results: Date of Service: 03/19/23Follow Up: Procedure(s): MM diagnostic mammo unilat LT Accession Number(s): [id number] cc: Vitaliy Dale D.O.; Jonathan Harris D.O. Patient Name: RENATO ELLSWORTH MR#: [id number] : 1970 Exam Date: 03/19/2023 Ordering Doctor: [...] The [facility] BREAST COMPOSITION: Heterogeneously dense,which may [...] M.D. Signed By:03/19/23 0947 DD/ 0841 TD/TT: Education Consultant: us Jonathan Harris DO [facility] Final Result documented in this encounter Visit Diagnoses Not on filedocumented in this encounter Care Teams Reconditioning Associate Relationship Specialty Start Date End Date Vitaliy Dale DO [address] [place] [address] PCP - General Internal Medicine 08/19/22 documented as of this encounter
--- OUTSIDE RECORDS SUMMARY | 2024-10-28 08:35 | XMS_ITS | Encounter Summary ---
Author Organization [facility] Address [address] [place], [place] [phone] Care Team Providers Care Public Address System Mechanic Name Role Phone Unavailable Primary Care Provider Unavailabl e Source Comments In the event this information is protected by the Federal Confidentiality of Alcohol and Drug AbusePatient Records regulations: The Federal rules restrict any use of the information to criminally investigate or prosecute any alcohol or drug abuse patient.[facility] Encounter Details Date Type Department Care Team (Late st Contact Info) Description 01/17/2020 Get Medical Advice Gastroenterology [address] [phone] Charisma Lovelace MD [address] [place], [place] [phone] RE: Visit Follow Up Question Social History [...]
--- OUTSIDE RECORDS SUMMARY | 2024-10-28 08:35 | XMS_ITS | Clinical Summary ---
Author Organization [facility] Address [address] [place] [address] Care Team Providers Care Accounts Receivable Manager Name Role Phone Vitaliy Dale Primary Care Provider [phone] Allergies Active Allergy Reactions Criticality Noted Date Comments Meperidine GI intolerance 08/19/2022 Sulfa Antibiotics Other 08/19/2022 Spots all over not hives Medications Multiple Vitamin (multivitamin) tablet Take 1 tablet by mouth Daily Active venlafaxine XR (Effexor XR) 37.5 MG 24 hr capsuleIndicatio ns:Depression, unspecified Take 1 capsule (37.5 mg) by mouth Daily 90 capsule 3 09/06/2024 Active Active Problems No known active problems Encounters Date Type Department Care Team Description 09/14/2024 Orders Only [facility] [address] [place] [address] Pao Oneill MA 09/06/2024 9:00 AM EDT Office Visit [facility] [address] [facility] [place] [address] Paris Harris DO Encounter for adult wellness visit; Encounter for screening mammogram for malignant neoplasm of breast; Acquired absence of other genital organ(s); Depression, unspecified ; Pain of ovary; Pelvic pain in female 09/06/2024 Clinisync Result Encounter NOMS External Department Unsolicited Kell Black NP 09/06/2024 Bamboo flowsheet [facility] [address] [facility] [place] [address] Paris Harris DO 09/03/2024 Travel 08/30/2024 Clinisync Result Encounter NOMS External Department Unsolicited Paris Harris DO from Last 3 Months Family History Medical [...] Description 06/09/2025 3:30 PM EDT Office Visit [facility] [address] [place] [address] Vilma Silva MD [address] [place] [address] 09/12/2025 9:00 AM EDT Office Visit [facility] [address] [place] [address] [place] [address] Paris Harris [address] [place] [place] [phone] Health Maintenance Due Date Last Done Comments CT Colonography 1970 Colonoscopy 1970 Colorectal Cancer Screening 1970 FIT-DNA 1970 FIT 1972 FOBT 1970 Sigmoidoscopy 1970 Influenza Vaccine (#1) 2024 12/16/2019 Mammogram 08/30/2025 08/30/2024, 02/27/2023 Cervical Cancer Screening 09/06/2029 HPV/Cotest 09/06/2029 08/27/2022 Pap Smear 09/06/2029 09/06/2024, 08/21/2023, 08/02 Procedures Procedure Name Priority Date/Time Associated Diagnosis Comments IGP,APTIMA HPV,AGE GDLN Routine 09/06/2024 9:10 AM EDT PAP SMEAR Routine 09/06/2024 12:00 AM EDT MM TOMOSYNTHESIS SCREENING BI 08/30/2024 4:10 PM EDT THINPREP PAP AND HPV MRNA E6/E7 W/RFL HPV 16,18/45 Routine 08/27/2022 8:52 AM EDT Well woman exam with routine gynecological exam from Last 3 Months or Most Recently Relevant to Health Maintenance Results * IGP,APTIMA HPV,AGE GDLN (09/06/2024 9:10 AM EDT) AGE GDLN ACOG TESTING Note . [facility] Comment: TESTS RESULT FLAG UNITS REF RANGE LAB Clinician Provided Cytology Information Source.............Vagina No. of containers..01 ThinPrep Vial Age Algo ACOG Maria Del Carmen... 30-65 01 FLAG LEGEND: L-Low Normal,H-High Normal,LL-Alert Low,HH-Alert High <-Panic Low,>-Panic High,A-Abnormal,AA-Critical Abnormal Performed at: 01 =[address] [facility] [address] Rosa Mckeon MD, IGP, APTIMA HPV, RFX 16/18,45 Note . [facility] Comment: TESTS RESULT FLAG UNITS REF RANGE LAB DIAGNOSIS: 02 NEGATIVE FOR INTRAEPITHELIAL LESION OR MALIGNANCY. Specimen adequacy: 02 Satisfactory for evaluation. Performed by: Ro Wilkerson, [place] [employer] Former ([facility]) . 02 Note: Note 02 The Pap smear is a screening test designed to aid in the detection of premalignant and malignant conditions of the uterine cervix. It is not a diagnostic procedure and should not be used as the sole means of detecting cervical cancer. Both false-positive and false-negative reports do occur. Test Methodology: Note 02 This liquid based ThinPrep(R) pap test was screened with the use of an image guided system. HPV Genotype Reflex Note 02 Criteria not met, HPV Genotype not performed. FLAG LEGEND: L-Low Normal,H-High Normal,LL-Alert Low,HH-Alert High <-Panic Low,>-Panic High,A-Abnormal,AA-Critical Abnormal Performed at: [address] [address] Rosa Mckeon MD, HPV APTIMA Negative Negative [facility] Comment: This nucleic acid amplification test detects fourteen high- risk HPV types (16,18,31,33,35,39,45,51,52,56,58,59,66,68) without differentiation. Performed at: =[address] [id number] Environmental Management Specialist: Rosa Mckeon MD, Phone: [phone] Performed at: [address] [id number] Environmental Management Specialist: Rosa Mckeon MD, Phone: [phone] 09/06/2024 9:10 AM EDT 09/06/2024 9:38 PM EDT Narrative [facility] - 09/09/2024 12:18 PM EDT SPATULA-ALONE VAGINA Kell Black NP LAB BLOOD ORDERABLES Final Re sult Performing Organization Address [facility]/ZIP Co de Phone Number [facility] * Pap Smear (09/06/2024 12:00 AM EDT) Swab Cervical swab / Unknown Kell Black NP LAB CYTOLOGY ORDERABLES Final Result Performing Organization Address City/[facility]/ZIP Co de Phone Number EXTERNAL LAB * MM TOMOSYNTHESIS SCREENING BI (08/30/2024 4:10 PM EDT) Anatomical Region Laterality Modality Other 08/30/2024 4:10 PM EDT Narrative 08/30/2024 4:11 PM EDT [address] [id number] Mammography Report Signed Patient: RADHA ELLSWORTH MR#: [id number] : 1970 Acct:[id number] Age/Sex: 54 / F ADM Date: 08/30/24 Loc: MAMMO Attending Dr: Paris Harris D.O. Ordering Physician: Paris Harris D.O. Results: Date of Service: 08/30/24 Follow Up: Procedure(s): MM tomosynthesis screening BI Accession Number(s): [id number] cc: Vitaliy Dale D.O.; Paris Harris D.O. Patient Name: RADHA ELLSWORTH MR#: [id number] : 1970 Exam Date: 08/30/2024 Ordering Doctor: [...] colon cancer at age 72. LOCATION: [facility] BREAST COMPOSITION: There are scattered areas of [...] Signed By: 08/30/24 161 DD/ 161 TD/TT: Desktop Administrator: Procedure Note Radiology, Radiologist, MD - 08/30/2024 [place] [address] Mammography Report Signed Patient: RADHA ELLSWORTH RMR#: [id number] : 1970Acct:[id number] Age/Sex: 54 / FADM Date: 08/30/24 Loc: MAMMO Attending Dr: Paris Harris D.O. Ordering Physician: Paris Harris D.O.Results: Date of Service: 08/30/24Follow Up: Procedure(s): MM tomosynthesis screening BI Accession Number(s): [id number] cc: Vitaily Dale D.O.; Paris Harris D.O. Patient Name: RADHA ELLSWORTH MR#: [id number] : 1970 Exam Date: 08/30/2024 Ordering Doctor: [...] with coloncancer at age 72. LOCATION: [facility] BREAST COMPOSITION: There are scattered areas of [...] Dictated By: Jorge Welsh M.D. Signed By:08/30/24 161 DD/ 161 TD/TT: Desktop Administrator: Paris Kimberly DO [facility] Final Result * THINPREP PAP AND HPV MRNA E6/E7 W/RFL HPV 16,18/45 (08/27/2022 8:52 AM EDT) Paris Kimberly DO LAB BLOOD ORDERABLES Final Resul t EXTERNAL LAB from Last 3 Months or Most Recently Relevant to Health [place] [address] [facility] Care Teams Accounts Receivable Manager Relationship Specialty Start Date End Date Vitaliy Dale DO [address] [facility] [place] [phone] PCP - General Internal Medicine 08/19/22
--- OUTSIDE RECORDS SUMMARY | 2024-10-28 08:35 | XMS_ITS | Encounter Summary ---
Author Organization [facility] Address [address] [place] [address] Care Team Providers Care Web Content Editor Name Role Phone Vitaliy Dale DO Primary Care Provider [phone] Encounter Details Date Type Department Care Team (Late Contact Info) Description 09/14/2024 Orders Only [facility]DY [facility] [address] [place] [address] Pao Oneill MA [address] [facility] [place] [address] Social History Tobacco Use Types Packs/Day Years [...] Office Visit [facility] [address] [place] [phone] Vilma Silva MD [address] [place] [address] 09/12/2025 9:00 AM EDT Office Visit BUDDY CARBAJAL [address] [place] [address] Jonathan Harris DO [address] [facility] [place] [address] documented as of this encounter Procedures Procedure Name Priority Date/Time Associated Diagnosis Comments PAP SMEAR Routine 09/06/2024 12:00 AM EDT documented in this encounter Results * Pap Smear (09/06/2024 12:00 AM EDT) Swab Cervical swab / Unknown Kell Black EQUIPMENT OPERATOR [employer] LAB CYTOLOGY ORDERABLES Final Result EXTERNAL LAB documented in this encounter Visit Diagnoses Not on filedocumented in this encounter Care Teams Web Content Editor Relationship Specialty Start Date End Date Vitaliy Dale DO [address] [facility] [place] [address] PCP - General Internal Medicine 08/19/22 documented as of this encounter
--- OUTSIDE RECORDS SUMMARY | 2024-10-28 08:35 | XMS_ITS | Clinical Summary ---
Author Organization [facility] Address [address] [place] [address] Care Team Providers Care Director Of Workforce Development Name Role Phone Unavailable Primary Care Provider [...] N ot on file 02/11/2020 Data from: https://www.[email or web address].medicine.[email or web address].edu/. Last address used for calculation Not [...] 01/21/2022 Shingrix Vaccine (1 of 2) 01/21/2022 Influenza Vaccine (#1) 2024 Hepatitis C Screening [...] by PCR. IU/mL 12/22/2019 10:58 AM EDT [facility] Comment: Reference Range: Negative for HCV RNA The Linear Range of this assay is 15 IU/mL to 100,000,000 IU/mL. Blood 12/20/2019 11:4 6 AM EDT 12/20/2019 11:48 AM EDT us Charisma Mazariegos MD LABORATORY Final Re sult [facility] [address] [place] [address] [facility] [address] [place] [address] from Last 3 Months or Most Recently Relevant to Health [place] [address] [employer]
--- OUTSIDE RECORDS SUMMARY | 2024-10-28 08:35 | XMS_ITS | Encounter Summary ---
Author Organization [facility] Address [address] [place] [address] Care Team Providers Care Beef Cattle Grazier Name Role Phone Vitaliy Dale DO Primary Care Provider [phone] Encounter Details Date Type Department Care Team (Late Contact Info) Description 08/28/2023 Orders Only [facility]DY [facility] [address] [place] [address] Tanesha Dye LPN [address] [employer] [address] [facility] Social History Tobacco Use Types Packs/Day [...] Visit [facility] [address] [place] [address] Vilma Silva MD [address] [place] [address] 09/12/2025 9:00 AM EDT Office Visit BUDDY CARBAJ[facility] [address] [place] [phone] Jonathan Harris DO [address] [facility] [place] [address] documented as of this encounter Procedures Procedure [...] on filedocumented in this encounter Care Teams Beef Cattle Grazier Relationship Specialty Start Date End Date Vitaliy Dale DO [address] [facility] [place] [address] PCP - General Internal Medicine 08/19/22 documented as of this encounter
--- OUTSIDE RECORDS SUMMARY | 2024-10-28 08:41 | XMS_ITS | CCD ---
Author Organization [facility] Team Providers Care Char Conveyor Tender Cellar Name Role Phone Unavailable Primary Care Provider Denise DALE, DR OLIVAS Consulting Unavailable FABY, DR OLIVAS Attending Unavailable FABY, DR OLIVAS Admitting Unavailable BALL, DR OLIVAS Primary Care Unavailable KIMBERLY, DR TOLEDO Admitting Unavailable KIMBERLY, DR TOLEDO Consulting Unavailable KIMBERLY, DR TOLEDO Attending Unavailable BALL, DR OLIVAS Primary Care Unavailable ZIEBER, DR JUANCHO Abreu Consulting Unavailable KIMBERLY, DR TOLEDO Attending Unavailable KIMBERLY, DR TOLEDO Admitting Unavailable KIMBERLY, DR TOLEDO Consulting Unavailable FABY, DR OLIVAS Primary Care Unavailable FABY, DR OLIVAS Consulting Unavailable FABY, DR OLIVAS Attending Unavailable FABY, DR OLIVAS Admitting Unavailable FABY, DR OLIVAS Primary Care Unavailable Vitaliy Dale Unavailable Vitaliy Dale MD Primary Care Provider VITALIY DALE Primary Care Physician [phone] Khadra Becker Attending Unavailable Khadra Becker Referring Unavailable Khadra Becker MStarla Admitting Unavailable Khadra Becker MStarla Attending Unavailable Vitaliy Dale DO Primary Care Provider Vitaliy Dale DO Primary Care Provider CHAPIN STAUFFER Attending Unavailable JONATHAN HARRIS Attending Unavailable LUNA JHAVERI Attending Unavailable Khadra Becker Attending Unavailable Eugenio Khadra MStarla Referring Unavailable Lue Khadra MStarla Admitting Unavailable Lue Khadra MStarla Attending Unavailable Anayae Khadra MStarla Admitting Unavailable Anayae Khadra MStarla Attending Unavailable Khadra Becker MStarla Referring Unavailable Vitaliy Dale DO Primary Care Provider Kell Black APRN Attending Provider Vitaliy Dale DO Attending Provider Allergies Allergy Classification Reported Allergen(s) Allergy Type Date of Onset Reaction(s) Facility (5 sources) Adhesive bandage; Translations: [Adhesive Bandage] Drug allergy (disorder) 5 Unknown (qualifier value) [facility] Repository (3 sources) Meperidine; Translations: [Demerol] Drug Allergy 5 [facility] (1 source) Sulfonamides (Antibiotic) Drug allergy (disorder) 5 [facility] (19 sources) Meperidine; Translations: [meperidine] Drug Allergy 3 GI intolerance, Vomiting (disorder) [facility] (3 sources) Sulfacetamide Drug Allergy 4 hives [facility] (2 sources) sulfADIAZINE Drug Allergy 4 Unknown Reaction [facility] Comment on above: Onset Date: 08/09/19 20 (2 sources) Sulfonamides (Antibiotic) Allergy to substance 4 Rash [facility] (11 sources) Sulfonamides (Antibiotic) Propensity to adverse reactions 3 Other [facility] (3 sources) Sulfonamide; Translations: [sulfa drugs] Allergy to substance 3 Other (qualifier value) [facility] Comment on above: Outside Source Comme nt: Spots all over not hives (2 sources) Sulfonamides (Antibiotic); Translations: [sulfa drugs] Propensity to adverse reactions (disorder) 3 [facility] Repository Medications Current Medications Medication Drug Class(es) Dates Sig (Normalized) Sig (Original) 3 ML semaglutide 1.34 MG/ML Pen Injector [Ozempic] (1 source) Start: 07-04-2022 inject 1 mg by subcutaneous injection every week Ozempic (1 MG/DOSE) 4 MG/3ML 1 MG Subcutaneous weekly July, Active acetaminophen 325 mg / oxyCODONE hydrochloride 5 mg oral tablet (3 sources) Opioid Agonist Start: 07-15-2024 acetaminophen-oxyc odone 325 mg-5 mg Tab Refill(s) 0 Start Date: 07/15/24 Status: Ordered Repeat number: 1 calcium ascorbate 500 mg oral tablet (2 sources) Start: 10-20-2023 take 1 tablet by mouth once daily Ascorbate Calcium (Vitamin C) 500 mg tablet Active 500 MG PO Daily October 20, 2023 12:00am Complies with drug therapy calcium carbonate 500 mg chewable tablet (1 source) take 1 tablet by mouth every twenty-four hours Tums 500 MG 1 tablet Orally Once a day Active ciprofloxacin 500 mg oral tablet (1 source) Quinolone Antimicrobial Start: 07-27-2024 End: 07-28-2024 take 1 tablet by mouth every twelve hours Cipro 500 mg Tab 500 mg = 1 tab(s), Oral, q12hr, Start morning of stent removal, X 1 day(s), # 2 tab(s), Refills(s) 0, Pharmacy: [facility]/pharmacy #[id number], 155, cm, 07/27/24 7:32:00 EDT, Height/Length Dosing, 91.6, kg, 07/27/24 7:32:00 EDT, Weight Dosing Start Date: 07/27/24 Stop Date: 07/28/24 Status: Ordered Quantity: 2.0 Unit: tab(s) Repeat number: 1 CPAP Machine (1 source) CPAP Machine Active doxycycline hyclate 100 mg oral capsule (1 source) Tetracycline-class Drug Start: 09-17-2022 take 1 capsule by mouth twice daily Doxycycline Hyclate 100 MG 1 capsule Orally twice daily for 7 days Aug, Active Ibuprofen (1 source) Nonsteroidal Anti-inflammatory Drug Motrin Active Lactobacillus Combination No.4 (Probiotic) 3 billion cell Capsule (2 sources) Start: 02-02-2021 take 3 capsules by mouth once daily Lactobacillus Combination No.4 (Probiotic) 3 billion cell Capsule Active 3000 MMU CELLS PO Daily February 02, 2021 1:00am Complies with drug therapy Start: 02-02-2021 take 3 capsules by m outh once daily Lactobacillus Combination No.4 (Probiotic) 3 billion cell Capsule Active 3000 MMU CELLS PO Daily February 02, 2021 1:00am loratadine 5 mg chewable tablet (6 sources) Start: 07-15-2024 take 1 mg by mouth once daily loratadine 5 mg oral tablet, chewable mg tab(s), Chewed, Daily, Refills(s) 0 Start Date: 07/15/24 Status: Ordered Repeat number: 1 Start: 02-02-2021 take 1 tablet by jasmyne th once daily Loratadine 10 mg Tablet Active 10 MG PO Daily February 02, 2021 1:00am Complies with drug therapy magnesium oxide 400 mg oral tablet (3 sources) Start: 07-15-2024 take 1 mg by mouth once daily magnesium oxide 400 mg Tab mg tab(s), Oral, Daily, Refills(s) 0 Start Date: 07/15/24 Status: Ordered Repeat number: 1 Multi Vitamin+ (3 sources) Start: 07-15-2024 Multi Vitamin+ Refill(s) 0 Start Date: 07/15/24 Status: Ordered Repeat number: 1 Multiple Vitamin (multivitamin) tablet (3 sources) take 1 tablet by mouth once daily Multiple Vitamin (multivitamin) tablet Take 1 tablet by mouth Daily Active Uf-De-Vgwp-Fa-Ca Carb-Vit K (1 source) Start: 02-02-2021 take 1 tablet by mouth once daily Kt-Pk-Dwqf-Fa-Ca Carb-Vit K Active 1 TAB PO Daily February 02, 2021 1:00am In-Bd-Rwba-Fa-Ca Carb-Vit K 18 mg iron-400 mcg-500 mg Tablet (1 source) Start: 02-02-2021 take 1 tablet by mouth once daily Fe-Cc-Swsk-Fa-Ca Carb-Vit K 18 mg iron-400 mcg-500 mg Tablet Active 1 TAB PO Daily February 02, 2021 1:00am Complies with drug therapy ondansetron 4 mg disintegrating oral tablet (3 sources) Serotonin-3 Receptor Antagonist Start: 07-15-2024 ondansetron 4 mg Dis Tab Refills(s) 0 Start Date: 07/15/24 Status: Ordered Repeat number: 1 oxybutynin chloride 5 mg oral tablet (1 source) Cholinergic Muscarinic Antagonist Start: 07-27-2024 take 1 tablet by mouth three times daily as needed for pain oxybutynin 5 mg Tab 5 mg = 1 tab(s), Oral, TID, PRN Urinary discomfort, bladder spasms, stent pain, # 90 tab(s), Refills(s) 0, Pharmacy: [facility]/pharmacy #[id number], 155, cm, 07/27/24 7:32:00 EDT, Height/Length Dosing, 91.6, kg, 07/27/24 7:32:00 EDT, Weight Dosing Start Date: 07/27/24 Status: Ordered Quantity: 90.0 Unit: tab(s) Repeat number: 1 Ozempic, 1 MG/DOSE, 4 MG/3ML solution pen-injector [...] probiotic (1 source) probiotic as directed Active tamsulosin hydrochloride 0.4 mg oral capsule (1 source) alpha-Adrenergic Mirta Start: 07-16-19 tamsulosin 0.4 mg Cap Refills(s) 0 Start Date: 07/15/24 Status: Ordered Repeat number: 1 terbinafine hydrochloride 10 mg/ml topical cream (2 sources) Allylamine Antifungal Start: 06-09-19 End: 07-09-19 terbinafine (LamISIL) 1 % cream Indications: Tinea pedis of right foot Apply topically 2 (two) times a day 30 g 3 06/08/2024 07/08/2024 Active 24 hr venlafaxine 37.5 mg extended release oral capsule (19 sources) Serotonin and Norepinephrine Reuptake Inhibitor Start: 02-03-20 End: 09-07-19 take 1 capsule by mouth once daily venlafaxine XR (Effexor XR) 37.5 MG 24 hr capsule Indications: Depression, unspecified Take 1 capsule (37.5 mg) by mouth Daily 90 capsule 3 09/06/2024 Active Vitafusion Fiber Well + Probiotics Gummies (3 sources) Start: 07-16-19 Vitafusion Fiber Well + Probiotics Gummies Oral, Daily, Refill(s) 0 Start Date: 07/15/24 Status: Ordered Repeat number: 1 Vitamin B Complex oral capsule (3 sources) Start: 07-16-19 take 1 capsule by mouth once daily Vitamin B Complex oral capsule Oral, Daily, Refill(s) 0 Start Date: 07/15/24 Status: Ordered Repeat number: 1 Vitamin C 1000 mg oral tablet (3 sources) Start: 07-16-19 take 1 mg by mouth once daily Vitamin C 1000 mg oral tablet mg tab(s), Oral, Daily, Refills(s) 0 Start Date: 07/15/24 Status: Ordered Repeat number: 1 Completed/Discontinued Medications Medication Drug Class(es) Dates Sig (Normalized) Sig (Original) Mounjaro 2.5 MG/0.5ML solution auto-injector (9 sources) Start: 02-23-2024 End: 09-06-2024 inject 2.5 mg by subcutaneous injection every week Mounjaro 2.5 MG/0.5ML solution auto-injector INJECT 2.5 MG (0.5 ML) SUBCUTANEOUSLY EVERY WEEK FOR 28 DAYS 02/23/2024 09/06/2024 Discontinued (Therapy completed) Start: 02-23-2024 inject 2.5 mg by sub cutaneous injection every week Mounjaro 2.5 MG/0.5ML solution auto-injector INJECT 2.5 MG (0.5 ML) SUBCUTANEOUSLY EVERY WEEK FOR 28 DAYS 02/23/2024 Active 0.25 mg, 0.5 mg dose 1.5 ml semaglutide 1.34 mg/ml pen injector (2 sources) Start: 02-02-2021 End: 10-20-2023 Semaglutide (Ozempic) 0.25 m g or 0.5 mg(2 mg/1.5 mL) pen injector Discontinued 0.25 MG SUBCUT every week February 02, 2021 1:00am October 20, 2023 3:21pm Tirzepatide (2 sources) Start: 02-23-2024 End: 10-27-2024 Tirzepatide (Mounjaro) 2.5 mg/0.5 mL pen injector Discontinued 2.5 MG SUBCUT every week 04 30February 23, 2024 5:36pm October 27, 2024 2:02pm Start: 10-20-2023 End: 02-23-2024 Tirzepatide (Mounjaro) 2.5 m g/0.5 mL pen injector Discontinued 2.5 MG SUBCUT every week 2 [place] 19th, 2024 12:00am February 23, 2024 5:37pm Problems Active Problems Problem Classification Problem Date Documented Date Episodic/Chronic Abdominal pain (2 sources) Pain in female pelvis; Translations: [Pelvic and perineal pain] 09-06-2024 Episodic Calculus of urinary tract (7 sources) Kidney stone; Translations: [Calculus of kidney] Onset: 07-15-2024 Episodic Conditions associated with dizziness or vertigo (1 source) Benign paroxysmal positional vertigo; Translations: [Benign paroxysmal vertigo, unspecified ear] Episodic Deficiency and other anemia (3 sources) Anemia 07-15-2024 Episodic Diabetes mellitus with complications (1 source) Type 2 diabetes mellitus; Translations: [Type 2 diabetes mellitus with hyperglycemia] Chronic Diabetes mellitus without complication (2 sources) Diabetes mellitus 07-22-2024 Chronic Diabetes mellitus without complication (4 sources) Impaired fasting glycemia; Translations: [Impaired fasting glucose] 10-18-2023 Episodic Disorders of lipid metabolism (5 sources) Pure hypercholesterolemia; Translations: [Familial hypercholesterolemia] 10-18-2023 Chronic Essential hypertension (6 sources) Hypertensive disorder; Translations: [Essential (primary) hypertension] 10-18-2023 Chronic Genitourinary symptoms and ill-defined conditions (1 source) Procedure carried out on subject; Translations: [Encounter for fitting and adjustment of urinary device] Onset: 08-09-2024 Chronic Headache; including migraine (3 sources) Frequent headache 07-15-2024 Episodic Immunizations and screening for infectious disease (1 source) Encounter for screening for human papillomavirus (HPV); Translations: [ENC SCREENING HUMAN PAPILLOMAVIRUS] Onset: 08-17-2021 Episodic Mood disorders (2 sources) Depressive disorder; Translations: [Depression, unspecified] 09-06-2024 Chronic Mycoses (2 sources) Tinea pedis; Translations: [Tinea [...] diagnosis of hypertension] Episodic Other diseases of kidney and ureters (2 sources) Urinary tract obstruction; Translations: [Hydronephrosis with renal and ureteral calculous obstruction] Onset: 07-15-2024 Episodic Other diseases of veins and lymphatics (1 source) Peripheral venous insufficiency; Translations: [Venous insufficiency (chronic) (peripheral)] Episodic Other diseases of veins and lymphatics (3 sources) Venous insufficiency of leg; Translations: [Venous insufficiency (chronic) (peripheral)] 10-18-2023 Episodic Other diseases of veins and lymphatics (1 source) Venous insufficiency (chronic) (peripheral); Translations: [Venous (peripheral) insufficiency, unspecified] 10-20-2023 Episodic Other female genital disorders (2 sources) Ovarian pain; Translations: [Other specified conditions associated with female genital organs and menstrual cycle] 09-06-2024 Episodic Other liver diseases (6 sources) Fatty (change of) liver, not elsewhere classified; Translations: [Nonalcoholic fatty liver disease] Chronic Other liver diseases (4 sources) Steatosis of liver; Translations: [Fatty (change of) liver, not elsewhere classified] 10-18-2023 Chronic Other lower respiratory disease (2 sources) Hypoxia; Translations: [Hypoxemia] 03-10-2024 Episodic Other lower respiratory disease (2 sources) Snoring; Translations: [Snoring] 03-10-2024 Episodic Other nutritional; endocrine; and metabolic disorders (3 sources) Body mass index 30+ - obesity; Translations: [Body mass index (BMI) 35.0-35.9, adult] 03-10-2024 Chronic Other nutritional; endocrine; and metabolic disorders (2 sources) Obesity; Translations: [Obesity, unspecified] 10-20-2023 Chronic Other screening for suspected conditions (not mental disorders or infectious disease) (15 sources) Encounter for screening mammogram for malignant [...] [Hypersomnia, unspecified] 03-10-2024 Chronic Residual codes; unclassified (2 sources) Sleep apnea 07-20-2024 Chronic Residual codes; unclassified (1 source) Family history of malignant neoplasm of breast; Translations: [FAMILY HX MALIG NEOPLASM OF BREAST] Onset: 11-11-2021 Episodic Residual codes; unclassified (1 source) Family history of malignant neoplasm of digestive organs; Translations: [FAM HX MALIG NEOPLASM DIGESTIV ORGN] Onset: 11-11-2021 Episodic Residual codes; unclassified (2 sources) Sleep deprivation; Translations: [Sleep deprivation] 03-10-2024 Episodic Residual codes; unclassified (2 sources) Acquired absence of genital organ; Translations: [Acquired absence of other genital organ(s)] 09-06-2024 Episodic Skin and subcutaneous tissue infections (2 sources) Localized infection of skin AND/OR subcutaneous tissue; Translations: [Local infection of the skin and subcutaneous tissue, unspecified] Episodic Unclassified (3 sources) CONTACT W/AND (SUSP) EXPOS COVID-19; Translations: [CONTACT W/AND (SUSP) EXPOS COVID-19] Onset: 04-05-2021 Unclassified (3 sources) Obstructive hydronephrosis 07-15-2024 Past or Other Problems Problem Classification Problem Date Documented Da te Episodic/Chronic Unclassified (1 source) CONTACT W/AND (SUSP) EXPOS COVID-19; Translations: [CONTACT W/AND (SUSP) EXPOS COVID-19] Onset: 04-03-2021 Results Test Name Value Interpretation Reference Range Facility US Renalon 09-22-2024 US Renal Exam Date/Time: 09/21/2024 09:24 EDT Reason for Exam: N20.0;Other (please specify) Report IMPRESSION: NEGATIVE LIMITED RENAL ULTRASOUND. EXAM: US Renal DATE: 09/21/2024 8:58 AM CLINICAL HISTORY: N20.0. COMPARISON: Outside CT abdomen and pelvis 07/12/2024. TECHNIQUE: Transabdominal ultrasound of the kidneys was performed. FINDINGS: The study is mild to moderately limited by the patient's body habitus and overlying bowel gas. Both kidneys are normal in size, position and morphology, with renal cortex echogenicity within normal limits. There is no hydronephrosis, visualized nephrolithiasis, abnormal perinephric collections, solid or cystic renal masses identified. Right Kidney Length: 11.6 cm Cortex: 2.1 cm Left Kidney Length: 11.6 cm Cortex: 1.2 cm Ordering Provider: Khadra Becker FINAL REPORT Dictated: 09/22/2024 4:53 pm Edson Marin MD Signed (Electronic Signature): 09/22/2024 4:53 pm Signed by: Edson Marin MD Transcribed by: ALBARO Technologist: BURKE Flores [facility] IGP,APTIMA HPV,AGE GDLNon AGE GDLN ACOG TESTING Note . [facility] Comment on above: TESTS RESULT FLAG UN ITS REF RANGE LAB Clinician Provided Cytology Information Source.............Vagina No. of containers..01 ThinPrep Vial Age Algo ACOG Maria Del Carmen... FLAG LEGEND: L-Low Normal,H-High Normal,LL-Alert Low,HH-Alert High <-Panic Low,>-Panic High,A-Abnormal,AA-Critical Abnormal Performed at: 01 =[address] [place] [address] Rosa Mckeon MD, HPV APTIMA Negative Negative [facility] Comment on above: This nucleic acid am plification test detects fourteen high- risk HPV types (16,18,31,33,35,39,45,51,52,56,58,59,66,68) without differentiation. Performed at: =[address] [id number] Welding Inspector: Rosa Mckeon MD, Phone: [phone] Performed at: [address] [id number] Welding Inspector: Rosa Mckeon MD, Phone: [phone] IGP, APTIMA HPV, RFX 16/18,45 Note . [facility] Comment on above: TESTS RESULT FLAG UN ITS REF RANGE LAB DIAGNOSIS: 02 NEGATIVE FOR INTRAEPITHELIAL LESION OR MALIGNANCY. Specimen adequacy: 02 Satisfactory for evaluation. Performed by: Ro Wilkerson, Senior Resident Care Director ([facility]) . 02 Note: Note 02 The Pap [...] <-Panic Low,>-Panic High,A-Abnormal,AA-Critical Abnormal Performed at: [address] [facility] [address] [place] [address] Rosa Mckeon MD, SPATULA-ALONE VAGINA [facility] Human papilloma virus 16+18+ 31+33+35+39+45+51+52+56+58+59+66+68 DNA [Presence] in CerOrdered By: Kell Black on 09-06-2024 HPV 16+18+31+33+35+39+45+ 51+52+56+58+59+66+68 DNA Probe+sig amp Ql (Cvx) Negative Negative [facility] Comment on above: This nucleic acid am plification test detects fourteen high- risk HPV types (16,18,31,33,35,39,45,51,52,56,58,59,66,68)without differentiation.Performed at: = - [facility] [address] [id number] Director: Rosa Mckeon MD, Phone: [phone] at: - [facility] [id number] Director: Rosa Mckeon MD, Phone: [phone] No Panel InformationOrdered By: Kell Black on 09-06-2024 HPV High Risk Other Comment Note . [facility] Comment on above: TESTS RESULT FLAG UN ITS REF RANGE LAB D IAGNOSIS: 02 NEGATIVE FOR INTRAEPITHELIAL LESION OR MALIGNANCY.Specimen adequacy: 02 Satisfactory for evaluation.Performed by: 02 Skyla Wilkerson Senior Resident Care Director (ASCP). 02Note: Note 02 The Pap smear [...] Criteria not met, HPV Genotype not performed. ------ FLAG LEGEND: L-Low Normal,H-High Normal,LL-Alert Low,HH-Alert High <-Panic Low,>-Panic High,A-Abnormal,AA-Critical Abnormal ----Performed at:[address] [address] Rosa Mckeon MD, Reference Lab Test Patient Age Note . [facility] Comment on above: TESTS RESULT FLAG UN ITS REF RANGE LAB Clinician Provided Cytology Information Source.............Vagina No. of containers..01 ThinPrep VialAge Shawn BEST Maria Del Carmen... 30 FLAG LEGEND: L-Low Normal,H-High Normal,LL-Alert Low,HH-Alert High <-Panic Low,>-Panic High,A-Abnormal,AA-Critical Abnormal ----Performed at:01 =G [address] [address] Rosa Mckeon MD, MM TOMOSYNTHESIS SCREENING B Ion 08-30-2024 [place] [address] Mammography Report Signed Patient: RENATO STRICKLAND MR#: [id number] : 1970 Acct:[id number] Age/Sex: 54 / F ADM Date: 08/30/24 Loc: MAMMO Attending Dr: Jonathan Harris D.O. Ordering Physician: Jonathan Harris D.O. Results: Date of Service: 08/30/24 Follow Up: Procedure(s): MM tomosynthesis screening BI Accession Number(s): [id number] cc: Vitaliy Dale D.O.; Jonathan Harris D.O. Patient Name: RENATO STRICKLAND MR#: [id number] : 1970 Exam Date: 08/30/2024 Ordering Doctor: DR JONATHAN HARRIS . RADIOLOGY REPORT PROCEDURE: MM TOMOSYNTHESIS SCREENING BI COMPARISON: MM DIAGNOSTIC MAMMO UNILAT LT, 03/19/2023. MM TOMOSYNTHESIS SCREENING BI, 02/26/2023. MG MAMM SCREEN 3D TATIANA CAD, 11/06/2021. MG MAMM SCREEN 3D TATIANA CAD, 10/09/2020. INDICATIONS: Screening Calculator Name NCI Breast Cancer Risk Assessment Tool 5 Year Breast Cancer Risk 3.10% Lifetime Breast Cancer Risk 23.40% Personal Breast Cancer No Personal Ovarian Cancer No Treatments None Family Cancers Grandfather-paternal with brain,liver cancer at age 60; Sister with breast cancer at age 45; Grandmother-maternal with colon cancer at age 70. LOCATION: [facility] BREAST COMPOSITION: There are scattered areas [...] Signed By: 08/30/24 161 DD/ 161 TD/TT: Metal Lather: [facility] Radiology, Radiologvida calloway MD - 08/30/2024 [place] [address] Mammography Report Signed Patient: RENATO STRICKLAND MR#: [id number] : 1970 Acct:[id number] Age/Sex: 54 / F ADM Date: 08/30/24 Loc: MAMMO Attending Dr: Jonathan Harris D.O. Ordering Physician: Jonathan Harris D.O. Results: Date of Service: 08/30/24 Follow Up: Procedure(s): MM tomosynthesis screening BI Accession Number(s): [id number] cc: Vitaliy Dale D.O.; Jonathan Harris D.O. Patient Name: RENATO STRICKLAND MR#: [id number] : 1970 Exam Date: 08/30/2024 Ordering Doctor: DR JONATHAN HARRIS . RADIOLOGY REPORT PROCEDURE: MM TOMOSYNTHESIS SCREENING BI COMPARISON: MM DIAGNOSTIC MAMMO UNILAT LT, 03/19/2023. MM TOMOSYNTHESIS SCREENING BI, 02/26/2023. MG MAMM SCREEN 3D TATIANA CAD, 11/06/2021. MG MAMM SCREEN 3D TATIANA CAD, 10/09/2020. INDICATIONS: Screening Calculator Name NCI Breast Cancer Risk Assessment Tool 5 Year Breast Cancer Risk 3.10% Lifetime Breast Cancer Risk 23.40% Personal Breast Cancer No Personal Ovarian Cancer No Treatments None Family Cancers Grandfather-paternal with brain,liver cancer at age 60; Sister with breast cancer at age 45; Grandmother-maternal with colon cancer at age 70. LOCATION: [facility] BREAST COMPOSITION: There are scattered areas [...] M.D. Signed By: 08/30/241610 DD/ 09 TD/TT: Metal Lather: [facility] Radiology Study observation (narrative) [facility] [employer] MM TOMOSYNTHESIS SCREENING B IOrdered By: Radiologist Radiology on 08-30-2024 [facility] [employer] Work Phone: H&P Updateon 08-09-2024 H&P Update H&P Update Patient: RENATO STRICKLAND Age: 54 years Sex: Female : 1970 Associated Diagnoses: None Author: Eugenio CALLAHAN, Khadra Brown Basic Information I have reviewed prior notes, spoke with patient, no changes to history. Patient elects to proceed with surgery as planned - cystoscopy, left ureteral stent removal status post left ureteroscopy laser lithotripsy/stone extraction, stent placement on 07/27/2024. Health Status Procedure history: Cystoscopy, stent placement ([id number]) on 07/27/2024 at 54 Years. Appendectomy (941337823). Hysterectomy (119302251). Colonoscopy ([id number]). Social History Social & Psychosocial Habits Alcohol [...] pain, # 90 tab(s), Refills(s) 0, Pharmacy: [facility]/pharmacy #[id number], 155, cm, 07/27/24 7:32:00 EDT, [...] list: All Problems Anemia / SNOMED CT 130919662 / Confirmed Apnea, sleep / SNOMED CT 478745528 / Confirmed Fatty liver / SNOMED CT 8380712860 / Confirmed Frequent headaches / SNOMED CT 2545960349 / Confirmed Kidney stone / SNOMED CT 855271170 / Confirmed Ureteral stone with hydronephrosis / SNOMED CT 0101040138 / Confirmed Inactive: Diabetes / SNOMED CT 234001744 Inactive: HTN (hypertension) / SNOMED CT 2499390759 Normal [facility] Inpatient Patient Summaryon 08-09-2024 Inpatient Patient Summary Inpatient Patient Summary [address] [address] Clinical Summary Person Information Name: SENG, RENATO R Age: 54 Years : 1970 Sex: Female PCP: VITALIY DALE DO Marital Status: Phone: [phone] Race: White Ethnicity: Non- or Language: Chinese Visit Id: Visit Reason: URETERAL STONE WITH HYDRONEPHROSIS Speciality: Acuity: Enc Type: Outpatient Med Service: Surgery Arrival: 08/09/2024 10:23:52 Discharge: Dispo Type: Address: [address] [place] [address] [address] [place] [phone] Provider Notes: Diagnosis: Encounter for removal of [...] renal US results - to obtain at [facility] in 6-8 weeks. Follow up in 1 year with renal US for stone monitoring Patient Education Information: EU - Cystoscopy with Stent Removal Discharge Instructions (CUSTOM) [facility] Main OR Intraoperative Recor don 08-09-2024 Main OR Intraoperative Record Main OR Intraoperative Record IntraOp Document Type FTURO Summary Primary Physician: Khadra Becker MD Finalized Date/Time: 08/09/24 10:55:44 Pt. Name: RENATO STRICKLAND /Sex: 1970 Female Med Rec #: [id number] Physician: Khadra Becker MD Financial #: [id number] Pt. Type: O Room/Bed: / Admit/Disch: 08/09/24 [...] Sunday Pelletier Role Performed Surgeon - Primary Cost Control Analyst - Primary Scrub - Primary Time In 08/09/24 10:49:00 08/09/24 10:44:00 08/09/24 10:44:00 Time Out 08/09/24 10:54:00 08/09/24 10:56:00 08/09/24 10:56:00 Procedure CYSTOSCOPY LOCAL WITH CYSTOSCOPY LOCAL WITH CYSTOSCOPY LOCAL WITH STENT REMOVAL(Left) STENT REMOVAL(Left) STENT REMOVAL(Left) Comments Last Modified By: Taqueria RN, Pippa Meng RN, Pippa Meng RN, Pippa Rae 08/09/24 10:55:40 08/09/24 10:55:40 08/09/24 10:55:40 Surgical [...] Position Verified Availability Equipment, Medication Time Out Eugenio CALLAHAN, Taqueria Gtz Verified (If Participants Pippa CACERES Troike, Applicable) Sunday Abreu Time Out Complete 08/09/24 10:49:00 Allergies Reviewed? Yes Allergies Reviewed Self/Patient With Body Position Frog Legged Prep Area PERINEUM Prep Agents Hibiclens, Sterile Water Skin. Condition Intact, [place], Warm, & Dry Additional None Specimens Collected [...] Pippa Meng RN 08/09/24 10:52:13 Case Comments Finalized By: Pippa Meng RN Document Signatures Signed By: Pippa Meng RN 08/09/24 10:55 [facility] Main OR Preoperative Recordo n 08-09-2024 Main OR Preoperative Record Main OR Preoperative Record Holding Area Document Type FTURO Summary Primary Physician: Khadra Becker MD Finalized Date/Time: 08/09/24 10:47:41 Pt. Name: RENATO STRICKLAND D.O.B./Sex: 1970 Female Med Rec #: [id number] Physician: Khadra Becker MD Financial #: [id number] Pt. Type: O Room/Bed: / Admit/Disch: 08/09/24 [...] Complaints of Pain: No Skin Integrity Intact, [place], Warm, & Dry Vitals - EU Blood Pressure 144/89 Pulse 74 bpm Respirations 18 br/min SPO2 96 % Additional None RN Reviewed Yes Specimens Collected Last Modified By: Pippa Meng RN 08/09/24 10:47:39 Finalized By: Pippa Meng RN Document Signatures Signed By: Pippa Meng RN 08/09/24 10:47 [facility] Operative Reporton Operative Report Operative Report Patient: RENATO STRICKLAND Age: 54 years Sex: Female : 1970 Associated Diagnoses: None Author: Khadra Becker MD Procedure Operative Information Details: Date/ Time: 08/09/2024 11:20:00. Pre-Op Dx: Encounter for removal of ureteral stent ([id number] Z46.6, Discharge, Medical), History of kidney stones ([id number] Z87.442, Discharge, Medical). Post-Op Dx: Same. Anesthesia [...] ultrasound in 6 to 8 weeks at [facility], call with results to ensure no silent obstruction has developed. Will proceed with annual follow-up afterwards for stone surveillance. [facility] Comment on above: Result Comment: Elec tronically Signed By: Khadra Becker MD\.br\Date and Time Signed: 08/09/24 11:21 EDT Outpatient Surgery Discharge Instructionon 08-09-2024 Outpatient Surgery Discharge Instruction Outpatient Surgery Discharge Instruction [address] [address] Patient Discharge Instructions PERSON INFORMATION Name: RENATO STRICKLAND Date of : 1970 Current Date: 08/09/2024 10:55:57 PHYSICIANS Admitting Physician: Khadra Becker MD Comment: Discharge Diagnosis: Encounter for removal of ureteral stent; History of kidney stones RENATO STRICKLAND has been given the following list of follow-up instructions, prescriptions, and patient education materials: IF UNABLE TO CONTACT YOUR PHYSICIAN AND YOU FEEL IT IS AN EMERGENCY, GO TO THE NEAREST EMERGENCY ROOM OR CALL 911 Follow up: With: Address: When: Khadra Becker Comments: Office will call with renal US results - to obtain at [facility] in 6-8 weeks. Follow up in 1 [...] you have a fever over 100 degrees. I, RENATO STRICKLAND, have received the attached patient education materials/instructions and have verbalized understanding: May we do a follow up call? Yes No I was present when discharge instructions were given Patient Signature Date Clinican/Nurse Signature Date You may receive a survey from Francisco Javier Martinez asking you to rate your care experience. Your feedback is important and will help us understand what we do well and how we can improve the quality of care we provide to you, your loved ones and our community. It???s an honor to serve you. Thank you for choosing [facility] Calculus Analysison 08-05-19 25 CA Oxalate, Dihydrate 60 % Invalid Interpretation Code [facility] Comment on above: Performed By: #### 1 [id number] #### [facility] [address] [place] [address] CA Oxalate, Monohydr 35 % Invalid Interpretation Code [facility] Comment on above: Performed By: #### 1 [id number] #### [facility] [address] [place] [address] Color (U) Bonds Invalid Interpretation Code [facility] Comment on above: Performed By: #### 1 [id number] #### [facility] [address] [place] [address] Comment 2 Comment Invalid Interpretation Code [facility] Comment on above: Result Comment: Calc ulus received wet. Wet calculi must be dried before analysis, which delays reporting of results. Leaving calculi wet (such as water, saline, blood, urine) may lead to changes in composition. Performed at: [address] [id number] PhD Ricardo Bean Performed By: #### 1 [id number] #### [facility] [address] [place] [address] Hydroxyapatite: 5 % Invalid Interpretation Code [facility] Comment on above: Performed By: #### 1 [id number] #### [facility] [address] [place] [address] Size: 3x2 Invalid Interpretation Code [facility] Comment on above: Result Comment: Mult iple pieces received. Dimensions of the largest piece reported. Performed By: #### 1 [id number] #### [facility] [address] [place] [address] Stone Source Comment Invalid Interpretation Code [facility] Comment on above: Result Comment: Left Ureter Performed By: #### 1 [id number] #### [facility] [address] [place] [address] Weight Calculus Analysis 10 mg Invalid Interpretation Code [facility] Comment on above: Performed By: #### 1 [id number] #### [facility] [address] [place] [address] Main OR Intraoperative Recor don 07-28-2024 Main OR Intraoperative Record Main OR Intraoperative Record IntraOp Document Type FT Summary Primary Physician: Khadra Becker MD Finalized Date/Time: 07/28/24 09:04:33 Pt. Name: RENATO STRICKLAND Lois RoeB./Sex: 1970 Female Med Rec #: [id number] Physician: Khadra Becker MD Financial #: [id number] Pt. Type: A Room/Bed: [place] [address] Admit/Disch: 07/27/24 06:42:06 - 07/27/24 13:00:00 Institution: [...] MD, Ángel De La Cruz Role Performed DIOR Surgeon - Primary Cost Control Analyst - Primary Time In 07/27/24 10:07:00 07/27/24 [...] Machelle Lan Role Performed Scrub - Primary Greenhouse Superintendent Time In 07/27/24 10:07:00 07/27/24 10:07:00 Time Out 07/27/24 11:03:00 07/27/24 11:03:00 Procedure CYSTOSCOPY RETROGRADE CYSTOSCOPY RETROGRADE STENT INSERTION(Left), STENT INSERTION(Left), CYSTOSCOPY W/ HOMIUM CYSTOSCOPY W/ HOMIUM LASER(Left) LASER(Left) Comments Last Modified By: Ángel Garcia Terry T 07/27/24 11:04:07 07/27/24 11:04:07 General Comments: GRAYSON FARAH REP HERE FOR CASE. Sandy GARCIA RN. [...] Participants Ángel Garcia, Sunday Ashley Ware RT(R), Rea Costello CRNA, Kyle A. Time Out Complete 07/27/24 10:20:00 Outcomes Met? [...] Yes No Primary Surgeon Eugenio CALLAHAN, Khadra Enrique MD Start 07/27/24 10:21:00 07/27/24 10:21:00 Stop 07/27/24 10:58:00 [...] tissue injury due to thermal or mechanical (more content not included)... [facility] XR Urography Retrograde Left on 07-28-2024 XR Urography Retrograde Left Exam Date/Time: 07/27/2024 12:11 EDT Reason for [...] Marin MD Transcribed by: ALBARO Technologist: GWEN [facility] Discharge Instructionson Discharge Instructions Discharge Instructions RENATO STRICKLAND :1970 Visit Date:07/27/2024 Inpatient Discharge Instructions Your [...] for cystoscopy, left ureteral stent removal Where: [facility], [address] [phone] Business (1) Medications What How Much When Instructions Next Dose New ciprofloxacin (Cipro 500 mg Tab) 1 Tablets By Mouth Every 12 hours Duration: 1 Days Start morning of stent removal Pickup at [facility]/pharmacy #[id number] New oxybutynin (oxybutynin 5 mg Tab) 1 Tablets By Mouth 3 times a day as needed for Urinary discomfort bladder spasms, stent pain Pickup at [facility]/pharmacy #[id number] Unchanged acetaminophen-oxycodone (acetaminophen-oxycodone 325 mg-5 mg Tab) [...] venlafaxine (venlafaxine 37.5 mg Cap-ER) Pharmacy Information [facility]/pharmacy #[id number]: [address] [place], [place] [phone] Allergies Adhesive Bandage (Unknown) Demerol (Vomiting) sulfa [...] URETERAL STEN 07/27/2024 Education Materials [facility] [place], [place] Post-operative Instructions for Ureteroscopy, Laser Lithotripsy, [...] try to push stent back in. Rub (more content not included)... [facility] Comment on above: Result Comment: Elec tronically Signed By: Mike CACERES, Gisell Garcia\.br\Date and Time Signed: 07/27/24 11:20 EDT H&P Updateon 07-27-2024 H&P Update H&P Update Patient: RENATO STRICKLAND Age: 54 years Sex: Female : 1970 Associated Diagnoses: None Author: Eugenio CALLAHAN, Khadra Brown Basic Information I have reviewed prior notes, spoke with patient, no changes to history. Patient elects to proceed with surgery as planned- cystoscopy, Left ureteroscopy with laser lithotripsy, possible stent placement Health Status Procedure history: Appendectomy (906221350). Hysterectomy ([id number]). Colonoscopy (612626688). Social History Social & Psychosocial Habits Alcohol [...] list: All Problems Anemia / SNOMED CT 616960474 / Confirmed Apnea, sleep / SNOMED CT 362034466 / Confirmed Fatty liver / SNOMED CT 2169828332 / Confirmed Frequent headaches / SNOMED CT 6342502043 / Confirmed Kidney stone / SNOMED CT 063182734 / Confirmed Ureteral stone with hydronephrosis / SNOMED CT 6373250641 / Confirmed Inactive: Diabetes / SNOMED CT 290365401 Inactive: HTN (hypertension) / SNOMED CT 3644897567 [facility] Inpatient Patient Summaryon 07-27-2024 Inpatient Patient Summary Inpatient Patient Summary [address] [address] [facility] Clinical Discharge Instructions PERSON INFORMATION Name: RENATO STRICKLAND PHYSICIANS Admitting Physician: Khadra Becker MD Attending Physician: Khadra Becker MD PCP: VITALIY DALE DO Discharge Diagnosis: Ureteral stone with hydronephrosis Comment: PATIENT EDUCATION INFORMATION Instructions: Eugenio - Ureteroscopy, Laser Lithotripsy, Stone Extraction and Stent Placement Post-Op Instructions (CUSTOM) Medication Leaflets: Follow up: With: Address: When: Khadra Becker [address] [place], [place] [phone] Business (1) Comments: Office migue call to schedule your follow up after 2 weeks for cystoscopy, left ureteral stent removal MEDICATION LIST New Medications [id number], [address], [place] [phone], [phone] ciprofloxacin (Cipro 500 mg Tab) 1 Tablets [...] Tab) venlafaxine (venlafaxine 37.5 mg Cap-ER) Comment: [facility] Main OR PACU I Recordon 07-02 Main OR PACU I Record Main OR PACU I Rec ord PACU Phase I Document Type FT Summary Primary Physician: Khadra Becker MD Finalized Date/Time: 07/27/24 11:43:15 Pt. Name: SENG RENATO Lois Marie/Sex: 1970 Female Med Rec #: [id number] Physician: Khadra Becker MD Financial #: [id number] Pt. Type: A Room/Bed: [place] [address] Admit/Disch: 07/27/24 06:42:06 - Institution: Case Times [...] Signed By: Aria Harden RN 07/27/24 11:43 [facility] Main OR PACU II Recordon Main OR PACU II Record Main OR PACU II Record PACU Phase II Document Type FT Summary Primary Physician: Khadra Becker MD Finalized Date/Time: 07/27/24 12:52:36 Pt. Name: RENATO STRICKLAND Lois Marie/Sex: 1970 Female Med Rec #: [id number] Physician: Khadra Becker MD Financial #: [id number] Pt. Type: A Room/Bed: [place] [address] Admit/Disch: 07/27/24 06:42:06 - Institution: Case Times [...] Signed By: Gisell Mckeon RN 07/27/24 12:52 [facility] Main OR Preoperative Recordo n 07-27-2024 Main OR Preoperative Record Main OR Preoperative Record PreOp Document Type FT Summary Primary Physician: Khadra Becker MD Finalized Date/Time: 07/27/24 10:32:14 Pt. Name: RENATO STRICKLAND /Sex: 1970 Female Med Rec #: [id number] Physician: Khadra Becker MD Financial #: [id number] Pt. Type: A Room/Bed: [place] [address] Admit/Disch: 07/27/24 06:42:06 - Institution: Case Times [...] Signatures Signed By: Ángel Garcia 07/27/24 10:32 [facility] Operative Reporton Operative Report Operative Report Patient: RENATO STRICKLAND Age: 54 years Sex: Female : 1970 [...] into the urethra and using a 22.5 Algerian rigid cystoscope with 30 degree lens and [...] in satisfactory condition. CULTURES TAKEN: none PATIENT CO (more content not included)... [facility] Comment on above: Result Comment: Elec tronically Signed By: Khadra Becker MD\.br\Date and Time Signed: 07/27/24 11:23 EDT Outpatient Surgery Discharge Instructionon 07-27-2024 Outpatient Surgery Discharge Instruction Outpatient Surgery Discharge Instruction [place] [id number] Patient Discharge Instructions PERSON INFORMATION Name: RENATO STRICKLAND Date of : 1970 Current Date: 07/27/2024 11:14:57 PHYSICIANS Admitting Physician: Khadra Becker MD Discharge Diagnosis: Ureteral stone with hydronephrosis RENATO STRICKLAND has been given the following list of [...] Date Follow up: With: Address: When: Khadra Aponte [place], [place] [address], [address] [phone] Business (1) Comments: Office migue call to schedule your follow up after 2 weeks for cystoscopy, left ureteral stent removal Pharmacy Information: You may receive a survey from Francisco Javier Martinez asking you to rate your care experience. Your feedback is important and will help us understand what we do well and how we can improve the quality of care we provide to you, your loved ones and our community. It???s an honor to serve you. Thank you for choosing [facility] HERE ARE THE MEDICATION CHANGES THAT OCCURRED DURING YOUR HOSPITAL STAY New Medications [id number], [address], [place] [phone], [phone] ciprofloxacin (Cipro 500 mg Tab) 1 Tablets [...] Cap-ER) PATIENT EDUCATION INFORMATION Instructions: [facility] [place], [place] Post-operative Instructions for Ureteroscopy, Laser Lithotripsy, [...] stent removal (time determined by your doctor) -W (more content not included)... [facility] Ambulatory Visit Summaryon 0 07-15-2024 Ambulatory Visit Summary Ambulatory Visit Summary RENATO STRICKLAND :1970 Visit Date:07/15/2024 Ambulatory Visit Instructions Your Diagnosis Ureteral stone with hydronephrosis Your Care Team Attending Physician - Khadra Becker MD Primary Care Physician - VITALIY DALE DO This Is Your Medications List Contact prescribing [...] Schedule the Following Appointments Follow Up with Eugenio CALLAHAN, Khadra Brown, URL, URO When: Where: Medications What How [...] ? 8 oz (237 mL) of milk, ahrwyxq-lgcywoundcox-tcm ry milk, and calcium-fortifiedfruit juice. Calcium-fortified means that calcium has been [...] as whole-wheat breads, oat bran, and wheat ce (more content not included)... [facility] Urology Office/Clinic Noteon 07-15-2024 Urology Office/Clinic Note Urology Office/Clinic Note Chief Complaint new patient HPI Staff 54 year old female New Pt. seen in [facility] 07/12/[address] due to Lt. flank pain CT [...] for age, normal judgement, euthymic mood. Assessment/Plan Renato is a 54 yo female new to our office for recent ureteral stone. Does report it takes her awhile to wake up from anesthesia. Not on AC. Pre-diabetic, used to take GLP-1. No longer taking this. BBSQ 8 1. Ureteral stone with hydronephrosis (N13.2: Hydronephrosis with renal and ureteral calculous obstruction) First stone event. Pt presented to [facility] ER 07/12/24 due to left-sided flank pain. CT AP wo con 07/12/24 [facility] - left hydroureteronephrosis associated with a 5 [...] No qualifying data Procedure/Surgical History Appendectomy, Colonoscopy, Hys (more content not included)... [facility] Comment on above: Result Comment: Elec tronically Signed By: Khadra Becker MD\.br\Date and Time Signed: 07/15/24 13:01 EDT\.br\Electronically Co-Signed By: Sofia Tse\.br\Date and Time Co-Signed: 07/15/24 11:54 EDT\.br\Electronically Co-Signed By: Sofia Tse\.br\Date and Time Co-Signed: 07/15/24 11:58 EDT Human papilloma virus 16+18+ 31+33+35+39+45+51+52+56+58+59+66+68 DNA [Presence] in Soni 08-21-2023 HPV 16+18+31+33+35+39+45+ 51+52+56+58+59+66+68 DNA Probe+sig amp Ql (Cvx) Negative Negative [facility] Comment on above: This nucleic acid am plification test detects fourteen high- risk HPV types (16,18,31,33,35,39,45,51,52,56,58,59,66,68)without differentiation.Performed at: =G - [facility] [id number] Director: Rosa Mckeon MD, Phone: [phone] at: - [facility] [id number] Director: Rosa Mckeon MD, Phone: [phone] No Panel Informationon 08-20 HPV High Risk Other Comment Note . [facility] Comment on above: TESTS RESULT FLAG UN ITS REF RANGE LAB D IAGNOSIS: 02 NEGATIVE FOR INTRAEPITHELIAL LESION OR MALIGNANCY.Specimen adequacy: 02 Satisfactory for evaluation. No endocervical component is identified.Performed by: Ro Wilkerson It Solutions Architect (ASCP). 02Note: Note 02 The Pap smear [...] Criteria not met, HPV Genotype not performed. ------ FLAG LEGEND: L-Low Normal,H-High Normal,LL-Alert Low,HH-Alert High <-Panic Low,>-Panic High,A-Abnormal,AA-Critical Abnormal ----Performed at:02 WB [facility] [address] [place] [address] Rosa Mckeon MD, Reference Lab Test Patient Age Note . [facility] Comment on above: TESTS RESULT FLAG UN ITS REF RANGE LAB Clinician Provided Cytology Information Source.............Cervix No. of containers..01 ThinPrep VialAge Shawn BEST Maria Del Carmen... 30-65 FLAG LEGEND: L-Low Normal,H-High Normal,LL-Alert Low,HH-Alert High <-Panic Low,>-Panic High,A-Abnormal,AA-Critical Abnormal ----Performed at:01 =G [facility] [address] [place] [address] Rosa Mckeon MD, MG MAMM SCREEN 3D TATIANA CADon 11-06-2021 MG MAMM SCREEN 3D TATIANA CAD Patient: RENATO STRICKLAND Exam Date: 11/06/2021 : 1970 Gender:F Ordering : DR JONATHAN HARRIS . Admission #: [id number] Family : Order #: [id number] CLICK HERE TO VIEW EXAM RADIOLOGY REPORT PROCEDURE: MAMMOGRAM SCREENING 3D BILATERAL CAD COMPARISON: MG MAMM SCREEN 3D TATIANA CAD, 10/09/2020. MG MAMM TATIANA DIAG W CAD, 08/20/2019. INDICATIONS: Screening mammography Calculator Name NCI Breast Cancer Risk Assessment Tool 5 Year Breast Cancer Risk 2.30% Lifetime Breast Cancer Risk 19.90% Personal Breast Cancer No Personal Ovarian Cancer No Treatments None Family Cancers Sister with breast cancer at age 45; Grandmother-maternal with colon cancer at age 70. LOCATION: [facility] BREAST COMPOSITION: Heterogeneously dense,which may obscure [...] PALPABLE LUMP SHOULD BE BIOPSIED. Dictated by: Juancho Cortes M.D. on 11/07/2021 at 10:44 Approved by: Juancho Cortes M.D. on 11/07/2021 at 10:[address] [facility] PAP ACOG PANEL 2: 30 to 65on 08-22-2021 . . Normal [facility] Comment on above: Result Comment: Perf ormed at: WB Performed By: #### 4 [id number] #### [facility] [address] [place] [address] [address] Josey Springer DIAGNOSIS: Comment Normal [facility] Comment on above: Result Comment: NEGA TIVE FOR INTRAEPITHELIAL LESION OR MALIGNANCY. THIS SPECIMEN WAS RESCREENED PART OF OUR LOSS PREVENTION SUPERVISOR PROGRAM. Performed at: WB Performed By: #### 4 [id number] #### [facility] [address] [place] [address] [address] Josey Springer HPV Aptima Negative Normal Negative [facility] Comment on above: Result Comment: This nucleic acid amplification test detects fourteen high-risk HPV types (16,18,31,33,35,39,45,51,52,56,58,59,66,68) without differentiation. Performed at: =G Performed By: #### 4 [id number] #### [facility] [address] [place] [address] Dr. Josey Springer Methodology: Comment Normal [facility] Comment on above: Result Comment: This liquid based ThinPrep(R) pap test was screened with the use of an image guided system. Performed at: WB Performed By: #### 4 [id number] #### [facility] [address] [place] [address] Dr. Josey Springer Note: Comment Normal [facility] Comment on above: Result Comment: The Pap smear is a screening test designed to aid in the detection of premalignant and malignant conditions of the uterine cervix. It is not a diagnostic procedure and should not be used as the sole means of detecting cervical cancer. Both false-positive and false-negative reports do occur. . Performed at: WB Performed By: #### 4 [id number] #### [facility] [address] [place] [address] Dr. Josey Springer Performed by: Comment Normal [facility] Comment on above: Result Comment: Celestine Foreman, It Solutions Architect (ASCP) Performed at: WB Performed By: #### 4 [id number] #### [facility] [address] [place] [address] Dr. Josey Springer QC reviewed by: Comment Normal [facility] Comment on above: Result Comment: Edelmira Muñoz, Supervisory It Solutions Architect (ASCP) Performed at: WB Performed By: #### 4 [id number] #### [facility] [address] [place] [address] Dr. Josey Springer Specimen adequacy: Comment Normal [facility] Comment on above: Result Comment: Sati sfactory for evaluation. No endocervical component is identified. Performed at: WB Performed By: #### 4 [id number] #### [facility] [address] [place], [place] [address] Dr. Josey Springer Age Gdln ACOG Testing 30-65 Normal [facility] Comment on above: Performed By: #### 4 [id number] #### [facility] [address] [place], [place] [address] Dr. Josey Springer Covid-19 PCR ([facility])on SARS-CoV-2 (COVID-19) RNA SHANTA+probe Ql (Unsp spec) Not detected Normal NOT DETECTED [facility] Comment on above: Result Comment: This test is not yet approved or cleared by the [place] FDA. When there are no FDA-approved or cleared tests available, and other criteria are met, FDA can make tests available under an emergency access mechanism called an Emergency Use Authorization (EUA). The EUA for this test is supported by the [place] of Health and Human Service's (HHS's) declaration [...] SARS-CoV-2. Performed By: #### C VDTBH #### [facility] [address] [place] [id number] Josey Springer Glucose Poct Glucometerson 1 04-05-2020 Glucose [Mass/Vol] 101 mg/dL Normal [facility] Comment on above: Result Comment: [facility] Glucose Reference Range is dependent on time and content of last meal. Glucose of more than 200 mg/dL in a nonstressed, ambulatory subject supports the diagnosis of Diabetes Mellitus. PERFORMED BY: [facility] [address] [place] [address] PATHOLOGIST COST CLERK IVA MALIN M.D. Performed By: #### G LULS #### Point of Care testing , COVID-19 Antigenon 12-01-202 1 COVID-19 Antigen Healthcare Worker?: N Lindsay Reference Lindsay Reference Negative SARS-CoV+SARS-CoV-2 (COVID-19) Ag [Presence] in Respiratory specimen by Rapid immunoassay Negative for SARS Antigen by TAMANNA COVID19 Blank Space ------ Lindsay Disclaimer Negative results, from patients with [...] Disclaimer consistent with COVID-19. COVID19 Blank Space ------ Lindsay Disclaimer The Lindsay SARS Antigen TAMANNA does not differentiate Lindsay Disclaimer between SARS-CoV and SARS-CoV-2. COVID19 Blank Space ------ Lindsay Disclaimer This test was developed and its performance Lindsay Disclaimer characteristic determined by [employer] and Lindsay Disclaimer validated at [facility]. This Lindsay Disclaimer test has not been [...] is terminated or revoked sooner. PERFORMED BY: [place] [address] PATHOLOGIST COST CLERK IVA MALIN M.D. [facility] Comment on above: Performed By: #### C OVID-19 LINDSAY, SOFIANEG #### [address] Lindsay Ag Negativeon 02-01-20 21 Lindsay Ag Negative Negative Normal Negative [facility] Comment on above: Result Comment: This is a duplicate Lindsay SARS Antigen (TAMANNA) result to be used for statistical tracking purpose only. PERFORMED BY: [place] [address] PATHOLOGIST COST CLERK IVA MALIN M.D. Performed By: #### C OVID-19 LINDSAY, SOFIANEG #### [facility] [address] [place] [address] CBC AUTO DIFFon 01-09-2021 BASO # 0.0 103/ul Normal 0.0-0.[address] [facility] Comment on above: Performed By: #### C BC #### [facility] [address] [place] [address] Dr. Josey Springer Basophils/100 WBC (Bld) 0.5 % Normal 0.2-2.0 [facility] Comment on above: Performed By: #### C BC #### [facility] [address] [place] [address] Dr. Josey Springer EO # 0.2 103/ul Normal 0.0-0.7 [facility] Comment on above: Performed By: #### C BC #### [facility] [address] [place] [address] Dr. Josey Springer Eosinophils/100 WBC (Bld) 2.2 % Normal 0.9-7.0 [facility] Comment on above: Performed By: #### C BC #### [facility] [address] [place] [address] Dr. Josey Springer Erythrocyte distribution width (RBC) [Ratio] 12.2 % Normal 11.0-15.[address] [facility] Comment on above: Performed By: #### C BC #### [facility] [address] [place] [address] Dr. Josey Springer Hematocrit (Bld) [Volume fraction] 41.4 % Normal 36.0-48.[address] [facility] Comment on above: Performed By: #### C BC #### [facility] [address] [place] [address] Dr. Josey Springer Hemoglobin (Bld) [Mass/Vol] 13.6 g/dL Normal 12.0-16.0 [facility] Comment on above: Performed By: #### C BC #### [facility] [address] [place] [address] Dr. Josey Springer IG # 0.01 10e3/ul Normal 0.00-0.03 [facility] Comment on above: Performed By: #### C BC #### [facility] [address] [place] [address] Dr. Josey Springer IG % 0.1 % Normal 0.0-0.5 [facility] Comment on above: Performed By: #### C BC #### [facility] [address] [place] [address] Dr. Josey Springer LYMPH # 2.2 103/ul Normal 1.2-3.8 [facility] Comment on above: Performed By: #### C BC #### [facility] [address] [place] [address] Dr. Josey Springer Lymphocytes/100 WBC (Bld) 29.7 % Normal 20.5-60.[address] [facility] Comment on above: Performed By: #### C BC #### [facility] [address] [place] [address] Dr. Josey Springer MANUAL DIFF REQ NO Normal [facility] Comment on above: Performed By: #### C BC #### [facility] [address] [place] [address] Dr. Josey Springer MCH (RBC) [Entitic mass] 30.1 pg Normal 26.7-34.[address] [facility] Comment on above: Performed By: #### C BC #### [facility] [address] [place] [address] Dr. Josey Springer MCHC (RBC) [Mass/Vol] 32.9 g/dL Normal 29.9-35.2 [facility] Comment on above: Performed By: #### C BC #### [facility] [address] [place] [address] Dr. Josey Springer MCV (RBC) [Entitic vol] 91.6 fL Normal 81.0-99.[address] [facility] Comment on above: Performed By: #### C BC #### [facility] [address] [place] [address] Dr. Josey Springer MONO # 0.3 103/ul Normal 0.3-0.8 [facility] Comment on above: Performed By: #### C BC #### [facility] [address] [place] [address] Dr. Josey Springer Monocytes/100 WBC (Bld) 4.2 % Normal 1.7-12.0 [facility] Comment on above: Performed By: #### C BC #### [facility] [address] [place] [address] Dr. Josey Springer NEUT # 4.6 103/ul Normal 1.4-6.[address] [facility] Comment on above: Performed By: #### C BC #### [facility] [address] [place] [address] Dr. Josey Springer Neutrophils/100 WBC (Bld) 63.3 % Normal 43.0-75.[address] [facility] Comment on above: Performed By: #### C BC #### [facility] [address] [place] [address] Dr. Josey Springer Platelet mean volume (Bld) [Entitic vol] 9.7 fL Normal 9.5-13.[address] [facility] Comment on above: Performed By: #### C BC #### [facility] [address] [place] [address] Dr. Josey Springer PLT 225 103/ul Normal 150-[address] [facility] Comment on above: Performed By: #### C BC #### [facility] [address] [place] [address] Dr. Josey Springer RBC 4.52 106/ul Normal 4.20-5.[address] [facility] Comment on above: Performed By: #### C BC #### [facility] [address] [place] [address] Dr. Josey Springer WBC 7.3 103/ul Normal 4.0-11.[address] [facility] Comment on above: Performed By: #### C BC #### [facility] [address] [place] [address] Dr. Josey Springer GLYCOHEMOGLOBIN A1Con 2020 ADA RECOMMENDATION ADA THERAPEUTIC TARG ET 6.0 - 7.0 ACTION SUGGESTED > 7.[address] [facility] Comment on above: Performed By: #### A 1C #### [facility] [address] [place] [address] Dr. Josey Springer Glucose [Mass/Vol] 131 mg/dL Normal [facility] Comment on above: Performed By: #### A 1C #### [facility] [address] [place] [address] Dr. Josey Springer HbA1c (Bld) [Mass fraction] 6.2 % Critically high <=6.[address] [facility] Comment on above: Performed By: #### A 1C #### [facility] [address] [address] [address] Josey Springer LIPID PROFILEon 01-09-2021 CHOL-HDL RATIO NORM SEE BELOW Normal [facility] Comment on above: Result Comment: 3.3 - 4.4 LOW RISK 4.4 - 7.1 AVERAGE RISK 7.1 - 11.0 MODERATE RISK >11.0 HIGH RISK Performed By: #### C MP, TSH, LIPID #### [facility] [address] [place], [place] [address] Dr. Josey Springer Cholesterol [Mass/Vol] 240 mg/dL Critically high <=[address] [facility] Comment on above: Performed By: #### C MP, TSH, LIPID #### [facility] [address] [address] [address] Josey Springer Cholesterol in HDL [Mass/Vol] 66 mg/dL Normal [facility] Comment on above: Performed By: #### C MP, TSH, LIPID #### [facility] [address] [address] [address] Josey Springer Cholesterol in LDL [Mass/Vol] 136.6 mg/dL Normal [facility] Comment on above: Performed By: #### C MP, TSH, LIPID #### [facility] [address], [place] [address] Dr. Josey Springer Cholesterol.total/Cho lesterol in HDL [Mass ratio] 3.6 {ratio} Normal [facility] Comment on above: Performed By: #### C MP, TSH, LIPID #### [facility] [address] [place], [place] [address] Dr. Josey Springer HDL NORMAL > or = 60 mg/dl - LO W CARDIOVASCULAR RISK <40 mg/dl - HIGH CARDIOVASCULAR RISK Normal [facility] Comment on above: Performed By: #### C MP, TSH, LIPID #### [facility] [id number] Josey Springer LDL CALC NORMAL SEE BELOW Normal [facility] Comment on above: Result Comment: <100 mg/dl OPTIMAL 100 - 129 mg/dl NEAR OR ABOVE OPTIMAL 130 - 159 mg/dl BORDERLINE HIGH 160 - 189 mg/dl HIGH >190 mg/dl VERY HIGH Performed By: #### C MP, TSH, LIPID #### [facility] [address] [place] [address] Dr. Josey Springer Triglyceride [Mass/Vol] 187 mg/dL Critically high <=[address] [facility] Comment on above: Performed By: #### C MP, TSH, LIPID #### [facility] [address] [place] [address] Dr. Josey Springer VLDL CALC 37.4 mg/dL Normal [facility] Comment on above: Performed By: #### C MP, TSH, LIPID #### [facility] [address] [place] [address] Dr. Josey Springer PROF 14(COMP METB)on 021 Albumin [Mass/Vol] 3.4 g/dL Critically low 3.5-5.0 [facility] Comment on above: Performed By: #### C MP, TSH, LIPID #### [facility] [address] [place] [address] Dr. Josey Springer Albumin/Globulin [Mass ratio] 0.8 {ratio} Normal [facility] Comment on above: Performed By: #### C MP, TSH, LIPID #### [facility] [address] [place] [address] Dr. Josey Springer ALP [Catalytic activity/Vol] 92 U/L Normal 38-[address] [facility] Comment on above: Performed By: #### C MP, TSH, LIPID #### [facility] [address] [place] [address] Dr. Josey Springer ALT [Catalytic activity/Vol] 180 U/L Critically high 9-[address] [facility] Comment on above: Performed By: #### C MP, TSH, LIPID #### [facility] [address] [place] [address] Dr. Josey Springer Anion gap [Moles/Vol] 10.8 mmol/L Normal [facility] Comment on above: Performed By: #### C MP, TSH, LIPID #### [facility] [address] [address] [address] Josey Springer AST [Catalytic activity/Vol] 70 U/L Critically high 14-[address] [facility] Comment on above: Performed By: #### C MP, TSH, LIPID #### [facility] [address] [address] [address] Josey Springer Bilirubin [Mass/Vol] 0.4 mg/dL Normal 0.2-1.[address] [facility] Comment on above: Performed By: #### C MP, TSH, LIPID #### [facility] [address] [address] [address] Josey Springer Calcium [Mass/Vol] 9.5 mg/dL Normal 8.4-10.2 [facility] Comment on above: Performed By: #### C MP, TSH, LIPID #### [facility] [address] [place] [address] Dr. Josey Springer Chloride [Moles/Vol] 102 mmol/L Normal 98-[address] [facility] Comment on above: Performed By: #### C MP, TSH, LIPID #### [facility] [address] [address] [address] Josey Springer CO2 [Moles/Vol] 32.7 mmol/L Critically high 22.0-30.[address] [facility] Comment on above: Performed By: #### C MP, TSH, LIPID #### [facility] [address] [address] [address] Josey Springer Creatinine [Mass/Vol] 0.60 mg/dL Normal 0.52-1.[address] [facility] Comment on above: Performed By: #### C MP, TSH, LIPID #### [facility] [address] [address] [address] Josey Springer EGFR-AF NIGERIEN >60 Normal >=60 [facility] Comment on above: Performed By: #### C MP, TSH, LIPID #### [facility] [address] [address] [address] Josey Springer EGFR-NON AF NIGERIEN >60 Normal >=[address] [facility] Comment on above: Performed By: #### C MP, TSH, LIPID #### [facility] [address] [address] [address] Josey Springer Globulin (S) [Mass/Vol] 4.1 g/dL Normal [facility] Comment on above: Performed By: #### C MP, TSH, LIPID #### [facility] [address] [address] [address] Josey Springer Glucose [Mass/Vol] 139 mg/dL Critically high 74-106 [facility] Comment on above: Performed By: #### C MP, TSH, LIPID #### [facility] [address] [address] [address] Josey Springer Potassium [Moles/Vol] 4.5 mmol/L Normal 3.4-5.[address] [facility] Comment on above: Performed By: #### C MP, TSH, LIPID #### [facility] [address] [place] [address] Dr. Josey Springer Protein [Mass/Vol] 7.5 g/dL Normal 6.1-8.2 [facility] Comment on above: Performed By: #### C MP, TSH, LIPID #### [facility] [address] [place] [address] Dr. Josey Springer Sodium [Moles/Vol] 141 mmol/L Normal 137-145 [facility] Comment on above: Performed By: #### C MP, TSH, LIPID #### [facility] [address] [place] [address] Dr. Josey Springer Urea nitrogen [Mass/Vol] 12.0 mg/dL Normal 7.0-17.[address] [facility] Comment on above: Performed By: #### C MP, TSH, LIPID #### [facility] [address] [place] [address] Dr. Josey Springer Urea nitrogen/Creatinine [Mass ratio] 20.0 mg/mg Normal [facility] Comment on above: Performed By: #### C MP, TSH, LIPID #### [facility] [address] [place] [address] Dr. Josey Springer TSHon 01-09-2021 TSH 1.819 uIU/mL Normal 0.470-4.680 [facility] Comment on above: Performed By: #### C MP, TSH, LIPID #### [facility] [address], [place] [address] Dr. Josey pSringer TSH RANGE SEE BELOW Normal [facility] Comment on above: Result Comment: <0.3 4 UIU/ml HYPERTHYROID 0.34-5.60 UIU/ml EUTHYROID >5.60 UIU/ml HYPOTHYROID Performed By: #### C MP, TSH, LIPID #### [facility] [address] [place], [place] [address] Dr. Josey Springer Vital Signs Date Time Vital Sign Value Performing Clinician Facility 10-27-2024 14:02-0400 Body height 152.4 cm Vitaliy Ball DO Work Phone: [facility] 10-27-2024 14:02-0400 Body mass index (BMI) [Ratio] 40.6 kg/m2 Vitaliy Ball DO Work Phone: [facility] 10-27-2024 14:02-0400 Body weight 94.34 kg Vitaliy Ball DO Work Phone: [facility] 10-27-2024 14:02-0400 Diastolic blood pressure 89 mm[Hg] Vitaliy Ball DO Work Phone: [facility] 10-27-2024 14:02-0400 Heart rate 76 /min Vitaliy Ball DO Work Phone: [facility] 10-27-2024 14:02-0400 Respiratory rate 12 /min Vitaliy Ball DO Work Phone: [facility] 10-27-2024 14:02-0400 Systolic blood pressure 150 mm[Hg] Vitaliy Ball DO Work Phone: [facility] 09-06-2024 09:00-0400 Body mass index (BMI) [Ratio] 39.02 kg/m2 Jonathan Kimberly DO Work Phone: [facility] 09-06-2024 09:00-0400 Body weight 90.63 kg Jonathan Kimberly DO Work Phone: [facility] 09-06-2024 09:00-0400 Diastolic blood pressure 84 mm[Hg] Jonathan Kimberly DO Work Phone: [facility] 09-06-2024 09:00-0400 Systolic blood pressure 134 mm[Hg] Jonathan Kimberly DO Work Phone: [facility] 07-15-2024 11:42-0400 Diastolic blood pressure 103 mm[Hg] Khadra Lue [facility] 07-15-2024 11:42-0400 Heart rate 82 /min Khadra Lue [facility] 07-15-2024 11:42-0400 Mean blood pressure 121 mm[Hg] Khadra Lue [facility] 07-15-2024 11:42-0400 Systolic blood pressure 156 mm[Hg] Khadra Lue [facility] 07-15-2024 11:40-0400 Blood Pressure Location Khadra Lue [facility] 07-15-2024 11:40-0400 Diastolic blood pressure 104 mm[Hg] Khadra Lue [facility] 07-15-2024 11:40-0400 Heart rate 79 /min Khadra Lue [facility] 07-15-2024 11:40-0400 Systolic blood pressure 158 mm[Hg] Khadra Lue [facility] 03-10-2024 08:17-0500 Body height 152.4 cm Luna Jhaveri DO Work Phone: [facility] 03-10-2024 08:17-0500 Body mass index (BMI) [Ratio] 37.85 kg/m2 Luna Aparna DO Work Phone: [facility] 03-10-2024 08:17-0500 Body weight 87.91 kg Luna Aparna DO Work Phone: [facility] 03-10-2024 08:17-0500 Diastolic blood pressure 86 mm[Hg] Luna Aparna DO Work Phone: [facility] 03-10-2024 08:17-0500 Heart rate 79 /min Luna Aparna DO Work Phone: [facility] 03-10-2024 08:17-0500 SaO2% (BldA) [Mass fraction] 98 % Luna Aparna DO Work Phone: [facility] 03-10-2024 08:17-0500 Systolic blood pressure 134 mm[Hg] Luna Aparna DO Work Phone: [facility] 10-20-2023 14:27-0400 Body height 152.4 cm [facility] 10-20-2023 14:27-0400 Body mass index (BMI) [Ratio] 37.5 kg/m2 [facility] 10-20-2023 14:27-0400 Body weight 87.2 kg [facility] 10-20-2023 14:27-0400 Diastolic blood pressure 75 mm[Hg] [facility] 10-20-2023 14:27-0400 Heart rate 69 /min [facility] 10-20-2023 14:27-0400 Respiratory rate 12 /min [facility] 10-20-2023 14:27-0400 Systolic blood pressure 142 mm[Hg] [facility] 09-17-2022 11:15-0400 Body height 154.94 cm Vitaliy Ball Other [facility] [employer] Other 09-17-2022 11:15-0400 Body mass index (BMI) [Ratio] 35.18 kg/m2 Vitaliy Ball Other [employer] Other 09-17-2022 11:15-0400 Body weight 84.46 kg Vitaliy Dale Other [employer] Other 09-17-2022 11:15-0400 Diastolic blood pressure 87 mm[Hg] Vitaliy Dale Other [employer] Other 09-17-2022 11:15-0400 Respiratory rate 12 /min Vitaliy Dale Other [employer] Other 09-17-2022 11:15-0400 Systolic blood pressure 136 mm[Hg] Vitaliy Dale Other [employer] Other Encounters Encounter Date Encounter Type Care Provider Facility Start: 09-28-2025 ambulatory Khadra Becker Facility:[facility] Start: 10-27-2024 End: 10-27-2024 ambulatory Vitaliy Dale DO Work Phone: [facility] Work Phone: Start: 10-27-2024 End: 10-27-2024 Patient encounter procedure Vitaliy Dale DO -[facility] Work Phone: Start: 10-27-2024 End: 10-27-2024 Patient encounter status Vitaliy Dale [facility] Start: 09-21-2024 End: 09-21-2024 ambulatory Khadra Becker Facility:[facility] Start: 09-06-2024 End: 09-06-2024 Bamboo flowsheet Jonathan Kimberly DO Work Phone: [facility] Start: 09-06-2024 End: 09-09-2024 Bamboo flowsheet Jonathan Kimberly DO Work Phone: [facility] Start: 09-06-2024 End: 09-09-2024 Clinisync Result Encounter Kell Black BUSINESS ENGLISH INSTRUCTOR Work Phone: [facility] Unsolicited Start: 09-06-2024 Non-patient / Non-visit Kell Sofia SARAH [facility] Work Phone: Start: 09-06-2024 End: 09-06-2024 Patient encounter status Jonathan Avilao DO Work Phone: [facility] Start: 09-06-2024 End: 09-06-2024 Periodic preventive med est patient 40-64yrs Jonathan Kimberly DO Work Phone: [facility] Comment on above: Encounter for adult wellness visit; Encounter for screening mammogram for malignant neoplasm of breast; Acquired absence of other genital organ(s); Depression, unspecified ; Pain of ovary; Pelvic pain in female Start: 09-06-2024 End: 09-06-2024 ambulatory JONATHAN AVILAO Not Available Start: 08-30-2024 End: 08-30-2024 Clinisync Result Encounter Jonathan Kimberly DO Work Phone: [facility] Unsolicited Start: 08-30-2024 End: 08-30-2024 Clinisync Result Encounter Jonathan Kimberly DO Work Phone: [facility] Unsolicited Start: 08-09-2024 End: 08-09-2024 ambulatory Khadra Becker Facility:[facility] Start: 08-09-2024 End: 08-09-2024 Patient encounter procedure Khadra Becker [facility] Start: 07-27-2024 End: 07-27-2024 Admission to same day surgery center Khadra Becker [facility] Start: 07-27-2024 End: 07-27-2024 ambulatory Khadra Becker Facility:[facility] Start: 07-15-2024 End: 07-15-2024 ambulatory Khadra Becker Facility:[facility] Start: 07-15-2024 End: 07-15-2024 Patient encounter procedure Khadra Becker [facility] Start: 07-13-2024 ambulatory Khadra Becker Facility:[facility] Start: 06-08-2024 End: 06-08-2024 Office outpatient new 30 minutes Chapin Stauffer MD Work Phone: [facility] Comment on above: Lipoma of head (Prim blake Dx); Lentigines; Melanocytic nevus of trunk; Tinea pedis of right foot Start: 06-08-2024 End: 06-08-2024 ambulatory CHAPIN STAUFFER Not Available Start: 06-08-2024 End: 06-08-2024 Bamboadebayo flowsjv Stauffer MD Work Phone: [facility] Start: 06-08-2024 End: 06-08-2024 Bammomo Stauffer MD Work Phone: [facility] Start: 03-10-2024 End: 03-10-2024 Bamboo flowsheet Luna Aparna DO Work Phone: [facility] Start: 03-10-2024 End: 03-10-2024 Bamboo flowsheet Luna Aparna DO Work Phone: [facility] Start: 03-10-2024 End: 03-10-2024 ambulatory LUNA JHAVERI Not Available Start: 03-10-2024 End: 03-10-2024 Office outpatient visit 25 minutes Luna Aparna DO Work Phone: [facility] Comment on above: REMEDIOS (obstructive sle ep apnea) (Primary Dx); Hypoxia; Hypersomnia; Sleep deprivation; Snoring; Obesity (BMI 35.0-39.9 without comorbidity) Start: 10-20-2023 End: 10-20-2023 ambulatory [facility] Work Phone: Start: 10-20-2023 End: 10-20-2023 Encounter for general adult medical examination without abnormal findings [facility] Start: 10-20-2023 End: 10-20-2023 Patient encounter procedure [facility] Physician [facility] Work Phone: Start: 08-21-2023 Non-patient / Non-visit [facility] Physician [facility] [email or web address] Work Phone: Start: 09-17-2022 End: 09-17-2022 ambulatory Vitaliy Dale Other [facility] [employer] Other Start: 09-17-2022 Office outpatient visit 15 minutes Vitaliy Dale [facility] Start: 11-06-2021 End: 11-07-[address] JONATHAN HARRIS Facility:[facility] Start: 08-16-2021 End: 08-16-[address] JONATHAN HARRIS Facility:[facility] Start: 04-03-2021 End: 04-03-[address] VITALIY DALE Facility:[facility] Start: 01-13-2021 Encounter for genera l adult medical examination without abnormal findings DR VITALIY DALE [facility] Start: 01-09-2021 End: 01-10-[address] VITALIY DALE Facility:[facility] Start: 01-09-2021 End: 01-10-2021 Encounter for general adult medical examination without abnormal findings DR VITALIY DALE Facility:[facility] Start: 10-30-2019 End: 10-30-2019 Patient encounter procedure Charisma Mazariegos Work Phone: [facility] Start: 10-30-2019 Results Only Charisma Mazariegos Work Phone: Gastroenterology Start: 10-29-2019 End: 10-29-2019 Patient encounter procedure External Provider [facility] Start: 10-29-2019 Results Only External Provider Exter nal-NonCCF Procedures Date Procedure Procedure Detail Performing Clinician Start: 09-06-2024 IGP,APTIMA HPV,AGE GDLN Kell Sofia BUSINESS ENGLISH INSTRUCTOR Work Phone: Start: 08-30-2024 MM TOMOSYNTHESIS SCR EENING BI Jonathan Kimberly DO Work Phone: Start: 08-30-2024 Mammography Jonathan Fazi o DO Work Phone: Start: 07-27-2024 Cystoscopy Khadra Becker Start: 08-21-2023 Microscopic observat ion [Identifier] in Cervix by Cyto stain Luna Aparna DO Work Phone: Start: 02-27-2023 Mammography Luna Kim naomi DO Work Phone: Start: 10-30-2019 PT ED PATIENT INFORMATION Charisma Mazariegos Work Phone: Start: 10-29-2019 EXTERNAL LAB External P rovider Start: 10-29-2019 EXTERNAL IMAGING Service Parts Coordinator al Provider Appendectomy Khadra Becker Colonoscopy Khadra Becker Hysterectomy Khadra Becker Plan of Treatment Date Care Activity Detail Author Start: 08-28-2027 Screening for malign ant neoplasm of cervix [facility] Start: 08-20-2026 Screening for malign ant neoplasm of cervix Pap Smear [facility] Start: 09-12-2025 End: 09-12-2025 Patient encounter procedure 09/12/2025 9:00 AM EDT Office Visit [facility] [address] [place] [address] Jonathan Harris DO [address] [place] [address] [facility] Start: 08-30-2025 Screening for malign ant neoplasm of breast Mammogram [facility] Start: 06-09-2025 End: 06-09-2025 Patient encounter procedure 06/09/2025 3:30 PM EDT Office Visit [facility] [address] [place] [address] Chapin Stauffer MD [address] [place] [address] [facility] Start: 11-01-2024 Influenza vaccination [facility] Start: 09-06-2024 End: 09-06-2025 DXA Skeletal system Views for bone density DEXA bone density Imaging Routine Encounter For Adult Wellness Visit Acquired absence of other genital organ(s) Expected: 09/06/2024 (Approximate), Expires: 09/06/2025 [facility] Comment on above: Expected: 09/06/2024 (Approximate), Expires: 09/06/2025 Start: 09-06-2024 End: 11-07-2025 MG Breast - bilateral Screening Bilateral screening mammogram Imaging Routine Encounter For Adult Wellness Visit Encounter for screening mammogram for malignant neoplasm of breast Expected: 09/06/2024, Expires: 11/07/2025 [facility] Work Phone: Comment on above: Expected: 09/06/2024 , Expires: 11/07/2025 Start: 09-06-2024 End: 03-09-2025 US Pelvis US Pelvis w/ TV Imaging Routine Pain of ovary Pelvic pain in female Expected: 09/06/2024, Expires: 03/09/2025 [facility] Comment on above: Expected: 09/06/2024 , Expires: 03/09/2025 Start: 09-06-2024 End: 09-06-2024 Patient encounter procedure [facility] Comment on above: Arrived Start: 08-23-2024 End: 08-23-2024 Patient encounter procedure 08/23/2024 8:30 AM EDT Office Visit [facility] [address] [place] [phone] Jonathan Harris DO [address] [place] [address] [facility] Start: 06-08-2024 End: 06-08-2024 Patient encounter procedure 06/08/2024 4:00 PM EDT Office Visit [facility] [address] [place] [address] Chapin Stauffer MD [address] [place] [address] Arrived [facility] Comment on above: Arrived Start: 02-28-2024 Screening for malign ant neoplasm of breast Mammogram [facility] Start: 11-02-2023 Influenza vaccination Influenza Vacc ine (#1) [facility] Start: 11-02-2019 Influenza vaccination INFLUENZA (#1) [facility] Start: 01-21-2017 DIABETES SCREEN DIABETES SCREEN [facility] Start: 01-21-2017 LIPID SCREEN LIPID SCREEN [facility] Start: 2012 Mammography MAMMOGRAM [facility] Start: 01-21-2002 HPV TESTING HPV TESTING [facility] Start: 01-21-1993 PAP TESTING PAP TESTING [facility] Start: 01-21-1991 Urine microalbumin profile DTAP,TDAP,TD (1 - Tdap) [facility] Start: 01-21-1990 HEPATITIS C SCREENING HEPATITIS C SC REENING [facility] Start: 01-21-1990 HIV SCREENING HIV SCREENING [facility] Start: 1972 Screening for malign ant neoplasm of colon [facility] Comprehensive metabo lic 1999 panel - Serum or Plasma [facility] Comprehensive metabo lic 1999 panel - Serum or Plasma [facility] Microalbumin [Mass/volume] in Urine [facility] PT ED PATIENT INFORMATION PT ED PATIENT INFORMATION TONYA 10/30/2019 [facility] THIN PREP TIS PAP AN D HR HPV DNA THIN PREP TIS PAP AND HR HPV DNA Pathology and Cytology Routine Encounter for adult wellness visit Ordered: 09/06/2024 [facility] Comment on above: Ordered: 09/06/2024 [facility] Immunizations Immunization Date Immunization Notes Care Provider Maria Del Carmen diez 07-07-2020 COVID-19 mRNA, Comir luda (Pfizer) [facility] 06-15-2020 COVID-19 mRNA, Comir luda (Pfizer) [facility] 12-16-2019 influenza virus vacc ine, unspecified formulation [facility] Payers Date Payer Category Payer Private Health Insurance [id number] 2024 Unknown [id number] 2024 [facility] BCBS Memb er Subscriber Plan / Payer (Effective 2024-Present) Name: Renato Strickland Relation to Subscriber: Self Name: Renato Strickland Payer ID: Not on file Type: Not on file Address: [place] [id number] 2024 Unknown [id number] 2022 Private Health Insurance [id number] 2019 Private Health Insurance [employer] A ETNA CHOICE POS II [id number] 2019-Present POS [id number] 1972 Unknown [id number] 2.16.840.1.266718.3.579 .2.593 1972 Unknown [id number] 2.16.840.1.524229.3.579 .2.593 1972 Unknown [id number] 2.16.840.1.050438.3.579 .2.593 1972 Unknown [id number] 2.16.840.1.024215.3.579 .2.593 1972 Unknown [id number] 2.16.840.1.257513.3.579 .2.727 1972 Unknown [id number] 2.16.840.1.227823.3.579 .2.727 1972 Unknown [id number] 2.16.840.1.345882.3.579 .2.1259 1972 Unknown [id number] 2.16.840.1.729243.3.579 .2.1259 1972 Unknown [id number] 2.16.840.1.177286.3.579 .2.1259 1972 Unknown [id number] 2.16.840.1.733106.3.579 .2.727 1972 Unknown [id number] 2.16.840.1.119402.3.579 .2.727 1972 Unknown [id number] 2.16.840.1.170876.3.579 .2.727 1959 Private Health Insurance [id number] 1959 Unknown [id number] Private Health Insurance [id number] Self-pay Self Pay [id number] Social History Date Type Detail Facility Tobacco smoking stat [facility] Unknown if ever smoked [facility] Start: 1970 Sex Assigned At Not on file [facility] Exposure to SARS-CoV -2 (event) Not sure [facility] Start: 03-10-2024 End: 09-06-2024 Sex Assigned At [facility] Start: 02-02-2021 End: 08-21-2023 Tobacco smoking status AZIS Never smoked tobacco (finding) [facility] Start: 1970 Sex Assigned At Female F [facility] Start: 08-21-2023 Tobacco use and exposure Smoke less tobacco non-user [facility] Start: 03-10-2024 End: 09-06-2024 Alcoholic beverage intake Current drinker of alcohol (finding) [facility] Start: 03-10-2024 End: 09-06-2024 History of Social function [facility] Start: 08-21-2023 Alcohol Comment Very little [facility] Tobacco smoking status Never [facility] Sexual Orientation [facility] Start: 12-31-2013 Sex Female (finding) [facility] Medical Equipment Procedure Code Equipment Code Equipment Origin al Text Equipment Identifier Dates CYSTOSCOPY RETROGRADE STENT INSERTION Khadra Becker MD 07/27/24 Unknown Ureter L FDA Start: 07-27-2024 CYSTOSCOPY RETROGRADE STENT INSERTION Eugenio CALLAHAN, Khadra Brown 07/27/24 Unknown Ureter L FDA Start: 07-27-2024 Functional Status Date Assessment Result Facility 07-15-2024 Functional Status N/A [facility] Clinical Notes 09-17-2022 to 09-06-2024 Patt Alas - 09/06/2024 9:00 AM EDTRadiology Note Date & Type Note Facility 09-06-2024 History of Presen t illness Narrative Reason for Appointment: Patient ID: Renato Stirckland is a 54 y.o. female who presents for Gynecologic Exam Patient presents today for Annual Exam. MEDICATIONS Current Outpatient Medications Medication Instructions Multiple Vitamin (multivitamin) tablet 1 tablet, Daily venlafaxine XR (EFFEXOR XR) 37.5 mg, Oral, Daily ALLERGIES Allergies Allergen Reactions Demerol Hcl [Meperidine] GI intolerance Sulfa Antibiotics Other Spots all over not hives PROBLEMS Active Ambulatory Problems Diagnosis Date Noted No Active Ambulatory Problems Resolved Ambulatory Problems Diagnosis Date Noted No Resolved Ambulatory Problems Past Medical History: Diagnosis Date Abnormal mammogram of left breast Chronic venous insufficiency Elevated BP without diagnosis of hypertension Fibrocystic breast 2018 History of transfusion 10/1999 Hyperlipidemia IFG (impaired fasting glucose) NAFLD (nonalcoholic fatty liver disease) Obesity HISTORY PAST MEDICAL HISTORY SOCIAL HISTORY Past Medical History: Diagnosis Date Abnormal mammogram of left breast Chronic venous insufficiency Elevated BP without diagnosis of hypertension Fibrocystic breast 2018 History of transfusion 10/1999 Hyperlipidemia IFG (impaired fasting glucose) NAFLD (nonalcoholic fatty liver disease) Obesity Social History Tobacco Use Smoking status: Never Smokeless tobacco: Never Substance Use Topics Alcohol use: Yes Comment: Very little Drug use: Never FAMILY HISTORY Family History Problem Relation Name Age of Onset Hypertension Father Dad Stroke Father Dad Breast cancer Sister Elizabeth Stroke Maternal Grandmother Nangrzegorz Stroke Maternal Grandfather Poppie SURGICAL HISTORY Past Surgical History: Procedure Laterality Date APPENDECTOMY BREAST BIOPSY Left COLONOSCOPY HYSTERECTOMY REVIEW OF SYSTEMS Review of Systems: Review of Systems Constitutional: Negative. HENT: Negative. Eyes: Negative. Respiratory: Negative. Cardiovascular: Negative. Gastrointestinal: Negative. Genitourinary: Negative. Musculoskeletal: Negative. Skin: Negative. Neurological: Negative. All other systems reviewed and are negative. Hematological: Negative. Endocrine: Negative. Allergic/Immunologic: Negative. OBJECTIVE Objective: Physical Exam Constitutional: Appearance: Normal appearance. She is well-developed. Genitourinary: Vulva normal. Vaginal cuff intact. Cervix is absent. Uterus is absent. Breasts: Breasts are soft. Right: Normal. Left: Normal. Cardiovascular: Rate and Rhythm: Normal rate and regular rhythm. Pulmonary: Effort: Pulmonary effort is normal. Breath sounds: Normal breath sounds. Abdominal: General: Bowel sounds are normal. There is no distension. Palpations: Abdomen is soft. Tenderness: There is no abdominal tenderness. There is no guarding or rebound. Musculoskeletal: General: No swelling. Normal range of motion. Right lower leg: No edema. Left lower leg: No edema. Neurological: Mental Status: She is alert and oriented to person, place, and time. Skin: General: Skin is warm and dry. Psychiatric: Mood and Affect: Mood normal. Behavior: Behavior normal. Vitals and nursing note reviewed. Exam conducted with a sales order coordinator present. Vitals: Estimated body mass index is 39.02 kg/m as calculated from the following: Height as of 03/10/24: 5'. Weight as of this encounter: 199 lb 12.8 oz. BP: 134/84 No LMP recorded. Patient has had a hysterectomy. ASSESSMENT & PLAN ICD-10-CM 1. Encounter for adult wellness visit Z00.00 Bilateral screening mammogram DEXA bone density THIN PREP TIS PAP AND HR HPV DNA Bilateral screening mammogram 2. Encounter for screening mammogram for malignant neoplasm of breast Z12.31 Bilateral screening mammogram Bilateral screening mammogram 3. Acquired absence of other genital organ(s) Z90.79 DEXA bone density 4. Depression, unspecified F32.A venlafaxine XR (Effexor XR) 37.5 MG 24 hr capsule 5. Pain of ovary N94.89 US Pelvis w/ TV 6. Pelvic pain in female R10.2 US Pelvis w/ TV Orders Placed This Encounter Procedures Bilateral screening mammogram DEXA bone density US Pelvis w/ TV Annual Wellness Exam: Patient presents today for routine annual exam. Patient states she has complaints of pain on right side from time to time. Patients vitals were reviewed and within normal limits. Growth and development is noted to be appropriate for age. No mental health concerns was expressed. Pap Smear: Speculum was inserted into the vagina and pap was obtained without difficulty. HPV testing was performed per age guideline. Patient was advised that pap results could take anywhere from 7 to 10 days to receive and our office will reach out to the patient with those once we have them. Patient can also view results via [employer]. I reinforced importance of condom use for STI prevention. Patient declined cultures to be performed with today's visit. Breast Exam: Upon examination, clinical breast exam was noted to be normal and screening mammogram was ordered and given to patient to have obtained. Patient was counseled on breast self-awareness, including the importance of knowing what is normal for her own breasts and promptly reporting any changes such as new lumps, skin dimpling, nipple discharge, or pain. Screening mammogram was recommended annually. Discussed signs and symptoms of breast cancer and when to seek medical attention. Answered all patient questions. DEXA Counseling: DEXA scan ordered and given to the patient to have performed for osteoporosis screening per guidelines. Patient counseled on bone health, including the importance of calcium and vitamin D intake, weight-bearing exercise, fall prevention, and avoiding tobacco and excessive alcohol. Discussed purpose of DEXA in assessing fracture risk and monitoring bone density. Patient advised results will be reviewed upon completion and next steps discussed as needed. Follow Up: Patient is to return to our office in one year for annual exam unless needed otherwise. Documented by Patt Alas on behalf of: Jonathan Harris DO documented in this encounter [facility] 08-09-2024 Evaluation + Plan note Future Scheduled TestsUS Renal 08/09/24 [facility] 08-09-2024 Hospital Discharg e instructions Patient Education 08/09/2024 10:55:56 EU - Cystoscopy with Stent Removal Discharge Instructions (CUSTOM) Cystoscopy with Stent Removal Voiding after the procedure: there may be some pain, burning, urgency, frequency and blood tinged urine following the procedure. These symptoms usually resolve within 2-5 days. Drink the amount of fluid it takes to keep the urine pink to yellow or clear in color. Drinking enough water and fluids will help to ease any discomfort after your procedure. If you are having problems that seem out of the ordinary, please call. If unable to contact your physician and you feel it is an emergency, go to the nearest emergency room or call 911 Diet you may resume your normal diet. Activity you may resume your normal activities Call if you have a fever over 100 degrees. Follow Up Care 07/28/2024 11:48:35 With:Khadra Becker Address:Unknown When: Unknown Comments:Office will call with renal US results - to obtain at [facility] in 6-8 weeks. Follow up in 1 year with renal US for stone monitoring [facility] 08-09-2024 Note Patient Education Cystoscopy with Stent Removal ??? [...] you have a fever over 100 degrees. [facility] 07-27-2024 Evaluation + Plan note Extrac jamey from: Title:ZARIA Post-operative Note---General Author: Ramon Chu MD Date:07/27/24 Plan Transfer/Discharge: Transfer/Discharge Discharge when meets criteria ( To home ). Extracted from: Title:EU - Leftureteroscopy, laser lithotripsy, stent placement Author:Khadra Becker MD Date:07/27/24 Impression and Plan Diagnosis Ureteral stone with hydronephrosis (TFI49-TZ N13.2, Discharge, Medical). Diagnosis Ureteral stone with hydronephrosis ([id number] N13.2, Discharge, Medical). Extracted from: Title:ZARIA Pre-operative Note 2022 Author:Ramon Rowland Date:07/27/24 Plan [place] [employer] Anesthesiologists (ASA) physical status classification: Class II. Anesthetic Preoperative Plan: Anesthesia General. Diagnostic Tests Pending * Calculi Analysis Urinary 07/27/24 [facility] 05-27-2025 Hospital Discharge instructions Patient Education 07/27/2024 11:23:50 Post Op Patient Instructions - FT (Custom) (CUSTOM) 07/27/2024 11:14:56 Lue - Ureteroscopy, Laser Lithotripsy, Stone Extraction and Stent Placement Post-Op Instructions (CUSTOM) [facility] [place], [place] Post-operative Instructions for Ureteroscopy, Laser Lithotripsy, Stone Extraction and Stent Placement There are no incisions or dressings to be concerned with, as the procedure was performed inside theurinary system. For 24 hours after surgery: No driving or operating machinery Do not make important decisions Do not consume alcohol, sleeping pills Stent Placement You may have a stent which spans the distance between your bladder and your kidney, allowing urine to pass through. It prevents blockage from swelling, kidney stones in ureter (tube connecting the kidney to the bladder), or scars. The presence of the stent may cause: Back or side pain, especially with urination Frequent or urgent urination Bladder pressure or pain Blood in urine You may pass stone [...] is coming out. If you see a smalltube coming out, lay on your back, knees [...] other reasons. If it is to remain chcf, however, changes of the stent are required (about every 3-4 months). Diet You may resume your normal diet, but you may want to start slowly and avoid spicy food, caffeine, carbonated beverages and alcohol, especially if you have a stent. Your diet and fluid intake may makeirritation from the stent worse. Activity You may resume your normal activities, although you should take it easy on the day of the procedure. Minimizing activity may decrease the back discomfort and irritation from the stent, if present. Medications You may resume your home medications unless instructed otherwise. After 24 hours, you may restart aspirin, Coumadin (warfarin) and other blood thinners unless told otherwise. Take your prescribed medications as directed, including your antibiotics. You may also be given a prescription [...] 911) (This is not a complete list) Fever over 101.5 degrees, with or without chills Severe bleeding Severe drug reactions with itching, hives, rash, or severe flank pain Tenderness or swelling or the calves, chest pain, or shortness of breath Please call the office to arrange for your post-operative appointment if you do not hear from us within 1 week [phone] Follow Up Care 07/15/2024 12:13:33 With:Khadra Becker Address: [address], [address] [phone] Business (1) When: Unknown Comments:Office migue call to schedule your follow up after 2 weeks for cystoscopy, left ureteral stent removal [facility] 05-27-2025 NoteProgress Note-Physician Patient: RENATO STRICKLAND Age: 54 years Sex: Female : 1970 Associated Diagnoses: None Author: Ramon Chu MD Postoperative Information Postoperative disposition: Postoperative disposition: To PACU. Optimetrix number: Optimetrix number [id number]. Anesthetic utilized: General. Health Status Allergies: Allergic [...] Discharge when meets criteria ( To home ).[facility] Comment: Electronically Signed By: Ramon Chu MD\.br\Date and Time Signed: 07/27/24 12:42 EDT 07-27-2024 NotePatient Education - Text [facility] [place], [place] Post-operative Instructions for Ureteroscopy, Laser Lithotripsy, Stone Extraction and Stent Placement There are no incisions or dressings to be concerned with, as the procedure was performed inside theurinary system. For 24 hours after surgery: ??? [...] is coming out. If you see a smalltube coming out, lay on your back, knees [...] other reasons. If it is to remain chcf, however, changes of the stent are required (about every 3-4 months). Diet You may resume your normal diet, but you may want to start slowly and avoid spicy food, caffeine, carbonated beverages and alcohol, especially if you have a stent. Your diet and fluid intake may makeirritation from the stent worse. Activity You may [...] not hear from us within 1 week [phone] NoteProgress Note-Physician Patient: RENATO STRICKLAND Age: 54 years Sex: Female : 1970 [...] mL, IV, 150 mL/hr, Routine, Start date 257:00:00 EDT, 6.7 hour(s), Total volume (mL): 1,000, 82 kg, 1.88, m2 cefazolin additive + Sodium Chloride 0.9% intravenous solution 50 mL: 2 gm = 1 EA, Powder-Inj, IV Piggyback, Once, Stop date 07/27/24 7:00:00 EDT, Routine, Start date 07/27/24 7:00:00 EDT, 100 mL/hr,Infuse over 30 minute(s), HOLD if patient has [...] list: All Problems Anemia / SNOMED CT 840486515 / Confirmed Apnea, sleep / SNOMED CT 885720339 / Confirmed Fatty liver / SNOMED CT 4232116145 / Confirmed Frequent headaches / SNOMED CT 5989410485 / Confirmed Kidney stone / SNOMED CT 763454369 / Confirmed Ureteral stone with hydronephrosis / SNOMED CT 3229711350 / Confirmed Inactive: Diabetes / SNOMED CT 157458617 Inactive: HTN (hypertension) / SNOMED CT 3949417579, Active Problems (6) Anemia Apnea, sleep Fatty liver Frequent headaches Kidney stone Ureteral stone with hydronephrosis Histories Past Medical History: No active or resolved past medical history items have been selected or recorded. Family History: Anemia Mother Colon cancer Grandparent Hypertension Father Hyperlipidemia Father Arthritis Father Mother Breast cancer Sister Procedure history: Appendectomy (471100133). Hysterectomy (913796165). Colonoscopy (865007110). Social History Social & Psychosocial Habits Alcohol [...] (JULY 27 07:09) Weight 91.6 kg (JULY 27 07:33) BMI 38.13 (JULY 27 07:23) Measurements from flowsheet : Measurements 07/27/2024 7:33 EDT Height/Length Measured 155 cm Weight Measured 91.6 kg 07/27/2024 7:23 EDT Hei (more content not included)...[facility] Comment on above:Result Comment: Electronically Signed By: Vlad CALLAHAN, Ramon Bennett\.br\Date and Time Signed: 07/27/24 08:49 [id number] Hospital Discharge instructions Patient Education 07/15/2024 11:25:43 Dietary Guidelines to Help Prevent Kidney Stones Dietary Guidelines to Help Prevent Kidney Stones [...] for following this plan? Reading food labels Choose foods with no salt added or low-salt labels. Limit your salt (sodium) intake to less than 1,500 mg a day. Choose foods with calcium for each meal and snack. Try to eat about 300 mg of calcium at each meal.Foods that contain 200 500 mg of calcium a serving include: ?8 oz (237 mL) of milk, bzaxsnc-zjinuqaeffks-ogthk milk, and calcium- fortifiedfruit juice. Calcium-fortified means that calcium has been added to these drinks. ?8 oz (237 mL) of kefir, yogurt, and soy yogurt. ?4 oz (114 g) of tofu. ?1 oz (28 g) of cheese. ?1 cup (150 g) of dried figs. ?1 cup (91 g) of cooked broccoli. ?One 3 oz (85 g) can of sardines or mackerel. Most people need 1,000 1,500 mg of calcium a day. Talk to your dietitian about how much calcium is recommended for you. Shopping Buy plenty of fresh fruits and vegetables. Most people do not need to avoid fruits and vegetables, even if these foods contain nutrients that may contribute to kidney stones. When shopping for convenience foods, choose: ?Whole pieces of fruit. ?Pre-made salads with dressing on the side. ?Low-fat fruit and yogurt smoothies. Avoid buying frozen meals or prepared deli foods. These can be high in sodium. Look for foods with live cultures, such as yogurt and kefir. Choose high-fiber grains, such as whole-wheat breads, oat bran, and wheat cereals. Cooking Do not add salt to food when cooking. Place a salt shaker on the table and allow each person to addtheir own salt to taste. Use vegetable protein, such as beans, textured vegetable protein (TVP), or tofu, instead of meat inpasta, casseroles, and soups. Meal planning Eat less salt, if told by your dietitian. To do this: ?Avoid eating processed or pre-made food. ?Avoid eating fast food. Eat less animal protein, including cheese, meat, poultry, or fish, if told by your dietitian. To dothis: ?Limit the number of times you have meat, poultry, fish, or cheese each week. Eat a diet free of meat at least 2 days a week. ?Eat only one serving each day of meat, poultry, fish, or seafood. ?When you prepare animal proteins, cut pieces into small portion sizes. For most meat and fish, oneserving is about the size of the palm of your hand. Eat at least five servings of fresh fruits and vegetables each day. To do this: ?Keep fruits and vegetables on hand for snacks. ?Eat one piece of fruit or a handful of berries with breakfast. ?Have a salad and fruit at lunch. ?Have two kinds of vegetables at dinner. You may be told to limit foods that are high in a substance called oxalate. These include: ?Spinach (cooked), rhubarb, beets, sweet potatoes, and German chard. ?Peanuts. ?Potato chips, monegasque fries, and baked potatoes with skin on. ?Nuts and nut products. ?Chocolate. If you regularly take a diuretic medicine, make sure to eat at least 1 or 2 servings of fruits or vegetables that are high in potassium each day. These include: ?Avocado. ?Banana. ?[place], prune, carrot, or tomato juice. ?Baked potato. ?Cabbage. ?Beans and split peas. Lifestyle Drink enough fluid to keep your urine pale yellow. This is the most important thing you can do. Spread your fluid intake throughout the day. If you drink alcohol: ?Limit how much you have to: ?0 1 drink a day for women who are not . ?0 2 drinks a day for men. ?Know how much alcohol is in your drink. In the [place] one drink equals one 12 oz bottle of beer (355 mL), one 5 oz glass of wine (148 mL), or one 1 oz glass of hard liquor (44 mL). Lose weight if told by your health care provider. Work with your dietitian to find an eating plan and weight loss strategies that work best for you. General information Talk to your health care provider and dietitian about taking daily supplements. Depending on your health and the cause of your kidney stones, you may be told: ?Do not take high-dose supplements of vitamin C (1,000 mg a day or more). ?To take a calcium supplement. ?To take a daily probiotic supplement. ?To take other supplements such as magnesium, fish oil, or vitamin B6. Take kzpc-jid-qklvtwb and prescription medicines only as told by [...] Casseroles. Pizza. Lasagna. Frozen meals. Potato chips. Algerian fries. The items listed above may not be a complete list of foods and beverages you should limit. Contact a dietitian for more information. What foods should I avoid? Talk to your dietitian about specific foods you should avoid based on the type of kidney stones youhave and your overall health. Fruits Grapefruit. The item listed above may not be a complete list of foods and beverages you should avoid. Contact adietitian for more information. Summary Kidney stones are deposits of minerals and salts that form inside your kidneys. You can lower your risk of kidney stones by making changes to your diet. The most important thing you can do is drink enough fluid. Drink enough fluid to keep your urine pale yellow. Talk to your dietitian about how much calcium you should have each day, and eat less salt and animal protein as told by your dietitian. This information is not intended to replace advice given to you by your health care provider. Make sure you discuss any questions you have with your health care provider. Document Revised: 05/30/2022 Document Reviewed: 05/30/2022 [employer] Patient Education 2023 Space Pencil. Follow Up Care 07/13/2024 14:59:00 With:Eugenio CALLAHAN, BENI Gtz, URO Address: When: Unknown [facility] 05-15-2025 NotePatient Education Nephrology Dietary Guidelines to Help Prevent [...] labels. Limit your salt (sodium) intake to lessthan 1,500 mg a day. ??? Choose foods with calcium for each meal and snack. Try to eat about 300 mg of calcium at each meal. Foods that contain 200?500 mg of calcium a serving include: ? 8 oz (237 mL) of milk, qokqlzg-juxyelrlfxjs-yyzpr milk, and calcium- fortifiedfruit juice. Calcium-fortified means [...] on the table and allow each person toadd their own salt to taste. ??? Use [...] Spinach (cooked), rhubarb, beets, sweet potatoes, and German chard. ? Peanuts. ? Potato chips, monegasque fries, and baked potatoes with skin on. ? Nuts and nut products. ? Chocolate. ??? If you regularly take a diuretic medicine, make sure to eat at least 1 or 2 servings of fruits or vegetables that are high in potassium each day. These include: ? Avocado. ? Banana. ? [place], prune, carrot, or tomato juice. ? Baked potato. ? Cabbage. ? Beans and split peas. Lifestyle ??? Drink enough fluid to keep your urine pale yellow. This is the most important thing you can do.Spread your fluid intake throughout the day. ??? [...] fish oil, or vitamin B6. ??? Take jbln-trs-kfqzdgm and prescription medicines only as told by your health (more content not included)...[facility]04-08-2025 History of Present illness Narrative* Chapin Stauffer MD - 06/08/2024 4:00 PM EDT Images from the original note were not included. Skin Check Location: Patient requests a full body skin examination Dermatologic history: no history of skin cancer, no history of atypical moles, no family history ofmelanoma Last visit: first skin check New patient [...] lipoma would be to have it removed andtested. Discussed observation vs. excision. Patient elected for [...] benign pigmented lesions that occur on sun-exposed andsun-damaged skin. No treatment is necessary. Recommended regular [...] Next Visit: 1 year documented in this encounterMissouri [facility] [id number] History of Present illness Narrative* Luna Kimner, DO - 03/10/2024 8:15 AM EST Images from the original note were not included. No chief complaint on file. Subjective eRnato Strickland, 54 y.o., female HPI She is here in follow up from the sleep lab. She is getting anywhere from 4-7 hrs a night of sleep.She does not think that she gets good sleep. Her used to work midnights and wakes her up atnight. She is wearing her machine nightly. She did have a 2 week period that she did not wear it due to traveling in [place]. She denies any issues with her machine. She will need a prescription for supplies. She is not sleeping any without the machine on. Her sleep is off which makes her sleep off. Her memory is about the same. She is not having any morning headaches like she did before. [place] [...] Stroke Maternal Grandmother Karey Stroke Maternal Grandfather Poppie Social History Tobacco Use Smoking status: Never [...] sleep apnea with hypoxia leading to daytime hypersomnolenceand snoring. Patient had a apnea-hypopnea index of [...] on some weight loss however again at thistime she is not interested. Plan Compliance data [...] was counseled on the risks of stroke, [place], and sudden with REMEDIOS, along with the [...] to clinic: 1 year documented in this encounterMissouri Rehabilitation [id number] Evaluation note* Encounter Date Diagnosis Assessment Notes Treatment Notes Treatment Clinical Notes Aug, Sebaceous cyst (ICD-10 - L72.3) [...] Reduce calories, increase activity for weight loss [employer] Other Evaluation + Plan note Future Appointments Appointment Date:07/23/2024 01:00:00 PM Scheduled Provider: Location:[facility] Appointment Type:Surgery CALL PAT FT Appointment Date:07/27/2024 09:00:00 AM Scheduled Provider: Location:[facility] Appointment Type:Surgery FT [facility] Evaluation note* Diagnosis Onset Date Resolution Status Chronic venous insufficiency of lower extremity acute Hypercholesterolemia acute Hypertension acute Metabolic dysfunction-associ ated steatotic liver disease (MASLD) acute Wellness examination noneact nader [facility] Work Phone: Evaluation note* Diagnosis REMEDIOS (obstructive sleep apnea)- Primary Obstructive sleep apnea (adult) (pediatric) Hypoxia Hypoxemia Hypersomnia Hypersomnia, unspecified Sleep deprivation Problems related to lack of adequate sleep Snoring Other dyspnea and respiratory abnormality Obesity (BMI 35.0-39.9 without comorbidity) documented in this encounter [facility] HealthcareEvaluation note* Diagnosis Lipoma of head- Primary Lentigines Melanocytic nevus of trunk Benign neoplasm of skin of trunk, except scrotum Tinea pedis of right foot documented in this encounter [facility] HealthcareEvaluation note* Diagnosis Encounter for adult wellness visit Encounter for screening mammogram for malignant neoplasm of breast Acquired absence of other genital organ(s) Depression, unspecified Pain of ovary Pelvic pain in female Unspecified symptom associated with female genital organs documented in this encounter [facility] HealthcareEvaluation note* Diagnosis Onset Date Resolution Status Admit Date [...] 27 1:51pm Wellness examination noneactive 2024 1:51pm [facility] Work Phone: History general Narrative - Reported* Type Description Date Medical History T2DM Medical History Eustachian tube dysfunction, tatiana ateral Medical History Elevated blood pressure (not hyp ertension) Medical History BPPV (benign paroxysmal position al vertigo) Medical History Impaired fasting glucose Medical History Hyperlipidemia type II Medical History Chronic venous insufficiency Medical History Nonalcoholic fatty liver disease Medical History Abnormal mammogram of left breas t Surgical History EXPLORATORY LAPAROSC OPY RUPTURED OVARIAN CYST REPAIR-NOT SURE WHICH SIDE/APPENDECTOMY 1998 Surgical History EXPLORATORY LAP Surgical History PARTIAL HYSTERECTOMY WITH ONE O VARY REMAINING Hospitalization History SEE ABOVE [employer] Other Hospital course Narrative No data available for this section [facility] Progress note No data available for this section [facility] Reason for referral (narrative)No reason for referral information available[facility] Work [facility]: Summary Purpose Family History Relationship Condition Age at Onset Recorded Date/T darcy father Hypertension Unknown High blood cholesterol Unknown Diverticulitis Unknown sister Malignant neoplasm of breast Unknown brother Diverticulitis Unknown grandparent Diabetes mellitus Unknown grandparent Malignant neoplasm of colon Unknown Relationship Condition Age at Onset Recorded Date/T darcy father Hypertension Unknown High blood cholesterol Unknown Diverticulitis Unknown sister Malignant neoplasm of breast Unknown brother Diverticulitis Unknown grandparent Diabetes mellitus Unknown Malignant neoplasm of colon Unknown Heart disease Unknown Hypertension Unknown Cerebrovascular accident (CVA) Unknown Advance Directives Advance Directive Response Recorded Date/ Time Advance Directives No January 31, 2021 8:16am Chief Complaint and Reason for Visit Chief Complaint wellness Reason for Visit Chronic venous insuf ficiency of lower extremity Hypercholesterolemia Hypertension Metabolic dysfunction-associated steatotic liver disease (MASLD) Wellness examination Chief Complaint Admit Date Wellness October 27, [...] Wellness examination October 27, 2024 1 :51pm Additional Source Comments Source Comments (unrecognize d section and content) In the event this informatio n is protected by the Federal Confidentiality of Alcohol and Drug Abuse Patient Records regulations: The Federal rules restrict any use of the information to criminally investigate or prosecute any alcohol or drug abuse patient.[facility] Cancer CenterIn the event this information is protected by the Federal Confidentiality of Alcohol and Drug Abuse Patient Records regulations: The Federal rules restrict any use of the information to criminally investigate or prosecute any alcohol or drug abuse patient.[facility] INFORMATION SOURCE (unrecogn ized section and content) DATE CREATED AUTHOR 04/09/2021 [facility] DATE CREATED AUTHOR AUTHOR'S ORGANIZ ATION 11/11/2021 [facility] DATE CREATED AUTHOR AUTHOR'S ORGANIZ ATION 07/30/2024 [facility] DATE CREATED AUTHOR AUTHOR'S ORGANIZ ATION 09/09/2024 [facility] DATE CREATED AUTHOR AUTHOR'S ORGANIZ ATION 09/30/2024 [facility] REASON FOR VISIT (unrecogniz ed section and content) Reason Comments Sleep Apnea Reason Comments Skin Check Reason Comments Gynecologic Exam Care Teams (unrecognized sec tion and content) Team Status: Active Member Role Status Dates Vitaliy Dale DO Primary Care Provider Active Team Status: Active Member Role Status Dates Vitaliy Dale DO Primary Care Provider Active Start: August 21, 2023 Jonathan Harris DO Attending Provider Active Start : August 21, 2023 Team Status: Inactive Member Role Status Dates Vitaliy Dale DO Primary Care Provide r, Attending Provider Active Start: October 20, 2023 End: October 20, 2023 Char Conveyor Tender Cellar Relationship Specialty Start Date End Date Vitaliy Dale MD [address] [place] [facility] [address] PCP - General Internal Medicine 08/19/22 Char Conveyor Tender Cellar Relationship Specialty Start Date End Date Vitaliy Dale MD [address] [place] [facility] [address] PCP - General Internal Medicine 08/19/22 Char Conveyor Tender Cellar Relationship Specialty Start Date End Date Vitaliy Dale MD [address] [place] [facility] [address] PCP - General Internal Medicine 08/19/22 Char Conveyor Tender Cellar Relationship Specialty Start Date End Date Vitaliy Dale MD [address] [place] [facility] [address] PCP - General Internal Medicine 08/19/22 Char Conveyor Tender Cellar Relationship Specialty Start Date End Date Vitaliy Dale DO PCP - General Internal Medicine 08/19/22 Char Conveyor Tender Cellar Relationship Specialty Start Date End Date Vitaliy Dale DO [address] [place] [facility] [address] PCP - General Internal Medicine 08/19/22 Char Conveyor Tender Cellar Relationship Specialty Start Date End Date Vitaliy Dale DO [address] [place] [facility] [address] PCP - General Internal Medicine 08/19/22 Team Status: Active Member Role Status Dates Vitaliy Dale DO Primary Care Provider Active Start: September 06, 2024 Kell Black APRN BUSINESS ENGLISH INSTRUCTOR-C Attending Provider Active Start: September 06, 2024 Team Status: Inactive Member Role Status Dates Vitaliy Dale DO Primary Care Provider Active Start: October 27, 2024 End: October 27, 2024 Vitaliy Dale DO Attending Provider Active Sta rt: October 27, 2024 End: October 27, 2024 Goals (unrecognized section and content) Goals may [...] BE BASED ON THE PRIMARY CLINICAL RECORDS. [facility] [employer] [facility]. provides no warranty or guarantee of the accuracy or completeness of information in this document.
[2024-10-28 08:55] LABS: Hematocrit 41.1 % (36.0-48.0); Hemoglobin 13.5 g/dL (12.0-16.0); Immature Granulocytes Abs Auto 0.01 10^3/uL (0.00-0.03); Immature Granulocytes Pct Auto 0.2 % (0.0-0.5); Lymphocytes Absolute Auto 2.0 10^3/uL (1.2-3.8); Mean Corpuscular HGB Conc 32.8 g/dL (29.9-35.2); Mean Corpuscular Hemoglobin 29.1 pg (26.7-34.0); Mean Corpuscular Volume 88.6 fL (81.0-99.0); Platelet Count 213 10^3/uL (150-450); Red Blood Count 4.64 10^6/uL (4.20-5.40); White Blood Count 6.1 10^3/uL (4.0-11.0)
[2024-10-28 09:43] LABS: Alanine Aminotransferase 197 U/L (14-59); Albumin Globulin Ratio 0.9; Albumin Level 3.6 g/dL (3.4-5.0); Alkaline Phosphatase 90 U/L (46-116); Anion Gap 10.1; Aspartate Amino Transferase 89 U/L (15-37); Blood Urea Nitrogen 12.0 mg/dL (7.0-18.0); Calcium 9.5 mg/dL (8.5-10.1); Carbon Dioxide 31.2 mmol/L (21.0-32.0); Chloride 103 mmol/L (98-107); Cholesterol 225 mg/dL (<=200); Estimated GFR (African America >60 (>=60 mL/min/1.73m^2); Estimated GFR (Non-African Ame >60 (>=60 mL/min/1.73m^2); Globulin 3.9 g/dL; Glucose 139 mg/dL (74-106); HDL Cholesterol 72 mg/dL (40-60); Potassium 4.3 mmol/L (3.5-5.1); Sodium 140 mmol/L (136-145); Thyroid Stimulating Hormone 2.836 uIU/mL (0.358-3.740); Total Protein 7.5 g/dL (6.4-8.2); Triglycerides 141 mg/dL (<=150); VLDL CHOLESTEROL 28.2 mg/dL
== END 2024-10-28 08:33 | disposition home or self-care (01) ==
LOC: LAB 08:32
PROVIDERS: PCP Internal Medicine; Visit Provider Internal Medicine
DX: Z00.00 Encounter for general adult medical examination without abnormal findings (principal)
CPT/HCPCS: 36415; 80053; 80061; 84443; 85025

== ENCOUNTER 2024-11-22 07:09 | Outpatient (OUT) | payer BC, SELFPAY ==
--- OUTSIDE RECORDS SUMMARY | 2024-11-22 07:12 | XMS_ITS | CCD ---
Author Organization [facility] Team Providers Care Holder Pile Driving Name Role Phone Unavailable Primary Care Provider [...] Care Provider VITALIY DALE Primary Care Physician [phone] Khadra Becker Attending Unavailable Khadra Becker Referring Unavailable Khadra Becker MStarla Admitting Unavailable Khadra Becker MStarla Attending Unavailable Vitaliy Dale DO Primary Care Provider Vitaliy Dale DO Primary Care Provider CHAPIN STAUFFER Attending Unavailable JONATHAN HARRIS Attending Unavailable LUNA JHAVERI Attending Unavailable Khadra Becker Attending Unavailable Eugenio Khadra MStarla Referring Unavailable Lue Khadra MStarla Admitting Unavailable Lue Khadra MStarla Attending Unavailable Eugenio Khadra MStarla Admitting Unavailable Anayae Khadra MStarla Attending Unavailable Khadra Becker MStarla Referring Unavailable Vitaliy Dale DO Primary Care Provider Kell Black APRN Attending Provider Vitaliy Dale DO Attending Provider Allergies Allergy Classification Reported Allergen(s) Allergy Type Date of Onset Reaction(s) Facility (5 sources) Adhesive bandage; Translations: [Adhesive Bandage] Drug allergy (disorder) 5 Unknown (qualifier value) [facility] Repository (3 sources) Meperidine; Translations: [Demerol] Drug Allergy 5 [facility] (1 source) Sulfonamides (Antibiotic) Drug allergy (disorder) 5 [facility] (19 sources) Meperidine; Translations: [meperidine] Drug Allergy 3 GI intolerance, Vomiting (disorder) [facility] (3 sources) Sulfacetamide Drug Allergy 4 hives [facility] (2 sources) sulfADIAZINE Drug Allergy 4 Unknown Reaction [facility] Comment on above: Onset Date: 08/09/19 20 (2 sources) Sulfonamides (Antibiotic) Allergy to substance 4 Rash [facility] (11 sources) Sulfonamides (Antibiotic) Propensity to adverse reactions 3 Other [facility] (3 sources) Sulfonamide; Translations: [sulfa drugs] Allergy to substance 3 Other (qualifier value) [facility] Comment on above: Outside Source Comme nt: Spots all over not hives (2 sources) Sulfonamides (Antibiotic); Translations: [sulfa drugs] Propensity to adverse reactions (disorder) 3 [facility] Repository Medications Current Medications Medication Drug [...] day(s), # 2 tab(s), Refills(s) 0, Pharmacy: [facility]/pharmacy #[id number], 155, cm, 07/27/24 7:32:00 EDT, [...] Take 1 tablet by mouth Daily Active Vt-Xh-Qbzv-Fa-Ca Carb-Vit K (1 source) Start: 02-02-2021 take 1 tablet by mouth once daily Xx-Wk-Niob-Fa-Ca Carb-Vit K Active 1 TAB PO Daily February 02, 2021 1:00am Om-Ha-Lobr-Fa-Ca Carb-Vit K 18 mg iron-400 mcg-500 mg Tablet (1 source) Start: 02-02-2021 take 1 tablet by mouth once daily Jw-Ez-Bnlo-Fa-Ca Carb-Vit K 18 mg iron-400 mcg-500 mg [...] pain, # 90 tab(s), Refills(s) 0, Pharmacy: [facility]/pharmacy #[id number], 155, cm, 07/27/24 7:32:00 EDT, [...] Discontinued 2.5 MG SUBCUT every week 2 Colma 19th, 2024 12:00am February 23, 2024 5:37pm [...] MD Transcribed by: ALBARO Technologist: BURKE Flores [facility] IGP,APTIMA HPV,AGE GDLNon AGE GDLN ACOG TESTING Note . [facility] Comment on above: TESTS RESULT FLAG UN ITS REF RANGE LAB Clinician Provided Cytology Information Source.............Vagina No. of containers..01 ThinPrep Vial Age Algo ACOG Maria Del Carmen... FLAG LEGEND: L-Low Normal,H-High Normal,LL-Alert Low,HH-Alert High <-Panic Low,>-Panic High,A-Abnormal,AA-Critical Abnormal Performed at: 01 =[address] [place] [address] Rosa Mckeon MD, HPV APTIMA Negative Negative [facility] Comment on above: This nucleic acid am plification test detects fourteen high- risk HPV types (16,18,31,33,35,39,45,51,52,56,58,59,66,68) without differentiation. Performed at: =[address] [id number] [employer] [place] Head: Rosa Mckeon MD, Phone: [phone] Performed at: [address] [id number] [employer] [place] Head: Rosa Mckeon MD, Phone: [phone] IGP, APTIMA HPV, RFX 16/18,45 Note . [facility] Comment on above: TESTS RESULT FLAG UN ITS REF RANGE LAB DIAGNOSIS: 02 NEGATIVE FOR INTRAEPITHELIAL LESION OR MALIGNANCY. Specimen adequacy: 02 Satisfactory for evaluation. Performed by: Ro Wilkerson, Supervisor [employer] ([facility]) . 02 Note: Note 02 [...] <-Panic Low,>-Panic High,A-Abnormal,AA-Critical Abnormal Performed at: 02 [facility] [address] [place] [address] Rosa Mckeon MD, SPATULA-ALONE VAGINA [facility] Human papilloma virus 16+18+ 31+33+35+39+45+51+52+56+58+59+66+68 DNA [Presence] in CerOrdered By: Kell Black on 09-06-2024 HPV 16+18+31+33+35+39+45+ 51+52+56+58+59+66+68 DNA Probe+sig amp Ql (Cvx) Negative Negative [facility] Comment on above: This nucleic acid am plification test detects fourteen high- risk HPV types (16,18,31,33,35,39,45,51,52,56,58,59,66,68)without differentiation.Performed at: = - [facility] [address] [id number] Director: Rosa Mckeon MD, Phone: [phone] at: - [facility] [id number] Director: Rosa Mckeon MD, Phone: [phone] No Panel InformationOrdered By: Kell Black on 09-06-2024 HPV High Risk Other Comment Note . [facility] Comment on above: TESTS RESULT FLAG UN ITS REF RANGE LAB D IAGNOSIS: 02 NEGATIVE FOR INTRAEPITHELIAL LESION OR MALIGNANCY.Specimen adequacy: 02 Satisfactory for evaluation.Performed by: 02 Skyla Wilkerson Supervisor [employer] ([employer]). 02Note: Note 02 The Pap smear [...] <-Panic Low,>-Panic High,A-Abnormal,AA-Critical Abnormal ----Performed at:[address] [address] Rosa Mckeon MD, Reference Lab Test Patient Age Note . [facility] Comment on above: TESTS RESULT FLAG UN ITS REF RANGE LAB Clinician Provided Cytology Information Source.............Vagina No. of containers..01 ThinPrep VialAge Shawn BEST Maria Del Carmen... 30 FLAG LEGEND: L-Low Normal,H-High Normal,LL-Alert Low,HH-Alert High <-Panic Low,>-Panic High,A-Abnormal,AA-Critical Abnormal ----Performed at:01 =G [address] [address] Rosa Mckeon MD, MM TOMOSYNTHESIS SCREENING B Ion 08-30-2024 [place] [address] Mammography Report Signed Patient: RENATO STRICKLAND MR#: [id number] : 1970 Acct:[id number] Age/Sex: 54 / F ADM Date: 08/30/24 Loc: MAMMO Attending Dr: Jonathan Harris D.O. Ordering Physician: Jonathan Harris D.O. Results: Date of Service: 08/30/24 Follow Up: Procedure(s): MM tomosynthesis screening BI Accession Number(s): [id number] cc: Vitaliy Dale D.O.; Jonathan Harris D.O. Patient Name: RENATO STRICKLAND MR#: [id number] : 1970 Exam Date: 08/30/2024 Ordering Doctor: [...] colon cancer at age 72. LOCATION: [facility] BREAST COMPOSITION: There are scattered areas [...] Signed By: 08/30/24 161 DD/ 161 TD/TT: Insurance Account Manager: [facility] Radiology, Radiologvida calloway MD - 08/30/2024 [place] [address] Mammography Report Signed Patient: RENATO STRICKLAND MR#: [id number] : 1970 Acct:[id number] Age/Sex: 54 / F ADM Date: 08/30/24 Loc: MAMMO Attending Dr: Jonathan Harris D.O. Ordering Physician: Jonathan Harris D.O. Results: Date of Service: 08/30/24 Follow Up: Procedure(s): MM tomosynthesis screening BI Accession Number(s): [id number] cc: Vitaliy Dale D.O.; Jonathan Harris D.O. Patient Name: RENATO STRICKLAND MR#: [id number] : 1970 Exam Date: 08/30/2024 Ordering Doctor: [...] colon cancer at age 72. LOCATION: [facility] BREAST COMPOSITION: There are scattered areas [...] M.D. Signed By: 08/30/241610 DD/ 09 TD/TT: Insurance Account Manager: [facility] Radiology Study observation (narrative) [facility] R2G MM TOMOSYNTHESIS SCREENING B IOrdered By: Radiologist Radiology on 08-30-2024 [facility] R2G Work Phone: H&P Updateon 08-09-2024 H&P Update [...] Health Status Procedure history: Cystoscopy, stent placement ([id number]) on 07/27/2024 at 54 Years. Appendectomy (985881056). Hysterectomy (722690430). Colonoscopy (716541915). Social History Social & Psychosocial Habits Alcohol [...] pain, # 90 tab(s), Refills(s) 0, Pharmacy: [facility]/pharmacy #[id number], 155, cm, 07/27/24 7:32:00 EDT, [...] list: All Problems Anemia / SNOMED CT 222970758 / Confirmed Apnea, sleep / SNOMED CT 157875672 / Confirmed Fatty liver / SNOMED CT 2628296085 / Confirmed Frequent headaches / SNOMED CT 5013159810 / Confirmed Kidney stone / SNOMED CT 217953618 / Confirmed Ureteral stone with hydronephrosis / SNOMED CT 6070944710 / Confirmed Inactive: Diabetes / SNOMED CT 027709058 Inactive: HTN (hypertension) / SNOMED CT 0056993486 Normal [facility] Inpatient Patient Summaryon 08-09-2024 Inpatient Patient Summary Inpatient Patient Summary [address] [address] Clinical Summary Person Information Name: SENG, RENATO R Age: 54 Years : 1970 Sex: Female PCP: VITALIY DALE DO Marital Status: Phone: [phone] Race: White Ethnicity: Non- or Language: Lebanese Visit Id: Visit Reason: URETERAL STONE WITH HYDRONEPHROSIS Speciality: Acuity: Enc Type: Outpatient Med Service: Surgery Arrival: 08/09/2024 10:23:52 Discharge: Dispo Type: Address: [address] [place] [address] [address] [place] [phone] Provider Notes: Diagnosis: Encounter for removal of [...] renal US results - to obtain at [facility] in 6-8 weeks. Follow up in 1 year with renal US for stone monitoring Patient Education Information: EU - Cystoscopy with Stent Removal Discharge Instructions (CUSTOM) [facility] Main OR Intraoperative Recor don 08-09-2024 Main OR Intraoperative Record Main OR Intraoperative Record IntraOp Document Type FTURO Summary Primary Physician: Khadra Becker MD Finalized Date/Time: 08/09/24 10:55:44 Pt. Name: RENATO STRICKLAND /Sex: 1970 Female Med Rec #: [id number] Physician: Khadra Becker MD Financial #: [id number] Pt. Type: O Room/Bed: / Admit/Disch: 08/09/24 [...] Sunday Pelletier Role Performed Surgeon - Primary Derrick Barge Operator - Primary Scrub - Primary Time In [...] Agents Hibiclens, Sterile Water Skin. Condition Intact, [place], Warm, & Dry Additional None Specimens Collected [...] By: Pippa Meng RN 08/09/24 10:55 Normal [facility] Main OR Preoperative Recordo n 08-09-2024 Main OR Preoperative Record Main OR Preoperative Record Holding Area Document Type FTURO Summary Primary Physician: Khadra Becker MD Finalized Date/Time: 08/09/24 10:47:41 Pt. Name: RENATO STRICKLAND D.O.B./Sex: 1970 Female Med Rec #: [id number] Physician: Khadra Becker MD Financial #: [id number] Pt. Type: O Room/Bed: / Admit/Disch: 08/09/24 [...] Complaints of Pain: No Skin Integrity Intact, [place], Warm, & Dry Vitals - EU Blood Pressure 144/89 Pulse 74 bpm Respirations 18 br/min SPO2 96 % Additional None RN Reviewed Yes Specimens Collected Last Modified By: Pippa Meng RN 08/09/24 10:47:39 Finalized By: Pippa Meng RN Document Signatures Signed By: Pippa Meng RN 08/09/24 10:47 Normal [facility] Operative Reporton Operative Report Operative Report Patient: RENATO STRICKLAND Age: 54 years Sex: Female : 1970 Associated Diagnoses: None Author: Khadra Becker MD Procedure Operative Information Details: Date/ Time: 08/09/2024 11:20:00. Pre-Op Dx: Encounter for removal of ureteral stent (NIN75-GI Z46.6, Discharge, Medical), History of kidney stones (XMJ45-FO Z87.442, Discharge, Medical). Post-Op Dx: Same. Anesthesia [...] ultrasound in 6 to 8 weeks at [facility], call with results to ensure no silent obstruction has developed. Will proceed with annual follow-up afterwards for stone surveillance. Normal [facility] Comment on above: Result Comment: Elec tronically Signed By: Khadra Becker MD\.br\Date and Time Signed: 08/09/24 11:21 EDT Outpatient Surgery Discharge Instructionon 08-09-2024 Outpatient Surgery Discharge Instruction Outpatient Surgery Discharge Instruction [address] [address] Patient Discharge Instructions PERSON INFORMATION [...] renal US results - to obtain at [facility] in 6-8 weeks. Follow up in 1 [...] to serve you. Thank you for choosing [facility] Normal [facility] Calculus Analysison 08-05-19 25 CA Oxalate, Dihydrate 60 % Invalid Interpretation Code [facility] Comment on above: Performed By: #### 1 [id number] #### [facility] [address] [place] [address] CA Oxalate, Monohydr 35 % Invalid Interpretation Code [facility] Comment on above: Performed By: #### 1 [id number] #### [facility] [address] [place] [address] Color (U) Bonds Invalid Interpretation Code [facility] Comment on above: Performed By: #### 1 [id number] #### [facility] [address] [place] [address] Comment 2 Comment Invalid Interpretation Code [facility] Comment on above: Result Comment: Calc ulus received wet. Wet calculi must be dried before analysis, which delays reporting of results. Leaving calculi wet (such as water, saline, blood, urine) may lead to changes in composition. Performed at: [address] [id number] PhD Ricardo Bean Performed By: #### 1 [id number] #### [facility] [address] [place] [address] Hydroxyapatite: 5 % Invalid Interpretation Code [facility] Comment on above: Performed By: #### 1 [id number] #### [facility] [address] [place] [address] Size: 3x2 Invalid Interpretation Code [facility] Comment on above: Result Comment: Mult iple pieces received. Dimensions of the largest piece reported. Performed By: #### 1 [id number] #### [facility] [address] [place] [address] Stone Source Comment Invalid Interpretation Code [facility] Comment on above: Result Comment: Left Ureter Performed By: #### 1 [id number] #### [facility] [address] [place] [address] Weight Calculus Analysis 10 mg Invalid Interpretation Code [facility] Comment on above: Performed By: #### 1 [id number] #### [facility] [address] [place] [address] Main OR Intraoperative Recor don 07-28-2024 Main OR Intraoperative Record Main OR Intraoperative Record IntraOp Document Type FT Summary Primary Physician: Khadra Becker MD Finalized Date/Time: 07/28/24 09:04:33 Pt. Name: RENATO STRICKLAND Lois RoeB./Sex: 1970 Female Med Rec #: [id number] Physician: Khadra Becker MD Financial #: [id number] Pt. Type: A Room/Bed: [place] [address] Admit/Disch: 07/27/24 06:42:06 - 07/27/24 13:00:00 Institution: [...] Cruz Role Performed DIOR Surgeon - Primary Derrick Barge Operator - Primary Time In 07/27/24 10:07:00 07/27/24 [...] Machelle Lan Role Performed Scrub - Primary Brake Operator Heavy Duty Time In 07/27/24 10:07:00 07/27/24 10:07:00 Time [...] or mechanical (more content not included)... Normal [facility] XR Urography Retrograde Left on 07-28-2024 [...] MD Transcribed by: ALBARO Technologist: GWEN Normal [facility] Discharge Instructionson Discharge Instructions Discharge Instructions [...] cystoscopy, left ureteral stent removal Where: [facility], [address] [phone] Business (1) Medications What How Much When Instructions Next Dose New ciprofloxacin (Cipro 500 mg Tab) 1 Tablets By Mouth Every 12 hours Duration: 1 Days Start morning of stent removal Pickup at [facility]/pharmacy #6177 New oxybutynin (oxybutynin 5 mg Tab) 1 Tablets By Mouth 3 times a day as needed for Urinary discomfort bladder spasms, stent pain Pickup at [facility]/pharmacy #6177 Unchanged acetaminophen-oxycodone (acetaminophen-oxycodone 325 mg-5 [...] venlafaxine (venlafaxine 37.5 mg Cap-ER) Pharmacy Information [facility]/pharmacy #[id number]: [address], [place] [phone] Allergies Adhesive Bandage (Unknown) Demerol (Vomiting) sulfa [...] URETERAL STEN 07/27/2024 Education Materials [facility] [place], [place] Post-operative Instructions for Ureteroscopy, Laser Lithotripsy, [...] in. Rub (more content not included)... Normal [facility] Comment on above: Result Comment: Elec [...] stent placement Health Status Procedure history: Appendectomy (307870262). Hysterectomy (506376053). Colonoscopy (543627829). Social History Social & Psychosocial Habits Alcohol [...] list: All Problems Anemia / SNOMED CT 379434206 / Confirmed Apnea, sleep / SNOMED CT 564489982 / Confirmed Fatty liver / SNOMED CT 0835737631 / Confirmed Frequent headaches / SNOMED CT 7571514491 / Confirmed Kidney stone / SNOMED CT 347254162 / Confirmed Ureteral stone with hydronephrosis / SNOMED CT 9633093980 / Confirmed Inactive: Diabetes / SNOMED CT 127073153 Inactive: HTN (hypertension) / SNOMED CT 3764106217 Normal [facility] Inpatient Patient Summaryon 07-27-2024 Inpatient Patient Summary Inpatient Patient Summary [address] [address] [facility] Clinical Discharge Instructions PERSON INFORMATION Name: RENATO STRICKLAND PHYSICIANS Admitting Physician: Khadra Becker MD Attending Physician: Khadra Becker MD PCP: VITALIY DALE DO Discharge Diagnosis: Ureteral stone with hydronephrosis Comment: PATIENT EDUCATION INFORMATION Instructions: Eugenio - Ureteroscopy, Laser Lithotripsy, Stone Extraction and Stent Placement Post-Op Instructions (CUSTOM) Medication Leaflets: Follow up: With: Address: When: Khadra Becker [address] [place], [place] [phone] Business (1) Comments: Office migue call to schedule your follow up after 2 weeks for cystoscopy, left ureteral stent removal MEDICATION LIST New Medications [id number], [address], [place] [id number], [phone] ciprofloxacin (Cipro 500 mg Tab) 1 Tablets [...] venlafaxine (venlafaxine 37.5 mg Cap-ER) Comment: Normal [facility] Main OR PACU I Recordon 07-02 Main OR PACU I Record Main OR PACU I Rec ord PACU Phase I Document Type FT Summary Primary Physician: Khadra Becker MD Finalized Date/Time: 07/27/24 11:43:15 Pt. Name: SENG RENATO Lois Marie/Sex: 1970 Female Med Rec #: [id number] Physician: Khadra Becker MD Financial #: [id number] Pt. Type: A Room/Bed: [place] [address] Admit/Disch: 07/27/24 06:42:06 - Institution: Case Times [...] By: Aria Harden RN 07/27/24 11:43 Normal [facility] Main OR PACU II Recordon Main OR PACU II Record Main OR PACU II Record PACU Phase II Document Type FT Summary Primary Physician: Khadra Becker MD Finalized Date/Time: 07/27/24 12:52:36 Pt. Name: RENATO STRICKLAND Lois Marie/Sex: 1970 Female Med Rec #: [id number] Physician: Khadra Becker MD Financial #: [id number] Pt. Type: A Room/Bed: [place] [address] Admit/Disch: 07/27/24 06:42:06 - Institution: Case Times [...] By: Gisell Mckeon RN 07/27/24 12:52 Normal [facility] Main OR Preoperative Recordo n 07-27-2024 Main OR Preoperative Record Main OR Preoperative Record PreOp Document Type FT Summary Primary Physician: Khadra Becker MD Finalized Date/Time: 07/27/24 10:32:14 Pt. Name: RENATO STRICKLAND /Sex: 1970 Female Med Rec #: [id number] Physician: Khadra Becker MD Financial #: [id number] Pt. Type: A Room/Bed: [place] [address] Admit/Disch: 07/27/24 06:42:06 - Institution: Case Times [...] Signed By: Ángel Garcia 07/27/24 10:32 Normal [facility] Operative Reporton Operative Report Operative Report [...] into the urethra and using a 22.5 Ukrainian rigid cystoscope with 30 degree lens and [...] PATIENT CO (more content not included)... Normal [facility] Comment on above: Result Comment: Elec tronically Signed By: Khadra Becker MD\.br\Date and Time Signed: 07/27/24 11:23 EDT Outpatient Surgery Discharge Instructionon 07-27-2024 Outpatient Surgery Discharge Instruction Outpatient Surgery Discharge Instruction [place] [id number] Patient Discharge Instructions PERSON INFORMATION Name: RENATO [...] NEAREST EMERGENCY ROOM OR CALL 911 SENG Nuens ERICA R, have received the attached patient education materials/instructions and have verbalized understanding: May we do a follow up call? Yes No I was present when discharge instructions were given Patient Signature Date Clinican/Nurse Signature Date Follow up: With: Address: When: Khadra Aponte [address] [place], [place] [address], [address] [phone] Business (1) Comments: Office migue call to [...] to serve you. Thank you for choosing [facility] HERE ARE THE MEDICATION CHANGES THAT OCCURRED DURING YOUR HOSPITAL STAY New Medications [id number], [address], [place] [phone], [phone] ciprofloxacin (Cipro 500 mg Tab) 1 Tablets [...] Cap-ER) PATIENT EDUCATION INFORMATION Instructions: [facility] [place], [place] Post-operative Instructions for Ureteroscopy, Laser Lithotripsy, [...] doctor) -W (more content not included)... Normal [facility] Ambulatory Visit Summaryon 0 07-15-2024 Ambulatory [...] ? 8 oz (237 mL) of milk, fgbgtxg-ufvsahnfziho-ogp ry milk, and calcium-fortifiedfruit juice. Calcium-fortified means [...] wheat ce (more content not included)... Normal [facility] Urology Office/Clinic Noteon 07-15-2024 Urology Office/Clinic Note Urology Office/Clinic Note Chief Complaint new patient HPI Staff 54 year old female New Pt. seen in [facility] 07/12/[address] due to Lt[address] flank pain CT [...] obstruction) First stone event. Pt presented to [facility] ER 07/12/24 due to left-sided flank pain. CT AP wo con 07/12/24 [facility] - left hydroureteronephrosis associated with a 5 [...] 11:53:59. . Documentation recorded by the scribe, Sfoia Tse, accurately reflects the services(s) I performed and decisions made by me. Authenticated by Dr. Becker on 07/15/2024 13:01:15. Problem List/Past Medical History Ongoing Anemia Fatty liver Frequent headaches Ureteral stone with hydronephrosis Historical No qualifying data Procedure/Surgical History Appendectomy, Colonoscopy, Hys (more content not included)... Normal [facility] Comment on above: Result Comment: Elec tronically Signed By: Khadra Becker MD\.br\Date and Time Signed: 07/15/24 13:01 EDT\.br\Electronically Co-Signed By: Sofia Tse\.br\Date and Time Co-Signed: 07/15/24 11:54 EDT\.br\Electronically Co-Signed By: Sofia Tse\.br\Date and Time Co-Signed: 07/15/24 11:58 EDT Human papilloma virus 16+18+ 31+33+35+39+45+51+52+56+58+59+66+68 DNA [Presence] in [place] 08-21-2023 HPV 16+18+31+33+35+39+45+ 51+52+56+58+59+66+68 DNA Probe+sig amp Ql (Cvx) Negative Negative [facility] Comment on above: This nucleic acid am plification test detects fourteen high- risk HPV types (16,18,31,33,35,39,45,51,52,56,58,59,66,68)without differentiation.Performed at: =G - [facility] [id number] Director: Rosa Mckeon MD, Phone: [phone] at: - [facility] [id number] Director: Rosa Mckeon MD, Phone: [phone] No Panel Informationon 08-20 HPV High Risk Other Comment Note . [facility] Comment on above: TESTS RESULT FLAG UN ITS REF RANGE LAB D IAGNOSIS: 02 NEGATIVE FOR INTRAEPITHELIAL LESION OR MALIGNANCY.Specimen adequacy: 02 Satisfactory for evaluation. No endocervical component is identified.Performed by: Ro Wilkerson Transit Manager (ASCP). 02Note: Note 02 The Pap smear [...] Low,>-Panic High,A-Abnormal,AA-Critical Abnormal ----Performed at:[address] [facility] [address] [place] [address] Rosa Mckeon MD, Reference Lab Test Patient Age Note . [facility] Comment on above: TESTS RESULT FLAG UN ITS REF RANGE LAB Clinician Provided Cytology Information Source.............Cervix No. of containers..01 ThinPrep VialAge Shawn [facility] [place]... 30-65 FLAG LEGEND: L-Low Normal,H-High Normal,LL-Alert Low,HH-Alert High <-Panic Low,>-Panic High,A-Abnormal,AA-Critical Abnormal ----Performed at:01 =G [facility] [address] [place] [address] Rosa Mckeon MD, MG MAMM SCREEN 3D TATIANA CADon 11-06-2021 MG MAMM SCREEN 3D TATIANA CAD Patient: RENATO STRICKLAND Exam Date: 11/06/2021 : 1970 Gender:F Ordering : DR JONATHAN HARRIS . Admission #: [id number] Family : Order #: [id number] CLICK HERE TO VIEW EXAM RADIOLOGY REPORT [...] colon cancer at age 72. LOCATION: [facility] BREAST COMPOSITION: Heterogeneously dense,which may obscure [...] Cortes M.D. on 11/07/2021 at 10:48 Normal [facility] PAP ACOG PANEL 2: 30 to 65on 08-22-2021 . . Normal [facility] Comment on above: Result Comment: Perf ormed at: WB Performed By: #### [id number] #### [facility] [address] [address] [address] Josey Springer DIAGNOSIS: Comment Normal [facility] Comment on above: Result Comment: NEGA TIVE FOR INTRAEPITHELIAL LESION OR MALIGNANCY. THIS SPECIMEN WAS RESCREENED PART OF OUR HOME HEALTH OCCUPATIONAL THERAPIST PROGRAM. Performed at: WB Performed By: #### [id number] #### [facility] [address] [address] [address] Josey Springer HPV Aptima Negative Normal Negative [facility] Comment on above: Result Comment: This nucleic acid amplification test detects fourteen high-risk HPV types (16,18,31,33,35,39,45,51,52,56,58,59,66,68) without differentiation. Performed at: =G Performed By: #### [id number] #### [facility] [address] [place] [address] Dr. Josey Springer Methodology: Comment Normal [facility] Comment on above: Result Comment: This liquid based ThinPrep(R) pap test was screened with the use of an image guided system. Performed at: WB Performed By: #### [id number] #### [facility] [address] [place] [address] Dr. Josey Springer Note: Comment Normal [facility] Comment on above: Result Comment: The Pap smear is a screening test designed to aid in the detection of premalignant and malignant conditions of the uterine cervix. It is not a diagnostic procedure and should not be used as the sole means of detecting cervical cancer. Both false-positive and false-negative reports do occur. . Performed at: WB Performed By: #### [id number] #### [facility] [address] [place] [address] Dr. Josey Springer Performed by: Comment Normal [facility] Comment on above: Result Comment: Celestine Foreman, Transit Manager (ASCP) Performed at: WB Performed By: #### [id number] #### [facility] [address] [place] [address] Dr. Josey Springer QC reviewed by: Comment Normal [facility] Comment on above: Result Comment: Edelmira Muñoz, Supervisory Transit Manager (ASCP) Performed at: WB Performed By: #### [id number] #### [facility] [address] [place] [address] Dr. Josey Springer Specimen adequacy: Comment Normal [facility] Comment on above: Result Comment: Sati sfactory for evaluation. No endocervical component is identified. Performed at: WB Performed By: #### [id number] #### [facility] [address] [place], [place] [address] Dr. Josey Springer Age Gdln ACOG Testing 30-65 Normal [facility] Comment on above: Performed By: #### [id number] #### [facility] [address] [place], [place] [address] Dr. Josey Springer [facility] SARS-CoV-2 (COVID-19) RNA SHANTA+probe Ql (Unsp spec) Not detected Normal NOT DETECTED [facility] Comment on above: Result Comment: This test is not yet approved or cleared by the [place] FDA. When there are no FDA-approved or cleared tests available, and other criteria are met, FDA can make tests available under an emergency access mechanism called an Emergency Use Authorization (EUA). The EUA for this test is supported by the Rubberizing Mechanic of Health and Human Service's (HHS's) declaration [...] SARS-CoV-2. Performed By: #### C VDTBH #### [facility] [id number] Josey Springer Glucose Poct Glucometerson 1 04-05-2020 Glucose [Mass/Vol] 101 mg/dL Normal [facility] Comment on above: Result Comment: [facility] Glucose Reference Range is dependent on time and content of last meal. Glucose of more than 200 mg/dL in a nonstressed, ambulatory subject supports the diagnosis of Diabetes Mellitus. PERFORMED BY: [facility] [address] [place] [address] PATHOLOGIST VOCAL PERFORMER IVA MALIN M.D. Performed By: #### G [...] its performance Lindsay Disclaimer characteristic determined by [employer] and Lindsay Disclaimer validated at [facility]. This Lindsay Disclaimer test has not been [...] is terminated or revoked sooner. PERFORMED BY: [place] [address] PATHOLOGIST VOCAL PERFORMER IVA MALIN M.D. [facility] Comment on above: Performed By: #### C OVID-19 LINDSAY, SOFIANEG #### [address] Lindsay Ag Negativeon 02-01-20 21 Lindsay Ag Negative Negative Normal Negative [facility] Comment on above: Result Comment: This is a duplicate Lindsay SARS Antigen (TAMANNA) result to be used for statistical tracking purpose only. PERFORMED BY: [place] [address] PATHOLOGIST VOCAL PERFORMER IVA MALIN M.D. Performed By: #### C OVID-19 LINDSAY, SOFIANEG #### [facility] [address] [place] [address] CBC AUTO DIFFon 01-09-2021 BASO # 0.0 103/ul Normal 0.0-0.1 [facility] Comment on above: Performed By: #### C BC #### [facility] [address] [place] [address] Dr. Josey Springer Basophils/100 WBC (Bld) 0.5 % Normal 0.2-2.0 [facility] Comment on above: Performed By: #### C BC #### [facility] [address] [place] [address] Dr. Josey Springer EO # 0.2 103/ul Normal 0.0-0.7 [facility] Comment on above: Performed By: #### C BC #### [facility] [address] [place] [address] Dr. Josey Springer Eosinophils/100 WBC (Bld) 2.2 % Normal 0.9-7.0 [facility] Comment on above: Performed By: #### C BC #### [facility] [address] [place] [address] Dr. Josey Springer Erythrocyte distribution width (RBC) [Ratio] 12.2 % Normal 11.0-15.0 [facility] Comment on above: Performed By: #### C BC #### [facility] [address] [place] [address] Dr. Josey Springer Hematocrit (Bld) [Volume fraction] 41.4 % Normal 36.0-48.0 [facility] Comment on above: Performed By: #### C BC #### [facility] [address] [place] [address] Dr. Josey Springer Hemoglobin (Bld) [Mass/Vol] 13.6 g/dL Normal 12.0-16.0 [facility] Comment on above: Performed By: #### C BC #### [facility] [address] [place] [address] Dr. Josey Springer IG # 0.01 10e3/ul Normal 0.00-0.03 [facility] Comment on above: Performed By: #### C BC #### [facility] [address] [place] [address] Dr. Josey Springer IG % 0.1 % Normal 0.0-0.5 [facility] Comment on above: Performed By: #### C BC #### [facility] [address] [place] [address] Dr. Josey Springer LYMPH # 2.2 103/ul Normal 1.2-3.8 [facility] Comment on above: Performed By: #### C BC #### [facility] [address] [place] [address] Dr. Josey Springer Lymphocytes/100 WBC (Bld) 29.7 % Normal 20.5-60.0 [facility] Comment on above: Performed By: #### C BC #### [facility] [address] [place] [address] Dr. Josey Springer MANUAL DIFF REQ NO Normal [facility] Comment on above: Performed By: #### C BC #### [facility] [address] [place] [address] Dr. Josey Springer MCH (RBC) [Entitic mass] 30.1 pg Normal 26.7-34.0 [facility] Comment on above: Performed By: #### C BC #### [facility] [address] [place] [address] Dr. Josey Springer MCHC (RBC) [Mass/Vol] 32.9 g/dL Normal 29.9-35.2 [facility] Comment on above: Performed By: #### C BC #### [facility] [address] [place] [address] Dr. Josey Springer MCV (RBC) [Entitic vol] 91.6 fL Normal 81.0-99.0 [facility] Comment on above: Performed By: #### C BC #### [facility] [address] [place] [address] Dr. Josey Springer MONO # 0.3 103/ul Normal 0.3-0.8 [facility] Comment on above: Performed By: #### C BC #### [facility] [address] [place] [address] Dr. Josey Springer Monocytes/100 WBC (Bld) 4.2 % Normal 1.7-12.0 [facility] Comment on above: Performed By: #### C BC #### [facility] [address] [place] [address] Dr. Josey Springer NEUT # 4.6 103/ul Normal 1.4-6.5 [facility] Comment on above: Performed By: #### C BC #### [facility] [address] [place] [address] Dr. Josey Springer Neutrophils/100 WBC (Bld) 63.3 % Normal 43.0-75.0 [facility] Comment on above: Performed By: #### C BC #### [facility] [address] [place] [address] Dr. Josey Springer Platelet mean volume (Bld) [Entitic vol] 9.7 fL Normal 9.5-13.5 [facility] Comment on above: Performed By: #### C BC #### [facility] [address] [place] [address] Dr. Josey Springer PLT 225 103/ul Normal 150-450 [facility] Comment on above: Performed By: #### C BC #### [facility] [address] [place] [address] Dr. Josey Springer RBC 4.52 106/ul Normal 4.20-5.40 [facility] Comment on above: Performed By: #### C BC #### [facility] [address] [place] [address] Dr. Josey Springer WBC 7.3 103/ul Normal 4.0-11.0 [facility] Comment on above: Performed By: #### C BC #### [facility] [address] [place] [address] Dr. Josey Springer GLYCOHEMOGLOBIN A1Con 2020 ADA RECOMMENDATION ADA THERAPEUTIC TARG ET 6.0 - 7.0 ACTION SUGGESTED > 7.0 Normal [facility] Comment on above: Performed By: #### A 1C #### [facility] [address] [place] [address] Dr. Josey Springer Glucose [Mass/Vol] 131 mg/dL Normal [facility] Comment on above: Performed By: #### A 1C #### [facility] [address] [place] [address] Dr. Josey Springer HbA1c (Bld) [Mass fraction] 6.2 % Critically high <=6.0 [facility] Comment on above: Performed By: #### A 1C #### [facility] [address] [address] [address] Josey Springer LIPID PROFILEon 01-09-2021 CHOL-HDL RATIO NORM SEE BELOW Normal [facility] Comment on above: Result Comment: 3.3 - 4.4 LOW RISK 4.4 - 7.1 AVERAGE RISK 7.1 - 11.0 MODERATE RISK >11.0 HIGH RISK Performed By: #### C MP, TSH, LIPID #### [facility] [address], [place] [address] Dr. Josey Springer Cholesterol [Mass/Vol] 240 mg/dL Critically high <=200 [facility] Comment on above: Performed By: #### C MP, TSH, LIPID #### [facility] [address] [address] [address] Josey Springer Cholesterol in HDL [Mass/Vol] 66 mg/dL Normal [facility] Comment on above: Performed By: #### C MP, TSH, LIPID #### [facility] [address] [address] [address] Josey Springer Cholesterol in LDL [Mass/Vol] 136.6 mg/dL Normal [facility] Comment on above: Performed By: #### C MP, TSH, LIPID #### [facility] [address], [place] [address] Dr. Josey Springer Cholesterol.total/Cho lesterol in HDL [Mass ratio] 3.6 {ratio} Normal [facility] Comment on above: Performed By: #### C MP, TSH, LIPID #### [facility] [address], [place] [address] Dr. Josey Springer HDL NORMAL > or = 60 mg/dl - LO W CARDIOVASCULAR RISK <40 mg/dl - HIGH CARDIOVASCULAR RISK Normal [facility] Comment on above: Performed By: #### C MP, TSH, LIPID #### [facility] [id number] Josey Springer LDL CALC NORMAL SEE BELOW Normal [facility] Comment on above: Result Comment: <100 mg/dl OPTIMAL 100 - 129 mg/dl NEAR OR ABOVE OPTIMAL 130 - 159 mg/dl BORDERLINE HIGH 160 - 189 mg/dl HIGH >190 mg/dl VERY HIGH Performed By: #### C MP, TSH, LIPID #### [facility] [address] [place] [address] Dr. Josey Springer Triglyceride [Mass/Vol] 187 mg/dL Critically high <=150 [facility] Comment on above: Performed By: #### C MP, TSH, LIPID #### [facility] [address] [place] [address] Dr. Josey Springer VLDL CALC 37.4 mg/dL Normal [facility] Comment on above: Performed By: #### C MP, TSH, LIPID #### [facility] [address] [place] [address] Dr. Josey Springer PROF 14(COMP METB)on 021 Albumin [Mass/Vol] 3.4 g/dL Critically low 3.5-5.0 [facility] Comment on above: Performed By: #### C MP, TSH, LIPID #### [facility] [address] [place] [address] Dr. Josey Springer Albumin/Globulin [Mass ratio] 0.8 {ratio} Normal [facility] Comment on above: Performed By: #### C MP, TSH, LIPID #### [facility] [address] [place] [address] Dr. Josey Springer ALP [Catalytic activity/Vol] 92 U/L Normal 38-126 [facility] Comment on above: Performed By: #### C MP, TSH, LIPID #### [facility] [address] [place] [address] Dr. Josey Springer ALT [Catalytic activity/Vol] 180 U/L Critically high 9-52 [facility] Comment on above: Performed By: #### C MP, TSH, LIPID #### [facility] [address] [place] [address] Dr. Josey Springer Anion gap [Moles/Vol] 10.8 mmol/L Normal [facility] Comment on above: Performed By: #### C MP, TSH, LIPID #### [facility] [address] [address] [address] Josey Springer AST [Catalytic activity/Vol] 70 U/L Critically high 14-36 [facility] Comment on above: Performed By: #### C MP, TSH, LIPID #### [facility] [address] [address] [address] Josey Springer Bilirubin [Mass/Vol] 0.4 mg/dL Normal 0.2-1.3 [facility] Comment on above: Performed By: #### C MP, TSH, LIPID #### [facility] [address] [address] [address] Josey Springer Calcium [Mass/Vol] 9.5 mg/dL Normal 8.4-10.2 [facility] Comment on above: Performed By: #### C MP, TSH, LIPID #### [facility] [address] [place] [address] Dr. Josey Springer Chloride [Moles/Vol] 102 mmol/L Normal 98-107 [facility] Comment on above: Performed By: #### C MP, TSH, LIPID #### [facility] [address] [address] [address] Josey Springer CO2 [Moles/Vol] 32.7 mmol/L Critically high 22.0-30.0 [facility] Comment on above: Performed By: #### C MP, TSH, LIPID #### [facility] [address] [address] [address] Josey Springer Creatinine [Mass/Vol] 0.60 mg/dL Normal 0.52-1.04 [facility] Comment on above: Performed By: #### C MP, TSH, LIPID #### [facility] [address] [address] [address] Josey Springer EGFR-AF IVORIAN >60 Normal >=60 [facility] Comment on above: Performed By: #### C MP, TSH, LIPID #### [facility] [address] [address] [address] Josey Springer EGFR-NON AF IVORIAN >60 Normal >=60 [facility] Comment on above: Performed By: #### C MP, TSH, LIPID #### [facility] [address] [address] [address] Josey Springer Globulin (S) [Mass/Vol] 4.1 g/dL Normal [facility] Comment on above: Performed By: #### C MP, TSH, LIPID #### [facility] [address] [address] [address] Josey Springer Glucose [Mass/Vol] 139 mg/dL Critically high 74-106 [facility] Comment on above: Performed By: #### C MP, TSH, LIPID #### [facility] [address] [address] [address] Josey Springer Potassium [Moles/Vol] 4.5 mmol/L Normal 3.4-5.0 [facility] Comment on above: Performed By: #### C MP, TSH, LIPID #### [facility] [address] [place] [address] Dr. Josey Springer Protein [Mass/Vol] 7.5 g/dL Normal 6.1-8.2 [facility] Comment on above: Performed By: #### C MP, TSH, LIPID #### [facility] [address] [place] [address] Dr. Josey Springer Sodium [Moles/Vol] 141 mmol/L Normal 137-145 [facility] Comment on above: Performed By: #### C MP, TSH, LIPID #### [facility] [address] [place] [address] Dr. Josey Springer Urea nitrogen [Mass/Vol] 12.0 mg/dL Normal 7.0-17.0 [facility] Comment on above: Performed By: #### C MP, TSH, LIPID #### [facility] [address] [place] [address] Dr. Josey Springer Urea nitrogen/Creatinine [Mass ratio] 20.0 mg/mg Normal [facility] Comment on above: Performed By: #### C MP, TSH, LIPID #### [facility] [address] [place] [address] Dr. Josey Springer TSHon 01-09-2021 TSH 1.819 uIU/mL Normal 0.470-4.680 [facility] Comment on above: Performed By: #### C MP, TSH, LIPID #### [facility] [address], [place] [address] Dr. Josey Springer TSH RANGE SEE BELOW Normal [facility] Comment on above: Result Comment: <0.3 4 UIU/ml HYPERTHYROID 0.34-5.60 UIU/ml EUTHYROID >5.60 UIU/ml HYPOTHYROID Performed By: #### C MP, TSH, LIPID #### [facility] [address], [place] [address] Dr. Josey Springer Vital Signs Date Time Vital Sign Value Performing Clinician Facility 10-27-2024 14:02-0400 Body height 152.4 cm Vitaliy Ball DO Work Phone: [facility] 10-27-2024 14:02-0400 Body mass index (BMI) [Ratio] 40.6 kg/m2 Vitaliy Ball DO Work Phone: [facility] 10-27-2024 14:02-0400 Body weight 94.34 kg Vitaliy Ball DO Work Phone: [facility] 10-27-2024 14:02-0400 Diastolic blood pressure 89 mm[Hg] Vitaliy Ball DO Work Phone: [facility] 10-27-2024 14:02-0400 Heart rate 76 /min Vitaliy Ball DO Work Phone: [facility] 10-27-2024 14:02-0400 Respiratory rate 12 /min Vitaliy Ball DO Work Phone: [facility] 10-27-2024 14:02-0400 Systolic blood pressure 150 mm[Hg] Vitaliy Ball DO Work Phone: [facility] 09-06-2024 09:00-0400 Body mass index (BMI) [Ratio] 39.02 kg/m2 Jonathan Kimberly DO Work Phone: [facility] 09-06-2024 09:00-0400 Body weight 90.63 kg Jonathan Kimberly DO Work Phone: [facility] 09-06-2024 09:00-0400 Diastolic blood pressure 84 mm[Hg] Jonathan Kimberly DO Work Phone: [facility] 09-06-2024 09:00-0400 Systolic blood pressure 134 mm[Hg] Jonathan Kimberly DO Work Phone: [facility] 07-15-2024 11:42-0400 Diastolic blood pressure 103 mm[Hg] Khadra Lue [facility] 07-15-2024 11:42-0400 Heart rate 82 /min Khadra Lue [facility] 07-15-2024 11:42-0400 Mean blood pressure 121 mm[Hg] Khadra Lue [facility] 07-15-2024 11:42-0400 Systolic blood pressure 156 mm[Hg] Khadra Lue [facility] 07-15-2024 11:40-0400 Blood Pressure Location Khadra Lue [facility] 07-15-2024 11:40-0400 Diastolic blood pressure 104 mm[Hg] Khadra Lue [facility] 07-15-2024 11:40-0400 Heart rate 79 /min Khadra Lue [facility] 07-15-2024 11:40-0400 Systolic blood pressure 158 mm[Hg] Khadra Lue [facility] 03-10-2024 08:17-0500 Body height 152.4 cm Luna Jhaveri DO Work Phone: [facility] 03-10-2024 08:17-0500 Body mass index (BMI) [Ratio] 37.85 kg/m2 Luna Aparna DO Work Phone: [facility] 03-10-2024 08:17-0500 Body weight 87.91 kg Luna Aparna DO Work Phone: [facility] 03-10-2024 08:17-0500 Diastolic blood pressure 86 mm[Hg] Luna Aparna DO Work Phone: [facility] 03-10-2024 08:17-0500 Heart rate 79 /min Luna Aparna DO Work Phone: [facility] 03-10-2024 08:17-0500 SaO2% (BldA) [Mass fraction] 98 % Luna Aparna DO Work Phone: [facility] 03-10-2024 08:17-0500 Systolic blood pressure 134 mm[Hg] Luna Aparna DO Work Phone: [facility] 10-20-2023 14:27-0400 Body height 152.4 cm [facility] 10-20-2023 14:27-0400 Body mass index (BMI) [Ratio] 37.5 kg/m2 [facility] 10-20-2023 14:27-0400 Body weight 87.2 kg [facility] 10-20-2023 14:27-0400 Diastolic blood pressure 75 mm[Hg] [facility] 10-20-2023 14:27-0400 Heart rate 69 /min [facility] 10-20-2023 14:27-0400 Respiratory rate 12 /min [facility] 10-20-2023 14:27-0400 Systolic blood pressure 142 mm[Hg] [facility] 09-17-2022 11:15-0400 Body height 154.94 cm Vitaliy Ball Other [facility] Other 09-17-2022 11:15-0400 Body mass index (BMI) [Ratio] 35.18 kg/m2 Vitaliy Ball Other [employer] Other 09-17-2022 11:15-0400 Body weight 84.46 kg Vitaliy Dale Other [employer] Other 09-17-2022 11:15-0400 Diastolic blood pressure 87 mm[Hg] Vitaliy Dale Other [employer] Other 09-17-2022 11:15-0400 Respiratory rate 12 /min Vitaliy Dale Other [employer] Other 09-17-2022 11:15-0400 Systolic blood pressure 136 mm[Hg] Vitaliy Dale Other [employer] Other Encounters Encounter Date Encounter Type Care Provider Facility Start: 09-28-2025 ambulatory Khadra Becker Facility:[facility] Start: 10-27-2024 End: 10-27-2024 ambulatory Vitaliy Dale DO Work Phone: [facility] Work Phone: Start: 10-27-2024 End: 10-27-2024 Patient encounter procedure Vitaliy Dale DO -[facility] Work Phone: Start: 10-27-2024 End: 10-27-2024 Patient encounter status Vitaliy Dale [facility] Start: 09-21-2024 End: 09-21-2024 ambulatory Khadra Becker Facility:[facility] Start: 09-06-2024 End: 09-06-2024 Bamboo flowsheet Jonathan Kimberly DO Work Phone: [facility] Start: 09-06-2024 End: 09-09-2024 Bamboo flowsheet Jonathan Kimberly DO Work Phone: [facility] Start: 09-06-2024 End: 09-09-2024 Clinisync Result Encounter Kell Black [employer] Work Phone: [facility] External Department Unsolicited Start: 09-06-2024 Non-patient / Non-visit Kell Sofia SARAH [facility] Work Phone: Start: 09-06-2024 End: [...] Start: 08-09-2024 End: 08-09-2024 ambulatory Khadra Becker Facility:[facility] Start: 08-09-2024 End: 08-09-2024 Patient encounter procedure Khadra Becker [facility] Start: 07-27-2024 End: 07-27-2024 Admission to same day surgery center Khadra Becker [facility] Start: 07-27-2024 End: 07-27-2024 ambulatory Khadra Becker Facility:[facility] Start: 07-15-2024 End: 07-15-2024 ambulatory Khadra Becker Facility:[facility] Start: 07-15-2024 End: 07-15-2024 Patient encounter procedure Khadra Becker [facility] Start: 07-13-2024 ambulatory Khadra Becker Facility:[facility] Start: 06-08-2024 End: 06-08-2024 Office outpatient new [...] without comorbidity) Start: 10-20-2023 End: 10-20-2023 ambulatory [facility] Work Phone: Start: 10-20-2023 End: 10-20-2023 Encounter for general adult medical examination without abnormal findings [facility] Start: 10-20-2023 End: 10-20-2023 Patient encounter procedure [facility] Physician [facility] Work Phone: Start: 08-21-2023 Non-patient / Non-visit [facility] Physician [facility] [employer] Work Phone: Start: 09-17-2022 End: 09-17-2022 ambulatory Vitaliy Dale Other [facility] [employer] Other Start: 09-17-2022 Office outpatient visit 15 minutes Vitaliy Dale [facility] Start: 11-06-2021 End: 11-07-[address] JONATHAN HARRIS Facility:H1 Start: 08-16-2021 End: 08-16-[address] JONATHAN HARRIS Facility:H1 Start: 04-03-2021 End: 04-03-[address] VITALIY DALE Facility:H1 Start: 01-13-2021 Encounter for genera l adult medical examination without abnormal findings DR VITALIY DALE [facility] Start: 01-09-2021 End: 01-10-[address] VITALIY DALE Facility:H1 Start: 01-09-2021 End: 01-10-2021 Encounter for general adult medical examination without abnormal findings DR VITALIY DALE Facility:H1 Start: 10-30-2019 End: 10-30-2019 Patient encounter procedure Charisma Mazariegos Work Phone: [facility] Start: 10-30-2019 Results Only Charisma Mazariegos Work Phone: Gastroenterology Start: 10-29-2019 End: 10-29-2019 Patient encounter procedure External Provider [facility] Start: 10-29-2019 Results Only External Provider Exter nal-NonCCF Procedures Date Procedure Procedure Detail Performing Clinician Start: 09-06-2024 IGP,APTIMA HPV,AGE GDLN Kell Sofia [employer] Work Phone: Start: 08-30-2024 MM TOMOSYNTHESIS SCR [...] External P rovider Start: 10-29-2019 EXTERNAL IMAGING Lens Examiner al Provider Appendectomy Khadra Becker Colonoscopy Khadra Becker Hysterectomy Khadra Becker Plan of Treatment Date Care Activity Detail Author Start: 08-28-2027 Screening for malign ant neoplasm of cervix [facility] Start: 08-20-2026 Screening for malign ant neoplasm of cervix Pap Smear [facility] Start: 09-12-2025 End: 09-12-2025 Patient encounter procedure 09/12/2025 9:00 AM EDT Office Visit [facility] [address] [place] [address] Jonathan Harris DO [address] [facility] [place] [address] [facility] Start: 08-30-2025 Screening for malign ant neoplasm of breast Mammogram [facility] Start: 06-09-2025 End: 06-09-2025 Patient encounter procedure 06/09/2025 3:30 PM EDT Office Visit [facility] [address] [place] [address] Chapin Stauffer MD [address] [place] [address] [facility] Start: 11-01-2024 Influenza vaccination [facility] Start: 09-06-2024 End: 09-06-2025 DXA Skeletal system Views for bone density DEXA bone density Imaging Routine Encounter For Adult Wellness Visit Acquired absence of other genital organ(s) Expected: 09/06/2024 (Approximate), Expires: 09/06/2025 [facility] Comment on above: Expected: 09/06/2024 (Approximate), Expires: 09/06/2025 Start: 09-06-2024 End: 11-07-2025 MG Breast - bilateral Screening Bilateral screening mammogram Imaging Routine Encounter For Adult Wellness Visit Encounter for screening mammogram for malignant neoplasm of breast Expected: 09/06/2024, Expires: 11/07/2025 [facility] Work Phone: Comment on above: Expected: [...] Office Visit [facility] [address] [place] [id number] Jonathan Harris DO [address] [facility] [facility] [place] [address] [facility] Start: 06-08-2024 End: 06-08-2024 Patient encounter procedure 06/08/2024 4:00 PM EDT Office Visit [facility] [address] [place] [address] Chapin Stauffer MD [address] [place] [address] Arrived [facility] Comment on above: Arrived Start: 02-28-2024 Screening for malign ant neoplasm of breast Mammogram [facility] Start: 11-02-2023 Influenza vaccination Influenza Vacc ine (#1) [facility] Start: 11-02-2019 Influenza vaccination INFLUENZA (#1) [facility] Start: 01-21-2017 DIABETES SCREEN DIABETES SCREEN [facility] Start: 01-21-2017 LIPID SCREEN LIPID SCREEN [facility] Start: 2012 Mammography MAMMOGRAM [facility] Start: 01-21-2002 HPV TESTING HPV TESTING [facility] Start: 01-21-1993 PAP TESTING PAP TESTING [facility] Start: 01-21-1991 Urine microalbumin profile DTAP,TDAP,TD (1 - Tdap) [facility] Start: 01-21-1990 HEPATITIS C SCREENING HEPATITIS C SC REENING [facility] Start: 01-21-1990 HIV SCREENING HIV SCREENING [facility] Start: 1972 Screening for malign ant neoplasm of colon [facility] Comprehensive metabo lic 1999 panel - Serum or Plasma [facility] Comprehensive metabo lic 1999 panel - Serum or Plasma [facility] CT Heart [facility] Microalbumin [Mass/volume] in Urine [facility] PT ED PATIENT INFORMATION PT ED PATIENT INFORMATION TONYA 10/30/2019 [facility] THIN PREP TIS PAP AN D HR HPV DNA THIN PREP TIS PAP AND HR HPV DNA Pathology and Cytology Routine Encounter for adult wellness visit Ordered: 09/06/2024 [facility] Comment on above: Ordered: 09/06/2024 [facility] Immunizations Immunization Date Immunization Notes Care Provider Maria Del Carmen diez 07-07-2020 COVID-19 mRNA, Comir luda (Pfizer) [facility] 06-15-2020 COVID-19 mRNA, Comir luda (Pfizer) [facility] 12-16-2019 influenza virus vacc ine, unspecified formulation [facility] Payers Date Payer Category Payer Private Health Insurance [id number] 2024 Unknown [id number] 2024 [facility] BCBS Memb er Subscriber Plan / Payer (Effective 2024-Present) Name: Renato Strickland Relation to Subscriber: Self Name: Renato Strickland Payer ID: Not on file Type: Not on file Address: [place] [id number] 2024 Unknown [id number] 2022 Private Health Insurance [id number] Private Health Insurance AETNA A ETNA CHOICE POS II [id number] 2019-Present POS [id number] .[id number] 1972 Unknown [id number] 2.16.840.1.362343.3.579 .2.593 1972 Unknown [id number] 2.16.840.1.046336.3.579 .2.593 1972 Unknown [id number] 2.16.840.1.655197.3.579 .2.593 1972 Unknown [id number] 2.16.840.1.257929.3.579 .2.593 1972 Unknown [id number] 2.16.840.1.904248.3.579 .2.727 1972 Unknown [id number] 2.16.840.1.874128.3.579 .2.727 1972 Unknown [id number] 2.16.840.1.814928.3.579 .2.1259 1972 Unknown [id number] 2.16.840.1.066793.3.579 .2.1259 1972 Unknown [id number] 2.16.840.1.104941.3.579 .2.1259 1972 Unknown [id number] 2.16.840.1.786859.3.579 .2.727 1972 Unknown [id number] 2.16.840.1.360625.3.579 .2.727 1972 Unknown [id number] 2.16.840.1.877284.3.579 .2.727 1959 Private Health Insurance [id number] 1959 Unknown [id number] Private Health Insurance [id number] Self-pay Self Pay [id number] Social History Date Type Detail Facility Tobacco smoking stat [facility] Unknown if ever smoked [facility] Start: 1970 Sex Assigned At Not on file [facility] Exposure to SARS-CoV -2 (event) Not sure [facility] Start: 03-10-2024 End: 09-06-2024 Sex Assigned At [facility] Start: 02-02-2021 End: 08-21-2023 Tobacco smoking status KSIS Never smoked tobacco (finding) [facility] Start: 1970 Sex Assigned At Female [facility] Start: 08-21-2023 Tobacco use and exposure Smoke less tobacco non-user [facility] Start: 03-10-2024 End: 09-06-2024 Alcoholic beverage intake Current drinker of alcohol (finding) [facility] Start: 03-10-2024 End: 09-06-2024 History of Social function [facility] Start: 08-21-2023 Alcohol Comment Very little [facility] Tobacco smoking status Never [facility] Sexual Orientation [facility] Start: 12-31-2013 Sex Female (finding) [facility] Medical Equipment Procedure Code Equipment Code Equipment Origin al Text Equipment Identifier Dates CYSTOSCOPY RETROGRADE STENT INSERTION Khadra Becker MD 07/27/24 Unknown Ureter L FDA Start: 07-27-2024 CYSTOSCOPY RETROGRADE STENT INSERTION Eugenio CALLAHAN, Khadra Brown 07/27/24 Unknown Ureter L FDA Start: 07-27-2024 Functional Status Date Assessment Result Facility 07-15-2024 Functional Status N/A [facility] Clinical Notes 09-17-2022 to 09-06-2024 Patt Alsa - 09/06/2024 9:00 AM EDTRadiology Note Date & Type Note Facility 09-06-2024 History of Presen t illness Narrative Reason for Appointment: Patient ID: Renato Strickland is a 54 y.o. female who presents [...] nursing note reviewed. Exam conducted with a field scout present. Vitals: Estimated body mass index is [...] them. Patient can also view results via [employer]. I reinforced importance of condom use for [...] Jonathan Harris DO documented in this encounter [facility] 08-09-2024 Evaluation + Plan note Future Scheduled TestsUS Renal 08/09/24 [facility] 08-09-2024 Hospital Discharg e instructions Patient Education [...] renal US results - to obtain at [facility] in 6-8 weeks. Follow up in 1 year with renal US for stone monitoring [facility] 08-09-2024 Note Patient Education Cystoscopy with Stent [...] you have a fever over 100 degrees. [facility] 07-27-2024 Evaluation + Plan note Extrac jamey from: Title:ZARIA Post-operative Note---General Author: Ramon Chu MD Date:07/27/24 Plan Transfer/Discharge: Transfer/Discharge Discharge when meets criteria ( To home ). Extracted from: Title:EU - Leftureteroscopy, laser lithotripsy, stent placement Author:Khadra Becker MD Date:07/27/24 Impression and Plan Diagnosis Ureteral stone with hydronephrosis (SWU74-OV N13.2, Discharge, Medical). Diagnosis Ureteral stone with hydronephrosis (ABK88-ST N13.2, Discharge, Medical). Extracted from: Title:ZARIA Pre-operative Note 2022 Author:Ramon Rowland Date:07/27/24 Plan [place] [employer] Anesthesiologists (ASA) physical status classification: Class II. Anesthetic Preoperative Plan: Anesthesia General. Diagnostic Tests Pending * Calculi Analysis Urinary 07/27/24 [facility] 05-27-2025 Hospital Discharge instructions Patient Education 07/27/2024 11:23:50 Post Op Patient Instructions - FT (Custom) (CUSTOM) 07/27/2024 11:14:56 Lue - Ureteroscopy, Laser Lithotripsy, Stone Extraction and Stent Placement Post-Op Instructions (CUSTOM) [facility] [place] [place] Post-operative Instructions for Ureteroscopy, Laser Lithotripsy, [...] other reasons. 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 Optimetrix number: Optimetrix number [id number]. Anesthetic utilized: General. Health Status Allergies: Allergic [...] Discharge when meets criteria ( To home ).[facility]Result Comment: Electronically Signed By: Ramon Chu MD\.br\Date and Time Signed: 07/27/24 12:42 EDT 07-27-2024 NotePatient Education - Text [facility] [place] [place] Post-operative Instructions for Ureteroscopy, Laser Lithotripsy, [...] other reasons. 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 [...] not hear from us within 1 week [phone]05-[facility] NoteProgress Note-Physician Patient: RENATO STRICKLAND Age: [...] list: All Problems Anemia / SNOMED CT 385472575 / Confirmed Apnea, sleep / SNOMED CT 261409789 / Confirmed Fatty liver / SNOMED CT 0369790847 / Confirmed Frequent headaches / SNOMED CT 5912512937 / Confirmed Kidney stone / SNOMED CT 017479661 / Confirmed Ureteral stone with hydronephrosis / SNOMED CT 5657048198 / Confirmed Inactive: Diabetes / SNOMED CT 697965702 Inactive: HTN (hypertension) / SNOMED CT 8492378118, Active Problems (6) Anemia Apnea, sleep Fatty liver Frequent headaches Kidney stone Ureteral stone with hydronephrosis Histories Past Medical History: No active or resolved past medical history items have been selected or recorded. Family History: Anemia Mother Colon cancer Grandparent Hypertension Father Hyperlipidemia Father Arthritis Father Mother Breast cancer Sister Procedure history: Appendectomy (524459444). Hysterectomy (671351660). Colonoscopy (508973878). Social History Social & Psychosocial Habits Alcohol [...] 07/27/2024 7:23 EDT Hei (more content not included)...[facility] Comment on above:Result Comment: Electronically Signed By: Vlad CALLAHAN, Ramon Bennett\.br\Date and Time Signed: 07/27/24 08:49 [id number] Hospital Discharge instructions Patient Education 07/15/2024 11:25:43 [...] include: ?8 oz (237 mL) of milk, uwfpymo-bfwutehbumik-rxbao milk, and calcium- fortifiedfruit juice. Calcium-fortified means [...] ?Spinach (cooked), rhubarb, beets, sweet potatoes, and Gambian chard. ?Peanuts. ?Potato chips, welsh fries, and baked potatoes with skin on. ?Nuts and nut products. ?Chocolate. If you regularly take a diuretic medicine, make sure to eat at least 1 or 2 servings of fruits or vegetables that are high in potassium each day. These include: ?Avocado. ?Banana. ?[place], prune, carrot, or tomato juice. ?Baked potato. [...] magnesium, fish oil, or vitamin B6. Take zjxl-lzo-ladypxe and prescription medicines only as told by [...] Casseroles. Pizza. Lasagna. Frozen meals. Potato chips. Ukrainian fries. The items listed above may not [...] provider. Document Revised: 05/30/2022 Document Reviewed: 05/30/2022 [employer] Patient Education 2023 rag [employer] bone. Follow Up Care 07/13/2024 14:59:00 With:Eugenio CALLAHAN, BENI Gtz, URO Address: When: Unknown [facility] 05-15-2025 NotePatient Education Nephrology Dietary Guidelines [...] ? 8 oz (237 mL) of milk, diwavpn-trldxjrcuolb-fwwuj milk, and calcium- fortifiedfruit juice. Calcium-fortified means [...] Spinach (cooked), rhubarb, beets, sweet potatoes, and Gambian chard. ? Peanuts. ? Potato chips, welsh fries, and baked potatoes with skin on. ? Nuts and nut products. ? Chocolate. ??? If you regularly take a diuretic medicine, make sure to eat at least 1 or 2 servings of fruits or vegetables that are high in potassium each day. These include: ? Avocado. ? Banana. ? [place], prune, carrot, or tomato juice. ? Baked [...] fish oil, or vitamin B6. ??? Take badw-ekt-ovygsvl and prescription medicines only as told by your health (more content not included)...[facility]04-08-2025 History of Present illness Narrative* Chapin [...] Next Visit: 1 year documented in this encounterC[facility] [id number] History of Present illness Narrative* Luna Kimner, DO - 03/10/2024 8:15 AM EST Images from the original note were not included. No chief complaint on file. Subjective Renato Strickland, 54 y.o., female HPI She is [...] not wear it due to traveling in [place]. She denies any issues with her machine. [...] was counseled on the risks of stroke, NC, and sudden with REMEDIOS, along with the [...] to clinic: 1 year documented in this encounterCedar County Memorial [id number] Evaluation note* Encounter Date Diagnosis Assessment Notes [...] Reduce calories, increase activity for weight loss [employer] Other Evaluation + Plan note Future Appointments Appointment Date:07/23/2024 01:00:00 PM Scheduled Provider: Location:[facility] Appointment Type:Surgery CALL PAT FT Appointment Date:07/27/2024 09:00:00 AM Scheduled Provider: Location:[facility] Appointment Type:Surgery FT [facility] Evaluation note* Diagnosis Onset Date Resolution Status Chronic venous insufficiency of lower extremity acute Hypercholesterolemia acute Hypertension acute Metabolic dysfunction-associ ated steatotic liver disease (MASLD) acute Wellness examination noneact nader [facility] Work Phone: Evaluation note* Diagnosis REMEDIOS (obstructive sleep apnea)- Primary Obstructive sleep apnea (adult) (pediatric) Hypoxia Hypoxemia Hypersomnia Hypersomnia, unspecified Sleep deprivation Problems related to lack of adequate sleep Snoring Other dyspnea and respiratory abnormality Obesity (BMI 35.0-39.9 without comorbidity) documented in this encounter [facility] HealthcareEvaluation note* Diagnosis Lipoma of head- Primary Lentigines Melanocytic nevus of trunk Benign neoplasm of skin of trunk, except scrotum Tinea pedis of right foot documented in this encounter [facility] HealthcareEvaluation note* Diagnosis Encounter for adult wellness visit Encounter for screening mammogram for malignant neoplasm of breast Acquired absence of other genital organ(s) Depression, unspecified Pain of ovary Pelvic pain in female Unspecified symptom associated with female genital organs documented in this encounter [facility] HealthcareEvaluation note* Diagnosis Onset Date Resolution Status [...] 27 1:51pm Wellness examination noneactive 2024 1:51pm [facility] Work Phone: History general Narrative - [...] O VARY REMAINING Hospitalization History SEE ABOVE [employer] Other Hospital course Narrative No data available for this section [facility] Progress note No data available for this section [facility] Reason for referral (narrative)No reason for referral information availableMercer County Community Hospital Work Phone: Summary Purpose Family History [...] or prosecute any alcohol or drug abuse patient.[facility] the event this information is protected by the Federal Confidentiality of Alcohol and Drug Abuse Patient Records regulations: The Federal rules restrict any use of the information to criminally investigate or prosecute any alcohol or drug abuse patient.[facility] INFORMATION SOURCE (unrecogn ized section and content) DATE CREATED AUTHOR 04/09/2021 [facility] DATE CREATED AUTHOR AUTHOR'S ORGANIZ ATION 11/11/2021 [facility] DATE CREATED AUTHOR AUTHOR'S ORGANIZ ATION 07/30/2024 [facility] DATE CREATED AUTHOR AUTHOR'S ORGANIZ ATION 09/09/2024 [facility] DATE CREATED AUTHOR AUTHOR'S ORGANIZ ATION 09/30/2024 [facility] REASON FOR VISIT (unrecogniz ed section and [...] October 20, 2023 End: October 20, 2023 Holder Pile Driving Relationship Specialty Start Date End Date Vitaliy Dale MD [address] [place] [facility] [address] PCP - General Internal Medicine 08/19/22 Holder Pile Driving Relationship Specialty Start Date End Date Vitaliy Dale MD [address] [place] [facility] [address] PCP - General Internal Medicine 08/19/22 Holder Pile Driving Relationship Specialty Start Date End Date Vitaliy Dale MD [address] [place] [facility] [address] PCP - General Internal Medicine 08/19/22 Holder Pile Driving Relationship Specialty Start Date End Date Vitaliy Dale MD [address] [place] [facility] [address] PCP - General Internal Medicine 08/19/22 Holder Pile Driving Relationship Specialty Start Date End Date Vitaliy Dale DO PCP - General Internal Medicine 08/19/22 Holder Pile Driving Relationship Specialty Start Date End Date Vitaliy Dale DO [address] [place] [facility] [address] PCP - General Internal Medicine 08/19/22 Holder Pile Driving Relationship Specialty Start Date End Date Vitaliy Dale DO [address] [place] [facility] [address] PCP - General Internal Medicine 08/19/22 Team Status: Active Member Role Status Dates Vitaliy Dale DO Primary Care Provider Active Start: September 06, 2024 Kell Black APRN [employer] Attending Provider Active Start: September 06, 2024 [...] BE BASED ON THE PRIMARY CLINICAL RECORDS. [facility]. provides no warranty or guarantee of the accuracy or completeness of information in this document.
--- NOTE | 2024-11-22 07:18 | US_ITS ---
The [address] [address] Patient Name: RENATO ELLSWORTH MRN: [id number] date: 1970 Sex: F Assigned Patient Location: [place] Current Patient Location: [place] Accession/Order Number: [id number] Exam Date: 11/22/2024 07:20 Report Date: 11/22/2024 08:36 At the request of: DEISY HOBBS DO Procedure: US right upper quadrant LIMITED ABDOMINAL ULTRASOUND - the liver CLINICAL HISTORY: Elevated liver enzymes Fatty Change Of Liver K76.0 COMPARISON: CT 07/12/2024 The gallbladder is physiologically distended without shadowing calculi, wall thickening or pericholecystic fluid. No intra- or extrahepatic biliary dilatation is evident. The common duct measures 2 mm. The liver shows coarsened slight increased echogenicity suggesting fatty infiltration. Focal fatty sparing is visualized near the gallbladder fossa. No other focal intrahepatic masses are seen. There is appropriate hepatopetal flow within the main portal vein. The pancreas shows no significant sonographic abnormality. Cursory evaluation of the right kidney reveals no hydronephrosis or fluid within Mon's pouch. US/US right upper quadrant IMPRESSION: NO GALLBLADDER PATHOLOGY. FATTY LIVER WITH AREAS OF FOCAL FATTY SPARING. Impression dictated by: Ania Rivas M.D. 11/22/2024 8:36 AM Dictation Location: [place] [address] Electronically authenticated by: [id number] Y Date: 11/22/2024 08:36
== END 2024-11-22 07:10 | disposition home or self-care (01) ==
LOC: US 07:09
PROVIDERS: PCP Internal Medicine; Visit Provider Internal Medicine
DX: K76.0 Fatty (change of) liver, not elsewhere classified (principal)
CPT/HCPCS: 76705

== ENCOUNTER 2024-11-22 07:11 | Outpatient (OUT) | payer BC, SELFPAY ==
--- OUTSIDE RECORDS SUMMARY | 2024-11-22 07:12 | XMS_ITS | Encounter Summary ---
Author Organization [facility] Address [address] [place] [address] Care Team Providers Care Organic Extractions Technician Name Role Phone Vitaliy Dale DO Primary Care Provider [phone] Encounter Details Date Type Department Care Team (Late st Contact Info) Description 02/27/2023 Clinisync Result Encounter [facility] External Department Unsolicited Jonathan Harris, DO [address] [place], [facility] Social History Tobacco Use Types Packs/Day [...] [address] [place] [phone] Vilma Silva MD [address] [place] [address] 09/12/2025 9:00 AM EDT Office Visit [facility] [address] [facility] [place] [address] Jonathan Harris, DO [address], [place] [id number] documented as of this encounter Procedures Procedure Name Priority Date/Time Associated Diagnosis Comments MM TOMOSYNTHESIS SCREENING BI 02/27/2023 8:35 AM EST documented in this encounter Results * MM TOMOSYNTHESIS SCREENING BI (02/27/2023 8:35 AM EST) Anatomical Region Laterality Modality Other 02/27/2023 8:35 AM EST Narrative 02/27/2023 8:36 [place] [address] Mammography Report Signed Patient: RENATO ELLSWORTH MR#: [id number] : 1970 Acct:[id number] Age/Sex: 53 / F ADM Date: 02/26/23 Loc: MAMMO Attending Dr: Jonathan Harris D.O. Ordering Physician: Jonathan Harris D.O. Results: Date of Service: 02/26/23 Follow Up: Procedure(s): MM tomosynthesis screening BI Accession Number(s): [id number] cc: Vitaliy Dale D.O.; Jonathan Harris D.O. Patient Name: RENATO ELLSWORTH MR#: [id number] : 1970 Exam Date: 02/26/2023 Ordering Doctor: [...] colon cancer at age 72. LOCATION: [facility] BREAST COMPOSITION: Heterogeneously dense,which [...] M.D. Signed By: 02/27/2336 DD/ 4 TD/TT: Oracle Ebs Architect: Procedure Note Radiology, Radiologist, MD - 02/27/2023 [place] [address] Mammography Report Signed Patient: RENATO ELLSWORTH RMR#: [id number] : 1970Acct:[id number] Age/Sex: 53 / FADM Date: 02/26/23 Loc: MAMMO Attending Dr: Jonathan Harris D.O. Ordering Physician: Jonathan Harris D.O.Results: Date of Service: 02/26/23Follow Up: Procedure(s): MM tomosynthesis screening BI Accession Number(s): [id number] cc: Vitaliy Dale D.O.; Jonathan Harris D.O. Patient Name: RENATO ELLSWORTH MR#: [id number] : 1970 Exam Date: 02/26/2023 Ordering Doctor: [...] with coloncancer at age 72. LOCATION: [facility] BREAST COMPOSITION: Heterogeneously dense,which [...] M.D. Signed By:02/27/23 0836 DD/ 0835 TD/TT: Oracle Ebs Architect: Jonathan Harris DO [facility] Final Result documented in this encounter Visit Diagnoses Not on filedocumented in this encounter Care Teams Organic Extractions Technician Relationship Specialty Start Date End Date Vitaliy Dale DO [address] [place] [address] PCP - General Internal Medicine 08/19/22 documented as of this encounter
--- OUTSIDE RECORDS SUMMARY | 2024-11-22 07:12 | XMS_ITS | Encounter Summary ---
Author Organization [facility] Address [address] [place] [address] Care Team Providers Care Asphalt Mixer Name Role Phone Vitaliy Dale DO Primary Care Provider [phone] Encounter Details Date Type Department Care Team (Late st Contact Info) Description 03/19/2023 Clinisync Result Encounter [facility] External Department Unsolicited Jonathan Harris, DO [address] [place] [place], [facility] Social History Tobacco Use Types Packs/Day Years [...] [address] [place] [phone] Vilma Silva MD [address] [place] [address] 09/12/2025 9:00 AM EDT Office Visit [facility] [address] [facility] [facility] [place] [address] Jonathan Harris, DO [address], [place] [id number] documented as of this encounter Procedures Procedure Name Priority Date/Time Associated Diagnosis Comments MM DIAGNOSTIC MAMMO UNILAT LT 03/19/2023 8:41 AM EST documented in this encounter Results * MM DIAGNOSTIC MAMMO UNILAT LT (03/19/2023 8:41 AM EST) Anatomical Region Laterality Modality Other 03/19/2023 8:41 AM EST Narrative 03/19/2023 9:47 [place] [address] Mammography Report Signed Patient: RENATO ELLSWORTH MR#: [id number] : 1970 Acct:[id number] Age/Sex: 53 / F ADM Date: 03/19/23 Loc: MAMMO Attending Dr: Jonathan Harris D.O. Ordering Physician: Jonathan Harris D.O. Results: Date of Service: 03/19/23 Follow Up: Procedure(s): MM diagnostic mammo unilat LT Accession Number(s): [id number] cc: Vitaliy Dale D.O.; Jonathan Harris D.O. Patient Name: RENATO ELLSWORTH MR#: [id number] : 1970 Exam Date: 03/19/2023 Ordering Doctor: [...] colon cancer at age 72. LOCATION: The [facility] BREAST COMPOSITION: Heterogeneously dense,which may obscure [...] Signed By: 03/19/23 0947 DD/ 0841 TD/TT: X Ray Tech: Procedure Note Radiology, Radiologist, MD - 05/07/2023 [place] [address] Mammography Report Signed Patient: RENATO ELLSWORTH RMR#: [id number] : 1970Acct:[id number] Age/Sex: 53 / FADM Date: 03/19/23 Loc: MAMMO Attending Dr: Jonathan Harris D.O. Ordering Physician: Jonathan Harris D.O.Results: Date of Service: 03/19/23Follow Up: Procedure(s): MM diagnostic mammo unilat LT Accession Number(s): [id number] cc: Vitaliy Dale D.O.; Jonathan Harris D.O. Patient Name: RENATO ELLSWORTH MR#: [id number] : 1970 Exam Date: 03/19/2023 Ordering Doctor: [...] with coloncancer at age 72. LOCATION: [facility] BREAST COMPOSITION: Heterogeneously dense,which may obscure [...] M.D. Signed By:03/19/23 0947 DD/ 0841 TD/TT: X Ray Tech: us Jonathan Harris DO [facility] Final Result documented in this encounter Visit Diagnoses Not on filedocumented in this encounter Care Teams Asphalt Mixer Relationship Specialty Start Date End Date Vitaliy Dale DO [address] [place] [address] PCP - General Internal Medicine 08/19/22 documented as of this encounter
--- OUTSIDE RECORDS SUMMARY | 2024-11-22 07:12 | XMS_ITS | Encounter Summary ---
Author Organization [facility] Address [address] [place] [address] Care Team Providers Care Terminal Gauger Name Role Phone Vitaliy Dale DO Primary Care Provider [phone] Encounter Details Date Type Department Care Team (Late st Contact Info) Description 02/26/2023 Clinisync Result Encounter [facility] External Department Unsolicited Paris Harris, DO [address], [id number] Social History Tobacco Use Types Packs/Day Years [...] [address] [place] [phone] Vilma Silva MD [address] [place] [address] 09/12/2025 9:00 AM EDT Office Visit [facility] [address] [facility] [place] [address] Paris Harris, DO [address] [place], [place] [id number] documented as of this encounter Procedures Procedure Name Priority Date/Time Associated Diagnosis Comments XR DEXA AXIAL SKELETON 02/26/2023 11:55 AM EST documented in this encounter Results * XR DEXA AXIAL SKELETON (02/26/2023 11:55 AM EST) Anatomical Region Laterality Modality Other 02/26/2023 11:5 5 AM EST Narrative 02/26/2023 11:58 [place] [address] XRay Report Signed Patient: RENATO ELLSWORTH MR#: [id number] : 1970 Acct:[id number] Age/Sex: 53 / F ADM Date: 02/26/23 Loc: MAMMO Attending Dr: Paris Harris D.O. Ordering Physician: Paris Harris D.O. Date of Service: 02/26/23 Procedure(s): XR DEXA axial skeleton Accession Number(s): [id number] cc: Vitaliy Dale D.O.; Paris Harris D.O. [place] [address] Patient Name: RENATO ELLSWORTH MRN: [id number] date: 1970 Sex: F Assigned Patient Location: [facility] Current Patient Location: [facility] Accession/Order Number: [id number] Exam Date: 02/26/2023 10:30 Report Date: 02/26/2023 [...] Signed By: 02/26/23 1158 DD/ 1155 TD/TT: Pick And Shovel Man: Procedure Note Radiology, Radiologist, MD - 02/26/2023 [place] [address] XRay Report Signed Patient: RENATO ELLSWORTH RMR#: [id number] : 1970Acct:[id number] Age/Sex: 53 / FADM Date: 02/26/23 Loc: MAMMO Attending Dr: Paris Harris D.O. Ordering Physician: Paris Harris D.O. Date of Service: 02/26/23 Procedure(s): XR DEXA axial skeleton Accession Number(s): [id number] cc: Vitaliy Dale D.O.; Paris Harris D.O. [place] [id number] Patient Name: RENATO ELLSWORTH MRN: [id number] date: 1970 Sex: F Assigned Patient Location: [facility] Current Patient Location: [facility] Accession/Order Number: [id number] Exam Date: 02/26/2023 10:30 Report Date: 02/26/2023 [...] M.D. Signed By:02/26/23 1158 DD/ 1155 TD/TT: Pick And Shovel Man: us Paris Harris DO [facility] Final Result documented in this encounter Visit Diagnoses Not on filedocumented in this encounter Care Teams Terminal Gauger Relationship Specialty Start Date End Date Vitaliy Dale DO [address] [place] [address] PCP - General Internal Medicine 08/19/22 documented as of this encounter
--- OUTSIDE RECORDS SUMMARY | 2024-11-22 07:12 | XMS_ITS | Encounter Summary ---
Author Organization [facility] Address [address] [place] [address] Care Team Providers Care Career Services Officer Name Role Phone Vitaliy Dale DO Primary Care Provider [phone] Encounter Details Date Type Department Care Team (Late st Contact Info) Description 03/19/2023 Clinisync Result Encounter [facility] External Department Unsolicited Jonathan Harris, DO [address], [facility] Social History Tobacco Use Types Packs/Day Years [...] [address] [place] [phone] Vilma Silva MD [address] [place] [address] 09/12/2025 9:00 AM EDT Office Visit [facility] [address] [facility] [place] [address] Jonathan Harris, DO [address], [place] [id number] documented as of this encounter Procedures Procedure Name Priority Date/Time Associated Diagnosis Comments MM DIAGNOSTIC MAMMO UNILAT LT 03/19/2023 8:41 AM EST documented in this encounter Results * MM DIAGNOSTIC MAMMO UNILAT LT (03/19/2023 8:41 AM EST) Anatomical Region Laterality Modality Other 03/19/2023 8:41 AM EST Narrative 03/19/2023 8:42 [place] [address] Mammography Report Signed Patient: RENATO ELLSWORTH MR#: [id number] : 1970 Acct:[id number] Age/Sex: 53 / F ADM Date: 03/19/23 Loc: MAMMO Attending Dr: Jonathan Harris D.O. Ordering Physician: Jonathan Harris D.O. Results: Date of Service: 03/19/23 Follow Up: Procedure(s): MM diagnostic mammo unilat LT Accession Number(s): [id number] cc: Vitaliy Dale D.O.; Jonathan Harris D.O. Patient Name: RENATO ELLSWORTH MR#: [id number] : 1970 Exam Date: 03/19/2023 Ordering Doctor: [...] colon cancer at age 72. LOCATION: [facility] BREAST COMPOSITION: Heterogeneously dense,which may obscure [...] Signed By: 03/19/23 0842 DD/ 0841 TD/TT: Saw Filer: Procedure Note Radiology, Radiologist, MD - 03/19/2023 [place] [address] Mammography Report Signed Patient: RENATO ELLSWORTH RMR#: [id number] : 1970Acct:[id number] Age/Sex: 53 / FADM Date: 03/19/23 Loc: MAMMO Attending Dr: Jonathan Harris D.O. Ordering Physician: Jonathan Harris D.O.Results: Date of Service: 03/19/23Follow Up: Procedure(s): MM diagnostic mammo unilat LT Accession Number(s): [id number] cc: Vitaliy Dale D.O.; Jonathan Harris D.O. Patient Name: RENATO ELLSWORTH MR#: [id number] : 1970 Exam Date: 03/19/2023 Ordering Doctor: [...] with coloncancer at age 72. LOCATION: [facility] BREAST COMPOSITION: Heterogeneously dense,which may obscure [...] M.D. Signed By:03/19/23 0842 DD/ 0841 TD/TT: Saw Filer: us Jonathan Harris DO [facility] Final Result documented in this encounter Visit Diagnoses Not on filedocumented in this encounter Care Teams Career Services Officer Relationship Specialty Start Date End Date Vitaliy Dale DO [address] [place] [address] PCP - General Internal Medicine 08/19/22 documented as of this encounter
--- OUTSIDE RECORDS SUMMARY | 2024-11-22 07:12 | XMS_ITS | Encounter Summary ---
Author Organization [facility] Address [address] [place] [address] Care Team Providers Care Vp Respiratory Name Role Phone Vitaliy Dale DO Primary Care Provider [phone] Encounter Details Date Type Department Care Team (Late st Contact Info) Description 07/30/2023 Clinisync Result Encounter NOMS External Department Unsolicited Jonathan Harris, DO [address], [facility]11 Social History Tobacco Use [...] [address] [place] [address] Vilma Silva MD [address] [place] [address] 09/12/2025 9:00 AM EDT Office Visit [facility] [address] [place] [address] Jonathan Harris, DO [address] [place], [place] [id number] documented as of this encounter Procedures Procedure Name Priority Date/Time Associated Diagnosis Comments US BREAST LT LIMITED 07/30/2023 8:50 AM EDT documented in this encounter Results * US BREAST LT LIMITED (07/30/2023 8:50 AM EDT) Anatomical Region Laterality Modality Other 07/30/2023 8:50 AM EDT Narrative 07/30/2023 8:51 [place] [address] Ultrasound Report Signed Patient: RENATO ELLSWORTH MR#: [id number] : 1970 Acct:[id number] Age/Sex: 53 / F ADM Date: 07/29/23 Loc: US Attending Dr: Jonathan Harris D.O. Ordering Physician: Jonathan Harris D.O. Date of Service: 07/29/23 Procedure(s): US breast LT limited Accession Number(s): [id number] cc: Vitaliy Dale D.O.; Jonathan Harris D.O. Patient Name: RENATO ELLSWORTH MR#: [id number] : 1970 Exam Date: 07/29/2023 Ordering Doctor: [...] Signed By: 07/30/23 0851 DD/ 0850 TD/TT: Forcer Maker: Procedure Note Radiology, Radiologist, MD - 07/30/2023 [place] [address] Ultrasound Report Signed Patient: RENATO ELLSWORTH RMR#: [id number] : 1970Acct:[id number] Age/Sex: 53 / FADM Date: 07/29/23 Loc: US Attending Dr: Jonathan Harris D.O. Ordering Physician: Jonathan Harris D.O. Date of Service: 07/29/23 Procedure(s): US breast LT limited Accession Number(s): [id number] cc: Vitaliy Dale D.O.; Jonathan Harris D.O. Patient Name: RENATO ELLSWORTH MR#: [id number] : 1970 Exam Date: 07/29/2023 Ordering Doctor: [...] Saul Mary M.D. Signed By:07/30/2351 DD/ TD/TT: Forcer Maker: us Jonathan Kimberly DO [facility] Final Result documented in this encounter Visit Diagnoses Not on filedocumented in this encounter Care Teams Vp Respiratory Relationship Specialty Start Date End Date Vitaliy Dale DO [address] [place] [address] PCP - General Internal Medicine 08/19/22 documented as of this encounter
--- OUTSIDE RECORDS SUMMARY | 2024-11-22 07:12 | XMS_ITS | Clinical Summary ---
Author Organization [facility] Address [address] [place] [address] Care Team Providers Care Occupational Therapist Assistant Name Role Phone Vitaliy Dale Primary Care Provider [phone] Allergies Active Allergy Reactions Criticality Noted Date [...] 09/14/2024 Orders Only [facility] [address] [place] [address] Pao Oneill MA 09/06/2024 9:00 AM EDT Office Visit [facility] [address] [place] [address] Paris Harris DO Encounter for adult wellness visit; Encounter for screening mammogram for malignant neoplasm of breast; Acquired absence of other genital organ(s); Depression, unspecified ; Pain of ovary; Pelvic pain in female 09/06/2024 Clinisync Result Encounter NOMS External Department Unsolicited Kell Black NP 09/06/2024 Bamboo flowsheet [facility] [address] [place] [address] Paris Harris DO 09/03/2024 Travel 08/30/2024 [...] [address] [place] [address] Vilma Silva MD [address] [place] [address] 09/12/2025 9:00 AM EDT Office Visit [facility]DY [facility]oo OBM[facility] [address] [place] [address] [place] [address] Paris Harris [address] [place] [address] Health Maintenance Due Date Last Done Comments [...] EDT) AGE GDLN ACOG TESTING Note . [facility] Comment: TESTS RESULT FLAG UNITS REF RANGE LAB Clinician Provided Cytology Information Source.............Vagina No. of containers..01 ThinPrep Vial Age Algo ACOG Maria Del Carmen... 30-65 01 FLAG LEGEND: L-Low Normal,H-High Normal,LL-Alert Low,HH-Alert High <-Panic Low,>-Panic High,A-Abnormal,AA-Critical Abnormal Performed at: 01 [address] [address] Rosa Mckeon MD, IGP, APTIMA HPV, RFX 16/18,45 Note . [facility] Comment: TESTS RESULT FLAG UNITS REF RANGE LAB DIAGNOSIS: 02 NEGATIVE FOR INTRAEPITHELIAL LESION OR MALIGNANCY. Specimen adequacy: 02 Satisfactory for evaluation. Performed by: Ro Wilkerson, Log Washer ([facility]) . 02 Note: Note 02 [...] <-Panic Low,>-Panic High,A-Abnormal,AA-Critical Abnormal Performed at: [address] [address] Rosa Mckeon MD, HPV APTIMA Negative Negative [facility] Comment: This nucleic acid amplification test detects fourteen high- risk HPV types (16,18,31,33,35,39,45,51,52,56,58,59,66,68) without differentiation. Performed at: =[address] [id number] Forensic Structural Engineer: Rosa Mckeon MD, Phone: [phone] Performed at: [address] [id number] Forensic Structural Engineer: Rosa Mckeon MD, Phone: [phone] 09/06/2024 9:10 AM EDT 09/06/2024 9:38 PM EDT Narrative [facility] - 09/09/2024 12:18 PM EDT SPATULA-ALONE VAGINA Kell Black NP LAB BLOOD ORDERABLES Final Re sult Performing Organization Address [facility]/ZIP Co de Phone Number [facility] * Pap Smear (09/06/2024 12:00 AM EDT) Swab Cervical swab / Unknown Kell Black NP LAB CYTOLOGY ORDERABLES Final Result Performing Organization Address City/[facility]/ZIP Co de Phone Number EXTERNAL LAB * MM TOMOSYNTHESIS SCREENING BI (08/30/2024 4:10 PM EDT) Anatomical Region Laterality Modality Other 08/30/2024 4:10 PM EDT Narrative 08/30/2024 4:11 PM EDT [place] [id number] Mammography Report Signed Patient: RADHA ELLSWORTH MR#: [id number] : 1970 Acct:[id number] Age/Sex: 54 / F ADM Date: 08/30/24 Loc: MAMMO Attending Dr: Paris Harris D.O. Ordering Physician: Paris Harris D.O. Results: Date of Service: 08/30/24 Follow Up: Procedure(s): MM tomosynthesis screening BI Accession Number(s): [id number] cc: Vitaliy Dale D.O.; Paris Harris D.O. Patient Name: RADHA ELLSWORTH MR#: [id number] : 1970 Exam Date: 08/30/2024 Ordering Doctor: [...] at age 72. LOCATION: [facility] BREAST COMPOSITION: There are scattered areas [...] Signed By: 08/30/24 161 DD/ 161 TD/TT: Media Relations Specialist: Procedure Note Radiology, Radiologist, MD - 08/30/2024 [place] [address] Mammography Report Signed Patient: RADHA ELLSWORTH RMR#: [id number] : 1970Acct:[id number] Age/Sex: 54 / FADM Date: 08/30/24 Loc: MAMMO Attending Dr: Paris Harris D.O. Ordering Physician: Paris Harris D.O.Results: Date of Service: 08/30/24Follow Up: Procedure(s): MM tomosynthesis screening BI Accession Number(s): [id number] cc: Vitaliy Dale D.O.; Paris Harris D.O. Patient Name: RADHA ELLSWORTH MR#: [id number] : 1970 Exam Date: 08/30/2024 Ordering Doctor: [...] at age 72. LOCATION: [facility] BREAST COMPOSITION: There are scattered areas [...] M.D. Signed By:08/30/24 161 DD/ 161 TD/TT: Media Relations Specialist: Paris Kimberly DO [facility] Final Result * THINPREP PAP AND HPV MRNA E6/E7 W/RFL HPV 16,18/45 (08/27/2022 8:52 AM EDT) Paris Kimberly DO LAB BLOOD ORDERABLES Final Resul t EXTERNAL LAB from Last 3 Months or Most Recently Relevant to Health [place] [address] [facility] Care Teams Occupational Therapist Assistant Relationship Specialty Start Date End Date Vitaliy Dale DO [address] [facility] [place] [phone] PCP - General Internal Medicine 08/19/22
--- OUTSIDE RECORDS SUMMARY | 2024-11-22 07:12 | XMS_ITS | Encounter Summary ---
Author Organization [facility] Address [address] [place] [address] Care Team Providers Care Firefighting Equipment Specialist Name Role Phone Vitaliy Dale DO Primary Care Provider [phone] Encounter Details Date Type Department Care Team (Late Contact Info) Description 09/14/2024 Orders Only BUDDY CARBAJAL [address] [facility] [place] [address] Pao Oneill MA [address] [facility] [place] [address] Social History Tobacco Use Types Packs/Day Years [...] [address] [place] [phone] Vilma Silva MD [address] [place] [address] 09/12/2025 9:00 AM EDT Office Visit BUDDY CARBAJAL [address] [facility] [place] [address] Jonathan Harris DO [address] [facility] [place] [address] documented as of this encounter Procedures Procedure Name Priority Date/Time Associated Diagnosis Comments PAP SMEAR Routine 09/06/2024 12:00 AM EDT documented in this encounter Results * Pap Smear (09/06/2024 12:00 AM EDT) Swab Cervical swab / Unknown Kell Black OTOLARYNGOLOGY NURSE LAB CYTOLOGY ORDERABLES Final Result EXTERNAL LAB documented in this encounter Visit Diagnoses Not on filedocumented in this encounter Care Teams Firefighting Equipment Specialist Relationship Specialty Start Date End Date Vitaliy Dale DO [address] [facility] [place] [address] PCP - General Internal Medicine 08/19/22 documented as of this encounter
--- OUTSIDE RECORDS SUMMARY | 2024-11-22 07:12 | XMS_ITS | Encounter Summary ---
Author Organization [facility] Address [address] [place] [address] Care Team Providers Care Supervisor Paper Products Name Role Phone Vitaliy Dale DO Primary Care Provider [phone] Encounter Details Date Type Department Care Team (Late Contact Info) Description 08/28/2023 Orders Only BUDDY CARBAJAL [address] [place] [address] Tanesha Dye LPN [address] [employer] [address] [facility] Social History Tobacco Use Types Packs/Day [...] [address] [place] [address] Vilma Silva MD [address] [place] [address] 09/12/2025 9:00 AM EDT Office Visit BUDDY CARBAJAL [address] [place] [address] Jonathan Harris DO [address] [facility] [place] [address] documented as of this encounter [...] on filedocumented in this encounter Care Teams Supervisor Paper Products Relationship Specialty Start Date End Date Vitaliy Dale DO [address] [facility] [place] [address] PCP - General Internal Medicine 08/19/22 documented as of this encounter
--- OUTSIDE RECORDS SUMMARY | 2024-11-22 07:12 | XMS_ITS | Encounter Summary ---
Author Organization [facility] Address [address] [place] [address] Care Team Providers Care Caregiver Assisted Living Name Role Phone Vitaliy Dale DO Primary Care Provider [phone] Encounter Details Date Type Department Care Team (Late st Contact Info) Description 03/19/2023 Clinisync Result Encounter NOMS External Department Unsolicited Jonathan Harris, DO [address], [facility]11 Social History Tobacco Use Types Packs/Day [...] [address] [place] [address] Vilma Silva MD [address] [place] [address] 09/12/2025 9:00 AM EDT Office Visit [facility]DY [facility] O[facility] [address] [facility] [facility] [place] [address] Jonathan Harris, DO [address] [place], [place] [address] documented as of this encounter Procedures Procedure Name Priority Date/Time Associated Diagnosis Comments US BREAST LT LIMITED 03/19/2023 8:41 AM EST documented in this encounter Results * US BREAST LT LIMITED (03/19/2023 8:41 AM EST) Anatomical Region Laterality Modality Other 03/19/2023 8:41 AM EST Narrative 03/19/2023 9:47 [place] [address] Ultrasound Report Signed Patient: RENATO ELLSWORTH MR#: [id number] : 1970 Acct:[id number] Age/Sex: 53 / F ADM Date: 03/19/23 Loc: MAMMO Attending Dr: Jonathan Harris D.O. Ordering Physician: Jonathan Harris D.O. Date of Service: 03/19/23 Procedure(s): US breast LT limited Accession Number(s): [id number] cc: Vitaliy Dale D.O.; Jonathan Harris D.O. Patient Name: RENATO ELLSWORTH MR#: [id number] : 1970 Exam Date: 03/19/2023 Ordering Doctor: [...] colon cancer at age 72. LOCATION: [facility] BREAST COMPOSITION: Heterogeneously dense,which may [...] Signed By: 03/19/23 0947 DD/ 0841 TD/TT: Sandblaster Stone: Procedure Note Radiology, Radiologist, MD - 03/19/2023 [place] [address] Ultrasound Report Signed Patient: RENATO ELLSWORTH RMR#: [id number] : 1970Acct:[id number] Age/Sex: 53 / FADM Date: 03/19/23 Loc: MAMMO Attending Dr: Jonathan Harris D.O. Ordering Physician: Jonathan Harris D.O. Date of Service: 03/19/23 Procedure(s): US breast LT limited Accession Number(s): [id number] cc: Vitaliy Dale D.O.; Jonathan Harris D.O. Patient Name: RENATO ELLSWORTH MR#: [id number] : 1970 Exam Date: 03/19/2023 Ordering Doctor: [...] with coloncancer at age 72. LOCATION: [facility] BREAST COMPOSITION: Heterogeneously dense,which may [...] M.D. Signed By:03/19/23 0947 DD/ 0841 TD/TT: Sandblaster Stone: Jonathan Harris DO [facility] Final Result documented in this encounter Visit Diagnoses Not on filedocumented in this encounter Care Teams Caregiver Assisted Living Relationship Specialty Start Date End Date Vitaliy Dale DO [address] [place] [address] PCP - General Internal Medicine 08/19/22 documented as of this encounter
--- OUTSIDE RECORDS SUMMARY | 2024-11-22 07:13 | XMS_ITS | CCD ---
Author Organization [facility] Team Providers Care Face Painter Name Role Phone Unavailable Primary Care Provider [...] Attending Unavailable KIMBERLY, DR TOLEDO Admitting Unavailable KIMBRELY, DR TOLEDO Consulting Unavailable FABY, DR OLIVAS Primary Care Unavailable FABY, DR OLIVAS Consulting Unavailable FABY, DR OLIVAS Attending Unavailable FABY, DR OLIVAS Admitting Unavailable FABY, DR OLIVAS Primary Care Unavailable Vitaliy Dale Unavailable Vitaliy Dale MD Primary Care Provider VITALIY DALE Primary Care Physician [phone] Khadra Becker Attending Unavailable Khadra Becker Referring [...] Unavailable Khadra Becker MStarla Referring Unavailable Vitaliy aDle DO Primary Care Provider Kell Black APRN Attending Provider Vitaliy Dale DO Attending Provider Allergies Allergy Classification Reported Allergen(s) Allergy Type Date of Onset Reaction(s) Facility (5 sources) Adhesive bandage; Translations: [Adhesive Bandage] Drug allergy (disorder) 5 Unknown (qualifier value) [facility] Repository (3 sources) Meperidine; Translations: [Demerol] Drug Allergy [address] [facility] Repository (1 source) Sulfonamides (Antibiotic) Drug allergy (disorder) [address] [facility] Repository (19 sources) Meperidine; Translations: [meperidine] Drug Allergy 3 GI intolerance, Vomiting (disorder) [facility] (3 sources) Sulfacetamide Drug Allergy 4 hives [facility] (2 sources) sulfADIAZINE Drug Allergy 4 Unknown Reaction [facility] Comment on above: Onset Date: 08/09/19 20 (2 sources) Sulfonamides (Antibiotic) Allergy to substance 4 Rash [facility] (11 sources) Sulfonamides (Antibiotic) Propensity to adverse reactions 3 Other [facility] Healthcare (3 sources) Sulfonamide; Translations: [sulfa drugs] Allergy to substance 3 Other (qualifier value) [facility] Comment on above: Outside Source Comme nt: Spots all over not hives (2 sources) Sulfonamides (Antibiotic); Translations: [sulfa drugs] Propensity to adverse reactions (disorder) 3 [facility] Repository Medications Current Medications Medication Drug [...] day(s), # 2 tab(s), Refills(s) 0, Pharmacy: [facility]/pharmacy #[id number], 155, cm, 07/27/24 7:32:00 EDT, [...] Take 1 tablet by mouth Daily Active Fg-Fw-Zgae-Fa-Ca Carb-Vit K (1 source) Start: 02-02-2021 take 1 tablet by mouth once daily Ew-Oh-Zwuc-Fa-Ca Carb-Vit K Active 1 TAB PO Daily February 02, 2021 1:00am Jc-Bd-Zbtd-Fa-Ca Carb-Vit K 18 mg iron-400 mcg-500 mg Tablet (1 source) Start: 02-02-2021 take 1 tablet by mouth once daily Ql-Ut-Dnib-Fa-Ca Carb-Vit K 18 mg iron-400 mcg-500 mg [...] pain, # 90 tab(s), Refills(s) 0, Pharmacy: [facility]/pharmacy #[id number], 155, cm, 07/27/24 7:32:00 EDT, [...] Discontinued 2.5 MG SUBCUT every week 2 [place] 19th, 2024 12:00am February 23, 2024 5:37pm [...] MD Transcribed by: ALBARO Technologist: BURKE Flores [facility] IGP,APTIMA HPV,AGE GDLNon AGE GDLN ACOG TESTING Note . [facility] Comment on above: TESTS RESULT FLAG UN ITS REF RANGE LAB Clinician Provided Cytology Information Source.............Vagina No. of containers..01 ThinPrep Vial Age Algo ACOG Maria Del Carmen... FLAG LEGEND: L-Low Normal,H-High Normal,LL-Alert Low,HH-Alert High <-Panic Low,>-Panic High,A-Abnormal,AA-Critical Abnormal Performed at: 01 =[address] [place] [address] Rosa Mckeon MD, HPV APTIMA Negative Negative [facility] Comment on above: This nucleic acid am plification test detects fourteen high- risk HPV types (16,18,31,33,35,39,45,51,52,56,58,59,66,68) without differentiation. Performed at: =[address] [id number] Foundry Patternmaker: Rosa Mckeon MD, Phone: [phone] Performed at: [address] [id number] Foundry Patternmaker: Rosa Mckeon MD, Phone: [phone] IGP, APTIMA HPV, RFX 16/18,45 Note . [facility] Comment on above: TESTS RESULT FLAG UN ITS REF RANGE LAB DIAGNOSIS: 02 NEGATIVE FOR INTRAEPITHELIAL LESION OR MALIGNANCY. Specimen adequacy: 02 Satisfactory for evaluation. Performed by: Ro Wilkerson, Photographic Equipment Mechanic ([facility]) . 02 Note: Note 02 The Pap [...] <-Panic Low,>-Panic High,A-Abnormal,AA-Critical Abnormal Performed at: 02 [facility] [place] [address] [place] [address] Rosa Mckeon MD, SPATULA-ALONE VAGINA [facility] Human papilloma virus 16+18+ 31+33+35+39+45+51+52+56+58+59+66+68 DNA [Presence] in CerOrdered By: Kell Black on 09-06-2024 HPV 16+18+31+33+35+39+45+ 51+52+56+58+59+66+68 DNA Probe+sig amp Ql (Cvx) Negative Negative [facility] Comment on above: This nucleic acid am plification test detects fourteen high- risk HPV types (16,18,31,33,35,39,45,51,52,56,58,59,66,68)without differentiation.Performed at: = - [facility] [address] [id number] Director: Rosa Mckeon MD, Phone: [phone] at: - [facility] [id number] Director: Rosa Mckeon MD, Phone: [phone] No Panel InformationOrdered By: Kell Black on 09-06-2024 HPV High Risk Other Comment Note . [facility] Comment on above: TESTS RESULT FLAG UN ITS REF RANGE LAB D IAGNOSIS: 02 NEGATIVE FOR INTRAEPITHELIAL LESION OR MALIGNANCY.Specimen adequacy: 02 Satisfactory for evaluation.Performed by: 02 Skyla Wilkerson Photographic Equipment Mechanic (ASCP). 02Note: Note 02 The Pap smear [...] <-Panic Low,>-Panic High,A-Abnormal,AA-Critical Abnormal ----Performed at:[address] [address] Rosa Mckeon MD, Reference Lab Test Patient Age Note . [facility] Comment on above: TESTS RESULT FLAG UN ITS REF RANGE LAB Clinician Provided Cytology Information Source.............Vagina No. of containers..01 ThinPrep VialAge Shawn BEST Maria Del Carmen... 30 FLAG LEGEND: L-Low Normal,H-High Normal,LL-Alert Low,HH-Alert High <-Panic Low,>-Panic High,A-Abnormal,AA-Critical Abnormal ----Performed at:01 =G [address] [address] Rosa Mckeon MD, MM TOMOSYNTHESIS SCREENING B Ion 08-30-2024 [place] [address] Mammography Report Signed Patient: RENATO STRICKLAND MR#: [id number] : 1970 Acct:[id number] Age/Sex: 54 / F ADM Date: 08/30/24 Loc: MAMMO Attending Dr: Jonathan Harris D.O. Ordering Physician: Jonathan Harris D.O. Results: Date of Service: 08/30/24 Follow Up: Procedure(s): MM tomosynthesis screening BI Accession Number(s): [id number] cc: Vitaliy Dale D.O.; Jonathan Harris D.O. Patient Name: RENATO STRICKLAND MR#: [id number] : 1970 Exam Date: 08/30/2024 Ordering Doctor: [...] at age 72. LOCATION: [facility] BREAST COMPOSITION: There are scattered areas [...] Signed By: 08/30/24 161 DD/ 161 TD/TT: Preformer Impregnated Fabrics: [facility] Radiology, Radiologvida calloway MD - 08/30/2024 [place] [address] Mammography Report Signed Patient: RENATO STRICKLAND MR#: [id number] : 1970 Acct:[id number] Age/Sex: 54 / F ADM Date: 08/30/24 Loc: MAMMO Attending Dr: Jonathan Harris D.O. Ordering Physician: Jonathan Harris D.O. Results: Date of Service: 08/30/24 Follow Up: Procedure(s): MM tomosynthesis screening BI Accession Number(s): [id number] cc: Vitaliy Dale D.O.; Jonathan Harris D.O. Patient Name: RENATO STRICKLAND MR#: [id number] : 1970 Exam Date: 08/30/2024 Ordering Doctor: [...] at age 72. LOCATION: [facility] BREAST COMPOSITION: There are scattered areas [...] M.D. Signed By: 08/30/241610 DD/ 09 TD/TT: Preformer [employer]: [facility] Radiology Study observation (narrative) [facility] [employer] MM TOMOSYNTHESIS SCREENING B IOrdered By: Radiologist Radiology on 08-30-2024 [facility] [employer] Work Phone: H&P Updateon 08-09-2024 H&P Update [...] Health Status Procedure history: Cystoscopy, stent placement ([id number]) on 07/27/2024 at 54 Years. Appendectomy (199360391). Hysterectomy (623392684). Colonoscopy (494475337). Social History Social & Psychosocial Habits Alcohol [...] pain, # 90 tab(s), Refills(s) 0, Pharmacy: [facility]/pharmacy #[id number], 155, cm, 07/27/24 7:32:00 EDT, [...] list: All Problems Anemia / SNOMED CT 367366756 / Confirmed Apnea, sleep / SNOMED CT 944763966 / Confirmed Fatty liver / SNOMED CT 8015809027 / Confirmed Frequent headaches / SNOMED CT 7475905656 / Confirmed Kidney stone / SNOMED CT 379836474 / Confirmed Ureteral stone with hydronephrosis / SNOMED CT 8383286707 / Confirmed Inactive: Diabetes / SNOMED CT 402691465 Inactive: HTN (hypertension) / SNOMED CT 1206026424 Normal [facility] Inpatient Patient Summaryon 08-09-2024 Inpatient Patient Summary Inpatient Patient Summary [address] [address] Clinical Summary Person Information Name: SENG, RENATO R Age: 54 Years : 1970 Sex: Female PCP: VITALIY DALE DO Marital Status: Phone: [phone] Race: White Ethnicity: Non- or Language: Guyanese Visit Id: Visit Reason: URETERAL STONE WITH HYDRONEPHROSIS Speciality: Acuity: Enc Type: Outpatient Med Service: Surgery Arrival: 08/09/2024 10:23:52 Discharge: Dispo Type: Address: [address] [place] [address] [address] [place] [id number] Provider Notes: Diagnosis: Encounter for removal of [...] renal US results - to obtain at [facility] in 6-8 weeks. Follow up in 1 year with renal US for stone monitoring Patient Education Information: EU - Cystoscopy with Stent Removal Discharge Instructions (CUSTOM) [facility] Main OR Intraoperative Recor don 08-09-2024 Main OR Intraoperative Record Main OR Intraoperative Record IntraOp Document Type FTURO Summary Primary Physician: Khadra Becker MD Finalized Date/Time: 08/09/24 10:55:44 Pt. Name: RENATO STRICKLAND /Sex: 1970 Female Med Rec #: [id number] Physician: Khadra Becker MD Financial #: [id number] Pt. Type: O Room/Bed: / Admit/Disch: 08/09/24 [...] Sunday Pelletier Role Performed Surgeon - Primary Mat Machine Tender - Primary Scrub - Primary Time In [...] Agents Hibiclens, Sterile Water Skin. Condition Intact, [place], Warm, & Dry Additional None Specimens Collected [...] By: Pippa Meng RN 08/09/24 10:55 Normal [facility] Main OR Preoperative Recordo n 08-09-2024 Main OR Preoperative Record Main OR Preoperative Record Holding Area Document Type FTURO Summary Primary Physician: Khadra Becker MD Finalized Date/Time: 08/09/24 10:47:41 Pt. Name: RENATO STRICKLAND D.O.B./Sex: 1970 Female Med Rec #: [id number] Physician: Khadra Becker MD Financial #: [id number] Pt. Type: O Room/Bed: / Admit/Disch: 08/09/24 [...] Complaints of Pain: No Skin Integrity Intact, [place], Warm, & Dry Vitals - EU Blood Pressure 144/89 Pulse 74 bpm Respirations 18 br/min SPO2 96 % Additional None RN Reviewed Yes Specimens Collected Last Modified By: Pippa Meng RN 08/09/24 10:47:39 Finalized By: Pippa Meng RN Document Signatures Signed By: Pippa Meng RN 08/09/24 10:47 Normal [facility] Operative Reporton Operative Report Operative Report Patient: RENATO STRICKLAND Age: 54 years Sex: Female : 1970 Associated Diagnoses: None Author: Khadra Becker MD Procedure Operative Information Details: Date/ Time: 08/09/2024 11:20:00. Pre-Op Dx: Encounter for removal of ureteral stent ([id number] Z46.6, Discharge, Medical), History of kidney stones (RXT23-IT Z87.442, Discharge, Medical). Post-Op Dx: Same. Anesthesia [...] ultrasound in 6 to 8 weeks at [facility], call with results to ensure no silent obstruction has developed. Will proceed with annual follow-up afterwards for stone surveillance. Normal [facility] Comment on above: Result Comment: Elec tronically Signed By: Khadra Becker MD\.br\Date and Time Signed: 08/09/24 11:21 EDT Outpatient Surgery Discharge Instructionon 08-09-2024 Outpatient Surgery Discharge Instruction Outpatient Surgery Discharge Instruction [address] [address] Patient Discharge Instructions PERSON INFORMATION [...] renal US results - to obtain at [facility] in 6-8 weeks. Follow up in 1 [...] to serve you. Thank you for choosing [facility] Normal [facility] Calculus Analysison 08-05-19 25 CA Oxalate, Dihydrate 60 % Invalid Interpretation Code [facility] Comment on above: Performed By: #### 1 [id number] #### [facility] [address] [place] [address] CA Oxalate, Monohydr 35 % Invalid Interpretation Code [facility] Comment on above: Performed By: #### 1 [id number] #### [facility] [address] [place] [address] Color (U) Bonds Invalid Interpretation Code [facility] Comment on above: Performed By: #### 1 [id number] #### [facility] [address] [place] [address] Comment 2 Comment Invalid Interpretation Code [facility] Comment on above: Result Comment: Calc ulus received wet. Wet calculi must be dried before analysis, which delays reporting of results. Leaving calculi wet (such as water, saline, blood, urine) may lead to changes in composition. Performed at: [address] [id number] PhD Ricardo Bean Performed By: #### 1 [id number] #### [facility] [address] [place] [address] Hydroxyapatite: 5 % Invalid Interpretation Code [facility] Comment on above: Performed By: #### 1 [id number] #### [facility] [address] [place] [address] Size: 3x2 Invalid Interpretation Code [facility] Comment on above: Result Comment: Mult iple pieces received. Dimensions of the largest piece reported. Performed By: #### 1 [id number] #### [facility] [address] [place] [address] Stone Source Comment Invalid Interpretation Code [facility] Comment on above: Result Comment: Left Ureter Performed By: #### 1 [id number] #### [facility] [address] [place] [address] Weight Calculus Analysis 10 mg Invalid Interpretation Code [facility] Comment on above: Performed By: #### 1 [id number] #### [facility] [address] [place] [address] Main OR Intraoperative Recor don 07-28-2024 Main OR Intraoperative Record Main OR Intraoperative Record IntraOp Document Type FT Summary Primary Physician: Khadra Becker MD Finalized Date/Time: 07/28/24 09:04:33 Pt. Name: RENATO STRICKLAND Lois RoeB./Sex: 1970 Female Med Rec #: [id number] Physician: Khadra Becker MD Financial #: [id number] Pt. Type: A Room/Bed: [place] [address] Admit/Disch: 07/27/24 06:42:06 - 07/27/24 13:00:00 Institution: [...] Cruz Role Performed DIOR Surgeon - Primary Mat Machine Tender - Primary Time In 07/27/24 10:07:00 07/27/24 [...] Machelle Lan Role Performed Scrub - Primary Grocery Clerk Marking Time In 07/27/24 10:07:00 07/27/24 10:07:00 Time [...] Antibiotic Yes Time Out Eugenio CALLAHAN, Khadra rBown, Given Participants Ángel Garcia, Sunday Ashley Ware [...] or mechanical (more content not included)... Normal [facility] XR Urography Retrograde Left on 07-28-2024 [...] MD Transcribed by: ALBARO Technologist: GWEN Normal [facility] Discharge Instructionson Discharge Instructions Discharge Instructions [...] left ureteral stent removal Where: [facility], [address] [phone] Business (1) Medications What How Much When Instructions Next Dose New ciprofloxacin (Cipro 500 mg Tab) 1 Tablets By Mouth Every 12 hours Duration: 1 Days Start morning of stent removal Pickup at [facility]/pharmacy #6177 New oxybutynin (oxybutynin 5 mg Tab) 1 Tablets By Mouth 3 times a day as needed for Urinary discomfort bladder spasms, stent pain Pickup at [facility]/pharmacy #6177 Unchanged acetaminophen-oxycodone (acetaminophen-oxycodone 325 mg-5 [...] venlafaxine (venlafaxine 37.5 mg Cap-ER) Pharmacy Information [facility]/pharmacy #[id number]: [address], [place] [phone] Allergies Adhesive Bandage (Unknown) Demerol (Vomiting) sulfa [...] URETERAL STEN 07/27/2024 Education Materials [facility] [place], [place] Post-operative Instructions for Ureteroscopy, Laser Lithotripsy, [...] in. Rub (more content not included)... Normal [facility] Comment on above: Result Comment: Elec [...] stent placement Health Status Procedure history: Appendectomy (186247564). Hysterectomy (492662567). Colonoscopy (396754641). Social History Social & Psychosocial Habits Alcohol [...] list: All Problems Anemia / SNOMED CT 758370089 / Confirmed Apnea, sleep / SNOMED CT 964571128 / Confirmed Fatty liver / SNOMED CT 6476363080 / Confirmed Frequent headaches / SNOMED CT 3682676057 / Confirmed Kidney stone / SNOMED CT 857541541 / Confirmed Ureteral stone with hydronephrosis / SNOMED CT 0979036939 / Confirmed Inactive: Diabetes / SNOMED CT 913128318 Inactive: HTN (hypertension) / SNOMED CT 1642042550 Normal [facility] Inpatient Patient Summaryon 07-27-2024 Inpatient Patient Summary Inpatient Patient Summary [address] [facility] Clinical Discharge Instructions PERSON INFORMATION Name: RENATO STRICKLAND PHYSICIANS Admitting Physician: Khadra Becker MD Attending Physician: Khadra Becker MD PCP: VITALIY DALE DO Discharge Diagnosis: Ureteral stone with hydronephrosis Comment: PATIENT EDUCATION INFORMATION Instructions: Eugenio - Ureteroscopy, Laser Lithotripsy, Stone Extraction and Stent Placement Post-Op Instructions (CUSTOM) Medication Leaflets: Follow up: With: Address: When: Khadra Becker [address] [place], [place] [phone] Business (1) Comments: Office migue call to schedule your follow up after 2 weeks for cystoscopy, left ureteral stent removal MEDICATION LIST New Medications [id number], [address], [place] [phone], [phone] ciprofloxacin (Cipro 500 mg Tab) 1 Tablets [...] venlafaxine (venlafaxine 37.5 mg Cap-ER) Comment: Normal [facility] Main OR PACU I Recordon 07-02 Main OR PACU I Record Main OR PACU I Rec ord PACU Phase I Document Type FT Summary Primary Physician: Khadra Becker MD Finalized Date/Time: 07/27/24 11:43:15 Pt. Name: SENG RENATO Lois Marie/Sex: 1970 Female Med Rec #: [id number] Physician: Khadra Becker MD Financial #: [id number] Pt. Type: A Room/Bed: [place] [address] Admit/Disch: 07/27/24 06:42:06 - Institution: Case Times [...] By: Aria Harden RN 07/27/24 11:43 Normal [facility] Main OR PACU II Recordon Main OR PACU II Record Main OR PACU II Record PACU Phase II Document Type FT Summary Primary Physician: Khadra Becker MD Finalized Date/Time: 07/27/24 12:52:36 Pt. Name: RENATO STRICKLAND Lois Marie/Sex: 1970 Female Med Rec #: [id number] Physician: Khadra Becker MD Financial #: [id number] Pt. Type: A Room/Bed: [place] [address] Admit/Disch: 07/27/24 06:42:06 - Institution: Case Times [...] By: Gisell Mckeon RN 07/27/24 12:52 Normal [facility] Main OR Preoperative Recordo n 07-27-2024 Main OR Preoperative Record Main OR Preoperative Record PreOp Document Type FT Summary Primary Physician: Khadra Becker MD Finalized Date/Time: 07/27/24 10:32:14 Pt. Name: RENATO STRICKLAND /Sex: 1970 Female Med Rec #: [id number] Physician: Khadra Becker MD Financial #: [id number] Pt. Type: A Room/Bed: [place] [address] Admit/Disch: 07/27/24 06:42:06 - Institution: Case Times [...] Signed By: Ángel Garcia 07/27/24 10:32 Normal [facility] Operative Reporton Operative Report Operative Report [...] into the urethra and using a 22.5 Ghanaian rigid cystoscope with 30 degree lens and [...] PATIENT CO (more content not included)... Normal [facility] Comment on above: Result Comment: Elec tronically Signed By: hKadra Becker MD\.br\Date and Time Signed: 07/27/24 11:23 EDT Outpatient Surgery Discharge Instructionon 07-27-2024 Outpatient Surgery Discharge Instruction Outpatient Surgery Discharge Instruction [place] [id number] Patient Discharge Instructions PERSON INFORMATION Name: RENATO [...] Follow up: With: Address: When: Khadra Aponte [address], [place] [address], [address] [phone] Business (1) Comments: Office migue call to [...] to serve you. Thank you for choosing [facility] HERE ARE THE MEDICATION CHANGES THAT OCCURRED DURING YOUR HOSPITAL STAY New Medications [id number], [address], [place] [phone], [phone] ciprofloxacin (Cipro 500 mg Tab) 1 Tablets [...] Cap-ER) PATIENT EDUCATION INFORMATION Instructions: [facility] [place], [place] Post-operative Instructions for Ureteroscopy, Laser Lithotripsy, [...] doctor) -W (more content not included)... Normal [facility] Ambulatory Visit Summaryon 0 07-15-2024 Ambulatory [...] ? 8 oz (237 mL) of milk, wogckdx-kajhuhwcouxq-ktb ry milk, and calcium-fortifiedfruit juice. Calcium-fortified means [...] wheat ce (more content not included)... Normal [facility] Urology Office/Clinic Noteon 07-15-2024 Urology Office/Clinic Note Urology Office/Clinic Note Chief Complaint new patient HPI Staff 54 year old female New Pt. seen in [facility] 07/12/24 due to Lt. flank pain [...] obstruction) First stone event. Pt presented to [facility] ER 07/12/24 due to left-sided flank pain. CT AP wo con 07/12/24 [facility] - left hydroureteronephrosis associated with a [...] Colonoscopy, Hys (more content not included)... Normal [facility] Comment on above: Result Comment: Elec tronically Signed By: Khadra Becker MD\.br\Date and Time Signed: 07/15/24 13:01 EDT\.br\Electronically Co-Signed By: Sofia Tse\.br\Date and Time Co-Signed: 07/15/24 11:54 EDT\.br\Electronically Co-Signed By: Sofia Tse\.br\Date and Time Co-Signed: 07/15/24 11:58 EDT Human papilloma virus 16+18+ 31+33+35+39+45+51+52+56+58+59+66+68 DNA [Presence] in Son[place] 08-21-2023 HPV 16+18+31+33+35+39+45+ 51+52+56+58+59+66+68 DNA Probe+sig amp Ql (Cvx) Negative Negative [facility] Comment on above: This nucleic acid am plification test detects fourteen high- risk HPV types (16,18,31,33,35,39,45,51,52,56,58,59,66,68)without differentiation.Performed at: =G - [facility] [id number] Director: Rosa Mckeon MD, Phone: [phone] at: - [facility] [id number] Director: Rosa Mckeon MD, Phone: [phone] No Panel Informationon 08-20 HPV High Risk Other Comment Note . [facility] Comment on above: TESTS RESULT FLAG UN ITS REF RANGE LAB D IAGNOSIS: 02 NEGATIVE FOR INTRAEPITHELIAL LESION OR MALIGNANCY.Specimen adequacy: 02 Satisfactory for evaluation. No endocervical component is identified.Performed by: Ro Wilkerson Pattern Changer (ASCP). 02Note: Note 02 The Pap smear [...] Low,>-Panic High,A-Abnormal,AA-Critical Abnormal ----Performed at:[address] [facility] [place] [address] [place] [address] Rosa Mckeon MD, Reference Lab Test Patient Age Note . [facility] Comment on above: TESTS RESULT FLAG UN ITS REF RANGE LAB Clinician Provided Cytology Information Source.............Cervix No. of containers..01 ThinPrep VialAge Shawn BEST Maria Del Carmen... 30-65 FLAG LEGEND: L-Low Normal,H-High Normal,LL-Alert Low,HH-Alert High <-Panic Low,>-Panic High,A-Abnormal,AA-Critical Abnormal ----Performed at:01 =G [facility] [place] [address] [place] [address] Rosa Mckeon MD, MG MAMM SCREEN 3D TATIANA CADon 11-06-2021 MG MAMM SCREEN 3D TATIANA CAD Patient: RENATO STRICKLAND Exam Date: 11/06/2021 : 1970 Gender:F Ordering : DR JONATHAN HARRIS . Admission #: [id number] Family : Order #: [id number] CLICK HERE TO VIEW EXAM RADIOLOGY REPORT [...] at age 72. LOCATION: [facility] BREAST COMPOSITION: Heterogeneously dense,which may obscure [...] Cortes M.D. on 11/07/2021 at 10:48 Normal [facility] PAP ACOG PANEL 2: 30 to 65on 08-22-2021 . . Normal [facility] Comment on above: Result Comment: Perf ormed at: WB Performed By: #### [id number] #### [facility] [address] [address] [address] Josey Springer DIAGNOSIS: Comment Normal [facility] Comment on above: Result Comment: NEGA TIVE FOR INTRAEPITHELIAL LESION OR MALIGNANCY. THIS SPECIMEN WAS RESCREENED PART OF OUR CAT HOOKER PROGRAM. Performed at: WB Performed By: #### [id number] #### [facility] [address] [address] [address] Josey Springer HPV Aptima Negative Normal Negative [facility] Comment on above: Result Comment: This nucleic acid amplification test detects fourteen high-risk HPV types (16,18,31,33,35,39,45,51,52,56,58,59,66,68) without differentiation. Performed at: =G Performed By: #### [id number] #### [facility] [address] [place] [address] Dr. Josey Springer Methodology: Comment Normal [facility] Comment on above: Result Comment: This liquid based ThinPrep(R) pap test was screened with the use of an image guided system. Performed at: WB Performed By: #### [id number] #### [facility] [address] [place] [address] Dr. Josey Springer Note: Comment Normal [facility] Comment on above: Result Comment: The Pap smear is a screening test designed to aid in the detection of premalignant and malignant conditions of the uterine cervix. It is not a diagnostic procedure and should not be used as the sole means of detecting cervical cancer. Both false-positive and false-negative reports do occur. . Performed at: WB Performed By: #### [id number] #### [facility] [address] [place] [address] Dr. Josey Springre Performed by: Comment Normal [facility] Comment on above: Result Comment: Celestine Foreman, Pattern Changer (ASCP) Performed at: WB Performed By: #### [id number] #### [facility] [address] [place] [address] Dr. Josey Springer QC reviewed by: Comment Normal [facility] Comment on above: Result Comment: Edelmira Muñoz, Supervisory Pattern Changer (ASCP) Performed at: WB Performed By: #### [id number] #### [facility] [address] [place] [address] Dr. Josey Springer Specimen adequacy: Comment Normal [facility] Comment on above: Result Comment: Sati sfactory for evaluation. No endocervical component is identified. Performed at: WB Performed By: #### [id number] #### [facility] [address] [place], [place] [address] Dr. Josey Springer Age Gdln ACOG Testing 30-65 Normal [facility] Comment on above: Performed By: #### [id number] #### [facility] [address] [place], [place] [address] Dr. Josey Springer [facility]on SARS-CoV-2 (COVID-19) RNA SHANTA+probe Ql (Unsp spec) Not detected Normal NOT DETECTED [facility] Comment on above: Result Comment: This test is not yet approved or cleared by the [place] FDA. When there are no FDA-approved or cleared tests available, and other criteria are met, FDA can make tests available under an emergency access mechanism called an Emergency Use Authorization (EUA). The EUA for this test is supported by the Imaging Assistant of Health and Human Service's (HHS's) declaration [...] SARS-CoV-2. Performed By: #### C VDTBH #### [facility] [id number] Josey Springer Glucose Poct Glucometerson 1 04-05-2020 Glucose [Mass/Vol] 101 mg/dL Normal [facility] Comment on above: Result Comment: [facility] Glucose Reference Range is dependent on time and content of last meal. Glucose of more than 200 mg/dL in a nonstressed, ambulatory subject supports the diagnosis of Diabetes Mellitus. PERFORMED BY: [facility] [address] [place] [address] PATHOLOGIST MERCHANDISING SPECIALIST IVA MALIN M.D. Performed By: #### G [...] its performance Lindsay Disclaimer characteristic determined by [employer] and Lindsay Disclaimer validated at [facility]. This Lindsay Disclaimer test has not [...] is terminated or revoked sooner. PERFORMED BY: [place] [address] PATHOLOGIST MERCHANDISING SPECIALIST IVA MALIN M.D. [facility] [place] Comment on above: Performed By: #### C OVID-19 LINDSAY, SOFIANEG #### [address] Lindsay Ag Negativeon 02-01-20 21 Lindsay Ag Negative Negative Normal Negative [facility] Comment on above: Result Comment: This is a duplicate Lindsay SARS Antigen (TAMANNA) result to be used for statistical tracking purpose only. PERFORMED BY: [place] [address] PATHOLOGIST MERCHANDISING SPECIALIST IVA MALIN M.D. Performed By: #### C OVID-19 LINDSAY, SOFIANEG #### [facility] [address] [place] [address] CBC AUTO DIFFon 01-09-2021 BASO # 0.0 103/ul Normal 0.0-0.1 [facility] Comment on above: Performed By: #### C BC #### [facility] [address] [place] [address] Dr. Josey Springer Basophils/100 WBC (Bld) 0.5 % Normal 0.2-2.[address] [facility] Comment on above: Performed By: #### C BC #### [facility] [address] [place] [address] Dr. Josey Springer EO # 0.2 103/ul Normal 0.0-0.[address] [facility] Comment on above: Performed By: #### C BC #### [facility] [address] [place] [address] Dr. Josey Springer Eosinophils/100 WBC (Bld) 2.2 % Normal 0.9-7.[address] [facility] Comment on above: Performed By: #### C BC #### [facility] [address] [place] [address] Dr. Josey Springer Erythrocyte distribution width (RBC) [Ratio] 12.2 % Normal 11.0-15.0 [facility] Comment on above: Performed By: #### C BC #### [facility] [address] [place] [address] Dr. Josey Springer Hematocrit (Bld) [Volume fraction] 41.4 % Normal 36.0-48.0 [facility] Comment on above: Performed By: #### C BC #### [facility] [address] [place] [address] Dr. Josey Springer Hemoglobin (Bld) [Mass/Vol] 13.6 g/dL Normal 12.0-16.[address] [facility] Comment on above: Performed By: #### C BC #### [facility] [address] [place] [address] Dr. Josey Springer IG # 0.01 10e3/ul Normal 0.00-0.[address] [facility] Comment on above: Performed By: #### C BC #### [facility] [address] [place] [address] Dr. Josey Springer IG % 0.1 % Normal 0.0-0.[address] [facility] Comment on above: Performed By: #### C BC #### [facility] [address] [place] [address] Dr. Josey Springer LYMPH # 2.2 103/ul Normal 1.2-3.[address] [facility] Comment on above: Performed By: #### C BC #### [facility] [address] [place] [address] Dr. Josey Springer Lymphocytes/100 WBC (Bld) 29.7 % Normal 20.5-60.0 [facility] Comment on above: Performed By: #### C BC #### [facility] [address] [place] [address] Dr. Josey Springer MANUAL DIFF REQ NO Normal [facility] Comment on above: Performed By: #### C BC #### [facility] [address] [place] [address] Dr. Josey Springer MCH (RBC) [Entitic mass] 30.1 pg Normal 26.7-34.0 [facility] Comment on above: Performed By: #### C BC #### [facility] [address] [place] [address] Dr. Josey Springer MCHC (RBC) [Mass/Vol] 32.9 g/dL Normal 29.9-35.[address] [facility] Comment on above: Performed By: #### C BC #### [facility] [address] [place] [address] Dr. Josey Springer MCV (RBC) [Entitic vol] 91.6 fL Normal 81.0-99.0 [facility] Comment on above: Performed By: #### C BC #### [facility] [address] [place] [address] Dr. Josey Springer MONO # 0.3 103/ul Normal 0.3-0.[address] [facility] Comment on above: Performed By: #### C BC #### [facility] [address] [place] [address] Dr. Josey Springer Monocytes/100 WBC (Bld) 4.2 % Normal 1.7-12.[address] [facility] Comment on above: Performed By: #### C BC #### [facility] [address] [place] [address] Dr. Josey Springer NEUT # 4.6 103/ul Normal 1.4-6.5 [facility] Comment on above: Performed By: #### C BC #### [facility] [address] [place] [address] Dr. Josey Springer Neutrophils/100 WBC (Bld) 63.3 % Normal 43.0-75.0 [facility] Comment on above: Performed By: #### C BC #### [facility] [address] [place] [address] Dr. Josey Springer Platelet mean volume (Bld) [Entitic vol] 9.7 fL Normal 9.5-13.5 [facility] Comment on above: Performed By: #### C BC #### [facility] [address] [place] [address] Dr. Josey Springer PLT 225 103/ul Normal 150-450 [facility] Comment on above: Performed By: #### C BC #### [facility] [address] [place] [address] Dr. Josey Springer RBC 4.52 106/ul Normal 4.20-5.40 [facility] Comment on above: Performed By: #### C BC #### [facility] [address] [place] [address] Dr. Josey Springer WBC 7.3 103/ul Normal 4.0-11.0 [facility] Comment on above: Performed By: #### C BC #### [facility] [address] [place] [address] Dr. Josey Springer GLYCOHEMOGLOBIN A1Con 2020 ADA RECOMMENDATION ADA THERAPEUTIC TARG ET 6.0 - 7.0 ACTION SUGGESTED > 7.0 Normal [facility] Comment on above: Performed By: #### A 1C #### [facility] [address] [place] [address] Dr. Josey Springer Glucose [Mass/Vol] 131 mg/dL Normal [facility] Comment on above: Performed By: #### A 1C #### [facility] [address] [place] [address] Dr. Josey Springer HbA1c (Bld) [Mass fraction] 6.2 % Critically high <=6.0 [facility] Comment on above: Performed By: #### A 1C #### [facility] [address] [address] [address] Josey Springer LIPID PROFILEon 01-09-2021 CHOL-HDL RATIO NORM SEE BELOW Normal [facility] Comment on above: Result Comment: 3.3 - 4.4 LOW RISK 4.4 - 7.1 AVERAGE RISK 7.1 - 11.0 MODERATE RISK >11.0 HIGH RISK Performed By: #### C MP, TSH, LIPID #### [facility] [address] [place], [place] [address] Dr. Josey Springer Cholesterol [Mass/Vol] 240 mg/dL Critically high <=200 [facility] Comment on above: Performed By: #### C MP, TSH, LIPID #### [facility] [address] [address] [address] Josey Springer Cholesterol in HDL [Mass/Vol] 66 mg/dL Normal [facility] Comment on above: Performed By: #### C MP, TSH, LIPID #### [facility] [address] [address] [address] Josey Springer Cholesterol in LDL [Mass/Vol] 136.6 mg/dL Normal [facility] Comment on above: Performed By: #### C MP, TSH, LIPID #### [facility] [address] [place], [place] [address] Dr. Josey Springer Cholesterol.total/Cho lesterol in HDL [Mass ratio] 3.6 {ratio} Normal [facility] Comment on above: Performed By: #### C MP, TSH, LIPID #### [facility] [address] [place], [place] [address] Dr. Josye Springer HDL NORMAL > or = 60 mg/dl - LO W CARDIOVASCULAR RISK <40 mg/dl - HIGH CARDIOVASCULAR RISK Normal [facility] Comment on above: Performed By: #### C MP, TSH, LIPID #### [facility] [id number] Josey Springer LDL CALC NORMAL SEE BELOW Normal [facility] Comment on above: Result Comment: <100 mg/dl OPTIMAL 100 - 129 mg/dl NEAR OR ABOVE OPTIMAL 130 - 159 mg/dl BORDERLINE HIGH 160 - 189 mg/dl HIGH >190 mg/dl VERY HIGH Performed By: #### C MP, TSH, LIPID #### [facility] [address] [place] [address] Dr. Josey Springer Triglyceride [Mass/Vol] 187 mg/dL Critically high <=150 [facility] Comment on above: Performed By: #### C MP, TSH, LIPID #### [facility] [address] [place] [address] Dr. Josey Springer VLDL CALC 37.4 mg/dL Normal [facility] Comment on above: Performed By: #### C MP, TSH, LIPID #### [facility] [address] [place] [address] Dr. Josey Springer PROF 14(COMP METB)on 021 Albumin [Mass/Vol] 3.4 g/dL Critically low 3.5-5.0 [facility] Comment on above: Performed By: #### C MP, TSH, LIPID #### [facility] [address] [place] [address] Dr. Josey Springer Albumin/Globulin [Mass ratio] 0.8 {ratio} Normal [facility] Comment on above: Performed By: #### C MP, TSH, LIPID #### [facility] [address] [place] [address] Dr. Josey Springer ALP [Catalytic activity/Vol] 92 U/L Normal 38-126 [facility] Comment on above: Performed By: #### C MP, TSH, LIPID #### [facility] [address] [place] [address] Dr. Josey Springer ALT [Catalytic activity/Vol] 180 U/L Critically high 9-52 [facility] Comment on above: Performed By: #### C MP, TSH, LIPID #### [facility] [address] [place] [address] Dr. Josey Springer Anion gap [Moles/Vol] 10.8 mmol/L Normal [facility] Comment on above: Performed By: #### C MP, TSH, LIPID #### [facility] [address] [address] [address] Josey Springer AST [Catalytic activity/Vol] 70 U/L Critically high 14-36 [facility] Comment on above: Performed By: #### C MP, TSH, LIPID #### [facility] [address] [address] [address] Josey Springer Bilirubin [Mass/Vol] 0.4 mg/dL Normal 0.2-1.3 [facility] Comment on above: Performed By: #### C MP, TSH, LIPID #### [facility] [address] [address] [address] Josey Springer Calcium [Mass/Vol] 9.5 mg/dL Normal 8.4-10.2 [facility] Comment on above: Performed By: #### C MP, TSH, LIPID #### [facility] [address] [place] [address] Dr. Josey Springer Chloride [Moles/Vol] 102 mmol/L Normal 98-107 [facility] Comment on above: Performed By: #### C MP, TSH, LIPID #### [facility] [address] [address] [address] Josey Springer CO2 [Moles/Vol] 32.7 mmol/L Critically high 22.0-30.0 [facility] Comment on above: Performed By: #### C MP, TSH, LIPID #### [facility] [address] [address] [address] Josey Springer Creatinine [Mass/Vol] 0.60 mg/dL Normal 0.52-1.04 [facility] Comment on above: Performed By: #### C MP, TSH, LIPID #### [facility] [address] [address] [address] Josey Springer EGFR-AF CITIZEN [place] >60 Normal >=60 [facility] Comment on above: Performed By: #### C MP, TSH, LIPID #### [facility] [address] [address] [address] Josey Springer EGFR-NON AF CITIZEN OF [place] >60 Normal >=60 [facility] Comment on above: Performed By: #### C MP, TSH, LIPID #### [facility] [address] [address] [address] Josey Springer Globulin (S) [Mass/Vol] 4.1 g/dL Normal [facility] Comment on above: Performed By: #### C MP, TSH, LIPID #### [facility] [address] [address] [address] Josey Springer Glucose [Mass/Vol] 139 mg/dL Critically high 74-106 [facility] Comment on above: Performed By: #### C MP, TSH, LIPID #### [facility] [address] [address] [address] Josey Springer Potassium [Moles/Vol] 4.5 mmol/L Normal 3.4-5.0 [facility] Comment on above: Performed By: #### C MP, TSH, LIPID #### [facility] [address] [place] [address] Dr. Josey Springer Protein [Mass/Vol] 7.5 g/dL Normal 6.1-8.2 [facility] Comment on above: Performed By: #### C MP, TSH, LIPID #### [facility] [address] [place] [address] Dr. Josey Springer Sodium [Moles/Vol] 141 mmol/L Normal 137-145 [facility] Comment on above: Performed By: #### C MP, TSH, LIPID #### [facility] [address] [place] [address] Dr. Josey Springer Urea nitrogen [Mass/Vol] 12.0 mg/dL Normal 7.0-17.0 [facility] Comment on above: Performed By: #### C MP, TSH, LIPID #### [facility] [address] [place] [address] Dr. Josey Springer Urea nitrogen/Creatinine [Mass ratio] 20.0 mg/mg Normal [facility] Comment on above: Performed By: #### C MP, TSH, LIPID #### [facility] [address] [place] [address] Dr. Josey Springer TSHon 01-09-2021 TSH 1.819 uIU/mL Normal 0.470-4.680 [facility] Comment on above: Performed By: #### C MP, TSH, LIPID #### [facility] [address] [place], [place] [address] Dr. Josey Springer TSH RANGE SEE BELOW Normal [facility] Comment on above: Result Comment: <0.3 4 UIU/ml HYPERTHYROID 0.34-5.60 UIU/ml EUTHYROID >5.60 UIU/ml HYPOTHYROID Performed By: #### C MP, TSH, LIPID #### [facility] [address], [place] [address] Dr. Josey Springer Vital Signs Date Time Vital Sign Value Performing Clinician Facility 10-27-2024 14:02-0400 Body height 152.4 cm Vitaliy Ball DO Work Phone: [facility] 10-27-2024 14:02-0400 Body mass index (BMI) [Ratio] 40.6 kg/m2 Vitaliy Ball DO Work Phone: [facility] 10-27-2024 14:02-0400 Body weight 94.34 kg Vitaliy Ball DO Work Phone: [facility] 10-27-2024 14:02-0400 Diastolic blood pressure 89 mm[Hg] Vitaliy Ball DO Work Phone: [facility] 10-27-2024 14:02-0400 Heart rate 76 /min Vitaliy Ball DO Work Phone: [facility] 10-27-2024 14:02-0400 Respiratory rate 12 /min Vitaliy Ball DO Work Phone: [facility] 10-27-2024 14:02-0400 Systolic blood pressure 150 mm[Hg] Vitaliy Ball DO Work Phone: [facility] 09-06-2024 09:00-0400 Body mass index (BMI) [Ratio] 39.02 kg/m2 Jonathan Kimberly DO Work Phone: [facility] 09-06-2024 09:00-0400 Body weight 90.63 kg Jonathan Kimberly DO Work Phone: [facility] 09-06-2024 09:00-0400 Diastolic blood pressure 84 mm[Hg] Jonathan Kimberly DO Work Phone: [facility] 09-06-2024 09:00-0400 Systolic blood pressure 134 mm[Hg] Jonathan Kimberly DO Work Phone: [facility] 07-15-2024 11:42-0400 Diastolic blood pressure 103 mm[Hg] Khadra Lue [facility] 07-15-2024 11:42-0400 Heart rate 82 /min Khadra Lue [facility] 07-15-2024 11:42-0400 Mean blood pressure 121 mm[Hg] Khadra Lue [facility] 07-15-2024 11:42-0400 Systolic blood pressure 156 mm[Hg] Khadra Lue [facility] 07-15-2024 11:40-0400 Blood Pressure Location Khadra Lue [facility] 07-15-2024 11:40-0400 Diastolic blood pressure 104 mm[Hg] Khadra Lue [facility] 07-15-2024 11:40-0400 Heart rate 79 /min Khadra Lue [facility] 07-15-2024 11:40-0400 Systolic blood pressure 158 mm[Hg] Khadra Lue [facility] 03-10-2024 08:17-0500 Body height 152.4 cm Luna Jhaveri DO Work Phone: [facility] 03-10-2024 08:17-0500 Body mass index (BMI) [Ratio] 37.85 kg/m2 Luna Aparna DO Work Phone: [facility] 03-10-2024 08:17-0500 Body weight 87.91 kg Luna Aparna DO Work Phone: [facility] 03-10-2024 08:17-0500 Diastolic blood pressure 86 mm[Hg] Luna Aparna DO Work Phone: [facility] 03-10-2024 08:17-0500 Heart rate 79 /min Luna Aparna DO Work Phone: [facility] 03-10-2024 08:17-0500 SaO2% (BldA) [Mass fraction] 98 % Luna Aparna DO Work Phone: [facility] 03-10-2024 08:17-0500 Systolic blood pressure 134 mm[Hg] Luna Aparna DO Work Phone: [facility] 10-20-2023 14:27-0400 Body height 152.4 cm [facility] 10-20-2023 14:27-0400 Body mass index (BMI) [Ratio] 37.5 kg/m2 [facility] 10-20-2023 14:27-0400 Body weight 87.2 kg [facility] 10-20-2023 14:27-0400 Diastolic blood pressure 75 mm[Hg] [facility] 10-20-2023 14:27-0400 Heart rate 69 /min [facility] 10-20-2023 14:27-0400 Respiratory rate 12 /min [facility] 10-20-2023 14:27-0400 Systolic blood pressure 142 mm[Hg] [facility] 09-17-2022 11:15-0400 Body height 154.94 cm Vitaliy Ball Other [facility] [employer] Other 09-17-2022 11:15-0400 Body mass index (BMI) [Ratio] 35.18 kg/m2 Vitaliy Ball Other [employer] Other 09-17-2022 11:15-0400 Body weight 84.46 kg Vitaliy Dale Other [employer] Other 09-17-2022 11:15-0400 Diastolic blood pressure 87 mm[Hg] Vitaliy Dale Other [employer] Other 09-17-2022 11:15-0400 Respiratory rate 12 /min Vitaliy Dale Other [employer] Other 09-17-2022 11:15-0400 Systolic blood pressure 136 mm[Hg] Vitaliy Dale Other [employer] Other Encounters Encounter Date Encounter Type Care Provider Facility Start: 09-28-2025 ambulatory Khadra Becker Facility:[facility] Start: 10-27-2024 End: 10-27-2024 ambulatory Vitaliy Dale DO Work Phone: [facility] Work Phone: Start: 10-27-2024 End: 10-27-2024 Patient encounter procedure Vitaliy Dale DO -[facility] Work Phone: Start: 10-27-2024 End: 10-27-2024 Patient encounter status Vitaliy Dale [facility] Start: 09-21-2024 End: 09-21-2024 ambulatory Khadra Becker Facility:[facility] Start: 09-06-2024 End: 09-06-2024 Bamboo flowsheet Jonathan Kimberly DO Work Phone: [facility] Start: 09-06-2024 End: 09-09-2024 Bamboo flowsheet Jonathan Kimberly DO Work Phone: [facility] Start: 09-06-2024 End: 09-09-2024 Clinisync Result Encounter Kell Black ORGAN FIXER Work Phone: [facility] External Department Unsolicited Start: 09-06-2024 Non-patient / Non-visit Kell Sofia SARAH [facility] Professional Co Work Phone: [...] Start: 08-09-2024 End: 08-09-2024 ambulatory Khadra Becker Facility:[facility] Start: 08-09-2024 End: 08-09-2024 Patient encounter procedure Khadra Becker [facility] Start: 07-27-2024 End: 07-27-2024 Admission to same day surgery center Khadra Becker [facility] Start: 07-27-2024 End: 07-27-2024 ambulatory Khadra Becker Facility:[facility] Start: 07-15-2024 End: 07-15-2024 ambulatory Khadra Becker Facility:[facility] Start: 07-15-2024 End: 07-15-2024 Patient encounter procedure Khadra Becker [facility] Start: 07-13-2024 ambulatory Khadra Becker Facility:[facility] [place] Start: 06-08-2024 End: 06-08-2024 Office outpatient new [...] Start: 03-10-2024 End: 03-10-2024 Bamboo flowsheet Luna Aparan DO Work Phone: [facility] Start: 03-10-2024 End: 03-10-2024 ambulatory LUNA JHAVERI Not Available Start: 03-10-2024 End: 03-10-2024 Office outpatient visit 25 minutes Luna Aparna DO Work Phone: [facility] Comment on above: REMEDIOS (obstructive sle ep apnea) (Primary Dx); Hypoxia; Hypersomnia; Sleep deprivation; Snoring; Obesity (BMI 35.0-39.9 without comorbidity) Start: 10-20-2023 End: 10-20-2023 ambulatory [facility] Work Phone: Start: 10-20-2023 End: 10-20-2023 Encounter for general adult medical examination without abnormal findings [facility] Start: 10-20-2023 End: 10-20-2023 Patient encounter procedure [facility] Physician [facility] Work Phone: Start: 08-21-2023 Non-patient / Non-visit [facility] Physician [facility] Kambit Work Phone: Start: 09-17-2022 End: 09-17-2022 ambulatory Vitaliy Dale Other [facility] Other Start: 09-17-2022 Office outpatient visit 15 minutes Vitaliy Dale [facility] Start: 11-06-2021 End: 11-07-[address] JONATHAN HARRIS Facility:[facility] Start: 08-16-2021 End: 08-16-[address] JONATHAN HARRIS Facility:[facility] Start: 04-03-2021 End: 04-03-[address] VITALIY DALE Facility:[facility] Start: 01-13-2021 Encounter for genera l adult medical examination without abnormal findings DR VITALIY DALE [facility] Start: 01-09-2021 End: 01-10-[address] VITALIY DALE Facility:[facility] Start: 01-09-2021 End: 01-10-2021 Encounter for general adult medical examination without abnormal findings DR VITALIY DALE Facility:[facility] Start: 10-30-2019 End: 10-30-2019 Patient encounter procedure Charisma Mazariegos Work Phone: [facility] Start: 10-30-2019 Results Only Charisma Mazariegos Work Phone: Gastroenterology Start: 10-29-2019 End: 10-29-2019 Patient encounter procedure External Provider [facility] Start: 10-29-2019 Results Only External Provider Exter nal-NonCCF Procedures Date Procedure Procedure Detail Performing Clinician Start: 09-06-2024 IGP,APTIMA HPV,AGE GDLN Kell Sofia ORGAN FIXER Work Phone: Start: 08-30-2024 MM TOMOSYNTHESIS SCR [...] External P rovider Start: 10-29-2019 EXTERNAL IMAGING Inspection Clerk al Provider Appendectomy Khadra Becker Colonoscopy Khadra Becker Hysterectomy Khadra Becker Plan of Treatment Date Care Activity Detail Author Start: 08-28-2027 Screening for malign ant neoplasm of cervix [facility] Start: 08-20-2026 Screening for malign ant neoplasm of cervix Pap Smear [facility] Start: 09-12-2025 End: 09-12-2025 Patient encounter procedure 09/12/2025 9:00 AM EDT Office Visit [facility] [address] [place] [address] Jonathan Harris DO [address] [facility] [place] [address] [facility] Start: 08-30-2025 Screening for malign ant neoplasm of breast Mammogram [facility] Start: 06-09-2025 End: 06-09-2025 Patient encounter procedure 06/09/2025 3:30 PM EDT Office Visit [facility] [address] [place] [address] Chapin Stauffer MD [address] [place] [address] [facility] Start: 11-01-2024 Influenza vaccination [facility] Start: 09-06-2024 End: 09-06-2025 DXA Skeletal system Views for bone density DEXA bone density Imaging Routine Encounter For Adult Wellness Visit Acquired absence of other genital organ(s) Expected: 09/06/2024 (Approximate), Expires: 09/06/2025 [facility] Comment on above: Expected: 09/06/2024 (Approximate), Expires: 09/06/2025 Start: 09-06-2024 End: 11-07-2025 MG Breast - bilateral Screening Bilateral screening mammogram Imaging Routine Encounter For Adult Wellness Visit Encounter for screening mammogram for malignant neoplasm of breast Expected: 09/06/2024, Expires: 11/07/2025 [facility] Work Phone: Comment on above: Expected: [...] Office Visit [facility] [address] [place] [id number] Jonathan Harris DO [address] [facility] [place] [address] [facility] Start: 06-08-2024 End: 06-08-2024 Patient encounter procedure 06/08/2024 4:00 PM EDT Office Visit [facility] [address] [place] [address] Chapin Stauffer MD [address] [place] [address] Arrived [facility] Comment on above: Arrived Start: 02-28-2024 Screening for malign ant neoplasm of breast Mammogram [facility] Start: 11-02-2023 Influenza vaccination Influenza Vacc ine (#1) [facility] Start: 11-02-2019 Influenza vaccination INFLUENZA (#1) [facility] Start: 01-21-2017 DIABETES SCREEN DIABETES SCREEN [facility] Start: 01-21-2017 LIPID SCREEN LIPID SCREEN [facility] Start: 2012 Mammography MAMMOGRAM [facility] Start: 01-21-2002 HPV TESTING HPV TESTING [facility] Start: 01-21-1993 PAP TESTING PAP TESTING [facility] Start: 01-21-1991 Urine microalbumin profile DTAP,TDAP,TD (1 - Tdap) [facility] Start: 01-21-1990 HEPATITIS C SCREENING HEPATITIS C SC REENING [facility] Start: 01-21-1990 HIV SCREENING HIV SCREENING [facility] [place] Start: 1972 Screening for malign ant neoplasm of colon [facility] Comprehensive metabo lic 1999 panel - Serum or Plasma [facility] Comprehensive metabo lic 1999 panel - Serum or Plasma [facility] CT Heart [facility] Microalbumin [Mass/volume] in Urine [facility] PT ED PATIENT INFORMATION PT ED PATIENT INFORMATION TONYA 10/30/[address] [facility] THIN PREP TIS PAP AN D HR HPV DNA THIN PREP TIS PAP AND HR HPV DNA Pathology and Cytology Routine Encounter for adult wellness visit Ordered: 09/06/2024 [facility] Comment on above: Ordered: 09/06/2024 [facility] Immunizations Immunization Date Immunization Notes Care Provider Maria Del Carmen diez 07-07-2020 COVID-19 mRNA, Comir luda (Pfizer) [facility] 06-15-2020 COVID-19 mRNA, Comir luda (Pfizer) [facility] 12-16-2019 influenza virus vacc ine, unspecified formulation [facility] Payers Date Payer Category Payer Private Health Insurance [id number] 2024 Unknown [id number] 2024 [facility] BCBS Memb er Subscriber Plan / Payer (Effective 2024-Present) Name: Renato Strickland Relation to Subscriber: Self Name: Renato Strickland Payer ID: Not on file Type: Not on file Address: [place] [id number] 2024 Unknown [id number] 2022 Private Health Insurance [id number] 2019 Private Health Insurance AETNA A ETNA CHOICE POS II [id number] 2019-Present POS [id number] .[id number] 1972 Unknown [id number] 2.16.840.1.047642.3.579 .2.593 1972 Unknown [id number] 2.16.840.1.083101.3.579 .2.593 1972 Unknown [id number] 2.16.840.1.532507.3.579 .2.593 1972 Unknown [id number] 2.16.840.1.949451.3.579 .2.593 1972 Unknown [id number] 2.16.840.1.334686.3.579 .2.727 1972 Unknown [id number] 2.16.840.1.348957.3.579 .2.727 1972 Unknown [id number] 2.16.840.1.919131.3.579 .2.1259 1972 Unknown [id number] 2.16.840.1.374350.3.579 .2.1259 1972 Unknown [id number] 2.16.840.1.093486.3.579 .2.1259 1972 Unknown [id number] 2.16.840.1.003677.3.579 .2.727 1972 Unknown [id number] 2.16.840.1.060296.3.579 .2.727 1972 Unknown [id number] 2.16.840.1.172504.3.579 .2.727 1959 Private Health Insurance [id number] 1959 Unknown [id number] Private Health Insurance [id number] Self-pay Self Pay [id number] Social History Date Type Detail Facility Tobacco smoking stat [facility] Unknown if ever smoked [facility] Start: 1970 Sex Assigned At [facility] file [facility] Exposure to SARS-CoV -2 (event) Not sure [facility] Start: 03-10-2024 End: 09-06-2024 Sex Assigned At [facility] Start: 02-02-2021 End: 08-21-2023 Tobacco smoking status TXIS Never smoked tobacco (finding) [facility] Start: 1970 Sex Assigned At Female F [facility] Start: 08-21-2023 Tobacco use and exposure Smoke less tobacco non-user [facility] Start: 03-10-2024 End: 09-06-2024 Alcoholic beverage intake Current drinker of alcohol (finding) [facility] Start: 03-10-2024 End: 09-06-2024 History of Social function [facility] Start: 08-21-2023 Alcohol Comment Very little [facility] Tobacco smoking status Never [facility] Sexual Orientation [facility] Start: 12-31-2013 Sex Female (finding) [facility] Medical Equipment Procedure Code Equipment Code Equipment Origin al Text Equipment Identifier Dates CYSTOSCOPY RETROGRADE STENT INSERTION Khadra Becker MD 07/27/24 Unknown Ureter L FDA Start: 07-27-2024 CYSTOSCOPY RETROGRADE STENT INSERTION Eugenio CALLAHAN, Khadra Brown 07/27/24 Unknown Ureter L FDA Start: 07-27-2024 Functional Status Date Assessment Result Facility 07-15-2024 Functional Status N/A [facility] Clinical Notes 09-17-2022 to 09-06-2024 Patt [...] nursing note reviewed. Exam conducted with a traffic routing engineer present. Vitals: Estimated body mass index is [...] them. Patient can also view results via Tweetwallt. I reinforced importance of condom use for [...] Jonathan Harris DO documented in this encounter [facility] 08-09-2024 Evaluation + Plan note Future Scheduled TestsUS Renal 08/09/[address] [facility] 08-09-2024 Hospital Discharg e instructions Patient [...] renal US results - to obtain at [facility] in 6-8 weeks. Follow up in 1 year with renal US for stone monitoring [facility] 08-09-2024 Note Patient Education Cystoscopy with [...] you have a fever over 100 degrees. [facility] 07-27-2024 Evaluation + Plan note Extrac jamey from: Title:ZARIA Post-operative Note---General Author: Ramon Chu MD Date:07/27/24 Plan Transfer/Discharge: Transfer/Discharge Discharge when meets criteria ( To home ). Extracted from: Title:EU - Leftureteroscopy, laser lithotripsy, stent placement Author:Khadra Becker MD Date:07/27/24 Impression and Plan Diagnosis Ureteral stone with hydronephrosis (SST12-DI N13.2, Discharge, Medical). Diagnosis Ureteral stone with hydronephrosis (HLZ15-MQ N13.2, Discharge, Medical). Extracted from: Title:ZARIA Pre-operative Note 2022 Author:Ramon Rowland Date:07/27/24 Plan [place] [employer] Anesthesiologists (ASA) physical status classification: Class II. Anesthetic Preoperative Plan: Anesthesia General. Diagnostic Tests Pending * Calculi Analysis Urinary 07/27/[address] [facility] 05-27-2025 Hospital Discharge instructions Patient Education 07/27/2024 11:23:50 Post Op Patient Instructions - FT (Custom) (CUSTOM) 07/27/2024 11:14:56 Lue - Ureteroscopy, Laser Lithotripsy, Stone Extraction and Stent Placement Post-Op Instructions (CUSTOM) [facility] [place] [place] Post-operative Instructions for Ureteroscopy, Laser Lithotripsy, [...] other reasons. If it is to remain top lift nailer, however, changes of the stent are required [...] not hear from us within 1 week [phone] Follow Up Care 07/15/2024 12:13:33 With:Khadra Becker Address: [address], [address] [phone] Business (1) When: Unknown Comments:Office migue call to schedule your follow up after 2 weeks for cystoscopy, left ureteral stent removal [facility] 05-27-2025 NoteProgress Note-Physician Patient: RENATO STRICKLAND Age: 54 years Sex: Female : 1970 Associated Diagnoses: None Author: Ramon Chu MD Postoperative Information Postoperative disposition: Postoperative disposition: To PACU. Optimetrix number: Optimetrix number [id number]. Anesthetic utilized: General. Health Status Allergies: Allergic [...] Discharge when meets criteria ( To home ).[facility]:Result Comment: Electronically Signed By: Ramon Chu MD\.br\Date and Time Signed: 07/27/24 12:42 EDT 07-27-2024 NotePatient Education - Text [facility] [place], [place] Post-operative Instructions for Ureteroscopy, Laser Lithotripsy, [...] other reasons. If it is to remain top lift nailer, however, changes of the stent are required [...] not hear from us within 1 week [phone] [facility]05-27-2025 NoteProgress Note-Physician Patient: RENATO STRICKLAND Age: [...] list: All Problems Anemia / SNOMED CT 457446519 / Confirmed Apnea, sleep / SNOMED CT 739018485 / Confirmed Fatty liver / SNOMED CT 9758312453 / Confirmed Frequent headaches / SNOMED CT 0297599804 / Confirmed Kidney stone / SNOMED CT 366776323 / Confirmed Ureteral stone with hydronephrosis / SNOMED CT 5655771429 / Confirmed Inactive: Diabetes / SNOMED CT 730916181 Inactive: HTN (hypertension) / SNOMED CT 5518331616, Active Problems (6) Anemia Apnea, sleep Fatty liver Frequent headaches Kidney stone Ureteral stone with hydronephrosis Histories Past Medical History: No active or resolved past medical history items have been selected or recorded. Family History: Anemia Mother Colon cancer Grandparent Hypertension Father Hyperlipidemia Father Arthritis Father Mother Breast cancer Sister Procedure history: Appendectomy (713624221). Hysterectomy (900619175). Colonoscopy (358692076). Social History Social & Psychosocial Habits Alcohol [...] 07/27/2024 7:23 EDT Hei (more content not included)...[facility] Comment on above:Result Comment: Electronically Signed By: Vlad CALLAHAN, Ramon Bennett\.br\Date and Time Signed: 07/27/24 08:49 [id number] Hospital Discharge instructions Patient Education 07/15/2024 11:25:43 [...] include: ?8 oz (237 mL) of milk, gypmbec-ejjvzxqchjji-aoqgs milk, and calcium- fortifiedfruit juice. Calcium-fortified means [...] ?Spinach (cooked), rhubarb, beets, sweet potatoes, and Beninese chard. ?Peanuts. ?Potato chips, hungarian fries, and baked potatoes with skin on. ?Nuts and nut products. ?Chocolate. If you regularly take a diuretic medicine, make sure to eat at least 1 or 2 servings of fruits or vegetables that are high in potassium each day. These include: ?Avocado. ?Banana. ?[place], prune, carrot, or tomato juice. ?Baked potato. [...] magnesium, fish oil, or vitamin B6. Take mtnp-cdg-wkzpayb and prescription medicines only as told by [...] Casseroles. Pizza. Lasagna. Frozen meals. Potato chips. Ghanaian fries. The items listed above may not [...] provider. Document Revised: 05/30/2022 Document Reviewed: 05/30/2022 Purchasing Platform Patient Education 2023 [employer]. Follow Up Care 07/13/2024 14:59:00 With:Eugenio CALLAHAN, BENI Gtz, URO Address: When: Unknown [facility] 05-15-2025 NotePatient Education Nephrology Dietary Guidelines [...] ? 8 oz (237 mL) of milk, prgbjsg-zljccvyqxmhl-jnmsy milk, and calcium- fortifiedfruit juice. Calcium-fortified means [...] Spinach (cooked), rhubarb, beets, sweet potatoes, and Beninese chard. ? Peanuts. ? Potato chips, hungarian fries, and baked potatoes with skin on. ? Nuts and nut products. ? Chocolate. ??? If you regularly take a diuretic medicine, make sure to eat at least 1 or 2 servings of fruits or vegetables that are high in potassium each day. These include: ? Avocado. ? Banana. ? [place] Riegel, prune, carrot, or tomato juice. ? Baked [...] fish oil, or vitamin B6. ??? Take dfze-kgf-rscajnt and prescription medicines only as told by your health (more content not included)...[facility]04-08-2025 History of Present illness Narrative* Chapin [...] Next Visit: 1 year documented in this encounterResearch [facility] [id number] History of Present illness Narrative* Luna Kimner, [...] not wear it due to traveling in [place]. She denies any issues with her machine. [...] to clinic: 1 year documented in this encounterResearch Medical [id number] Evaluation note* Encounter Date Diagnosis Assessment Notes [...] Reduce calories, increase activity for weight loss [employer] Other Evaluation + Plan note Future Appointments Appointment Date:07/23/2024 01:00:00 PM Scheduled Provider: Location:[facility] Appointment Type:Surgery CALL PAT FT Appointment Date:07/27/2024 09:00:00 AM Scheduled Provider: Location:[facility] Appointment Type:Surgery FT [facility] Evaluation note* Diagnosis Onset Date Resolution Status Chronic venous insufficiency of lower extremity acute Hypercholesterolemia acute Hypertension acute Metabolic dysfunction-associ ated steatotic liver disease (MASLD) acute Wellness examination noneact nader [facility] Work Phone: Evaluation note* Diagnosis REMEDIOS (obstructive sleep apnea)- Primary Obstructive sleep apnea (adult) (pediatric) Hypoxia Hypoxemia Hypersomnia Hypersomnia, unspecified Sleep deprivation Problems related to lack of adequate sleep Snoring Other dyspnea and respiratory abnormality Obesity (BMI 35.0-39.9 without comorbidity) documented in this encounter [facility] HealthcareEvaluation note* Diagnosis Lipoma of head- Primary Lentigines Melanocytic nevus of trunk Benign neoplasm of skin of trunk, except scrotum Tinea pedis of right foot documented in this encounter [facility] HealthcareEvaluation note* Diagnosis Encounter for adult wellness visit Encounter for screening mammogram for malignant neoplasm of breast Acquired absence of other genital organ(s) Depression, unspecified Pain of ovary Pelvic pain in female Unspecified symptom associated with female genital organs documented in this encounter [facility] Healthcare[facility] note* Diagnosis Onset Date Resolution [...] 27 1:51pm Wellness examination noneactive 2024 1:51pm [facility] Work Phone: History general Narrative - [...] O VARY REMAINING Hospitalization History SEE ABOVE [employer] Other Hospital course Narrative No data available for this section [facility] Progress note No data available for this section [facility] Reason for referral (narrative)No reason for referral information availableOhiohealth [facility] General Hospital Work Phone: Summary Purpose Family History [...] or prosecute any alcohol or drug abuse patient.[facility] the event this information is protected by the Federal Confidentiality of Alcohol and Drug Abuse Patient Records regulations: The Federal rules restrict any use of the information to criminally investigate or prosecute any alcohol or drug abuse patient.[facility] INFORMATION SOURCE (unrecogn ized section and content) DATE CREATED AUTHOR 04/09/2021 [facility] DATE CREATED AUTHOR AUTHOR'S ORGANIZ ATION 11/11/2021 [facility] DATE CREATED AUTHOR AUTHOR'S ORGANIZ ATION 07/30/2024 [facility] DATE CREATED AUTHOR AUTHOR'S ORGANIZ ATION 09/09/2024 [facility] DATE CREATED AUTHOR AUTHOR'S ORGANIZ ATION 09/30/2024 [facility] REASON FOR VISIT (unrecogniz ed section and [...] October 20, 2023 End: October 20, 2023 Face Painter Relationship Specialty Start Date End Date Vitaliy Dale MD [address] [facility] [place] [address] PCP - General Internal Medicine 08/19/22 Face Painter Relationship Specialty Start Date End Date Vitaliy Dale MD [address] [facility] [place] [address] PCP - General Internal Medicine 08/19/22 Face Painter Relationship Specialty Start Date End Date Vitaliy Dale MD [address] [facility] [place] [address] PCP - General Internal Medicine 08/19/22 Face Painter Relationship Specialty Start Date End Date Vitaliy Dale MD [address] [facility] [place] [address] PCP - General Internal Medicine 08/19/22 Face Painter Relationship Specialty Start Date End Date Vitaliy Dale DO PCP - General Internal Medicine 08/19/22 Face Painter Relationship Specialty Start Date End Date Vitaliy Dale DO [address] [facility] [place] [address] PCP - General Internal Medicine 08/19/22 Face Painter Relationship Specialty Start Date End Date Vitaliy Dale DO [address] [facility] [place] [address] PCP - General Internal Medicine 08/19/22 Team Status: Active Member Role Status Dates Vitaliy Dale DO Primary Care Provider Active Start: September 06, 2024 Kell Black APRN ORGAN FIXER-C Attending Provider Active Start: September 06, 2024 [...] BE BASED ON THE PRIMARY CLINICAL RECORDS. [facility] Your.MD [facility]. provides no warranty or guarantee of the accuracy or completeness of information in this document.
--- NOTE | 2024-11-22 07:16 | US_ITS ---
The [address] [address] Patient Name: RENATO ELLSWORTH MRN: [id number] date: 1970 Sex: F Assigned Patient Location: Current Patient Location: Accession/Order Number: [id number] Exam Date: 11/22/2024 07:20 Report Date: 11/22/2024 08:39 At the request of: PARIS CERDA DO Procedure: US pelvis transvaginal ULTRASOUND PELVIS TRANSVAGINAL COMPARISON: CT 07/12/2024 CLINICAL DATA: Right-sided pelvic pain. Previous hysterectomy and right oophorectomy Real-time ultrasound evaluation the pelvis was performed utilizing a transvaginal approach. The uterus is surgically absent. The left ovary is identified and it measures 2.1 x 1.1 x 1.8 cm. The right ovary is not seen compatible with history. There are no adnexal cysts or follicles. There is documentation of left ovarian blood flow with resistive index of 0.4. No free fluid is seen. US/US pelvis transvaginal IMPRESSION: NEGATIVE POST HYSTERECTOMY PELVIS. NO LEFT OVARIAN CYSTS. Impression dictated by: Ania Rivas M.D. 11/22/2024 8:39 AM Dictation Location: [place] [address] Electronically authenticated by: [id number] Y Date: 11/22/2024 08:39
== END 2024-11-22 07:12 | disposition home or self-care (01) ==
LOC: US 07:11
PROVIDERS: PCP Internal Medicine; Visit Provider Obstetrics & Gynecology
DX: N94.89 Other specified conditions associated with female genital organs and menstrual cycle (principal); R10.2 Pelvic and perineal pain; K76.0 Fatty (change of) liver, not elsewhere classified; Z90.710 Acquired absence of both cervix and uterus; Z90.721 Acquired absence of ovaries, unilateral
CPT/HCPCS: 76705; 76830; 77080